=== PATIENT | male | born 1960 | race Caucasian/White ===

== ENCOUNTER → 2023-01-17 | Outpatient (CLI) | payer BC, SELFPAY ==
--- NOTE | 2023-01-17 14:52 | CT_ITS ---
STUDY: LOW DOSE CT LUNG CANCER SCREENING REASON FOR EXAM: Male, 62 years old. Patient smoked half a pack per day for 30 years. RADIATION DOSAGE (If Supplied By Facility): CTDIvol = ( 4.02 ) mGy, DLP = ( 129.38 ) mGycm TECHNIQUE: No contrast was administered. Low dose technique was utilized (average mAS-38 and kVp 120). 1.25 mm axial source images with a slice interval of 1.25-mm were reconstructed in lung windows. 2.5 mm axial source images with a slice interval of 2.5-mm were reconstructed in lung windows. 5.0 mm axial source images with a slice interval of 5.0-mm were reconstructed in soft tissue windows. COMPARISON: None. NODULES: No suspicious nodules are seen. Emphysema: Unremarkable Endobronchial lesion: Unremarkable Aorta: Mild degree of atherosclerotic plaque formation of the aortic arch. CORONARY ARTERIES: Coronary artery calcification is seen. Heart: Unremarkable Pulmonary artery: Unremarkable. Mediastinal nodes: Small mediastinal lymph nodes. Other chest and abdominal findings: CT/Low Dose CT Lung Screening IMPRESSION: Lung-RADS category 2 - Continue annual screening with LDCT in 12 months. IMPORTANT NOTES FOR USE: ACR Lung-RADS Version 1.1 Assessment Categories Release Date: 2018 Category: Coded 0-4 bases on nodule(s) with highest degree of suspicion. Negative screen is defined as categories 1 and 2; a positive screen is defined as categories 3 and 4. Category 3 and 4A nodules that are unchanged on interval CT should be coded as category 2, and individuals returned to screening in 12 months. Category 4X: Category 3 or 4 nodules with additional imaging findings that increase the suspicion of lung cancer, such as spiculation, GGN that doubles in size in 1 year, enlarged lymph notes, etc. Category Modifiers: S (significant finding unrelated to lung cancer) Electronically Signed: Nico Tovar MD at 15:23 EST ,
== END | disposition home or self-care (01) ==
LOC: CT 14:49
PROVIDERS: PCP Family Medicine; Visit Provider Nurse Practitioner Acute Care
DX: F17.210 Nicotine dependence, cigarettes, uncomplicated (principal)
CPT/HCPCS: 71271

== ENCOUNTER → 2023-01-31 | Outpatient (CLI) | payer BC, SELFPAY | END | disposition home or self-care (01) | LOC: SL 20:20 | PROVIDERS: PCP Family Medicine; Referring Provider Nurse Practitioner Acute Care; Visit Provider Nurse Practitioner Acute Care | DX: G47.33 Obstructive sleep apnea (adult) (pediatric) (principal) | CPT/HCPCS: 95811 ==

== ENCOUNTER → 2023-03-17 | Outpatient (CLI) | payer BC, SELFPAY | END | disposition home or self-care (01) | LOC: SL 11:43 | PROVIDERS: PCP Family Medicine; Visit Provider Nurse Practitioner Acute Care | DX: Z46.89 Encounter for fitting and adjustment of other specified devices (principal) ==

== ENCOUNTER → 2023-04-18 | Outpatient (CLI) | payer BC, SELFPAY | END | disposition home or self-care (01) | LOC: SL 10:40 | PROVIDERS: PCP Family Medicine; Referring Provider Nurse Practitioner Acute Care; Visit Provider Nurse Practitioner Acute Care | DX: G47.33 Obstructive sleep apnea (adult) (pediatric) (principal) ==

== ENCOUNTER → 2024-03-19 | Outpatient (CLI) | payer BC, SELFPAY ==
--- NOTE | 2024-03-19 13:25 | CT_ITS ---
STUDY: LOW DOSE CT LUNG CANCER SCREENING REASON FOR EXAM: Male, 63 years old. smoker. Patient smoked 1 pack per day for 30 years. RADIATION DOSAGE (If Supplied By Facility): CTDIvol = ( 4.02 ) mGy, DLP = ( 132.40 ) mGycm TECHNIQUE: No contrast was administered. Low dose technique was utilized (average mAS-38 and kVp 120). 1.25 mm axial source images with a slice interval of 1.25-mm were reconstructed in lung windows. 2.5 mm axial source images with a slice interval of 2.5-mm were reconstructed in lung windows. 5.0 mm axial source images with a slice interval of 5.0-mm were reconstructed in soft tissue windows. COMPARISON: Comparison is made with prior study of January 17, 2023. NODULES: Total lung nodules (excluding granulomas): No suspicious nodules are seen. Emphysema: No significant emphysematous change. Endobronchial lesion: Unremarkable Aorta: Atherosclerotic plaque formation of the aortic arch. CORONARY ARTERIES: Coronary artery calcification is seen. Heart: Unremarkable Pulmonary artery: Unremarkable Mediastinal nodes: Small mediastinal lymph nodes Other chest and abdominal findings: CT/Low Dose CT Lung Screening IMPRESSION: Lung-RADS category 2 - Continue annual screening with LDCT in 12 months. IMPORTANT NOTES FOR USE: ACR Lung-RADS Version 1.1 Assessment Categories Release Date: 2018 Category: Coded 0-4 bases on nodule(s) with highest degree of suspicion. Negative screen is defined as categories 1 and 2; a positive screen is defined as categories 3 and 4. Category 3 and 4A nodules that are unchanged on interval CT should be coded as category 2, and individuals returned to screening in 12 months. Category 4X: Category 3 or 4 nodules with additional imaging findings that increase the suspicion of lung cancer, such as spiculation, GGN that doubles in size in 1 year, enlarged lymph notes, etc. Category Modifiers: S (significant finding unrelated to lung cancer) Electronically Signed: Nico Tovar MD at 10:19 EDT ,
== END | disposition home or self-care (01) ==
LOC: CT 13:24
PROVIDERS: PCP Family Medicine; Referring Provider Nurse Practitioner Acute Care; Visit Provider Nurse Practitioner Acute Care
DX: Z12.2 Encounter for screening for malignant neoplasm of respiratory organs (principal); F17.210 Nicotine dependence, cigarettes, uncomplicated
CPT/HCPCS: 71271

== ENCOUNTER → 2024-04-05 | Outpatient (CLI) | payer BC, SELFPAY | END | disposition home or self-care (01) | LOC: SL 09:57 | PROVIDERS: PCP Family Medicine; Referring Provider Nurse Practitioner Acute Care; Visit Provider Nurse Practitioner Acute Care | DX: Z46.89 Encounter for fitting and adjustment of other specified devices (principal) ==

== ENCOUNTER → 2025-05-03 | Outpatient (CLI) | payer MEDICARE, SELFPAY ==
--- NOTE | 2025-05-03 15:10 | CT_ITS ---
PROCEDURE: LOW DOSE CT LUNG SCREENING 05/03/2025 REASON FOR EXAM: SMOKER TECHNIQUE: LOW DOSE CT LUNG SCREENING Coronal and Sagittal reconstruction series were provided. One or more dose reduction techniques were used (e.g., Automated exposure control, adjustment of the mA and/or kV according to patient size, use of iterative reconstruction technique). REFERENCE LINK: [employer] Lung-RADS RADIATION DOSE SUMMARY: CTDlvol: 3.18 mGy DLP: 105.63 mGycm COMPARISON: 03/19/2024. FINDINGS: PULMONARY NODULES: (Only nodules >3mm are reported) Nodules described below are on series 2 unless otherwise specified. Pulmonary Nodules: None. Moderate coronary artery calcifications. Mild bilateral basilar atelectatic pulmonary changes. Normal unenhanced main pulmonary artery and right and left pulmonary arteries. Normal bilateral peripheral pulmonary arteries. Normal thoracic aorta and visualized great vessels. There is no demonstrated aortic aneurysm. Normal heart and pericardium. Normal mediastinum. Normal hilar regions. Normal visualized trachea and bronchi. The remaining lungs are well expanded. Normal remaining pulmonary parenchyma. Normal pleura. Normal visualized upper abdomen. CT/Low Dose CT Lung Screening IMPRESSION: Coronary artery calcification (CAC) is is present Lung-RADS Category: 2 BENIGN (BASED ON IMAGING FEATURES OR INDOLENT BEHAVIOR). RECOMMEND 12-MONTH SCREENING LDCT. Reading [facility] [place] [id number]
--- OUTSIDE RECORDS SUMMARY | 2025-05-03 19:27 | XMS RPT_ITS | CCD ---
Author Organization [facility] Care Team Providers Care Food Service Cashier Name Role Phone Charmaine Rios Primary Care Provider PROVIDER, UNKNOWN Primary Care Unavailable PROVIDER, UNKNOWN Referring Unavailable ATTJOS HARTLEY Attending Unavaila ble PROVIDER, UNKNOWN Referring Unavailable PROVIDER, UNKNOWN Primary Care Unavailable ATTAWAJOS WILLIAMSON Attending Unavaila ble PROVIDER, UNKNOWN Primary Care Unavailable PROVIDER, UNKNOWN Referring Unavailable BELINDA ADAMES Attending Unavailable PROVIDER, UNKNOWN Primary Care Unavailable PROVIDER, UNKNOWN Referring Unavailable ATTJOS HARTLEY Attending Unavaila ble Royal JET ENGINE MECHANIC, JET ENGINE MECHANIC-C Karyn Attending Provider Royal JET ENGINE MECHANIC, JET ENGINE MECHANIC-C Karyn Attending Provider Charmaine Rios MD Primary Care Provider Baljit Hood MD Unavailable Charmaine Rios MD Primary Care Provider Baljit Hood MD Unavailable Balijt Hood MD Unavailable Dr. Charmaine Rios Primary Care Provider Dr. Charmaine Rios Referring Provider Royal JET ENGINE MECHANIC, JET ENGINE MECHANIC-C Karyn Attending Provider Charmaine Rios MD Primary Care Provid er CHARMAINE RIOS Primary Care Charmaine Guillen MD Primary Care Provider ANDREIA ORDONEZ Attending Unavailable CHARMAINE RIOS Primary Care CHARMAINE Guillen Primary Care KAROL Webb Referring Unavailable CHARMAINE RIOS Primary Care Unavailable LORA LEZAMA Attending Unavailable CHARMAINE RIOS Primary Care Unavailable LORA LEZAMA Attending Unavailable BALJIT HOOD Attending Unavailable CHARMAINE RIOS Primary Care Unavailable BALJIT HOOD Referring Unavailable CHARMAINE RIOS Primary Care Unavailable AGUILAR PARSONS Attending Unavailable AGUILAR PARSONS Admitting Unavailable ANDREIA ORDONEZ Referring Unavailable CHARMAINE IROS Primary Care Unavailable BALJIT HOOD Attending Unavailable Royal JET ENGINE MECHANIC, Karyn Referring Unavailable Royal JET ENGINE MECHANIC, Karyn Attending Unavailable Charmaine Rios Primary Care Unavailable Allergies Allergy Classification Reported Allergen(s) Allergy Type Date of Onset Reaction(s) Facility (8 sources) tamsulosin Drug Allergy 11-07-2024 Other [facility] (8 sources) Semaglutide Allergy to substance 10-17-2024 Other [facility] Medications Current Medications Medication Drug Class(es) Dates Sig (Normalized) Sig (Original) acetaminophen 325 mg / HYDROcodone bitartrate 7.5 mg oral tablet (1 source) Opioid Agonist Start: 09-04-2019 End: 09-10-2019 take 1 tablet by mouth every six hours as needed for pain HYDROcodone-acetam inophen (NORCO) 7.5-325 MG per tablet Indications: Ventral hernia without obstruction or gangrene Take 1 tablet by mouth every 6 hours as needed for Pain for up to 6 days. 24 tablet 0 09/04/2019 09/10/2019 Active 24 hr alfuzosin hydrochloride 10 mg extended release oral tablet (20 sources) alpha-Adrenergic Brit Start: 10-13-2022 End: 01-06-2024 take 1 tablet by mouth once daily alfuzosin ER (Uroxatral) 10 MG 24 hr tablet Indications: Hypertrophy of prostate with urinary obstruction Take 1 tablet (10 mg) by mouth daily. 90 tablet 3 10/29/2022 Active Start: 05-02-2020 End: 12-31-2021 take 1 tablet by mouth once daily alfuzosin (UROXATRAL) 10 MG extended release tablet Indications: Benign prostatic hyperplasia with urinary obstruction Take 1 tablet by mouth daily 90 tablet 3 10/02/2021 12/31/2021 Active Start: 07-17-2019 take 1 tablet by ilda once daily alfuzosin (UROXATRAL) 10 MG extended release tablet take 1 tablet by mouth once daily 90 tablet 3 07/17/2019 Active Start: 07-13-2018 take 1 tablet by ilda th once daily alfuzosin (UROXATRAL) 10 MG extended release tablet Take 1 tablet by mouth daily 90 tablet 3 07/13/2018 Active ascorbic acid 60 mg / beta carotene 5000 unt / copper sulfate 40 mg / dl-alpha tocopheryl acetate 30 unt / sodium selenite 0.04 mg / zinc oxide 40 mg oral tablet (6 sources) Vitamin C take 1 tablet by mouth once daily Multiple Vitamins-Minerals (THERAPEUTIC MULTIVITAMIN-MINERALS) tablet Take 1 tablet by mouth daily 0 Active benzonatate 100 mg oral capsule (3 sources) Non-narcotic Antitussive Start: 024 take 1 capsule by mouth every eight hours as needed benzonatate (TESSALON PERLE) 100 mg capsule Indications: Sinobronchitis Take 1-2 capsules by mouth every 8 hours as needed. 30 capsule 09/19/2024 Active Citric Acid (3 sources) Calculi Dissolution Agent, Anti-coagulant CITRIC ACID MISC 1 t ablet twice daily. Active citric acid 66.8 mg/ml / potassium citrate 220 mg/ml oral solution (20 sources) Calculi Dissolution Agent, Anti-coagulant Start: 021 take 1 tablet by mouth twice daily citric acid-potassium citrate (Polycitra) 1100-334 MG/5ML solution Take by mouth. 10mg tablet twice a day. Pt no longer takes as a solution. 0 10/02/2021 Active Start: 10-02-2021 citric acid-po tassium citrate (Polycitra) 1100-334 MG/5ML solution Take 10 mEq by mouth. 0 10/02/2021 Active Start: 08-19-2021 End: 12-31-2021 take 5 mL by mouth three times daily at mealtime citric acid-potassium citrate (POLYCITRA) 1100-334 MG/5ML solution Indications: Calculus, bladder Take 5 mLs by mouth 3 times daily (with meals) 473 mL 3 10/02/2021 12/31/2021 Active 1 ml diphenhydrAMINE hydrochloride 50 mg/ml cartridge (2 sources) Histamine-1 Receptor Antagonist Start: 09-29-2020 End: 09-29-2020 diphenhydrAMINE (BENADRYL) injection 12.5 mg Start: 09-04-2019 End: 09-04-2019 diphenhydrAMINE (BENADRYL) i njection 12.5 mg doxycycline monohydrate 100 mg oral capsule (3 sources) Tetracycline-class Drug Start: 09-19-2024 End: 09-29-2024 take 1 capsule by mouth twice daily doxycycline monohydrate (MONODOX) 100 mg capsule Indications: Sinobronchitis Take 1 capsule by mouth two times a day for 10 days. 20 capsule 09/19/2024 09/29/2024 Active ezetimibe 10 mg / simvastatin 40 mg oral tablet (20 sources) HMG-CoA Reductase Inhibitor, Dietary Cholesterol Absorption Inhibitor Start: 11-15-2016 End: 09-04-2019 take 1 tablet by mouth once daily ezetimibe-simvastat in (Vytorin) 10-40 MG tablet Take 1 tablet by mouth Nightly. 11/15/2016 Active flecainide acetate 100 mg oral tablet (3 sources) Antiarrhythmic Start: 08-20-2021 take 1 tablet by mouth every twelve hours flecainide (TAMBOCOR) 100 MG tablet Take 1 tablet by mouth every 12 hours 60 tablet 3 08/20/2021 Active Start: 08-18-2021 take 1 tablet by ilda th every twelve hours flecainide (TAMBOCOR) 50 MG tablet Take 1 tablet by mouth every 12 hours 60 tablet 3 08/18/2021 Active Start: 08-18-2021 flecainide (TA MBOCOR) tablet 50 mg fluocinolone acetonide 0.1 mg/ml otic solution (9 sources) Corticosteroid Start: 06-12-2019 fluocinolone (DERMOTIC) 0.01 % OIL oil Place 3 drops in ear(s) as needed 0 06/12/2019 Active 1 ml hydrALAZINE hydrochloride 20 mg/ml injection (2 sources) Arteriolar Vasodilator Start: 09-29-2020 hydrALA ZINE (APRESOLINE) injection 5 mg Start: 09-04-2019 hydrALAZINE (A PRESOLINE) injection 5 mg 1 ml HYDROmorphone hydrochloride 1 mg/ml cartridge (6 sources) Opioid Agonist Start: 09-29-2020 HYDROmorphone (DILAUDID) injection 0.25 mg Start: 09-29-2020 HYDROmorphone (DILAUDID) injection 0.5 mg Start: 09-04-2019 HYDROmorphone (DILAUDID) injection 0.25 mg Start: 09-04-2019 HYDROmorphone (DILAUDID) injection 0.5 mg Start: 09-04-2019 HYDROmorphone (DILAUDID) injection 1 mg 4 ml labetalol hydrochloride 5 mg/ml cartridge (2 sources) beta-Adrenergic Brit Start: 09-29-2020 labetalol (NORMODYNE;TRANDATE) injection 5 mg Start: 09-04-2019 labetalol (NOR MODYNE;TRANDATE) injection 5 mg 10 ml lidocaine hydrochloride 10 mg/ml injection (2 sources) Antiarrhythmic, Amide Local Anesthetic Start: 09-29-2020 End: 09-29-2020 lidocaine PF 1 % injection 1 mL Start: 09-04-2019 End: 09-04-2019 lidocaine PF 1 % injection 1 mL 1 ml meperidine hydrochloride 25 mg/ml cartridge (2 sources) Opioid Agonist Start: 09-29-2020 meperidine (DE MEROL) injection 12.5 mg Start: 09-04-2019 meperidine (DE MEROL) injection 12.5 mg metFORMIN hydrochloride 500 mg oral tablet (20 sources) Biguanide Start: 12-20-2022 End: 09-09-2023 take 1 tablet by mouth at dinner metFORMIN (Glucophage) 500 MG tablet TAKE 1 TABLET BY MOUTH at dinner meal 12/20/2022 Active take 1 tablet by ilda th once daily at dinner metFORMIN ER (GLUMETZA) 500 mg 24 hr tab let Take 500 mg by mouth daily with dinner. Active Multiple Vitamins-Minerals (THERAPEUTIC MULTIVITAMIN-MINERALS) tablet (4 sources) take 1 tablet by mouth once daily Multiple Vitamins-Minerals (THERAPEUTIC MULTIVITAMIN-MINERALS) tablet Take 1 tablet by mouth daily 0 Active Multivitamin preparation (4 sources) Start: 12-29-19 take 1 tablet by mouth once daily Multivitamin Active 1 TABLET PO DAILY December 29, 2022 1:00am Start: 12-29-2022 take 1 tablet by ilda th once daily Multivitamin Active 1 TABLET PO DAILY December 29, 2022 12:00am 2 ml ondansetron 2 mg/ml injection (2 sources) Serotonin-3 Receptor Antagonist Start: 09-29-2020 End: 09-29-2020 ondansetron (ZOFRAN) injection 4 mg Start: 09-04-2019 End: 09-04-2019 ondansetron (ZOFRAN) injecti on 4 mg 24 hr oxybutynin chloride 10 mg extended release oral tablet (20 sources) Cholinergic Muscarinic Antagonist Start: 10-13-2022 End: 01-06-2024 take 1 tablet by mouth once daily in the morning oxybutynin XL (Ditropan-XL) 10 MG 24 hr tablet Indications: Hypertrophy of prostate with urinary obstruction Take 1 tablet (10 mg) by mouth daily. Take 1 tablet by mouth in the morning. 90 tablet 3 10/29/2022 Active Start: 10-02-2021 take 1 tablet by ilda th once daily oxybutynin (DITROPAN-XL) 10 MG extended release tablet Indications: Benign prostatic hyperplasia with urinary obstruction TAKE 1 TABLET BY MOUTH EVERY DAY 90 tablet 3 10/02/2021 Active Start: 09-09-2020 take 1 tablet by ilda th once daily oxybutynin (DITROPAN-XL) 10 MG extended release tablet Indications: Benign prostatic hyperplasia with urinary obstruction take 1 tablet by mouth once daily 90 tablet 3 09/09/2020 Active Start: 06-12-2020 take 1 tablet by ilda th once daily oxybutynin (DITROPAN-XL) 10 MG extended release tablet take 1 tablet by mouth once daily 90 tablet 3 06/12/2020 Active Start: 06-14-2019 take 1 tablet by ilda th once daily oxybutynin (DITROPAN-XL) 10 MG extended release tablet take 1 tablet by mouth once daily 90 tablet 3 06/14/2019 Active phenazopyridine hydrochloride 200 mg delayed release oral tablet (4 sources) Start: 09-09-2023 End: 09-12-2023 take 1 tablet by mouth three times daily phenazopyridine (Pyridium) 200 MG tablet Take 1 tablet (200 mg) by mouth 3 times daily for 3 days. 10 tablet 0 09/09/2023 09/12/2023 Active Start: 09-08-2023 End: 09-09-2023 take 100 mg by mouth three times daily at mealtime 100 mg, Oral, 3 times daily with meals, First dose on Phyllis 09/08/23 at 1845, Recovery & On Unit Start: 09-29-2020 End: 10-02-2020 take 1 tablet by mouth three times daily as needed for pain phenazopyridine (PYRIDIUM) 200 MG tablet Take 1 tablet by mouth 3 times daily as needed for Pain 9 tablet 0 09/29/2020 10/02/2020 Active Start: 09-17-2020 End: 09-22-2020 take 2 tablets by mouth three times daily as needed for pain phenazopyridine (PYRIDIUM) 100 MG tablet Indications: Dysuria Take 2 tablets by mouth 3 times daily as needed for Pain 15 tablet 0 09/17/2020 09/22/2020 1 ml promethazine hydrochloride 25 mg/ml injection (2 sources) Phenothiazine Start: 09-29-2020 End: 09-29-2020 promethazine (PHENERGAN) injection 6.25 mg Start: 09-04-2019 End: 09-04-2019 promethazine (PHENERGAN) inj ection 6.25 mg sotalol hydrochloride 120 mg oral tablet (20 sources) Antiarrhythmic Start: 12-29-2022 End: 09-05-2023 take 120 mg by mouth twice daily Sotalol Discontinued 120 MG PO TWICE A DAY December 29, 2022 1:00am September 05, 2023 10:21am Start: 08-04-2022 End: 03-18-2023 take 1 tablet by mouth every twelve hours sotalol (Betapace) 120 MG tablet TAKE 1 TABLET BY MOUTH EVERY 12 HOURS 180 tablet 0 01/10/2023 Active Start: 01-19-2022 take 1 tablet by ilda th every twelve hours sotalol (BETAPACE) 120 MG tablet Take 1 tablet by mouth every 12 hours 180 tablet 1 01/19/2022 Active Start: 09-11-2021 take 1 tablet by ilda th every twelve hours sotalol (BETAPACE) 120 MG tablet Take 1 tablet by mouth every 12 hours 180 tablet 1 09/11/2021 Active sulfamethoxazole 800 mg / trimethoprim 160 mg oral tablet (2 sources) Dihydrofolate Reductase Inhibitor Antibacterial, Sulfonamide Antimicrobial Start: 09-17-2020 End: 09-27-2020 take 1 tablet by mouth twice daily sulfamethoxazole-trimethoprim (BACTRIM DS) 800-160 MG per tablet Indications: Chronic prostatitis Take 1 tablet by mouth 2 times daily for 10 days 20 tablet 0 09/17/2020 09/27/2020 Active Start: 09-04-2019 End: 09-09-2019 take 1 tablet by mouth twice daily sulfamethoxazole-trimethoprim (BACTRIM D S) 800-160 MG per tablet Take 1 tablet by mouth 2 times daily for 5 days 10 tablet 0 09/04/2019 09/09/2019 Active varenicline 0.5 mg oral tablet (2 sources) Partial Cholinergic Nicotinic Agonist Start: 09-23-2021 varenicline (CHANTIX STARTING MONTH ) 0.5 MG X 11 & 1 MG X 42 tablet Take by mouth. 1 box 0 09/23/2021 Active Start: 09-23-2021 take 1 tablet by ilda th twice daily varenicline (CHANTIX CONTINUING MONTH ) 1 MG tablet Take 1 tablet by mouth 2 times daily 60 tablet 3 09/23/2021 Active Completed/Discontinued Medications Medication Drug Class(es) Dates Sig (Normalized) Sig (Original) acetaminophen 325 mg oral tablet (8 sources) Start: 09-08-2023 End: 09-09-2023 take 1 tablet by mouth every four hours as needed for pain 650 mg, Oral, Every 4 hours PRN, mild pain (1-3), Pain (1-10), Starting on Phyllis 09/08/23 at 1835, Phase II/On Unit, Give in addition to any other pain medication ordered at same time for any pain indication. Start: 09-08-2023 End: 09-08-2023 acetaminophen (Tylenol) tabl et 1,000 mg Start: 03-30-2023 End: 03-30-2023 acetaminophen (Tylenol) tabl et 1,000 mg Start: 11-30-2022 End: 11-30-2022 take 1 tablet by mouth every four hours as needed for pain acetaminophen (Tylenol) tablet 650 mg Start: 09-29-2020 End: 09-29-2020 acetaminophen (TYLENOL) tabl et 1,000 mg Start: 09-04-2019 End: 09-04-2019 acetaminophen (TYLENOL) tabl et 1,000 mg ALPRAZolam 0.25 mg disintegrating oral tablet (3 sources) Benzodiazepine Start: 09-08-2023 End: 09-08-2023 ALPRAZolam (Xanax) disintegrating tablet 0.25 mg Start: 09-29-2020 ALPRAZolam (NI RAVAM) dissolvable tablet 0.25 mg Start: 09-04-2019 ALPRAZolam (NI RAVAM) dissolvable tablet 0.25 mg apixaban 5 mg oral tablet (20 sources) Factor Xa Inhibitor Start: 11-08-2024 End: 04-03-2025 take 1 tablet by mouth twice daily apixaban (Eliquis) 5 MG tablet Indications: Atrial fibrillation with RVR (HCC) Take 1 tablet (5 mg) by mouth 2 times daily. 180 tablet 3 12/05/2024 04/03/2025 Discontinued Start: 02-14-2024 End: 03-23-2024 take 1 tablet by mouth twice daily Apixaban (Eliquis) 5 mg tablet Active 5 MG PO TWICE A DAY March 22, 2024 12:00am Start: 12-30-2022 End: 09-05-2023 take 1 tablet by mouth once Apixaban (Eliquis) 5 mg ta blet Discontinued 5 MG PO ONCE December 30, 2022 1:00am September 05, 2023 10:20am Start: 09-28-2022 End: 03-18-2023 take 1 tablet by mouth in the morning Eliquis 5 MG tablet Indications: Paroxysmal atrial fibrillation (CMS/HCC) (HCC) Take 1 tablet (5 mg) by mouth in the morning and 1 tablet (5 mg) before bedtime. 180 tablet 3 12/15/2022 Active Start: 07-02-2021 take 1 tablet by ilda th twice daily ELIQUIS 5 MG TABS tablet Indications: Anticoagulated , Paroxysmal atrial fibrillation (HCC) take 1 tablet by mouth twice a day 180 tablet 3 07/02/2021 Active Start: 06-18-2021 take 1 tablet by ilda th twice daily ELIQUIS 5 MG TABS tablet take 1 tablet by mouth twice a day 0 06/18/2021 Active aspirin 81 mg oral tablet (2 sources) Platelet Aggregation Inhibitor, Nonsteroidal Anti-inflammatory Drug Start: 02-19-2019 End: 08-29-2019 take 1 tablet by mouth once daily aspirin 81 MG tablet Take 1 tablet by mouth daily 30 tablet 3 02/19/2019 08/29/2019 Discontinued (LIST CLEANUP) bacitracin 0.5 unt/mg topical ointment (1 source) Start: 09-08-2023 End: 09-09-2023 Topical, Every 4 hours PRN, wound care, Meatal irritation, Starting on Phyllis 09/08/23 at 1835, Phase II/On Unit, May administer BID and PRN for urethral meatus care. 24 hr buPROPion hydrochloride 150 mg extended release oral tablet (8 sources) Aminoketone End: 09-29-2020 take 1 tablet by mouth once daily in the morning buPROPion (WELLBUTRIN XL) 150 MG extended release tablet Take 150 mg by mouth every morning 0 09/29/2020 Discontinued calcium chloride 0.0014 meq/ml / potassium chloride 0.004 meq/ml / sodium chloride 0.103 meq/ml / sodium lactate 0.028 meq/ml injectable solution (5 sources) Start: 09-08-2023 End: 09-08-2023 lactated Ringer's (LR) infusion Start: 03-30-2023 End: 03-30-2023 lactated Ringer's (LR) infus ion Start: 09-29-2020 lactated ringe rs infusion Start: 09-04-2019 lactated ringe rs infusion cefTRIAXone (Rocephin) 1,000 mg in sodium chloride 0.9 % 50 mL IVPB Mini-Bag Plus (1 source) Start: 09-09-2023 End: 09-09-2023 1,000 mg, IntraVENous, at 100 mL/hr, Administer over 30 Minutes, Every 24 hours, First dose on Tue09/09/23 at 0900, For 1 dose, Phase II/On Unit, Mini-Bag Plus bag, Suspected Indication (Select all that apply): Surgical Prophylaxis dilTIAZem (Cardizem) infusion 125 mg in 0.9% sodium chloride 125 mL (premix) (2 sources) Start: 11-07-2024 End: 11-08-2024 2.5-15 mg/hr (2.5-15 mL/hr), IntraVENous, Continuous, Starting on Tue11/07/24 at 1735, If Titrate Infusion? is No: Disregard instructions below. If Titrate infusion? is Yes: Titrate in increments of 2.5 mg/hr no more frequently than every 30 minutes to goal of therapy., Titrate Infusion? Yes, Initial Infusion Dose: 5 mg/hr, Goal of Therapy is: HR less than 100 bpm, Other: Start at 5mg/hr, HOLD for: SBP less than 90 mmHg 0.8 ml enoxaparin sodium 150 mg/ml prefilled syringe (1 source) Low Molecular Weight Heparin Start: 08-18-2021 End: 08-18-2021 enoxaparin (LOVENOX) injection 105 mg Start: 08-18-2021 End: 08-18-2021 enoxaparin (LOVENOX) injecti on 105 mg ezetimibe (3 sources) Dietary Cholesterol Absorption Inhibitor Start: 11-07-2024 End: 11-08-2024 ezetimibe (Zetia) tablet 10 mg Start: 09-08-2023 End: 09-09-2023 ezetimibe (Zetia) tablet 10 mg famotidine 20 mg oral tablet (5 sources) Histamine-2 Receptor Antagonist Start: 09-08-2023 End: 09-08-2023 famotidine (Pepcid) tablet 20 mg Start: 03-30-2023 End: 03-30-2023 famotidine (Pepcid) tablet 2 0 mg Start: 09-29-2020 End: 09-29-2020 famotidine (PEPCID) tablet 2 0 mg Start: 09-04-2019 End: 09-04-2019 famotidine (PEPCID) tablet 2 0 mg 2 ml fentaNYL 0.05 mg/ml injection (3 sources) Opioid Agonist Start: 09-08-2023 End: 09-08-2023 fentaNYL (Sublimaze) injection 50 mcg Start: 09-29-2020 fentaNYL (SUBL IMAZE) injection 50 mcg Start: 09-29-2020 fentaNYL (SUBL IMAZE) injection 25 mcg gabapentin 100 mg oral capsule (4 sources) Anti-epileptic Agent Start: 09-08-2023 End: 09-08-2023 gabapentin (Neurontin) capsule 100 mg Start: 03-30-2023 End: 03-30-2023 gabapentin (Neurontin) capsu le 100 mg Start: 09-29-2020 End: 09-29-2020 gabapentin (NEURONTIN) capsu le 100 mg gadobenate dimeglumine (MULTIHANCE) injection 20 mL (1 source) Start: 02-01-2020 End: 02-01-2020 gadobenate dimeglumine (MULTIHANCE) injection 20 mL gadobutrol (GADAVIST) injection 10 mL (1 source) Start: 06-29-2021 End: 06-29-2021 gadobutrol (GADAVIST) injection 10 mL gadobutrol (Gadavist) injection 10 mL (2 sources) Start: 02-22-2023 End: 02-22-2023 gadobutrol (Gadavist) injection 10 mL 250 ml heparin sodium, porcine 100 unt/ml injection (4 sources) Unfractionated Heparin, Anti-coagulant Start: 11-07-2024 End: 11-08-2024 5-30 Units/kg/hr 104 kg (5.2-31.2 mL/hr), IntraVENous, Continuous, Starting on Tue11/07/24 at 1745, LOW Dose Heparin Weight Based Dosing (CAD/STEMI/NSTEMI/PARUL B/ECMO) >>>>Initial dose: 9 units/kg/hr 95.9 Hold heparin for 60 min Decrease infusion by 2 units/kg/hr - notify prescriber; Check aPTT: 6 hours after initiation and 6 hours after every dose change - every 12 hrs x 1 day after 2 consecutive therapeutic aPTT - daily after every 12 hrs x 1 day is complete. Start: 11-07-2024 End: 11-08-2024 2,000 Units, IntraVENous, As needed, heparin dosing algorithm, Starting on Tue11/07/24 at 1743, Half dose re-bolus based on pharmacy algorithm hyoscyamine sulfate 0.125 mg sublingual tablet (1 source) Start: 09-08-2023 End: 09-09-2023 take 1 tablet under the tongue every four hours as needed for muscle spasms 125 mcg, SubLINGual, Every 4 hours PRN, bladder spasms, Starting on Phyllis 09/08/23 at 1835, Phase II/On Unit Insulin Lispro (Humalog) injection 0-6 Units (2 sources) Start: 11-08-2024 End: 11-08-2024 Insulin Lispro (Humalog) injection 0-6 Units iopamidol (Isovue-370) 76 % injection 75 mL (2 sources) Start: 05-02-2023 End: 05-02-2023 iopamidol (Isovue-370) 76 % injection 75 mL 24 hr metoprolol succinate 25 mg extended release oral tablet (20 sources) beta-Adrenergic Brit Start: 11-09-2024 End: 12-05-2025 take 1 tablet by mouth once daily metoprolol succinate XL (Toprol-XL) 25 MG 24 hr tablet Take 1 tablet (25 mg) by mouth daily. Do not crush or chew. 90 tablet 3 12/05/2024 04/03/2025 Discontinued Start: 11-07-2024 End: 11-08-2024 take 25 mg by mouth twice daily 25 mg, Oral, 2 times d aily, First dose on Tue11/07/24 at 2100 Start: 02-14-2024 End: 03-23-2024 take 50 mg by mouth twice daily Metoprolol Tartrate Ac tive 50 MG PO TWICE A DAY March 22, 2024 12:00am Start: 08-18-2021 take 1 tablet by ilda th twice daily metoprolol (LOPRESSOR) 25 MG tablet Take 1 tablet by mouth 2 times daily 180 tablet 2 08/18/2021 Active Start: 08-04-2021 End: 08-18-2021 take 1 tablet by mouth twice daily metoprolol (LOPRESSOR) 100 MG tablet Take 1 tablet by mouth 2 times daily 180 tablet 1 08/04/2021 08/18/2021 Discontinued (REORDER) Start: 02-19-2019 take 1 tablet by ilda th twice daily metoprolol tartrate (LOPRESSOR) 25 MG tablet Take 1 tablet by mouth 2 times daily 60 tablet 3 02/19/2019 Active take 1 tablet by ilda th twice daily metoprolol tartrate (LOPRESSOR) 50 MG tablet Take 50 mg by mouth 2 times daily 0 Active ondansetron ODT (Zofran-ODT) disintegrating tablet 4 mg (1 source) Start: 09-08-2023 End: 09-09-2023 take 1 tablet by mouth every eight hours as needed for nausea and vomiting ondansetron ODT (Zofran-ODT) disintegrating tablet 4 mg oxyCODONE hydrochloride 5 mg oral tablet (3 sources) Opioid Agonist Start: 09-08-2023 End: 09-09-2023 take 1 tablet by mouth every four hours as needed for pain and pain 5 mg, Oral, Every 4 hours PRN, moderate pain (4-6), severe pain (7-10), Starting on Phyllis 09/08/23 at 1835, Phase II/On Unit Start: 09-29-2020 End: 09-29-2020 oxyCODONE (ROXICODONE) immed iate release tablet 5 mg Start: 09-04-2019 End: 09-04-2019 oxyCODONE (ROXICODONE) immed iate release tablet 5 mg pantoprazole 40 mg delayed release oral tablet (12 sources) Proton Pump Inhibitor Start: 11-30-2022 End: 11-30-2023 take 40 mg by mouth once daily Pantoprazole Discontinued 40 MG PO DAILY December 30, 2022 1:00am September 05, 2023 10:21am perflutren lipid microspheres (DEFINITY) injection 1.65 mg (1 source) Start: 08-18-2021 End: 08-18-2021 perflutren lipid microspheres (DEFINITY) injection 1.65 mg perflutren protein A microsphere ([facility]) 3 mL in sodium chloride (PF) 0.9 % 10 mL IV syringe (2 sources) Start: 11-08-2024 End: 11-08-2024 0-10 mL, IntraVENous, IMG once PRN, other, Suboptimal echo image, Starting on Phyllis 11/08/24 at 0711, For 1 dose, CV Procedural Medications, Administer via slow IVP for suboptimal echocardiogram enhancement. May administer as divided doses to reach optimal image enhancement polyethylene glycol 3350 [id number] mg powder for oral solution (1 source) Osmotic Laxative Start: 09-08-2023 End: 09-09-2023 take 17 g by mouth every twenty-four hours as needed for constipation 17 g, Oral, Daily PRN, constipation, Starting on Phyllis 09/08/23 at 1835, Phase II/On Unit, 1st line for treatment of constipation - give scheduled if no bowel movement in past 24 hours. potassium citrate 10 meq extended release oral tablet (20 sources) Start: 11-08-2024 End: 11-08-2024 10 mEq, Oral, 3 times daily with meals, First dose (after last modification) on Phyllis 11/08/24 at 1200, Do not crush, chew, or split. Start: 07-09-2024 End: 01-03-2025 take 1 tablet by mouth twice daily at mealtime potassium citrate CR (Urocit-K-15) 15 mEq ER tablet Indications: History of urinary calculi Take 1 tablet (15 mEq) by mouth 2 times daily (with meals). 180 tablet 3 10/05/2024 01/03/2025 Active Start: 12-29-2022 take 1 tablet by ilda th twice daily at mealtime potassium citrate CR (Urocit-K-15) 15 mEq ER tablet TAKE 1 TABLET BY MOUTH TWICE DAILY with meals 180 tablet 0 01/10/2023 Active Start: 01-08-2022 take 1 tablet by ilda th twice daily at mealtime Potassium Citrate ER 15 MEQ (1620 MG) TBCR Indications: High uric acid in 24 hour urine specimen take 1 tablet by mouth twice a day with meals 60 tablet 5 01/08/2022 Active Start: 01-07-2021 take 1 tablet by ilda th twice daily at mealtime Potassium Citrate ER 15 MEQ (1620 MG) TBCR Indications: High uric acid in 24 hour urine specimen Take 15 mEq by mouth 2 times daily (with meals) 60 tablet 5 01/07/2021 Active potassium citrat e CR (Urocit-K-15) 15 MEQ (1620 MG) ER tablet Take 15 mEq by mouth Once. Active 20 ml propofol 10 mg/ml injection (6 sources) General Anesthetic Start: 11-08-2024 End: 11-08-2024 IntraVENous, Code/trauma/sedation medication, Starting on Phyllis 11/08/24 at 1140 Start: 11-08-2024 End: 11-08-2024 Starting on Phyllis 11/08/24 at 1142, For 1 dose, Chloe Marie: cabinet override General Anesthetic - do not give without appropriate ventilation support. semaglutide 7 mg oral tablet (5 sources) Start: 01-04-2024 End: 10-05-2024 Rybelsus 7 MG tablet 024 10/05/2024 Discontinued (Therapy completed) 5 ml sodium chloride 9 mg/ml injection (19 sources) Start: 09-08-2023 End: 09-09-2023 10 mL, IntraVENous, Every 12 hours scheduled (2 times per day), First dose on Phyllis 09/08/23 at 2100, Phase II/On Unit Start: 09-08-2023 End: 09-09-2023 3,000 mL, Irrigation, Continuous, Starting on Phyllis 09/08/23 at 1845, Recovery & On Unit Start: 09-08-2023 End: 09-09-2023 take 50 mL intravenously every hour 50 mL/hr, IntraVEN ous, Continuous, Starting on Phyllis 09/08/23 at 1845, Phase II/On Unit Start: 09-08-2023 End: 09-09-2023 take 100 mL intravenously every hour as needed, then take 20 mL intravenously every hour as needed 5-250 mL/hr, IntraVENous, PRN, if patient receiving piggyback infusions and maintenance fluids are not ordered OR KVO fluids to protect IV site / prevent frequent line interruptions/ long duration, Starting on Phyllis 09/08/23 at 1835, Phase II/On Unit, For piggyback infusion, administer at same rate as piggyback for a total of 25 mL. Enter 25 mL into dose field and piggyback rate into rate field of order. If piggyback is infusing at a rate less than 100 mL/hr, enter 25 mL into dose field and 100 mL/hr into rate field of order. For KVO fluids, enter rate of 20 mL/hr or less into rate field of order. Start: 09-08-2023 End: 09-09-2023 take 10 mL intravenously once as needed 10 mL, IntraVENous, PRN, line care, Starting on Phyllis 09/08/23 at 1835, Phase II/On Unit, After every IV line use Start: 08-25-2021 sodium chlorid e flush 0.9 % injection 5-40 mL Start: 08-25-2021 0.9 % sodium c hloride infusion Start: 08-25-2021 sodium chlorid e flush 0.9 % injection 5-40 mL Start: 08-18-2021 0.9 % sodium c hloride infusion Start: 08-18-2021 sodium chlorid e flush 0.9 % injection 5-40 mL Start: 09-29-2020 sodium chlorid e flush 0.9 % injection 10 mL Start: 09-04-2019 sodium chlorid e flush 0.9 % injection 10 mL Problems Active Problems Problem Classification Problem Date Documented Date Episodic/Chronic Alcohol-related disorders (4 sources) Alcohol abuse; Translations: [Alcohol abuse, uncomplicated] Onset: 11-28-2024 11-27-2024 Chronic Cardiac dysrhythmias (20 sources) Atrial fibrillation with rapid ventricular response; Translations: [Unspecified atrial fibrillation] Onset: 02-17-2019 Resolved: 01-13-2023 02-17-2019 Chronic Chronic obstructive pulmonary disease and bronchiectasis (1 source) Bronchitis, not specified as acute or chronic; Translations: [Sinobronchitis] Onset: 09-26-2024 Episodic Diabetes mellitus without complication (2 sources) Type 2 diabetes mellitus without complication; Translations: [Type 2 diabetes mellitus without complications] 04-28-2023 Chronic Disorders of lipid metabolism (20 sources) Mixed hyperlipidemia; Translations: [Mixed hyperlipidemia] Onset: 06-25-2021 06-25-2021 Chronic Genitourinary symptoms and ill-defined conditions (20 sources) Urge incontinence of urine; Translations: [Urge incontinence] Onset: 07-13-2018 07-13-2018 Chronic Hyperplasia of prostate (20 sources) Benign prostatic hyperplasia; Translations: [Benign prostatic hypertrophy with outflow obstruction] Onset: 05-03-2017 05-03-2017 Chronic Other diseases of kidney and ureters (1 source) Disorder of urinary tract; Translations: [Other obstructive and reflux uropathy] 09-08-2023 Episodic Other nutritional; endocrine; and metabolic disorders (20 sources) Obesity; Translations: [Other obesity due to excess calories] Onset: 06-25-2021 06-25-2021 Chronic Other nutritional; endocrine; and metabolic disorders (3 sources) Obesity, unspecified; Translations: [Obesity, unspecified] 12-30-2022 Chronic Other nutritional; endocrine; and metabolic disorders (20 sources) Obesity caused by energy imbalance; Translations: [Other obesity due to excess calories] Onset: 06-25-2021 08-27-2022 Chronic Other upper respiratory infections (3 sources) Chronic sinusitis; Translations: [Chronic sinusitis, unspecified] Onset: 09-26-2024 09-19-2024 Chronic Residual codes; unclassified (20 sources) Obstructive sleep apnea syndrome; Translations: [Obstructive sleep apnea (adult) (pediatric)] Onset: 06-25-2021 06-25-2021 Chronic Residual codes; unclassified (8 sources) Obstructive sleep apnea (adult) (pediatric); Translations: [Obstructive sleep apnea (adult)(pediatric)] Onset: 08-25-2021 Chronic Spondylosis; intervertebral disc disorders; other back problems (4 sources) Degeneration of lumbar intervertebral disc; Translations: [Other intervertebral disc degeneration, lumbar region] 12-29-2022 Chronic Substance-related disorders (20 sources) Smoker; Translations: [Nicotine dependence, unspecified, uncomplicated] Onset: 06-25-2021 06-25-2021 Chronic Unclassified (2 sources) Other persistent atrial fibrillation; Translations: [Other persistent atrial fibrillation] Onset: 08-25-2021 Past or Other Problems Problem Classification Problem Date Documented Date Episodic/Chronic Abdominal hernia (20 sources) Hernia of anterior abdominal wall; Translations: [Ventral hernia without obstruction or gangrene] Onset: 02-01-2017 02-01-2017 Episodic Calculus of urinary tract (20 sources) Urinary bladder stone; Translations: [Calculus in bladder] Onset: 09-13-2020 09-13-2020 Episodic Diabetes mellitus without complication (6 sources) Prediabetes; Translations: [Prediabetes] Onset: 08-25-2021 Episodic Genitourinary symptoms and ill-defined conditions (20 sources) Nocturia; Translations: [Increased frequency of urination] Onset: 05-03-2017 05-03-2017 Episodic Other aftercare (20 sources) Drug therapy finding; Translations: [terminal computer operator (current) use of anticoagulants] Onset: 06-25-2021 Resolved: 09-28-2022 06-25-2021 Episodic Other aftercare (2 sources) terminal computer operator (current) use of anticoagulants; Translations: [terminal computer operator (current) use of anticoagulants] Onset: 08-25-2021 Episodic Other aftercare (1 source) Taking high risk medication; Translations: [Other intermediate project manager (current) drug therapy] Episodic Other aftercare (1 source) Long-term current use of anticoagulant; Translations: [terminal computer operator (current) use of anticoagulants] Episodic Other diseases of kidney and ureters (14 sources) Cyst of kidney; Translations: [Cyst of kidney, acquired] Onset: 01-06-2024 01-06-2024 Episodic Other male genital disorders (20 sources) Atypical small acinar proliferation of prostate; Translations: [Atypical small acinar proliferation of prostate] Onset: 12-11-2022 12-11-2022 Episodic Other screening for suspected conditions (not mental disorders or infectious disease) (20 sources) Raised prostate specific antigen; Translations: [Elevated prostate specific antigen [PSA]] Onset: 05-03-2017 05-03-2017 Episodic Residual codes; unclassified (2 sources) Other problems related to lifestyle; Translations: [Other problems related to lifestyle] Onset: 08-25-2021 Episodic Residual codes; unclassified (2 sources) Family history of other diseases of the respiratory system; Translations: [Family history of other diseases of the respiratory system] Onset: 08-25-2021 Episodic Residual codes; unclassified (2 sources) Family history of epilepsy and other diseases of the nervous system; Translations: [Family history of epilepsy and oth dis of the nervous sys] Onset: 08-25-2021 Episodic Residual codes; unclassified (18 sources) Postoperative state; Translations: [Other specified postprocedural states] Onset: 09-08-2023 09-08-2023 Episodic Urinary tract infections (20 sources) Acute cystitis; Translations: [Acute cystitis without hematuria] Onset: 10-06-2021 10-06-2021 Episodic Results Test Name Value Interpretation Reference Range Facility ECG 12 lead - CLINIC PERFORM EDon 04-03-2025 Sinus Rhythm WITHIN NORMAL LIMITS [facility] Office Visiton 04-03-2025 Follow-up visit [id number] KevinKeith bernabe malcolm Gordon 1960 M Date Provider Department Center 04/03/2025 LORA LÓPEZ [facility] YENNI None Family History Problem Relation Age of Onset Alzheimer's disease Mother COPD Father Family Status - Relation Status Age at Mother Father Sister Level of Service:56534 [place] OFFICE/OUTPATIENT ESTABLISHED MOD MDM 30 MIN Reason for Visit and Comments: Atrial Fibrillation [80] - PAF 1-17-23 PVI Sleep Apnea [348] Hyperlipidemia [182] Normal [facility] Progress Noteon 04-03-2025 Progress Note [facility] [place] [facility]Electrophysiol [facility]gy Follow Up Clinic Note Chief Complaint: Chief Complaint Patient presents with Atrial Fibrillation PAF 1-17-23 PVI Sleep Apnea Hyperlipidemia History of Present Illness: Khalida Lewisnicollejames is a 64 y.o. male whom I met in the hospital in Oct 2024 when he presented with rapid AFib. He was SOB/dizzy and his Apple Watch alerted him to a rapid HR. He underwent NATALEE/CVN. The patient followed with Dr. Sorensen. He was diagnosed with a fib in 2020. He was started on eliquis and had 2 CVN and was on flecainide for a period. He had recurrent episodes of a fib and he was switched to sotalol. He underwent a PVI in 11/2022. He was on sotalol post PVI until 04/05 and at that time his eliquis was stopped. He did well until 02/2024 when he had pneumonia and had A.fib w RVR. H was started on amio, had a CVN and the amio was stopped. He returns today feeling well. He denies recurrent palpitation, chest pain, shortness of breath, dizziness, or syncope. His Apple Watch has recorded normal heart rates. He checks a rhythm strip every day. He has been trying to curtail his alcohol use. He exercises routinely without symptoms. Today he really would like to stop the Eliquis and the metoprolol. An EKG today shows normal sinus rhythm. The NATALEE in Oct 2024 showed an LVEF of 65% with a mildly dilated LA. Assessment and Plan: 1. Persistent Atrial Fibrillation: He has had 2 recurrences since his PVI in 2022, one in January 2024 in [place] and one in Oct. He is on no antiarrhythmic as he has been already on flecainide and sotalol unsuccessfully. He is a little young to start amiodarone indefinitely. If needed, we could try dofetilide or a repeat ablation. As far as OAC, his [id number] 2 score is 2 and he should be on OAC indefinitely, but he is reluctant to taking it and would like to stop it. We discussed the risks and benefits including the possibility of asymptomatic A-fib episodes. We will stop it today along with the metoprolol. He has never had a history of high blood pressure 2. Alcohol Use: He probably drinks a little more than he should. We spoke about moderation and the fact that alcohol may play a role in his A-fib bouts. 3. Diabetes: He is on metformin. His hemoglobin A1c is 6.7.. 4. HARSHA/obesity: We spoke about diet and exercise. He is doing a good job of exercising. His BMI is 35. He could not tolerate a CPAP mask Past Medical History: Medical History[1] Past Surgical History Surgical History[2] Family History Family History[3] Social History Social History[4] Medications: Reviewed Allergies: Reviewed Review of Systems: All other systems were reviewed and are negative other than as noted in the HPI. Physical Examination: Vitals: Blood pressure 130/80, pulse 80, height 5' 10 (1.778 m), weight 242 lb 9.6 oz (110 kg), SpO2 96%. Constitutional: Appears well kept and looks stated age; in NAD Psychiatric: A &O x3 Mood is pleasant; Affect is appropriate Musculoskeletal: Normocephalic; no joint swelling; gait steady; 5/5 muscle strength bilaterally in upper and lower extremities; no clubbing or cyanosis HEENT: Pupils are equal and round; Conjunctiva are not injected; Sclera are non-icteric; Airway and Nares are patent; Ears without external abnormalities. Mucosa is pink; Dentition is normal Neck: Supple; No JVD or Bruits; No thyromegaly; No lymphadenopathy Respiratory: Lungs are clear with no rales or wheezes. Respiratory effort is normal and symmetrical bilaterally; Good air movement bilaterally Heart: RRR without ectopy; Nl S1 and S2 no mcrg Abdomen: NABS soft, non-tender, non-distended; no organomegaly; no obvious masses Extremities/Skin: No LE edema; Skin warm to touch and well perfused; skin discoloration is absent Neuro: sensation and motor function are grossly normal. Cranial Nerves are grossly intact Laboratory Tests: Lab Results Component Value Date WBC 13.7 (H) 11/08/2024 WBC 12.0 (H) 11/07/2024 WBC 8.4 04/28/2023 HGB 14.9 11/08/2024 HGB 14.8 11/07/2024 HGB 15.1 09/01/2023 HCT 44.6 11/08/2024 HCT 44.3 11/07/2024 HCT 45.6 09/01/2023 MCV 86.6 11/08/2024 MCV 86.2 11/07/2024 MCV 89.0 04/28/2023 PLT 287 11/08/2024 PLT 266 11/07/2024 PLT 266 04/28/2023 Lab Results Component Value Date NA 139 11/08/2024 NA 138 09/01/2023 NA 138 04/28/2023 K 3.9 11/08/2024 K 4.6 09/01/2023 K 4.6 04/28/2023 CL 106 11/08/2024 CL 105 09/01/2023 CL 104 04/28/2023 CO2 21 (L) 11/08/2024 CO2 23 09/01/2023 CO2 28 04/28/2023 BUN 17 11/08/2024 BUN 20 09/01/2023 BUN 14 04/28/2023 CREATININE 0.81 11/08/2024 CREATININE 0.66 09/01/2023 CREATININE 0.65 (L) 04/28/2023 Lab Results Component Value Date HGBA1C 6.7 (H) 11/08/2024 Lab Results Component Value Date TSH 0.84 11/08/2024 No components found for: NTPROBNP Lab Results Component Value Date CHOL 145 11/08/2024 CHOL 2 (more content not included)... Normal [facility] PSA TOTAL (DIAGNOSTIC POST-P ROSTATECTOMY)on 12-26-2024 PROSTATE SPECIFIC AG TOTAL 5.758 ng/mL High <=0.200 [facility] Comment on above: Result Comment: LEXIE Mccurdy COMMENTS: Testing performed on the Ribbon using a two-step chemiluminescent microparticle immunoassay method. Results obtained by different methods should not be used interchangeably. A prostate specific antigen of >0.2 ng/mL is considered as initial evidence of biochemical recurrence following radical prostatectomy. Performed By: #### L [id number] #### Boxing Inspector: MADHAVI TIMMONS ([id number]) [facility] ([facility]) [address] [place] [address] PSA Total (Diagnostic Post-P rostatectomy)on 12-26-2024 Interpretation and review of laboratory results Abnormal [employer] Prostate specific Ag [Mass/Vol] 5.758 ng/mL High NINF - 0.200 ng/mL [facility] Testing performed on the Ribbon using a two-step chemiluminescent microparticle immunoassay method. Results obtained by different methods should not be used interchangeably. A prostate specific antigen of >0.2 ng/mL is considered as initial evidence of biochemical recurrence following radical prostatectomy. [facility] 36on 12-05-2024 36 FRANKLYN 11-28-24 with EKG 04-03-25 11-08-24 CBC,bmp/creat 0.81 Normal [facility] ECG 12 lead - CLINIC PERFORM EDon 11-28-2024 Sinus Rhythm WITHIN NORMAL LIMITS [facility] Office Visiton 11-28-2024 Follow-up visit [id number] Keith Tran Evan 1960 M Date Provider Department Center 11/28/2024 [id number] LEZAMA [facility] YENNI None Family History Problem Relation Age of Onset Alzheimer's disease Mother COPD Father Family Status - Relation Status Age at Mother Father Sister Level of Service:44956 [place] OFFICE/OUTPATIENT ESTABLISHED MOD [facility] 30 MIN Reason for Visit and Comments: Atrial Fibrillation [80] - PAF 11-30-22 PVI Sleep Apnea [348] - Not using C-PAP Hyperlipidemia [182] Normal [facility] Progress Noteon 11-28-2024 Progress Note [facility] [place] [facility]rophysiol [facility] Follow Up Clinic Note Chief Complaint: Chief Complaint Patient presents with Atrial Fibrillation PAF 11-30-22 PVI Sleep Apnea Not using C-PAP Hyperlipidemia History of Present Illness: Khalida Tran is a 64 y.o. male whom I met in the hospital in Oct 2024 when he presented with rapid atrial fibrillation. He was SOB/dizzy and his smart watch alerted him to a rapid heart rate. He underwent NATALEE/CVN. The patient has been following with Dr. Sorensen. He was diagnosed with a fib in 2020. He was started on eliquis and had 2 CVN and was on flecainide for a period. He had recurrent episodes of a fib and they switched him to sotalol. He eventually underwent a PVI in 11/2022. He was on sotalol post PVI until 04/05 and at that time his eliquis was discontinued. He was doing well until 02/2024 when he had pneumonia and developed A.fib w RVR. At that time he was started on amiodarone and cardioverted and the amiodarone was stopped. He returns today feeling well. He denies recurrent palpitation, chest pain, shortness of breath, dizziness, or syncope. His Apple Watch has recorded normal heart rates. He has been trying to curtail his alcohol use. He exercises routinely without symptoms. When I saw him in the hospital he told me he drank 4-5 bourbons at least once a week. An EKG today shows normal sinus rhythm. The NATALEE in October showed an LVEF of 65% with a mildly dilated LA. Assessment and Plan: 1. Persistent Atrial Fibrillation: He has now had 2 recurrences since his PVI in 2022, one in January 2024 in [place] and one in October here. He is on no antiarrhythmic as he has been already on flecainide and sotalol unsuccessfully. He is a little young to start amiodarone indefinitely. I guess if needed, we could try dofetilide. Today we also spoke about a repeat ablation which would be most reasonable if his atrial fibrillation burden warrants it for now, we agreed to wait. As far as OAC, his [id number] 2 score is 2 and he should be on OAC indefinitely. 2. Alcohol Use: He probably drinks a little more than he should. We spoke about moderation and the fact that alcohol may play a role in his A-fib bouts. 3. Diabetes: He is on metformin. His hemoglobin A1c is 6.7.. 4. Obesity: We spoke about diet and exercise. His BMI is 35. Past Medical History: Past Medical History: Diagnosis Date A-fib (CMS/HCC) (HCC) Cardioverted Anticoagulated 06/25/2021 BPH (benign prostatic hyperplasia) H/O exercise stress test Hyperlipidemia HARSHA (obstructive sleep apnea) does not wear C pap Machine Pneumonia Pre-diabetes Past Surgical History Past Surgical History: Procedure Laterality Date ABLATION FOR ATRIAL FIBRILLATION (HISTORICAL) 11/30/[address] Sorensen APPENDECTOMY 12 years ago CARDIAC ELECTROPHYSIOLOGY PROCEDURE N/A 11/30/2022 Performed by Reyes Sorensen at [facility] Cardiac Cath/EP Lab COLONOSCOPY COLONOSCOPY 01/16/2019 HERNIA REPAIR INCISIONAL HERNIA REPAIR 09/04/2019 DR JOE PROSTATE BIOPSY 06/10/[address] desir TONSILLECTOMY (HISTORICAL) VENTRAL HERNIA REPAIR 7 years ago WISDOM TOOTH EXTRACTION Family History Family History Problem Relation Name Age of Onset Alzheimer's disease Mother COPD Father Social History Social History Tobacco Use Smoking status: Former Current packs/day: 0.00 Average packs/day: 0.5 packs/day for 40.0 years (20.0 ttl pk-yrs) Types: Cigarettes Start date: 1992 Quit date: 2023 Years since quittin.5 Smokeless tobacco: Never Tobacco comments: Quit smoking for short period of time then started again : 5 cigs a day Vaping Use Vaping status: Never Used Substance Use Topics Alcohol use: Not Currently Alcohol/week: 2.0 standard drinks of alcohol Types: 2 Standard drinks or equivalent per week Comment: drinks [place] Drug use: No Comment: caffeine: decaf Medications: Reviewed Allergies: Reviewed Review of Systems: All other systems were reviewed and are negative other than as noted in the HPI. Physical Examination: Vitals: Blood pressure 118/80, pulse 71, height 5' 10 (1.778 m), weight 243 lb (110 kg), SpO2 96%. Constitutional: Appears well kept and looks stated age; in NAD Psychiatric: A &O x3 Mood is pleasant; Affect is appropriate Musculoskeletal: Normocephalic; no joint swelling; gait steady; 5/5 muscle strength bilaterally in upper and lower extremities; no clubbing or cyanosis HEENT: Pupils are equal and round; Conjunctiva are not injected; Sclera are non-icteric; Airway and Nares are patent; Ears without external abnormalities. Mucosa is pink; Dentition is normal Neck: Supple; No JVD or Bruits; No thyromegaly; No lymphadenopathy Respiratory: Lungs are clear with no rales or wheezes. Respiratory effort is normal and symmetrical bilaterally; Good air movement bilaterally Heart: RRR without ectopy; Nl (more content not included)... ECG 12-LEADon 11-09-2024 ECG 12-LEAD IMPRESSION: Atrial fibrillation Electronically Signed On 11-09-2024 10:01:13 EST by Arun Kaiser 30on 11-08-2024 30 Problem: Pain - Adul t Goal: Verbalizes/displays adequate comfort level or baseline comfort level Outcome: Completed Problem: Chronic Conditions and Co-morbidities Goal: Patient's chronic conditions and co-morbidity symptoms are monitored and maintained or improved Outcome: Completed [id number] 11-08-2024 [id number] Patient admitted to [facility] ICU in Afib with RVR. In ED started on IV Cardizem and Heparin, plan for ECHO, NATALEE/DCCV and EP consult today. Chart reviewed. Patient from home with , has health insurance and PCP listed. No discharge needs anticipated, CM to follow. W Auto Differential pane l (Bld)on 11-08-2024 Basophils (Bld) [#/Vol] 0.1 10*3/uL 0.0 - 0.2 10*3/uL [facility] Basophils/100 WBC (Bld) 0.6 % 0.0 - 2.0 % [facility] Eosinophils (Bld) [#/Vol] 0.4 10*3/uL 0.0 - 0.5 10*3/uL [facility] Eosinophils/100 WBC (Bld) 3.1 % 0.0 - 6.0 % [facility] Erythrocyte distribution width (RBC) [Ratio] 13.5 % 11.5 - 15.0 % [facility] Hematocrit (Bld) [Volume fraction] 44.6 % 40.0 - 52.0 % [facility] Hemoglobin (Bld) [Mass/Vol] 14.9 g/dL 13.0 - 18.0 g/dL [facility] Immature granulocytes (Bld) [#/Vol] 0.1 10*3/uL High NINF - 0.1 10*3/uL [facility] Immature granulocytes/100 WBC (Bld) 0.4 % 0.0 - 2.0 % [facility] Interpretation and review of laboratory results Abnormal [facility] Lymphocytes (Bld) [#/Vol] 5 10*3/uL High 1.0 - 4.3 10*3/uL [facility] Lymphocytes/100 WBC (Bld) 36.7 % 15.0 - 45.0 % [facility] MCH (RBC) [Entitic mass] 28.9 pg 26. 0 - 34.0 pg [facility] MCHC (RBC) [Mass/Vol] 33.4 % 30.5 - 36.0 % [facility] MCV (RBC) [Entitic vol] 86.6 fL 77.0 - 99.0 fL [facility] Monocytes (Bld) [#/Vol] 1.1 10*3/uL High 0.0 - 0.9 10*3/uL [facility] Monocytes/100 WBC (Bld) 7.6 % 5.0 - 13.0 % [facility] Neutrophils (Bld) [#/Vol] 7.1 10*3/uL 1.8 - 7.5 10*3/uL [facility] [facility] Neutrophils/100 WBC (Bld) 51.6 % 38.0 - 82.0 % [facility] Nucleated RBC/100 WBC (Bld) [Ratio] 0 % [facility] Platelet mean volume (Bld) [Entitic vol] 9.4 fL 9.0 - 12.7 fL [facility] Platelets (Bld) [#/Vol] 287 10*3/uL 140 - 440 10*3/uL [facility] RBC (Bld) [#/Vol] 5.15 10*6/uL 4.40 - 5.90 10*6/uL [facility] WBC (Bld) [#/Vol] 13.7 10*3/uL High 3.6 - 10.7 10*3/uL [facility] CBC WITH AUTO DIFFERENTIALon 11-08-2024 Basophils (Bld) [#/Vol] 0.1 10*3/uL Normal 0.0-0.2 [facility] Comment on above: Performed By: #### L [id number] #### Boxing Inspector: MADHAVI TIMMONS ([phone]) [facility] ([facility]) [address] [place] [address] Basophils/100 WBC (Bld) 0.6 % Normal 0.0-2.0 [facility] Comment on above: Performed By: #### L [id number] #### Boxing Inspector: MADHAVI TIMMONS ([id number]) [facility] ([facility]) [address] [place] [address] Eosinophils (Bld) [#/Vol] 0.4 10*3/uL Normal 0.0-0.5 [facility] Comment on above: Performed By: #### L [id number] #### Boxing Inspector: MADHAVI TIMMONS ([id number]) [facility]) [address] [place] [address] Eosinophils/100 WBC (Bld) 3.1 % Normal 0.0-6.0 [facility] Comment on above: Performed By: #### L [id number] #### Boxing Inspector: MADHAVI TIMMONS ([id number]) [facility]) [address] [place] [address] Erythrocyte distribution width (RBC) [Ratio] 13.5 % Normal 11.5-15.0 [facility] Comment on above: Performed By: #### L [id number] #### Boxing Inspector: MADHAVI TIMMONS ([id number]) [facility]) [address] [place] [address] Hematocrit (Bld) [Volume fraction] 44.6 % Normal 40.0-52.0 [facility] Comment on above: Performed By: #### L [id number] #### Boxing Inspector: MADHAVI TIMMONS ([id number]) [facility]) [address] [place] [address] Hemoglobin (Bld) [Mass/Vol] 14.9 g/dL Normal 13.0-18.0 [facility] Comment on above: Performed By: #### L [id number] #### Boxing Inspector: MADHAVI TIMMONS ([id number]) [facility]) [address] [place] [address] IMMATURE GRANS % 0.4 % Normal 0.0-2.0 [facility] Comment on above: Performed By: #### L [id number] #### Boxing Inspector: MADHAVI TIMMONS ([id number]) [facility]) [address] [place] [address] IMMATURE GRANS ABSOLUTE 0.1 10*3/uL High <0.1 [facility] Comment on above: Performed By: #### L [id number] #### Boxing Inspector: MADHAVI TIMMONS ([id number]) [facility]) [address] [place] [address] Lymphocytes (Bld) [#/Vol] 5.0 10*3/uL High 1.0-4.3 [facility] Comment on above: Performed By: #### L [id number] #### Boxing Inspector: MADHAVI TIMMONS ([id number]) [facility]) [address] [place] [address] Lymphocytes/100 WBC (Bld) 36.7 % Normal 15.0-45.0 [facility] Comment on above: Performed By: #### L [id number] #### Boxing Inspector: MADHAVI TIMMONS ([id number]) [facility] ([facility]) [address] [place] [address] MCH (RBC) [Entitic mass] 28.9 pg Normal 26.0-34.0 [facility] Comment on above: Performed By: #### L [id number] #### Boxing Inspector: MADHAVI TIMMONS ([id number]) [facility]) [address] [place] [address] MCHC 33.4 % Normal 30.5-36.0 [facility] Comment on above: Performed By: #### L [id number] #### Boxing Inspector: MADHAVI TIMMONS ([id number]) [facility] ([facility]) [address] [place] [address] MCV (RBC) [Entitic vol] 86.6 fL Normal 77.0-99.0 [facility] Comment on above: Performed By: #### L [id number] #### Boxing Inspector: MADHAVI TIMMONS ([id number]) [facility] ([facility]) [address] [place] [address] Monocytes (Bld) [#/Vol] 1.1 10*3/uL High 0.0-0.9 [facility] Comment on above: Performed By: #### L [id number] #### Boxing Inspector: MADHAVI TIMMONS ([phone]) [facility]) [address] [place] [address] Monocytes/100 WBC (Bld) 7.6 % Normal 5.0-13.0 [facility] Comment on above: Performed By: #### L [id number] #### Boxing Inspector: MADHAVI TIMMONS ([id number]) [facility] ([facility]) [address] [place] [address] NEUTROPHILS ABSOLUTE 7.1 10*3/uL Normal 1.8-7.5 [facility] Comment on above: Performed By: #### L [id number] #### Boxing Inspector: MADHAVI TIMMONS ([id number]) [facility] ([facility]) [address] [place] [address] Neutrophils/100 WBC (Bld) 51.6 % Normal 38.0-82.0 [facility] Comment on above: Performed By: #### L [id number] #### Boxing Inspector: MADHAVI TIMMONS ([id number]) [facility] ([facility]) [address] [place] [address] NRBC 0.0 /100 WBCs Normal 0.0-2.0 [facility] Comment on above: Performed By: #### L [id number] #### Boxing Inspector: MADHAVI TIMMONS ([id number]) [facility] ([facility]) [address] [place] [address] Platelet mean volume (Bld) [Entitic vol] 9.4 fL Normal 9.0-12.7 [facility] Comment on above: Performed By: #### L [id number] #### Boxing Inspector: MADHAVI TIMMONS ([id number]) [facility] ([facility]) [address] [place] [address] [place] Platelets (Bld) [#/Vol] 287 10*3/uL Normal 140-440 [facility] Comment on above: Performed By: #### L [id number] #### Boxing Inspector: MADHAVI TIMMONS ([id number]) [facility] ([facility]) [address] [place] [address] RBC (Bld) [#/Vol] 5.15 10*6/uL Normal 4.40-5.90 [facility] Comment on above: Performed By: #### L [id number] #### Boxing Inspector: MADHAVI TIMMONS ([id number]) [facility] [address] [place] [address] WBC (Bld) [#/Vol] 13.7 10*3/uL High 3.6-10.7 [facility] Comment on above: Performed By: #### L [id number] #### Boxing Inspector: MADHAVI TIMMONS ([id number]) [facility]) [address] [place] [address] COMPREHENSIVE METABOLIC PANE Odn 11-08-2024 Albumin [Mass/Vol] 3.4 g/dL Normal 3.4-4.8 [facility] Comment on above: Performed By: #### L [id number] #### Boxing Inspector: MADHAVI TIMMONS ([id number]) [facility] ([facility]) [address] [place] [address] ALP [Catalytic activity/Vol] 48 U/L Normal 40-150 [facility] Comment on above: Performed By: #### L [id number] #### Boxing Inspector: MADHAVI TIMMONS ([id number]) [facility] ([facility]) [address] [place] [address] ALT [Catalytic activity/Vol] 40 U/L High <40 [facility] Comment on above: Performed By: #### L [id number] #### Boxing Inspector: MADHAVI TIMMONS ([id number]) [facility] ([facility]) [address] [place] [address] Anion gap [Moles/Vol] 12 mmol/L Normal 3-13 [facility] Comment on above: Performed By: #### L [id number] #### Boxing Inspector: MADHAVI TIMMONS ([id number]) [facility] ([facility]) [address] [place] [address] AST [Catalytic activity/Vol] 39 U/L High <34 [facility] Comment on above: Performed By: #### L [id number] #### Boxing Inspector: MADHAVI TIMMONS ([id number]) [facility] [address] [place] [address] Bilirubin [Mass/Vol] 0.5 mg/dL Normal <1.2 [facility] Comment on above: Performed By: #### L [id number] #### Boxing Inspector: MADHAVI TIMMONS ([id number]) [facility]) [address] [place] [address] Calcium [Mass/Vol] 8.6 mg/dL Low 8.8-10.0 [facility] Comment on above: Performed By: #### L [id number] #### Boxing Inspector: MADHAVI TIMMONS ([id number]) [facility] ([facility]) [address] [place] [address] Chloride [Moles/Vol] 106 mmol/L Normal 98-107 [facility] Comment on above: Performed By: #### L [id number] #### Boxing Inspector: MADHAVI TIMMONS ([id number]) [facility]) [address] [place] [address] CO2 [Moles/Vol] 21 mmol/L Low 23-31 [facility] Comment on above: Performed By: #### L [id number] #### Boxing Inspector: MADHAVI TIMMONS ([id number]) [facility]) [address] [place] [address] Creatinine [Mass/Vol] 0.81 mg/dL Normal 0.72-1.25 [facility] Comment on above: Performed By: #### L [id number] #### Boxing Inspector: MADHAVI TIMMONS ([id number]) [facility]) [address] [place] [address] GLOMERULAR FILTRATION RATE ML/MIN/1.73 SQ M.PREDICTED >90.0 Normal >60.0 [facility] Comment on above: Result Comment: Calc ulation based on the Chronic Kidney Disease Epidemiology Collaboration (CKD-EPI) equation refit without adjustment for race Performed By: #### L [id number] #### Boxing Inspector: MADHAVI TIMMONS ([id number]) [facility] ([facility]) [address] [place] [address] [place] Glucose [Mass/Vol] 106 mg/dL Normal 82-115 [facility] Comment on above: Performed By: #### L [id number] #### Boxing Inspector: MADHAVI TIMMONS ([id number]) [facility] ([facility]) [address] [place] [address] Potassium [Moles/Vol] 3.9 mmol/L Normal 3.5-5.1 [facility] Comment on above: Result Comment: [facility] potassium values may be up to 0.5 mmol/L lower than serum values. Performed By: #### L [id number] #### Boxing Inspector: MADHAVI TIMMONS ([id number]) [facility] [address] [place] [address] Protein [Mass/Vol] 6.6 g/dL Normal 6.4-8.3 [facility] Comment on above: Performed By: #### L [id number] #### Boxing Inspector: MADHAVI TIMMONS ([id number]) [facility] ([facility]) [address] [place] [address] Sodium [Moles/Vol] 139 mmol/L Normal 136-145 [facility] Comment on above: Performed By: #### L [id number] #### Boxing Inspector: MADHAVI TIMMONS ([id number]) [facility] ([facility]) [address] [place] [address] Urea nitrogen [Mass/Vol] 17 mg/dL Normal 9-23 [facility] Comment on above: Performed By: #### L [id number] #### Boxing Inspector: MADHAVI TIMMONS ([id number]) [facility] ([facility]) [address] [place] [address] Comprehensive metabolic 1998 panelon 11-08-2024 Albumin [Mass/Vol] 3.4 g/dL 3.4 - 4.8 g/dL [facility] ALP [Catalytic activity/Vol] 48 U/L 40 - 150 U/L [facility] ALT [Catalytic activity/Vol] 40 U/L High NINF - 40 U/L [facility] Anion gap [Moles/Vol] 12 mmol/L 3 - 13 mmol/L [facility] AST [Catalytic activity/Vol] 39 U/L High NINF - 34 U/L [facility] Bilirubin [Mass/Vol] 0.5 mg/dL NINF - 1.2 mg/dL [facility] Calcium [Mass/Vol] 8.6 mg/dL Low 8.8 - 10. 0 mg/dL [facility] Chloride [Moles/Vol] 106 mmol/L 98 - 10 7 mmol/L [facility] CO2 [Moles/Vol] 21 mmol/L Low 23 - 31 mmol/L [facility] Creatinine [Mass/Vol] 0.81 mg/dL 0.72 - 1.25 mg/dL [facility] GFR/1.73 sq M.predicted (S/P/Bld) [Vol rate/Area] - PINF [facility] Comment on above: Calculation based on the Chronic Kidney Disease Epidemiology Collaboration (CKD-EPI) equation refit without adjustment for race Glucose [Mass/Vol] 106 mg/dL 82 - 115 mg/dL [facility] Potassium [Moles/Vol] 3.9 mmol/L 3.5 - 5.1 mmol/L [facility] Comment on above: Plasma potassium beth ues may be up to 0.5 mmol/L lower than serum values. Protein [Mass/Vol] 6.6 g/dL 6.4 - 8.3 g/dL [facility] Sodium [Moles/Vol] 139 mmol/L 136 - 145 mmol/L [facility] Urea nitrogen [Mass/Vol] 17 mg/dL 9 - 23 mg/dL [facility] Consulton 11-08-2024 Consult [facility] [place] [facility] Cardiology /Electrophysiology Consult Note Reason for Consult/Chief Complaint: A fib with RVR Referring provider: Dr. Parsons Established academic services professional: Edu History of Present Illness: Khalida Tran is a 64 y.o. male with PMH A.fib s/p ablation PVI in 11/2022, who presented to [facility] on 11/07/2024 from outside facility due to a fib with RVR. He began to have symptoms of dizziness 2 days ago when he noticed his HR was increased on his smart watch. He decided to go to the hospital when his HR was in the 180s. However, upon further discussion it appears that he knows that his symptoms did start yesterday after he dropped his family off at the airport. Patient follows with Dr. Sorensen. He was diagnosed with a fib after he was on vacation during which he had heavy alcohol use. In 2021, he was started on eliquis and had 2 CVN and was on flecainide for a period. He had recurrent episodes of a fib and they switched to sotalol. After PVI in 11/2022. He was on sotalol post PVI until 04/05 and at that time his eliquis was discontinued. He was doing well until 02/2024 when he had pneumonia and developed A.fib w RVR. At that time he was started on amiodarone and cardioverted and was able to discontinue amiodarone. During transport was reported he was started on metoprolol and diltiazem drip. On arrival to the ED, his HR was in the 90's-100's range. In the ED dilt drip was continued but HR continued to increase. Patient was briefly started on heparin drip overnight. Tele showed Afib with a VR in the 90-100s. He underwent NATALEE/CVN earlier today. Assessment/Plan Paroxysmal Atrial Fibrillation -S/p NATALEE/DCCV this morning to NSR -Echo showed normal EF with no significant valvular abnormalities. -CHADSVASC 2 - for age and T2DM -continue eliquis 5 mg BID -continue metoprolol 25 mg BID -will need outpatient follow up to discuss repeat ablation if the rhythm recurs early Alcohol abuse -drinks 4-5 bourbons at least once a week -Encouraged him to limit alcohol use Medications: apixaban, 5 mg, Oral, BID ezetimibe, 10 mg, Oral, Nightly And atorvastatin, 20 mg, Oral, Nightly insulin lispro, 0-6 Units, SubCUTAneous, TID WC And insulin lispro, 0-6 Units, SubCUTAneous, Nightly metoprolol tartrate, 25 mg, Oral, BID potassium citrate CR, 10 mEq, Oral, TID WC Infusion Medications: dilTIAZem, 2.5-15 mg/hr, Last Rate: 10 mg/hr (11/08/24 0547) Physical Examination: Vitals: 11/08/24 0500 11/08/24 0800 11/08/24 0854 11/08/24 0900 BP: 119/78 133/68 122/77 112/93 BP Location: Left arm Patient Position: Lying Pulse: 90 86 94 89 Resp: 18 17 21 16 Temp: 36.4 ?C (97.6 ?F) TempSrc: Temporal SpO2: 97% 93% 94% 93% Weight: 242 lb 4.6 oz (110 kg) Height: Intake/Output Summary (Last 24 hours) at 11/08/2024 0950 Last data filed at 11/08/2024 0548 Gross per 24 hour Intake 577 ml Output -- Net 577 ml Wt Readings from Last 3 Encounters: 11/08/24 242 lb 4.6 oz (110 kg) 10/05/24 235 lb (107 kg) 03/23/24 243 lb (110 kg) Physical Exam Constitutional: No distress. well nourished. well hydrated Psychiatric: A &O x 3. Medical insight intact NMT: Oral mucosa is pink and moist Neck: no JVD. Respiratory: Lungs are clear to auscultation Cardiac exam: Rhythm: irregular rate and rhythm ; Normal S1 and S2 Murmur: no Other: No rub; no gallop Vasc: Peripheral pulses intact Abdomen: soft, nontender Extremities: no LE edema Skin: Warm to touch and well perfused Laboratory Tests: TROPONIN I, CONVENTIONAL SENSITIVITY No results found for: CKTOTAL, CKMB, CKMBINDEX, TROPONINI TROPONIN I, HIGH SENSITIVITY No results found for: TROPHSBASE No results found for: TROPHS2 No results found for: TROPDELTBASE No results found for: TROPHS3 No results found for: TROPDELTSEC Recent Labs 11/08/24 0026 NA 139 K 3.9 CL 106 CO2 21* BUN 17 CREATININE 0.81 EGFR >90.0 Recent Labs 11/07/24 2158 11/08/24 0026 WBC 12.0* 13.7* HGB 14.8 14.9 HCT 44.3 44.6 MCV 86.2 86.6 PLT 266 287 Lab Results Component Value Date HGBA1C 6.7 (H) 11/08/2024 Lab Results Component Value Date TSH 0.84 11/08/2024 Lab Results Component Value Date CHOL 145 11/08/2024 CHOL 255 (H) 04/28/2023 CHOL 158 09/22/2022 Lab Results Component Value Date HDL 43 (L) 11/08/2024 HDL 51 04/28/2023 HDL 46 09/22/2022 Lab Results Component Value Date LDLCALC 53 11/08/2024 LDLCALC 04/28/2023 Comment: Calculated LDL invalid, triglycerides >400 mg/dl LDLCALC 82 09/22/2022 Lab Results Component Value Date TRIG 247 (H) 11/08/2024 TRIG 422 (H) 04/28/2023 TRIG 149 09/22/2022 Recent Labs 11/08/24 0026 INR 1.0 Results from last 7 days Lab Units 11/08/24 0026 AST U/L 39* ALT U/L 40* Telemetry findings: atrial fibrillation Last EP study 11/30/22 ELECTROPHYSIOLOGY PROCEDURE 11/30/2022 1:20 PM (Final) (more content not included)... Normal [facility] HEMOGLOBIN A1Con 11-08-2024 Glucose [Mass/Vol] 146 mg/dL Normal [facility] Comment on above: Result Comment: LEXIE Mccurdy COMMENTS: HbA1c values of 5.7-6.4 percent indicate an increased risk for developing diabetes mellitus. HbA1c values greater than or equal to 6.5 percent are diagnostic of diabetes mellitus. For diagnosis of diabetes in individuals without unequivocal hyperglycemia, results should be confirmed by repeat testing. Performed By: #### L AB90 #### Boxing Inspector: MADHAVI TIMMONS ([id number]) [facility] [address] [place] [address] HEMOGLOBIN A1C 6.7 %HbA1C High <5.7 [facility] Comment on above: Result Comment: Norm al less than 5.7% Prediabetes 5.7% to 6.4% Diabetes 6.5% or higher --HgbA1C levels may not be accurate in patients who have renal disease, received recent blood transfusions, are anemic, or who have dyshemoglobinemia. Performed By: #### L AB90 #### Boxing Inspector: MADHAVI TIMMONS ([id number]) [facility] [address] [place] [address] LIPID PANELon 11-08-2024 Cholesterol [Mass/Vol] 145 mg/dL Normal <200 [facility] Comment on above: Performed By: #### L AB90 #### Boxing Inspector: MADHAVI TIMMONS ([phone]) [facility]) [address] [place] [address] Cholesterol in HDL [Mass/Vol] 43 mg/dL Low >=60 [facility] Comment on above: Performed By: #### L AB90 #### Boxing Inspector: MADHAVI TIMMONS ([id number]) [facility]) [address] [place] [address] Cholesterol.total/Choles terol in HDL [Mass ratio] 3 {ratio} Normal [facility] Comment on above: Result Comment: Ref Range: < 3 Low Risk for CHD 3-6 Mod Risk for CHD > 6 High Risk for CHD Performed By: #### L AB90 #### Boxing Inspector: MADHAVI TIMMONS ([id number]) [facility] ([facility]) [address] [place] [address] LOW DENSITY LIPOPROTEIN 53 mg/dL Normal 0-<100 [facility] Comment on above: Performed By: #### L AB90 #### Boxing Inspector: MADHAVI TIMMONS ([id number]) [facility]) [address] [place] [address] NON-HDL CHOLESTEROL, CALCULATED 102 Normal <130 [facility] Comment on above: Performed By: #### L AB90 #### Boxing Inspector: MADHAVI TIMMONS ([id number]) [facility] ([facility]) [address] [place] [address] Triglyceride [Mass/Vol] 247 mg/dL High <150 [facility] Comment on above: Performed By: #### L AB90 #### Boxing Inspector: MADHAVI TIMMONS ([id number]) [facility]) [address] [place] [address] VERY LOW DENSITY LIPOPROTEIN, CALCULATED 49 mg/dL High <=30 [facility] Comment on above: Performed By: #### L AB90 #### Boxing Inspector: MADHAVI TIMMONS ([id number]) [facility]) [address] [place] [address] Laboratory - Chemistry and C hemistry - challengeon 11-08-2024 Magnesium [Mass/Vol] 2 mg/dL 1.6 - 2 .6 mg/dL [facility] Glucose [Mass/Vol] 149 mg/dL High 70 - 100 mg/dL [facility] Average glucose Estimated from glycated hemoglobin (Bld) [Mass/Vol] 146 mg/dL [facility] TSH Qn 0.84 m[IU]/L [facility] Laboratory - Coagulationon 1 01-09-2024 aPTT Coag (PPP) [Time] 33.5 s High 20.0 - 30.5 s [facility] INR Coag (PPP) [Relative time] 1 {INR} 0.9 - 1.1 [facility] Comment on above: Recommended Anticoag ulant Therapy: SEE BELOW ----- INR of 2.0 - 3.0 : - Prophylaxis of Venous Thrombosis (high-risk surgery) - Treatment of Venous Thrombosis - Treatment of Pulmonary Embolism (Includes tissue heart valves, Acute Myocardial Infarction to prevent systemic embolism, Valvular Heart Disease, and Atrial Fibrillation) ----- INR of 2.5 - 3.5 : - Mechanical Prosthetic Valves (high risk) - If oral anticoagulant therapy is used to prevent Myocardial Infarction PT Coag (Bld) [Time] 11 s 9.0 - 1 2.0 s [facility] Laboratory - Hematology and Cell countson 11-08-2024 HbA1c (Bld) [Mass fraction] 6.7 % High [facility] Comment on above: Normal less than 5.7 % Prediabetes 5.7% to 6.4% Diabetes 6.5% or higher --HgbA1C levels may not be accurate in patients who have renal disease, received recent blood transfusions, are anemic, or who have dyshemoglobinemia. Lipid 1996 panelon 4 Cholesterol [Mass/Vol] 145 mg/dL [facility] - 200 mg/dL [facility] Cholesterol in HDL [Mass/Vol] 43 mg/dL Low 60 - PINF mg/dL [facility] Cholesterol in LDL [Mass/Vol] 53 mg/dL 0 - <100 [facility] Cholesterol.total/Choles terol in HDL [Mass ratio] 3 {ratio} [facility] Comment on above: Ref Range: < 3 Low Risk for CHD 3-6 Mod Risk for CHD > 6 High Risk for CHD NON-HDL CHOLESTEROL, CALCULATED 102 NINF - 130 [facility] Triglyceride [Mass/Vol] 247 mg/dL High NINF - 150 mg/dL [facility] VERY LOW DENSITY LIPOPROTEIN, CALCULATED 49 mg/dL High NINF - 30 mg/dL [facility] MAGNESIUMon 11-08-2024 Magnesium [Mass/Vol] 2.0 mg/dL Normal 1.6-2.6 [facility] Comment on above: Result Comment: LEXIE Mccurdy COMMENTS: Higher values can be expected in females during menses. Performed By: #### L AB90 #### Boxing Inspector: MADHAVI TIMMONS ([id number]) [facility] ([facility]) [address] [place] [address] Magnesium [Mass/Vol]on 11-08 Interpretation and review of laboratory results Normal [facility] Higher values can be expected in females during menses. [facility] [employer] No Panel Informationon 11-08 Interpretation and review of laboratory results Abnormal [facility] Performed by: [facility], [address] [place] [address] CLIA ID: [id number] [facility] Interpretation and review of laboratory results Abnormal [facility] HbA1c values of 5.7- 6.4 percent indicate an increased risk for developing diabetes mellitus. HbA1c values greater than or equal to 6.5 percent are diagnostic of diabetes mellitus. For diagnosis of diabetes in individuals without unequivocal hyperglycemia, results should be confirmed by repeat testing. [facility] Interpretation and review of laboratory results Abnormal [facility] [facility] Interpretation and review of laboratory results Abnormal [facility] Nursing Noteon 11-08-2024 Nursing Note Discharge instructio ns reviewed with patient. No questions or concerns at this time. Patient aware how to take prescribed medications and when to go to follow-up appointments. Peripheral IVs removed. Medications delivered to bedside by [facility]. Patient discharged home with personal belongings to be driven home by friend. Normal [facility] PROTIME AND APTTon aPTT Coag (Bld) [Time] 33.5 s High 20.0-30.5 [facility] Comment on above: Performed By: #### L [id number] #### Boxing Inspector: MADHAVI TIMMONS ([id number]) [facility] ([facility]) [address] [place] [address] INR Coag (PPP) [Relative time] 1.0 {INR} Normal 0.9-1.1 [facility] Comment on above: Result Comment: Dwayne mmended Anticoagulant Therapy: SEE BELOW ----- INR of 2.0 - 3.0 : - Prophylaxis of Venous Thrombosis (high-risk surgery) - Treatment of Venous Thrombosis - Treatment of Pulmonary Embolism (Includes tissue heart valves, Acute Myocardial Infarction to prevent systemic embolism, Valvular Heart Disease, and Atrial Fibrillation) ----- INR of 2.5 - 3.5 : - Mechanical Prosthetic Valves (high risk) - If oral anticoagulant therapy is used to prevent Myocardial Infarction Performed By: #### L [id number] #### Boxing Inspector: MADHAVI TIMMONS ([id number]) [facility]) [address] [place] [address] PT Coag (PPP) [Time] 11.0 s Normal 9.0-12.0 [facility] Comment on above: Performed By: #### L [id number] #### Boxing Inspector: MADHAVI TIMMONS ([id number]) [facility] ([facility]) [address] [place] [address] THYROID STIMULATING HORMONEo n 11-08-2024 THYROID STIMULATING HORMONE 0.84 uIU/mL Normal 0.35-4.94 [facility] Comment on above: Performed By: #### L [id number] #### Boxing Inspector: MADHAVI TIMMONS ([id number]) [facility]) [address] [place] [address] TSH Qnon 11-08-2024 Interpretation and review of laboratory results Normal [facility] US Heart Transesophagealon 1 01-09-2024 Left Ventricle: Left ventricle size is normal. Normal wall thickness. Normal left ventricular systolic function. Normal wall motion. Right Ventricle: Right ventricle size is normal. Normal systolic function. Left Atrium: Normal sized windsock appendage. Normal appendage flow velocity. No left atrial appendage thrombus noted. No left atrial appendage mass noted. Successful cardioversion to normal sinus rhythm following one shock Left Ventricle Left ventricle size is normal. Normal wall thickness. Normal left ventricular systolic function. Normal wall motion. Right Ventricle Right ventricle size is normal. Normal systolic function. Left Atrium Left atrium size is normal. Normal sized windsock appendage. Normal appendage flow velocity. No left atrial appendage thrombus noted. No left atrial appendage mass noted. Right Atrium Right atrium size is normal. Mitral Valve Valve structure is normal. Mild (1+) regurgitation. No stenosis noted. Tricuspid Valve Valve structure is normal. No regurgitation. Aortic Valve Trileaflet. No regurgitation. No stenosis. Pulmonic Valve Valve structure is normal. No regurgitation. Ascending Aorta Normal sized aorta. Pericardium No pericardial effusion. Septum No interatrial shunt visualized on color Doppler. Pulmonary Artery Pulmonary artery was not assessed due to poor image quality. Study Details Image quality: excellent. Images have been saved and databased. Images were obtained from the mid-esophageal, upper esophageal and transgastric view(s). Blood pressure: 120/89 mmHg. The procedure, risks and alternatives were explained. Informed consent was obtained. NATALEE probe number: 5. NATALEE probe was inserted by the academic services professional with no difficulty. No topical anesthesic. No complications. NATALEE probe was removed. Ultrasound enhancement agent was given to enhance imaging. See anesthesia notes for medications given. Cardioversion Consent: Verbal consent obtained. Written consent obtained. Risks and benefits: risks, benefits and alternatives were discussed Consent given by: patient Patient understanding: patient states understanding of procedure being performed Patient consent: patient's understanding of procedure matches consent Procedure consent: procedure consent matches procedure scheduled Relevant documents: relevant documents present and verified Test results: test results available and properly labeled Imaging studies: imaging studies available Patient identity confirmed: verbally with patient, arm band, provided demographic data and hospital-assigned identification number Time out: Immediately prior to procedure a time out was called to verify the correct patient, procedure, equipment, business support specialist and site/side marked as required. Sedation: Patient sedated: yes Sedatives: propofol Vitals: Vital signs were monitored during sedation. Cardioversion basis: elective Indications: failure of anti-arrhythmic medications Pre-procedure rhythm: atrial fibrillation Patient position: patient was placed in a supine position Chest area: chest area exposed Electrodes: pads Electrodes placed: anterior-posterior Number of attempts: 1 Attempt 1 mode: synchronous Attempt 1 waveform: biphasic Attempt 1 shock (in Joules): 200 Attempt 1 outcome: conversion to normal sinus rhythm Post-procedure rhythm: normal sinus rhythm Complications: no complications Patient tolerance: patient tolerated the procedure well with no immediate complications Wall Scoring Baseline Score Index: 1.00 The left ventricular wall motion is normal. CV CPACS HEMO US Heart TransesophagealOrde red By: Marisol Benítez on 11-08-2024 [facility] Work Phone: US Heart TransthoracicOrdere d By: Baljit Marrufo on 11-08-2024 Ao Root Index 1.28 cm/m2 [facility] Work Phone: Aortic Root 2.9 cm [facility] Work Phone: Aortic Sinus Valsalva 2.9 cm [facility] Work Phone: Aortic Sinus Valsalva Index 1.28 cm/m2 [facility] Work Phone: Ascending Aorta 3.2 cm [facility] Work Phone: Ascending Aorta Index 1.42 cm/m2 [facility] Work Phone: AV Area by Peak Velocity 2.1 cm2 [facility] Work Phone: AV Area by VTI 2 cm2 [employer] Work Phone: AV AT 87.54 ms [facility] Work Phone: AV Mean Gradient 2 mmHg [facility] Work Phone: AV Mean Velocity 0.6 m/s [employer] Work Phone: AV Peak Gradient 3 mmHg [facility] Work Phone: AV Peak Velocity 0.9 m/s [facility] Work Phone: AV Velocity Ratio 0.78 [facility] Work Phone: AV VTI 15.4 cm [facility] Work Phone: JULIA/BSA Peak Velocity 0.9 cm2/m2 [facility] Work Phone: JULIA/BSA VTI 0.9 cm2/m2 [facility] Work Phone: EF BP 62 % 55 - 100 % [facility] Work Phone: Fractional Shortening 2D 40 % 28 - 44 % [facility] Work Phone: Interpretation and review of laboratory results Abnormal [facility] Work Phone: IVSd 0.8 cm 0.6 - 1.0 cm [facility] Work Phone: LA Diameter 4.2 cm [facility] Work Phone: LA Size Index 1.86 cm/m2 [facility] Work Phone: LA Volume 2C 62 mL Abnormal 18 - 58 mL [facility] Work Phone: LA Volume 4C 93 mL Abnormal 18 - 58 mL [facility] Work Phone: LA Volume A/L 86 mL [facility] Work Phone: LA Volume BP 76 mL Abnormal 18 - 58 mL [facility] Work Phone: LA Volume Index 2C 27 mL/m2 16 - 34 mL/m2 [facility] [employer] Work Phone: LA Volume Index 4C 41 mL/m2 Abnormal 16 - 34 mL/m2 [facility] Work Phone: LA Volume Index A/L 38 mL/m2 16 - 34 mL/m2 [facility] [employer] Work Phone: LA Volume Index BP 34 ml/m2 16 - 34 ml/m2 [facility] Work Phone: LA/AO Root Ratio 1.45 [facility] Work Phone: LV E' Lateral Velocity 11 cm/s [facility] Work Phone: LV E' Septal Velocity 11 cm/s [facility] Work Phone: LV EDV A2C 78 mL [facility] Work Phone: LV EDV A4C 101 mL [facility] [employer] Work Phone: LV EDV BP 89 mL 67 - 155 mL [facility] Work Phone: LV EDV Index A2C 35 mL/m2 [facility] Work Phone: LV EDV Index A4C 45 mL/m2 [employer] [facility] Work Phone: LV EDV Index BP 39 mL/m2 [employer] Work Phone: LV Ejection Fraction A2C 60 % [employer] Work Phone: LV Ejection Fraction A4C 68 % [employer] [facility] Work Phone: LV ESV A2C 32 mL [employer] Work Phone: LV ESV A4C 32 mL [employer] Work Phone: LV ESV BP 34 mL 22 - 58 mL [employer] Work Phone: LV ESV Index A2C 14 mL/m2 [employer] Work Phone: LV ESV Index A4C 14 mL/m2 [employer] Work Phone: LV ESV Index BP 15 mL/m2 [employer] Work Phone: LV Mass 2D 122.3 g 88 - 224 g [employer] Work Phone: LV Mass 2D Index 54.1 g/m2 49 - 115 g/m2 [employer] Work Phone: LV RWT Ratio 0.34 [employer] Work Phone: LVIDd 4.7 cm 4.2 - 5.9 cm [employer] Work Phone: LVIDd Index 2.08 cm/m2 [employer] Work Phone: LVIDs 2.8 cm [employer] Work Phone: LVIDs Index 1.24 cm/m2 [employer] Work Phone: LVOT Area 2.5 cm2 [employer] Work Phone: [phone] LVOT Cardiac Output 2.5 liter/mi nu te [employer] Work Phone: LVOT Diameter 1.8 cm [facility] [employer] Work Phone: LVOT Mean Gradient 1 mmHg [facility] [employer] Work Phone: LVOT Peak Gradient 2 mmHg [facility] [employer] Work Phone: LVOT Peak Velocity 0.7 m/s [facility] [employer] Work Phone: LVOT Stroke Volume Index 12.9 mL/m2 [facility] [employer] Work Phone: LVOT SV 29.2 ml [facility] [employer] Work Phone: LVOT VTI 11.5 cm [facility] [employer] Work Phone: LVOT:AV VTI Index 0.75 [facility] [employer] Work Phone: LVPWd 0.8 cm 0.6 - 1.0 cm [facility] [employer] Phone: RA Area 4C 58.9 mL [facility] [employer] Work Phone: RA Area 4C 58.3 mL [facility] [employer] Work Phone: RV Free Wall Peak S' 15 cm/s [facility] [employer] Work Phone: Sinotubular Junction 2.2 cm [facility] [employer] Work Phone: [facility] [employer] Phone: Heart Transthoracicon Left Ventricle: Left ventricle size is normal. Normal wall thickness. Normal left ventricular systolic function. The EF by visual approximation is 65%. Normal wall motion. Diastolic function indeterminate in the setting of atrial fibrillation. Right Ventricle: Not well visualized. Right ventricle size is normal. Normal systolic function. Left Atrium: Left atrium is mildly dilated. No significant valvular abnormalities. Left Ventricle Left ventricle size is normal. Normal wall thickness. Normal left ventricular systolic function. The EF by visual approximation is 65%. Normal wall motion. Diastolic function indeterminate in the setting of atrial fibrillation. Right Ventricle Not well visualized. Right ventricle size is normal. Normal systolic function. Left Atrium Left atrium is mildly dilated. Right Atrium Not well visualized. IVC/SVC IVC was not assessed due to poor image quality. Mitral Valve Mildly calcified leaflets. Trace regurgitation. Tricuspid Valve Valve structure is normal. Trace regurgitation. Aortic Valve Trileaflet. Mildly calcified left cusp. No regurgitation. No stenosis. Pulmonic Valve Valve structure is normal. Trace regurgitation. Ascending Aorta Normal sized ascending aorta. Pericardium The pericardium is normal. No pericardial effusion. Septum No interatrial shunt visualized on color Doppler. Pulmonary Artery Pulmonary artery was not assessed due to poor image quality. Study Details Image quality: adequate. Blood pressure: 119/78 mmHg. Technical qualifiers: Technically difficult study due to patient's body habitus and technically difficult study due to patient's heart rhythm. Ultrasound enhancement agent was given to enhance imaging. Echo Additional Conclusions No significant valvular abnormalities. Wall Scoring Baseline Score Index: 1.00 The left ventricular wall motion is normal. CV CPACS APTTon 11-07-2024 aPTT Coag (Bld) [Time] 33.5 s High 20.0-30.5 [facility] Comment on above: Result Comment: LEXIE Mccurdy COMMENTS: NOTE: The therapeutic time for Heparin anticoagulation, based on Xa activity inhibition, is an APTT of 46-80 seconds. Performed By: #### L [id number] #### Boxing Inspector: MADHAVI TIMMONS ([id number]) [facility] ([facility] Basic metabolic 2000 panelon 11-07-2024 Anion gap [Moles/Vol] 11 mmol/L Normal 8-15 [facility] Comment on above: Order Comment: Libia mane Type: BLOOD SPECIMEN Ordering Facility: [facility] Address: [address] [place] [address] Performed By: #### 2 4321-2, #### [facility] CLIA [id number] [address] [place] [address] [place] Calcium [Mass/Vol] 9.7 mg/dL Normal 8.5-10.2 [facility] Comment on above: Order Comment: Libia mane Type: BLOOD SPECIMEN [facility]ing Facility: [facility] Address: [address] [place] [address] Performed By: #### 2 4321-2, #### [facility] CLIA [id number] [address] [place] [address] [place] Chloride [Moles/Vol] 103 mmol/L Normal 98-107 [facility] Comment on above: Order Comment: Speci men Type: BLOOD SPECIMEN [facility]ing Facility: [facility] Address: [address] [place] [address] Performed By: #### 2 4321-2, #### [facility] CLIA [id number] [address] [place] [address] [place] CO2 [Moles/Vol] 25 mmol/L Normal 22-30 [facility] Comment on above: Order Comment: Speci men Type: BLOOD SPECIMEN [facility] Facility: [facility] Address: [address] [place] [address] Performed By: #### 2 4321-2, #### [facility] CLIA [id number] [address] [place] [address] [place] [facility] Creatinine [Mass/Vol] 0.98 mg/dL Normal 0.73-1.22 [facility] Comment on above: Order Comment: Speci men Type: BLOOD SPECIMEN [facility]ing Facility: [facility] Address: [address] [place] [address] Performed By: #### 2 4321-2, #### [facility] CLIA [id number] [address] [place] [address] [facility] Creatinine and Glomerular filtration rate.predicted panel (S/P/Bld) 85 mL/min/1.73m??? Normal >=60 [facility] Comment on above: Order Comment: Speci men Type: BLOOD SPECIMEN Ordering Facility: [facility] Address: [address] [place] [address] Result Comment: Poornima mated Glomerular Filtration Rate (eGFR) is calculated using the 2020 CKD-EPI creatinine equation. This equation utilizes serum creatinine, sex, and age as parameters. The creatinine assay has traceable calibration to isotope dilution-mass spectrometry. Refer to KDIGO guidelines for clinical interpretation. In patients with unstable renal function, e.g. those with acute kidney injury, the eGFR may not accurately reflect actual GFR. Performed By: #### 2 432-, #### [facility] CLIA [id number] [address] [place] [address] [place] Glucose [Mass/Vol] 142 mg/dL High 74-99 [facility] Comment on above: Order Comment: Libia mane Type: BLOOD SPECIMEN [facility]ing Facility: [facility] Address: [address] [place] [address] Result Comment: The [place] Diabetes Association (ADA) provides guidance for cutoff values for fasting glucose and random glucose. The ADA defines fasting as no caloric intake for at least 8 hours. Fasting plasma glucose results between 100 to 125 mg/dL indicate increased risk for diabetes (prediabetes). Fasting plasma glucose results greater than or equal to 126 mg/dL meet the criteria for diagnosis of diabetes. In the absence of unequivocal hyperglycemia, results should be confirmed by repeat testing. In a patient with classic symptoms of hyperglycemia or hyperglycemic crisis, random plasma glucose results greater than or equal to 200 mg/dL meet the criteria for diagnosis of diabetes. Reference: Standards of Medical Care in Diabetes 2016, [place] Diabetes Association. Diabetes Care. 2016.39(Suppl 1). Performed By: #### 2 43211-15, #### [facility] CLIA [id number] [address] [place] [address] [place] Potassium [Moles/Vol] 4.6 mmol/L Normal 3.7-5.1 [facility] Comment on above: Order Comment: Libia mane Type: BLOOD SPECIMEN Ordering Facility: [facility] Address: [address] [place] [address] Performed By: #### 2 432-, #### [facility] CLIA [id number] [address] [place] [address] [place] Sodium [Moles/Vol] 139 mmol/L Normal 136-144 [facility] Comment on above: Order Comment: Libia mane Type: BLOOD SPECIMEN Ordering Facility: [facility] Address: [address] [place] [address] Performed By: #### 2 4321-2, #### [facility] CLIA [id number] [address] [place] [address] [place] Urea nitrogen [Mass/Vol] 15 mg/dL Normal 9-24 [facility] Comment on above: Order Comment: Speci men Type: BLOOD SPECIMEN Ordering Facility: [facility] Address: [address] [place] [address] Performed By: #### 2 4321-2, #### [facility] CLIA [id number] [address] [place] [address] [place] CBC W Auto Differential pane l (Bld)on 11-07-2024 Basophils (Bld) [#/Vol] 0.1 10*3/uL 0.0 - 0.2 10*3/uL [facility] Basophils/100 WBC (Bld) 0.5 % 0.0 - 2.0 % [employer] [facility] Eosinophils (Bld) [#/Vol] 0.3 10*3/uL 0.0 - 0.5 10*3/uL [facility] Eosinophils/100 WBC (Bld) 2.3 % 0.0 - 6.0 % [facility] Erythrocyte distribution width (RBC) [Ratio] 13.5 % 11.5 - 15.0 % [facility] Hematocrit (Bld) [Volume fraction] 44.3 % 40.0 - 52.0 % [employer] [facility] Hemoglobin (Bld) [Mass/Vol] 14.8 g/dL 13.0 - 18.0 g/dL [facility] Immature granulocytes (Bld) [#/Vol] 0 10*3/uL NINF - 0.1 10*3/uL [facility] Immature granulocytes/100 WBC (Bld) 0.3 % 0.0 - 2.0 % [employer] [facility] Interpretation and review of laboratory results Abnormal [facility] Lymphocytes (Bld) [#/Vol] 4.3 10*3/uL 1.0 - 4.3 10*3/uL [facility] Lymphocytes/100 WBC (Bld) 35.7 % 15.0 - 45.0 % [employer] [facility] MCH (RBC) [Entitic mass] 28.8 pg 26. 0 - 34.0 pg [facility] MCHC (RBC) [Mass/Vol] 33.4 % 30.5 - 36.0 % [facility] MCV (RBC) [Entitic vol] 86.2 fL 77.0 - 99.0 fL [facility] Monocytes (Bld) [#/Vol] 0.7 10*3/uL 0.0 - 0.9 10*3/uL [facility] Monocytes/100 WBC (Bld) 5.9 % 5.0 - 13.0 % [facility] Neutrophils (Bld) [#/Vol] 6.6 10*3/uL 1.8 - 7.5 10*3/uL [facility] Neutrophils/100 WBC (Bld) 55.3 % 38.0 - 82.0 % [facility] Nucleated RBC/100 WBC (Bld) [Ratio] 0 % [facility] Platelet mean volume (Bld) [Entitic vol] 9.4 fL 9.0 - 12.7 fL [facility] Platelets (Bld) [#/Vol] 266 10*3/uL 140 - 440 10*3/uL [facility] RBC (Bld) [#/Vol] 5.14 10*6/uL 4.40 - 5.90 10*6/uL [facility] WBC (Bld) [#/Vol] 12 10*3/uL High 3.6 - 10.7 10*3/uL [facility] Basophils (Bld) [#/Vol] 0.04 10*3/uL Normal <0.11 [facility] Comment on above: Order Comment: Speci men Type: BLOOD SPECIMEN Ordering Facility: [facility] Address: [address] [place] [address] Performed By: #### 5 7021-8 #### [facility] CLIA [id number] [address] Basophils/100 WBC (Bld) 0.3 % Normal A [facility] Comment on above: Order Comment: Speci men Type: BLOOD SPECIMEN [facility]ing Facility: [facility] Address: [address] [place] [address] Performed By: #### 5 7021-8 #### [facility] CLIA [id number] [address] [place] [address] [facility] [place] Differential cell count method Nom (Bld) Auto Normal [facility] Comment on above: Order Comment: Speci men Type: BLOOD SPECIMEN [facility] Facility: [facility] Address: [address] [place] [address] Performed By: #### 5 7021-8 #### [facility] CLIA [id number] [address] [place] [address] [place] Eosinophils (Bld) [#/Vol] 0.28 10*3/uL Normal <0.46 [facility] Comment on above: Order Comment: Speci men Type: BLOOD SPECIMEN [facility]ing Facility: [facility] Address: [address] [place] [address] Performed By: #### 5 7021-8 #### [facility] CLIA [id number] [address] [place] Eosinophils/100 WBC (Bld) 2.4 % Normal [facility] Comment on above: Order Comment: Speci men Type: BLOOD SPECIMEN [facility] Facility: [facility] Address: [address] [place] [address] Performed By: #### 5 7021-8 #### [facility] CLIA [id number] [address] [place] [address] [place] Erythrocyte distribution width (RBC) [Ratio] 13.2 % Normal 11.5-15.0 [facility] Comment on above: Order Comment: Speci men Type: BLOOD SPECIMEN [facility] Facility: [facility] Address: [address] [place] [address] Performed By: #### 5 7021-8 #### [facility] CLIA [id number] [address] [place] [id number] [place] Hematocrit (Bld) [Volume fraction] 49.0 % Normal 39.0-51.0 [facility] Comment on above: Order Comment: Speci men Type: BLOOD SPECIMEN Ordering Facility: [facility] Address: [address] [place] [address] Performed By: #### 5 7021-8 #### [facility] CLIA [id number] [address] [place] [address] [place] Hemoglobin (Bld) [Mass/Vol] 16.0 g/dL Normal 13.0-17.0 [facility] Comment on above: Order Comment: Speci men Type: BLOOD SPECIMEN Ordering Facility: [facility] Address: [address] [place] [address] Performed By: #### 5 7021-8 #### [facility] CLIA [id number] [address] [place] [address] [place] Immature granulocytes (Bld) [#/Vol] 10*3/uL Normal <0.10 [facility] Comment on above: Order Comment: Speci men Type: BLOOD SPECIMEN [facility]ing Facility: [facility] Address: [address] [place] [address] Performed By: #### 5 7021-8 #### [facility] CLIA [id number] [address] [place] [address] [place] Immature granulocytes/100 WBC (Bld) 0.2 % Normal [facility] Comment on above: Order Comment: Speci men Type: BLOOD SPECIMEN [facility]ing Facility: [facility] Address: [address] [place] [address] Performed By: #### 5 7021-8 #### [facility] CLIA [id number] [address] [place] [address] [place] Lymphocytes (Bld) [#/Vol] 3.89 10*3/uL Normal 1.00-4.00 [facility] Comment on above: Order Comment: Speci men Type: BLOOD SPECIMEN Ordering Facility: [facility] Address: [address] [place] [address] Performed By: #### 5 7021-8 #### [facility] CLIA [id number] [address] [place] [address] [place] Lymphocytes/100 WBC (Bld) 33.0 % Normal [facility] Comment on above: Order Comment: Speci men Type: BLOOD SPECIMEN [facility]ing Facility: [facility] Address: [address] [place] [address] Performed By: #### 5 7021-8 #### [facility] CLIA [id number] [address] [place] [address] MCH (RBC) [Entitic mass] 28.7 pg Normal 26.0-34.0 [facility] Comment on above: Order Comment: Speci men Type: BLOOD SPECIMEN Ordering Facility: [facility] [facility] Address: [address] [place] [address] Performed By: #### 5 7021-8 #### [facility] CLIA [id number] [address] [place] [address] [place] MCHC (RBC) [Mass/Vol] 32.7 g/dL Normal 30.5-36.0 [facility] Comment on above: Order Comment: Speci men Type: BLOOD SPECIMEN [facility]ing Facility: [facility] Address: [address] [place] [address] Performed By: #### 5 7021-8 #### [facility] CLIA [id number] [address] [place] [address] [place] MCV (RBC) [Entitic vol] 88.0 fL Normal 80.0-100.0 [facility] Comment on above: Order Comment: Speci men Type: BLOOD SPECIMEN [facility]ing Facility: [facility] Address: [address] [place] [address] Performed By: #### 5 7021-8 #### [facility] CLIA [id number] [address] [place] [id number] [place] [address] [place] Monocytes (Bld) [#/Vol] 1.01 10*3/uL High <0.87 [facility] Comment on above: Order Comment: Speci men Type: BLOOD SPECIMEN [facility]ing Facility: [facility] Address: [address] [place] [address] Performed By: #### 5 7021-8 #### [facility] CLIA [id number] [address] [place] [address] [place] Monocytes/100 WBC (Bld) 8.6 % Normal [facility] Comment on above: Order Comment: Speci men Type: BLOOD SPECIMEN [facility] Facility: [facility] Address: [address] [place] [address] Performed By: #### 5 7021-8 #### [facility] CLIA [id number] [address] [place] [address] [place] Neutrophils (Bld) [#/Vol] 6.55 10*3/uL Normal 1.45-7.50 [facility] Comment on above: Order Comment: Speci men Type: BLOOD SPECIMEN [facility] Facility: [facility] Address: [address] [place] [address] Performed By: #### 5 7021-8 #### [facility] CLIA [id number] [address] [place] [address] [place] Neutrophils/100 WBC (Bld) 55.5 % Normal [facility] Comment on above: Order Comment: Speci men Type: BLOOD SPECIMEN [facility] Facility: [facility] Address: [address] [place] [address] Performed By: #### 5 7021-8 #### [facility] CLIA [id number] [address] [place] [address] [place] Nucleated RBC (Bld) [#/Vol] Normal [facility] Comment on above: Order Comment: Speci men Type: BLOOD SPECIMEN [facility] Facility: [facility] Address: [address] [place] [address] Performed By: #### 5 7021-8 #### [facility] CLIA [id number] [address] [place] [address] [place] Nucleated RBC/100 WBC (Bld) [Ratio] Normal [facility] Comment on above: Order Comment: Speci men Type: BLOOD SPECIMEN [facility] Facility: [facility] Address: [address] [place] [address] Performed By: #### 5 7021-8 #### [facility] CLIA [id number] [address] [place] [address] [place] Platelet mean volume (Bld) [Entitic vol] 9.2 fL Normal 9.0-12.7 [facility] Comment on above: Order Comment: Speci men Type: BLOOD SPECIMEN [facility] Facility: [facility] Address: [address] [place] [address] Performed By: #### 5 7021-8 #### [facility] CLIA [id number] [address] [place] [address] [place] Platelets (Bld) [#/Vol] 301 10*3/uL Normal 150-400 [facility] Comment on above: Order Comment: Speci men Type: BLOOD SPECIMEN [facility] Facility: [facility] Address: [address] [place] [address] Performed By: #### 5 7021-8 #### [facility] CLIA [id number] [address] [place] [address] [place] [facility] RBC (Bld) [#/Vol] 5.57 10*6/uL Normal 4.20-6.00 [facility] Comment on above: Order Comment: Speci men Type: BLOOD SPECIMEN [facility] Facility: [facility] Address: [address] [place] [address] Performed By: #### 5 7021-8 #### [facility] CLIA [id number] [address] [place] [address] [place] WBC (Bld) [#/Vol] 11.79 10*3/uL High 3.70-11.00 [facility] Comment on above: Order Comment: Speci men Type: BLOOD SPECIMEN [facility] Facility: [facility] Address: [address] [place] [address] Performed By: #### 5 7021-8 #### [facility] CLIA [id number] [address] [place] [address] [place] CBC WITH AUTO DIFFERENTIALon 11-07-2024 Basophils (Bld) [#/Vol] 0.1 10*3/uL Normal 0.0-0.2 [facility] Comment on above: Performed By: #### L AB90 #### Boxing Inspector: MADHAVI TIMMONS ([id number]) [facility]) [address] [place] [address] Basophils/100 WBC (Bld) 0.5 % Normal 0.0-2.0 [facility] Comment on above: Performed By: #### L AB90 #### Boxing Inspector: MADHAVI TIMMONS ([id number]) [facility]) [address] [place] [address] Eosinophils (Bld) [#/Vol] 0.3 10*3/uL Normal 0.0-0.5 [facility] Comment on above: Performed By: #### L AB90 #### Boxing Inspector: MADHAVI TIMMONS ([id number]) [facility]) [address] [place] [address] Eosinophils/100 WBC (Bld) 2.3 % Normal 0.0-6.0 [facility] Comment on above: Performed By: #### L AB90 #### Boxing Inspector: MADHAVI TIMMONS ([id number]) [facility]) [address] [place] [address] Erythrocyte distribution width (RBC) [Ratio] 13.5 % Normal 11.5-15.0 [facility] Comment on above: Performed By: #### L AB90 #### Boxing Inspector: MADHAVI TIMMONS ([id number]) [facility]) [address] [place] [address] Hematocrit (Bld) [Volume fraction] 44.3 % Normal 40.0-52.0 [facility] Comment on above: Performed By: #### L AB90 #### Boxing Inspector: MADHAVI TIMMONS ([id number]) [facility]) [address] [place] [address] Hemoglobin (Bld) [Mass/Vol] 14.8 g/dL Normal 13.0-18.0 [facility] Comment on above: Performed By: #### L AB90 #### Boxing Inspector: MADHAVI TIMMONS ([id number]) [facility]) [address] [place] [address] IMMATURE GRANS % 0.3 % Normal 0.0-2.0 [facility] Comment on above: Performed By: #### L AB90 #### Boxing Inspector: MADHAVI TIMMONS ([id number]) [facility]) [address] [place] [address] IMMATURE GRANS ABSOLUTE 0.0 10*3/uL Normal <0.1 [facility] Comment on above: Performed By: #### L AB90 #### Boxing Inspector: MADHAVI TIMMONS ([id number]) [facility]) [address] [place] [address] Lymphocytes (Bld) [#/Vol] 4.3 10*3/uL Normal 1.0-4.3 [facility] Comment on above: Performed By: #### L AB90 #### Boxing Inspector: MADHAVI TIMMONS ([id number]) [facility]) [address] [place] [address] Lymphocytes/100 WBC (Bld) 35.7 % Normal 15.0-45.0 [facility] Comment on above: Performed By: #### L AB90 #### Boxing Inspector: MADHAVI TIMMONS ([id number]) [facility]) [address] [place] [address] MCH (RBC) [Entitic mass] 28.8 pg Normal 26.0-34.0 [facility] Comment on above: Performed By: #### L AB90 #### Boxing Inspector: MADHAVI TIMMONS ([id number]) [facility]) [address] [place] [address] MCHC 33.4 % Normal 30.5-36.0 [facility] Comment on above: Performed By: #### L AB90 #### Boxing Inspector: MADHAVI TIMMONS ([id number]) [facility]) [address] [place] [address] MCV (RBC) [Entitic vol] 86.2 fL Normal 77.0-99.0 [facility] Comment on above: Performed By: #### L AB90 #### Boxing Inspector: MADHAVI TIMMONS ([id number]) [facility] ([facility]) [address] [place] [address] Monocytes (Bld) [#/Vol] 0.7 10*3/uL Normal 0.0-0.9 [facility] Comment on above: Performed By: #### L AB90 #### Boxing Inspector: MADHAVI TIMMONS ([id number]) [facility] ([facility]) [address] [place] [address] Monocytes/100 WBC (Bld) 5.9 % Normal 5.0-13.0 [facility] Comment on above: Performed By: #### L AB90 #### Boxing Inspector: MADHAVI TIMMONS ([id number]) [facility] ([facility]) [address] [place] [address] NEUTROPHILS ABSOLUTE 6.6 10*3/uL Normal 1.8-7.5 [facility] Comment on above: Performed By: #### L AB90 #### Boxing Inspector: MADHAVI TIMMONS ([id number]) [facility]) [address] [place] [address] Neutrophils/100 WBC (Bld) 55.3 % Normal 38.0-82.0 [facility] Comment on above: Performed By: #### L AB90 #### Boxing Inspector: MADHAVI TIMMONS ([id number]) [facility] ([facility]) [address] [place] [address] NRBC 0.0 /100 WBCs Normal 0.0-2.0 [facility] Comment on above: Performed By: #### L AB90 #### Boxing Inspector: MADHAVI TIMMONS ([id number]) [facility]) [address] [place] [address] Platelet mean volume (Bld) [Entitic vol] 9.4 fL Normal 9.0-12.7 [facility] Comment on above: Performed By: #### L AB90 #### Boxing Inspector: MADHAVI TIMMONS ([id number]) [facility]) [address] [place] [address] Platelets (Bld) [#/Vol] 266 10*3/uL Normal 140-440 [facility] Comment on above: Performed By: #### L AB90 #### Boxing Inspector: MADHAVI TIMMONS ([id number]) [facility]) [address] [place] [address] RBC (Bld) [#/Vol] 5.14 10*6/uL Normal 4.40-5.90 [facility] Comment on above: Performed By: #### L AB90 #### Boxing Inspector: MADHAVI TIMMONS ([id number]) [facility] ([facility]) [address] [place] [address] WBC (Bld) [#/Vol] 12.0 10*3/uL High 3.6-10.7 [facility] Comment on above: Performed By: #### L AB90 #### Boxing Inspector: MADHAVI TIMMONS ([id number]) [facility] ([facility]) [address] [place] [address] ECG 12-LEADon 11-07-2024 ECG 12-LEAD IMPRESSION: Atrial fibrillation Change compared to previous ekg on 11/30/22 Electronically Signed On 11-07-2024 18:27:39 EST by Pramod Arzate ED NOTEon 11-07-2024 ED NOTE HNO ID: [id number] Author: STEPHANIE WHITMAN RN Service: ? Author Type: Registered Nurse Type: ED Notes Filed: 11/07/2024 15:29 Note Text: To [place] City with all belongings [facility] ED NOTE HNO ID: [id number] Author: STEPHANIE WHITMAN RN Service: ? Author Type: Registered Nurse Type: ED Notes Filed: 11/07/2024 15:28 Note Text: Pt denies pain and SOB [facility] ED NOTE HNO ID: [id number] Author: STEPHANIE WHITMAN RN Service: ? Author Type: Registered Nurse Type: ED Notes Filed: 11/07/2024 14:34 Note Text: Pt accepted to [facility] ED [facility] contacted Aware of need for creative project manager and IV pump/cardizem drip ETA 45 min [facility] ED NOTE HNO ID: [id number] Author: STEPHANIE WHITMAN RN Service: ? Author Type: Registered Nurse Type: ED Notes Filed: 11/07/2024 14:16 Note Text: Dr Ordonez speaks with [facility] transfer line (per patient request) [facility] ED NOTE HNO ID: [id number] Author: STEPHANIE WHITMAN RN Service: ? Author Type: Registered Nurse Type: ED Notes Filed: 11/07/2024 10:45 Note Text: Pt arrives with steady gait to ED bed 5 States for last 3-4 days noted HR to be jumping around with h/o afib Denies CP/SOB Pt placed on creative project manager, respiratory therapy paged for EKG Normal [facility] ED Nursing Noteon 11-07-2024 ED Nursing Note Report called to U ED Nursing Note Report given to Juan José hinkle RN ED Nursing Note Cards at bedside [facility] ED Nursing Note NPO until seen by ca rds per Dr Arzate ED Nursing Note Dr Arzate at bedside ED Nursing Note Patients HR in the 1 70's, Dr. Arzate notified ED PROV NOTEon 11-07-2024 ED PROV NOTE HNO ID: [id number] Author: ANDREIA ORDONEZ MD Service: Emergency Medicine Author Type: Physician Type: ED Provider Notes Filed: 11/07/2024 14:30 Note Text: ED Provider Note Patient Name: Khalida Tran : 1960 SERVICE DATE: 11/07/24 History Patient presents with: Rapid Heart Beat The patient is a 64-year-old male presenting today with complaint of rapid heart rate. Patient states he noticed the symptoms about 3 days ago. He states he has been feeling generally unwell. He describes fatigue. He has a history of atrial fibrillation. He had an ablation and has not had an issue since the ablation other than the one bout of pneumonia that he had in February of this year. He states that he used his watch to check his heart rate and noticed that it was tachycardic. States it would be in the 170s to 180s but then after a few hours would go back down to the 70s and be normal. He states it never read atrial fibrillation for him but he did notice multiple episodes over the last 3 days where his heart rate would go high and then low and jump around to different rates in between. He states he never had chest pain palpitations or shortness of breath associated with the symptoms. He was hoping it would just go away. He dropped his and daughter off at the airport today to go see his other daughter who is in [place] and felt it was time to get evaluated when his watch stated that he was back up to the 170s for heart rate. Patient currently sees cardiology [facility]. Since he has not had any issues with atrial fibrillation he has been taken off all of his medications including anticoagulants and metoprolol. PAST MEDICAL HISTORY Diagnosis Date A-fib (HCC) Bilateral kidney stones Hyperlipidemia Prostate disease PAST SURGICAL HISTORY Procedure Laterality Date APPENDECTOMY HX BLADDER SURGERY HX HERNIA REPAIR HX PROSTATE BIOPSY HX No family history on file. Social History Tobacco Use Smoking status: Former Types: Cigarettes Smokeless tobacco: Never Vaping Use Vaping status: Never Used Substance and Sexual Activity Alcohol use: Yes Comment: social Drug use: Yes Types: Marijuana Comment: Gummies occasional Sexual activity: Not on file ALLERGIES No Known Allergies Review of Systems Constitutional: Positive for fatigue. Negative for activity change, appetite change, chills and fever. HENT: Negative for congestion, ear pain, rhinorrhea and sore throat. Respiratory: Negative for cough and shortness of breath. Cardiovascular: Negative for chest pain and palpitations. Gastrointestinal: Negative for abdominal pain, diarrhea, nausea and vomiting. Genitourinary: Negative for dysuria, frequency and urgency. Musculoskeletal: Negative for arthralgias and myalgias. Skin: Negative for rash and wound. Neurological: Negative for dizziness and headaches. Psychiatric/Behavioral: Negative for self-injury and suicidal ideas. All other systems reviewed and are negative. Physical Exam Vitals [11/07/24 1041] BP Pulse Temp Temp src Resp SpO2 Weight Height 131/109 (!) 178 36.7 ?C (98 ?F) Temporal 14 (!) 65 % 104.3 kg (230 lb) -- Physical Exam Vitals and nursing note reviewed. Constitutional: General: He is not in acute distress. Appearance: He is well-developed. HENT: Head: Normocephalic and atraumatic. Nose: Nose normal. Mouth/Throat: Mouth: Mucous membranes are moist. Pharynx: Oropharynx is clear. Eyes: Extraocular Movements: Extraocular movements intact. Pupils: Pupils are equal, round, and reactive to light. Cardiovascular: Rate and Rhythm: Tachycardia present. Rhythm irregular. Heart sounds: Normal heart sounds. No murmur heard. No friction rub. No gallop. Pulmonary: Effort: Pulmonary effort is normal. No respiratory distress. Breath sounds: Normal breath sounds. No stridor. No wheezing, rhonchi or rales. Abdominal: General: Bowel sounds are normal. There is no distension. Palpations: Abdomen is soft. Tenderness: There is no abdominal tenderness. There is no guarding or rebound. Musculoskeletal: General: Normal range of motion. Cervical back: Normal range of motion and neck supple. Right lower leg: No edema. Left lower leg: No edema. Skin: General: Skin is warm and dry. Capillary Refill: Capillary refill takes less than 2 seconds. Neurological: General: No focal deficit present. Mental Status: He is alert and oriented to person, place, and time. GCS: GCS eye subscore is 4. GCS verbal subscore is 5. GCS motor subscore is 6. Psychiatric: Mood and Affect: Mood normal. Behavior: Behavior normal. Diagnostic Testing ED Labs Ordered and Reviewed COMPLETE BLOOD COUNT AND DIFFERENTIAL - Abnormal; Notable for the following components: Result Value Ref Range WBC 11.79 (*) 3.70 - 11.00 k/uL Abs Cuming 1.01 (*) <0.87 k/uL All other components within normal limits BASIC METABOLIC PANEL M (more content not included)... Normal [facility] ED Provider Noteon ED Provider Note Emergency Department Encounter [facility] CTV ICU T1 Patient: Ed Evan Tran : 1960 Date of Evaluation: 11/07/2024 ED Supervising Physician: Pramod Arzate MD I personally evaluated Khalida C Hantzsche and made/approved the management plan and take responsibility for the patient management. This will serve as my Supervisory note and shared attestation. I did perform a substantive portion of the visit including all aspects of the Medical Decision Making. I wore appropriate PPE for the entirety of this encounter. In brief, Ed Evan Tran is a 64 y.o. that presents to the emergency department with A-fib RVR, sent from [facility], was given IV metoprolol, IV Cardizem, when patient arrived here was in A-fib with a rate in the low 100s then jumped up into the 150s to 170s again Focused exam: Heart tachycardic, irregular Brief ED course/MDM: Labs from previous hospital are unremarkable, patient started back on Cardizem drip, admitted to CCU Critical Care note: This patient was unstable and required constant supervision by me for at least 30 minutes during their visit. The patient's condition requiring intervention included: A-fib RVR. The interventions included: IV Cardizem drip, discussion with CCU. This critical care time did not include time for procedures or time spent by the physicians pathologist assistant if they were caring for this patient. Diagnostics interpreted by me: EKG(s) EKG interpreted by me shows atrial fibrillation no acute ST or T wave changes see Epiphany for full interpretation I personally discussed the patient's management with other clinicians: Admitting team CCU All diagnostic, treatment, and disposition decisions were made by myself in conjunction with the Resident. I also supervised sarabia portions of any procedures performed by the Resident. For all further details of the patient's emergency department visit, please see their documentation. (Comment: Please note this report has been produced using speech recognition software and may contain errors related to that system including errors in grammar, punctuation, and spelling, as well as words and phrases that may be inappropriate. If there are any questions or concerns please feel free to contact the dictating provider for clarification.) Pramod Arzate MD Acute Care [facility] Pramod Arzate MD 11/07/242026 ED Provider Note EMERGENCY DEPARTMENT ENCOUNTER Pt Name: Christos Tran Birthdate 1960 Date of evaluation: 11/07/2024 ED Provider: Belinda Beach DO CHIEF COMPLAINT Chief Complaint Patient presents with Atrial Fibrillation Pt coming from [facility] by EMS transfer. Pt was a fib RVR- pt given Cardizem drip at 7.5 en route. Pt denies CP, SOB or any other symptoms at this time. Pt is A&Ox4 during triage. HISTORY OF PRESENT ILLNESS (Location/Symptom, Timing/Onset, Context/Setting, Quality, Duration, Modifying Factors, Severity) Note limiting factors. I wore appropriate PPE for the entirety of this encounter. HPI Ed Evan Tran is a 64 y.o. who presents to the emergency department as a transfer from [facility]. It was reported that the patient was in A-fib RVR with a heart rate in the 180s. The patient states that he was asymptomatic at this time. It was reported that he had metoprolol as well as diltiazem drip during the transport. On arrival, the patient states that he is not have any chest pain, shortness of breath, or systemic findings. His heart rate on arrival was 90s to low 100s. Nursing Notes were reviewed. Limitations to history: Outside historians: REVIEW OF SYSTEMS Review of Systems Pertinent positives and negatives as per HPI. PAST MEDICAL HISTORY Past Medical History: Diagnosis Date A-fib (CMS/HCC) (HCC) Cardioverted Anticoagulated 06/25/2021 BPH (benign prostatic hyperplasia) H/O exercise stress test Hyperlipidemia HARSHA (obstructive sleep apnea) does not wear C pap Machine Pneumonia Pre-diabetes SURGICAL HISTORY Past Surgical History: Procedure Laterality Date ABLATION FOR ATRIAL FIBRILLATION (HISTORICAL) 11/30/[address] Sorensen APPENDECTOMY 12 years ago CARDIAC ELECTROPHYSIOLOGY PROCEDURE N/A 11/30/2022 Performed by Reyes Sorensen at [facility] Cardiac Cath/EP Lab COLONOSCOPY COLONOSCOPY 01/16/2019 HERNIA REPAIR INCISIONAL HERNIA REPAIR 09/04/2019 DR JOE PROSTATE BIOPSY 06/10/[address] desir TONSILLECTOMY (HISTORICAL) VENTRAL HERNIA REPAIR 7 years ago WISDOM TOOTH EXTRACTION CURRENT MEDICATIONS Previous Medications EZETIMIBE-SIMVASTATIN (VYTORIN) 10-40 MG TABLET Take 1 tablet by mouth Nightly. METFORMIN (GLUCOPHAGE) 500 MG TABLET TAKE 1 TABLET BY MOUTH at dinner meal POTASSIUM CITRATE CR (UROCIT-K-15) 15 MEQ ER TABLET Take 1 tablet (15 mEq) by mouth 2 times daily (with meals). ALLERGIES Semaglutide and Tamsulosin FAMILY HISTORY Family History Problem Relation Name Age of Onset Alzheimer's disease Mother COPD Father SOCIAL HISTORY Social History Socioeconomic History Marital status: Tobacco Use Smoking status: Former Current packs/day: 0.00 Average packs/day: 0.5 packs/day for 40.0 years (20.0 ttl pk-yrs) Types: Cigarettes Start date: 1992 Quit date: 2023 Years since quittin.5 Smokeless tobacco: Never Tobacco comments: Quit smoking for short period of time then started again : 5 cigs a day Vaping Use Vaping status: Never Used Substance and Sexual Activity Alcohol use: Not Currently Alcohol/week: 2.0 standard drinks of alcohol Types: 2 Standard drinks or equivalent per week Comment: drinks [place] Drug use: No Comment: caffeine: decaf Social History Narrative Lives with at home SCREENINGS [place] Coma Scale Best Eye Response: Spontaneous Best Verbal Response: Oriented Best Motor Response: Follows commands [place] Coma Scale Score: 15 PHYSICAL EXAM ED Triage Vitals [11/07/24 1615] Temp Heart Rate Resp BP 36.5 ?C (97.7 ?F) 100 17 (!) 157/121 SpO2 Temp src Heart Rate Source Patient Position 96 % -- -- -- BP Location FiO2 (%) -- -- Physical Exam Vitals and nursing note reviewed. Constitutional: General: He is not in acute distress. Appearance: Normal appearance. Cardiovascular: Rate and Rhythm: Rhythm irregularly irregular. Pulses: Normal pulses. Heart sounds: Normal heart sounds. Pulmonary: Effort: Pulmonary effort is normal. No respiratory distress. Breath sounds: Normal breath sounds. Skin: General: Skin is warm. Capillary Refill: Capillary refill takes less than 2 seconds. Neurological: Mental Status: He is alert. DIAGNOSTIC RESULTS RADIOLOGY (Per Emergency Physician): Interpretation per the Radiologist below, if available at the time of this note: No orders to display LABS: Labs Reviewed - No data to display All other labs were within normal range or not returned as of this dictation. EMERGENCY DEPARTMENT COURSE and DIFFERENTIAL DIAGNOSIS/MDM: Vitals: Vitals: 11/07/24 1615 11/07/24 1617 11/07/24 1618 11/07/24 1738 BP: (!) 157/121 111/81 113/75 Pulse: 100 (!) 161 Resp: 17 17 Temp: 36.5 ?C (97.7 ?F) SpO2: 96% 97% 94% Weight: 104 kg (230 lb) Height: 1.778 m (5' 10) The patient presented with a chief complaint of atrial fibrillation. Our workup consisted o (more content not included)... Normal [facility] EKGon 11-07-2024 Electrocardiogram Ventricular Rate : 1 79 BPM QRS Duration : 80 ms Q-T Interval : 280 ms QTC Calculation(Bazett) : 483 ms Calculated R [place] : 51 degrees Calculated T [place] : 40 degrees ATRIAL FLUTTER WITH PREMATURE VENTRICULAR COMPLEXES OR FUSION COMPLEXES ST & T WAVE ABNORMALITY, CONSIDER INFERIOR ISCHEMIA ABNORMAL ECG NO PREVIOUS ECGS AVAILABLE Confirmed by MD SAHU VINAYAK ([id number]) on 11/13/2024 10:08:33 PM NAME : KHALIDA TRAN PID : [id number] : 1960 Gender : Male Race : ORD : Procedure Date : Nov 07 2024 10:48:50 Edit Date : Nov 13 2024 22:08:36 Diagnosis: ATRIAL FLUTTER WITH PREMATURE VENTRICULAR COMPLEXES OR FUSION COMPLEXES ST & T WAVE ABNORMALITY, CONSIDER INFERIOR ISCHEMIA ABNORMAL ECG NO PREVIOUS ECGS AVAILABLE Confirmed by MD SAHU VINAYAK ([id number]) on 11/13/2024 10:08:33 PM Test Reason : Location : 191 : LDCARD 5 Overread By : MD SAHU VINAYAK Edited By : MD SAHU VINAYAK Referred By : Bill, Acquired by : ZARA SELF [facility] HIGH SENSITIVITY TROPONIN T (INITIAL)on 11-07-2024 Troponin T.cardiac High sensitivity method [Mass/Vol] 25 ng/L High <12 [facility] Comment on above: Order Comment: Speci men Type: BLOOD SPECIMEN Ordering Facility: [facility] Address: [address] [place], [place] [id number] Performed By: #### L [id number] #### [facility] CLIA [id number] [address] [place] [id number] [place] [address] [place] HIGH SENSITIVITY TROPONIN T (SECOND)on 11-07-2024 Troponin T.cardiac High sensitivity method [Mass/Vol] 26 ng/L High <12 [facility] Comment on above: Order Comment: Speci men Type: BLOOD SPECIMEN Ordering Facility: [facility] Address: [address] [place] [address] Performed By: #### L [id number] #### [facility] CLIA [id number] [address] [place] [address] [address] [facility] HIGH SENSITIVITY TROPONIN T (THIRD) 3 HRS AFTER INITIALon 11-07-2024 Troponin T.cardiac High sensitivity method [Mass/Vol] 24 ng/L High <12 [facility] Comment on above: Order Comment: Speci men Type: BLOOD SPECIMEN Ordering Facility: [facility] Address: [address] [place] [address] Performed By: #### L [id number] #### [facility] CLIA [id number] [address] [place], [place] [id number] [facility] [place] Laboratory - Chemistry and C hemistry - challengeon 11-07-2024 Glucose [Mass/Vol] 152 mg/dL High 70 - 100 mg/dL [facility] Magnesium SerPl-mCncon 11-07 Magnesium [Mass/Vol] 1.8 mg/dL Normal 1.7-2.3 [facility] Comment on above: Order Comment: Speci men Type: BLOOD SPECIMEN Ordering Facility: [facility] Address: [address] [place] [address] Performed By: #### 2 [id number], 41008-4 #### [facility] CLIA [id number] [address] [place], [place] [id number] [facility] No Panel Informationon 11-07 Interpretation and review of laboratory results Abnormal [facility] Performed by: [facility], [address] [place] [address] CLIA ID: [id number] [facility] P [place] 0 degrees [facility] [place] Interval 0 ms [facility] QRS [place] 1 degrees [facility] QRSD Interval 81 ms [facility] QT Interval 353 ms [facility] QTC Interval 470 ms [facility] T Wave [place] 34 degrees [facility] Atrial fibrillation Change compared to previous ekg on 11/30/22 Electronically Signed On 11-07-2024 18:27:39 EST by Pramod Arzate CV Pramod Cat M D - 11/07/2024 IMPRESSION: Atrial fibrillation Change compared to previous ekg on 11/30/22 Electronically Signed On 11-07-2024 18:27:39 EST by Pramod Arzate [facility] Vital signson 11-07-2024 Heart rate 106 /min bpm [facility] aPTT Coag (Bld) [Time]on aPTT Coag (PPP) [Time] 33.5 s High 20.0 - 30.5 s [facility] Interpretation and review of laboratory results Abnormal [facility] NOTE: The therapeuti c time for Heparin anticoagulation, based on Xa activity inhibition, is an APTT of 46-80 seconds. [facility] 29on 10-05-2024 29 Addended by: NATI CALIX on: 12/26/2024 11:21 AM Modules accepted: Orders Normal [facility] Office Visiton 10-05-2024 Follow-up visit [id number] Keith Tran malcolm Gordon 1960 M Date Provider Department Center 10/05/2024 [id number] HOOD [facility] URO None Family History Problem Relation Age of Onset Alzheimer's disease Mother COPD Father Family Status - Relation Status Age at Mother Father Sister Level of Service:04865 [place] OFFICE/OUTPATIENT ESTABLISHED LOW MDM 20 MIN Reason for Visit and Comments: Elevated PSA [[id number]] - Psa - pt denies issues, pain, distress or discomfort currently Normal [facility] Progress Noteon 10-05-2024 Progress Note Baljit lopez MD OFFICE FOLLOW-UP VISIT PATIENT NAME: Khalida Tran DATE OF : 1960 TODAY'S DATE: 10/05/2024 CHIEF COMPLAINT: Chief Complaint Patient presents with Elevated PSA Psa - pt denies issues, pain, distress or discomfort currently Subjective: Mr. Tran is a 64 y.o. male who presents to the office for follow up of elevated PSA. See below for past history. Overall he is doing well. Voiding well. Review of Systems Past Medical History: Past Medical History: Diagnosis Date A-fib (CMS/HCC) (HCC) Cardioverted Anticoagulated 06/25/2021 BPH (benign prostatic hyperplasia) H/O exercise stress test Hyperlipidemia HARSHA (obstructive sleep apnea) does not wear C pap Machine Pneumonia Pre-diabetes Past Surgical History: Past Surgical History: Procedure Laterality Date ABLATION FOR ATRIAL FIBRILLATION (HISTORICAL) 11/30/[address] Sorensen APPENDECTOMY 12 years ago CARDIAC ELECTROPHYSIOLOGY PROCEDURE N/A 11/30/2022 Performed by Reyes Sorensen at [facility] Cardiac Cath/EP Lab COLONOSCOPY COLONOSCOPY 01/16/2019 HERNIA REPAIR INCISIONAL HERNIA REPAIR 09/04/2019 DR JOE PROSTATE BIOPSY 06/10/[address] desir TONSILLECTOMY (HISTORICAL) VENTRAL HERNIA REPAIR 7 years ago WISDOM TOOTH EXTRACTION Allergies: Patient has no known allergies. Social History: Issues identified in the H&P were noted Family History: Family History Problem Relation Name Age of Onset Alzheimer's disease Mother COPD Father Medications Prior to Admission medications Medication Sig Start Date End Date Taking? Authorizing Provider ezetimibe-simvastatin (Vytorin) 10-40 MG tablet Take 1 tablet by mouth Nightly. 11/15/16 Yes Historical Provider, metFORMIN (Glucophage) 500 MG tablet TAKE 1 TABLET BY MOUTH at dinner meal 12/20/22 Yes Historical Provider, potassium citrate CR (Urocit-K-15) 15 mEq ER tablet Take 1 tablet (15 mEq) by mouth in the morning and 1 tablet (15 mEq) in the evening. Take with meals. 07/09/24 10/05/24 Yes Baljit Hodo MD Rybelsus 7 MG tablet 01/04/24 10/05/24 Yes Historical Provider, potassium citrate CR (Urocit-K-15) 15 mEq ER tablet Take 1 tablet (15 mEq) by mouth 2 times daily (with meals). 10/05/24 01/03/25 Baljit Hood MD Vitals: Ht 5' 10 (1.778 m) Wt 235 lb (107 kg) BMI 33.72 kg/m? Physical Exam Physical Exam Constitutional: Appearance: Normal appearance. HENT: Head: Normocephalic and atraumatic. Eyes: Extraocular Movements: Extraocular movements intact. Pulmonary: Effort: Pulmonary effort is normal. Abdominal: Hernia: There is no hernia in the left inguinal area or right inguinal area. Genitourinary: Penis: Normal and circumcised. Testes: Normal. Epididymis: Right: Normal. Left: Normal. Prostate: Enlarged (Prostate 1+, good lateral margins, no nodules). Not tender. Rectum: Normal. No mass. Musculoskeletal: Cervical back: Normal range of motion. Lymphadenopathy: Lower Body: No right inguinal adenopathy. No left inguinal adenopathy. Neurological: Mental Status: He is alert. LABS: Lab Results Component Value Date PSA 14.099 (H) 04/28/2023 PSA 13.508 (H) 01/21/2023 PSA 9.240 (A) 02/03/2022 No results found for: TESTOSTERONE Lab Results Component Value Date WBC 8.4 04/28/2023 HGB 15.1 09/01/2023 HCT 45.6 09/01/2023 MCV 89.0 04/28/2023 PLT 266 04/28/2023 Lab Results Component Value Date GLUCOSE 110 (H) 09/01/2023 CALCIUM 9.1 09/01/2023 NA 138 09/01/2023 K 4.6 09/01/2023 CO2 23 09/01/2023 CL 105 09/01/2023 BUN 20 09/01/2023 CREATININE 0.66 09/01/2023 Radiology: See below Impression/Plan Ed was seen today for elevated psa. Diagnoses and all orders for this visit: Elevated PSA (Primary) - PSA, Monitoring ([facility]); Future - PSA, Monitoring ([facility]) Hypertrophy of prostate with urinary obstruction Benign prostatic hyperplasia with urinary obstruction History of urinary calculi - potassium citrate CR (Urocit-K-15) 15 mEq ER tablet; Take 1 tablet (15 mEq) by mouth 2 times daily (with meals). Follow up in about 1 year (around 10/05/2025) for Next scheduled follow-up. He was on spring break in February. Had to go in for cardiovascular interventions in [facility]. Doing well now. Continues to be very pleased with the outcomes from the 2022 Aquablation Prostate 1+. PSA slip Long discussion about our friend Carlos Hood MD 10/06/24 1:36 PM 01/06/2024: PVR 44 ml. Feels great. Eating better and lost some weight. Very pleased with the results from the Aquablation. Very pleased about the drop in the PSA. No recent episodes of kidney stone pain. Continue K+ citrate. Decrease both alfuzosin and oxybutynin to every other day. If he can go for a week at that dosage and noticed no change in his urination, then he should discontinue both meds. He has not seen Carlos Causey in some time. (more content not included)... Normal [facility] 09-26-2024 [facility] Telephone ([place]) ----- KHALIDA TRAN ([id number]) 1960 M Date Time Provider Department 09/26/24 KAROL ROSS During your visit today, we recorded the following information about you: Karol Ross PA-C 09/26/2024 1:55 PM Signed This provider called and left a message. If the patient calls back, please inform him that- You chest x-ray did not show a new pneumonia and other acute changes. As a result, continue OTC cough care. Follow up with your PCP for further concerns or for any new/worsening symptoms. Karol Ross PA-C IMPRESSION: Resolution of the previously seen bibasilar infiltrates with no definite acute radiographic abnormality. Karly Diaz 09/26/2024 1:58 PM Signed Patient returned call. Message given as stated below. He confirmed understanding and had no further questions. Allergies As of Date: 09/26/2024 (No Known Allergies) Date Reviewed: 09/19/2024 Reviewed by: Henny Killian MA - Fully Assessed Reason for Visit: Results [95] Prescriptions as of 09/26/2024 - doxycycline monohydrate (MONODOX) 100 mg capsule Take 1 capsule by mouth two times a day for 10 days. - benzonatate (TESSALON PERLE) 100 mg capsule Take 1-2 capsules by mouth every 8 hours as needed. - metFORMIN ER (GLUMETZA) 500 mg 24 hr tablet Take 500 mg by mouth daily with dinner. - CITRIC ACID MISC 1 tablet twice daily. - alfuzosin SR (UROXATRAL) 10 mg 24 hr tablet Take 10 mg by mouth once daily. - ezetimibe-simvastatin 10-40 mg (VYTORIN) 10-40 mg per tablet Take 1 tablet by mouth once daily. Problem List As Of Date: 09/26/2024 (None) Encounter Status:Closed by ISHMAEL RIDER on 09/26/24 Normal [facility] XR CHEST 2V FRONTAL/LATon XR CHEST 2V FRONTAL/LAT * * *Final Repor t* * * DATE OF EXAM: Sep 26 2024 12:38PM LDX 5291 - XR CHEST 2V FRONTAL/LAT / PROCEDURE REASON: multiple diagnoses * * * * Physician Interpretation * * * * EXAMINATION: CHEST RADIOGRAPH (2 VIEW FRONTAL and LATERAL) CLINICAL HISTORY: Sinobronchitis Sinobronchitis MQ: XC2_6 EXAM DATE/TIME: 09/26/2024 12:38 PM COMPARISON: 06/08/2023. RESULT: Lines, tubes, and devices: None. Lungs and pleura: There has been resolution of the previously seen bibasilar infiltrates. No consolidation. No lung mass. No pleural effusion. No pneumothorax. Cardiomediastinal silhouette: Normal cardiomediastinal silhouette. Bones and soft tissues: Unremarkable. IMPRESSION: Resolution of the previously seen bibasilar infiltrates with no definite acute radiographic abnormality. Bending Machine Set Up Operator: NEETA Transcribe Date/Time: Sep 26 2024 12:50P Dictated by : GRUPO VALERO MD This examination was interpreted and the report reviewed and electronically signed by: GRUPO VALERO MD on Sep 26 2024 12:51PM EST [id number] Normal [facility] XR Chest PA and Lateralon IMPRESSION: Resolution of the previously seen bibasilar infiltrates with no definite acute radiographic abnormality. Bending Machine Set Up Operator: NEETA Transcribe Date/Time: Sep 26 2024 12:50P Dictated by : GRUPO VALERO MD This examination was interpreted and the report reviewed and electronically signed by: GRUPO VALERO MD on Sep 26 2024 12:51PM EST [facility] * * *Final Report* * * DATE OF EXAM: Sep 26 2024 12:38PM LDX 5291 - XR CHEST 2V FRONTAL/LAT / PROCEDURE REASON: multiple diagnoses * * * * Physician Interpretation * * * * EXAMINATION: CHEST RADIOGRAPH (2 VIEW FRONTAL & LATERAL) CLINICAL HISTORY: Sinobronchitis Sinobronchitis MQ: XC2_6 EXAM DATE/TIME: 09/26/2024 12:38 PM COMPARISON: 06/08/2023. RESULT: Lines, tubes, and devices: None. Lungs and pleura: There has been resolution of the previously seen bibasilar infiltrates. No consolidation. No lung mass. No pleural effusion. No pneumothorax. Cardiomediastinal silhouette: Normal cardiomediastinal silhouette. Bones and soft tissues: Unremarkable. [facility] Provider, [facility] - 09/26/2024 * * *Final Report* * * DATE OF EXAM: Sep 26 2024 12:38PM LDX 5291 - XR CHEST 2V FRONTAL/LAT / PROCEDURE REASON: multiple diagnoses * * * * Physician Interpretation * * * * EXAMINATION: CHEST RADIOGRAPH (2 VIEW FRONTAL & LATERAL) CLINICAL HISTORY: Sinobronchitis Sinobronchitis MQ: XC2_6 EXAM DATE/TIME: 09/26/2024 12:38 PM COMPARISON: 06/08/2023. RESULT: Lines, tubes, and devices: None. Lungs and pleura: There has been resolution of the previously seen bibasilar infiltrates. No consolidation. No lung mass. No pleural effusion. No pneumothorax. Cardiomediastinal silhouette: Normal cardiomediastinal silhouette. Bones and soft tissues: Unremarkable. IMPRESSION IMPRESSION: Resolution of the previously seen bibasilar infiltrates with no definite acute radiographic abnormality. Bending Machine Set Up Operator: NEETA Transcribe Date/Time: Sep 26 2024 12:50P Dictated by : GRUPO VALERO MD This examination was interpreted and the report reviewed and electronically signed by: GRUPO VALERO MD on Sep 26 2024 12:51PM EST [facility] Radiology Study observation (narrative) [facility] XR Chest PA and LateralOrder ed By: Ccf Provider on 09-26-2024 [facility] CNOVon 09-19-2024 CNOV Office Visit ([place] ) ----- KHALIDA TRAN ([id number]) 1960 M Date Time Provider Department 09/19/24 9:05 AM KAROL ROSS [place] During your visit today, we recorded the following information about you: Temperature Pulse Blood pressure Weight 96.6 degrees 85/minute 127/86 110.7 kg Karol Ross PA-C 09/19/2024 9:26 AM Signed Surgical mask and gloves worn for all in-person care. 09/19/2024 Patient presents with: Cough: I have had it for over 2 weeks now...Chest cold - Entered by patient has used otc Mucinex SUBJECTIVE: This is a 64 year old that is here today for concern for URI symptoms. The patient complains of course cough and sinus post nasal sinus drainage x 2 week or more. Denies fever, chills, sweats, body aches, or fatigue. Patient denies wheezing, shortness of breath, increased WOB, or chest pain. COVID exposure: none Influenza exposure: none RSV exposure: none Covid Immunization Dates Overdue - Covid-19 Vaccine (2023- season) Overdue since 07/15/2024 09/01/2022 Imm Admin: COVID-19 vaccine, age 12+ yr, bivalent (PFIZER-BIONTECH) 05/25/2022 Imm Admin: COVID-19 original vaccine, age 12+ yr, monovalent (PFIZER-BIONTECH - TENORIO TOP) 09/27/2021 Imm Admin: COVID-19 original vaccine, age 12+ yr, monovalent ([employer]-BION[employer] - PURPLE TOP) 02/11/2021 Imm Admin: COVID-19 original vaccine, age 12+ yr, monovalent ([employer] - PURPLE TOP) 01/21/2021 Imm Admin: COVID-19 original vaccine, age 12+ yr, monovalent ([employer] - PURPLE [facility]) Only the first 5 history entries have been loaded, but more history exists. COVID vaccine this year: none Influenza vaccine this year: none RSV vaccine this year: none Asthma: none Pneumonia: once already this year Tobacco: none Pain on scale of 0-10 with 0 being no pain and 10 being greatest pain: 0 Nothing makes the symptoms better. Nothing makes them worse. Self-treatment:. mucinex The severity is mild and the symptoms are not improving. The patient did not have a similar problem in the last 3 months. The patient did not take any antibiotics in the last 3 months. Barriers to learning: none. Reviewed meds, OTCs, herbals or supplements. Reviewed allergies, medications, social history, and past medical history. PAST MEDICAL HISTORY Diagnosis Date A-fib (HCC) Bilateral kidney stones Hyperlipidemia Prostate disease ALLERGIES Patient has no known allergies. MEDICATIONS Current Outpatient Medications Medication Sig metFORMIN ER (GLUMETZA) 500 mg 24 hr tablet Take 500 mg by mouth daily with dinner. CITRIC ACID MISC 1 tablet twice daily. ezetimibe-simvastatin 10-40 mg (VYTORIN) 10-40 mg per tablet Take 1 tablet by mouth once daily. doxycycline monohydrate (MONODOX) 100 mg capsule Take 1 capsule by mouth two times a day for 10 days. alfuzosin SR (UROXATRAL) 10 mg 24 hr tablet Take 10 mg by mouth once daily. (Patient not taking: Reported on 09/19/2024) No current facility-administered medications for this visit. Medications and allergies reviewed by this provider. SOCIAL HISTORY Social History Tobacco Use Smoking status: Former Types: Cigarettes Smokeless tobacco: Never Vaping Use Vaping status: Never Used Substance Use Topics Alcohol use: Yes Comment: social Drug use: Yes Types: Marijuana Comment: Gummies occasional REVIEW OF SYSTEMS Review of Systems ROS: constitutional: neg, HENT- sinus drainage, Eyes- neg, heart-neg, respiratory-Cough, GI-neg, -neg, skin-neg, Allergy- neg, lymph-neg, neuro-neg, psych-neg- All systems neg except as noted above in HPI. OBJECTIVE: BP 127/86 Pulse 85 Temp (!) 35.9 ?C (96.6 ?F) Wt 110.7 kg (244 lb 2.6 oz) SpO2 97% BMI 35.03 kg/m? . Vital signs reviewed by this provider. Physical Exam Vitals reviewed. Constitutional: General: He is not in acute distress. Appearance: Normal appearance. He is well-developed and normal weight. He is not ill-appearing, toxic-appearing or diaphoretic. HENT: Head: Normocephalic and atraumatic. No right periorbital erythema or left periorbital erythema. Salivary Glands: Right salivary gland is not diffusely enlarged or tender. Left salivary gland is not diffusely enlarged or tender. Right Ear: Tympanic membrane, ear canal and external ear normal. Left Ear: Tympanic membrane, ear canal and external ear normal. Nose: Congestion and rhinorrhea present. Right Sinus: No maxillary sinus tenderness or frontal sinus tenderness. Left Sinus: No maxillary sinus tenderness or frontal sinus tenderness. Mouth/Throat: Lips: [place]. No lesions. Mouth: Mucous membranes are moist. No oral lesions. Dentition: No gum lesions. Tongue: No lesions. Tongue does not deviate from midline. Palate: No mass and lesions. Pharynx: Oropharynx is clear. Postnasal drip present. No pharyngeal swelling, oropharyngeal exudate, p (more content not included)... Normal [facility] 36on 09-13-2024 36 Patient confirmed Patient appointment on Tuesday10/05/2024. Normal [facility] 36 Name of Caller: Ed Contact Reason for Appointment: Ed had cancelled an appointment on 09/07 and would like to get that rescheduled. Ed advised that the best day to call him back for reschedule would be on Tuesday. Office Name: Urology Medication Refills need, if any: n/a Medication Name: n/a Normal [place] [address]97on 07-09-2024 36 Received electronic request for medication refill. Pt of Dr Hood. Per last OV note, pt to continue with medication as written. Medication refilled with provider required for cosign. Normal [facility] AMB POC URINALYSIS DIP STICK AUTO W/O MICROon 01-06-2024 Bilirubin, UA Negative [facility] Blood, UA Negative [facility] Glucose, UA Negative [facility] Ketones, UA (mg/dL) Negative Negative mg/dL [facility] Leukocytes, UA Negative [facility] Nitrite, UA Negative [facility] pH, UA 5.5 [facility] Protein, UA Negative [facility] Spec Grav, UA 1.025 [facility] Urobilinogen, UA 0.2 [facility] Radiology Study observation (narrative) [facility] US Abdomenon 12-14-2023 1. Fatty infiltration liver with, CBD measurements at upper limits of normal (similar to CT of 05/02/2023). 2. Multiple bilateral renal cortical cysts as discussed (appear unchanged since CT of 05/02/2023) Report Dictated on Electronically Signed By: Price Celaya MD Electronically Signed Date/Time: 12/14/2023 4:37 PM [facility] [employer] Patient Name: KHALIDA RAMÍREZ CHE : 1960 Exam Date/Time: 12/13/2023 11:18 Procedure: US ABDOMEN COMPLETE Ordering Provider: RIOS MATTHEW Reason For Exam: R79.89 CLINICAL INFORMATION: Abnormal liver function test Sonogram of the abdomen is performed. The liver is hyperechoic in echotexture. No hyper or hypo echoic masses are seen. There is no intrahepatic biliary ductal dilatation. The gallbladder is normally distended. There are no gallstones, internal echoes, wall thickening, or pericholecystic fluid collections. The common bile duct diameter of 6.9 mm is within upper normal limits. The pancreas is largely obscured by bowel gas. Cursory examination of the kidneys is performed. The right renal length is 11.9 cm. The left renal length is 12.5 cm. There is no hydronephrosis with multiple bilateral cortical cysts (many subcentimeter and with 2.3 cm, 1.8 cm, 1.4 cm on the right and 6.3 cm on the left (with some internal echoes in the largest cysts). These appear unchanged since CT seven months ago and no further workup suggested.. There is no ascites. The spleen is unremarkable The visualized portions of the aorta and inferior vena cava are within normal limits. [facility] Price Celaya MD - 12/14/2023 Patient Name: KHALIDA TRAN : 1960 [id number] Exam Date/Time: 12/13/2023 11:18 Procedure: US ABDOMEN COMPLETE Ordering Provider: RIOS MATTHEW Reason For Exam: R79.89 CLINICAL INFORMATION: Abnormal liver function test Sonogram of the abdomen is performed. The liver is hyperechoic in echotexture. No hyper or hypo echoic masses are seen. There is no intrahepatic biliary ductal dilatation. The gallbladder is normally distended. There are no gallstones, internal echoes, wall thickening, or pericholecystic fluid collections. The common bile duct diameter of 6.9 mm is within upper normal limits. The pancreas is largely obscured by bowel gas. Cursory examination of the kidneys is performed. The right renal length is 11.9 cm. The left renal length is 12.5 cm. There is no hydronephrosis with multiple bilateral cortical cysts (many subcentimeter and with 2.3 cm, 1.8 cm, 1.4 cm on the right and 6.3 cm on the left (with some internal echoes in the largest cysts). These appear unchanged since CT seven months ago and no further workup suggested.. There is no ascites. The spleen is unremarkable The visualized portions of the aorta and inferior vena cava are within normal limits. IMPRESSION: 1. Fatty infiltration liver with, CBD measurements at upper limits of normal (similar to CT of 05/02/2023). 2. Multiple bilateral renal cortical cysts as discussed (appear unchanged since CT of 05/02/2023) Report Dictated on Electronically Signed By: Price Celaya MD Electronically Signed Date/Time: 12/14/2023 4:37 PM EST [employer] US AbdomenOrdered By: Nimisha Celaya on 12-14-2023 [employer] Work Phone: US Abdomenon 12-13-2023 Radiology Study observation (narrative) [employer] POCT glucose meteron 10-26-2 023 Glucose [Mass/Vol] 114 mg/dL High 70 - 100 mg/dL [employer] Interpretation and review of laboratory results Abnormal [facility] Performed by: [facility], [address] [place] [id number] CLIA ID: [id number] [facility] CT Abdomen and Pelvis WO and W contrast Didier 05-02-2023 Multiple simple bila teral renal cysts, which warrant no follow-up imaging. Enlarged prostate. Colonic diverticulosis. Mild hepatic steatosis. Report Dictated on Electronically Signed By: Rosalia Winslow Electronically Signed Date/Time: 05/02/2023 2:51 PM [facility] Patient Name: KHALIDA RAMÍREZ CHE : 1960 Exam Date/Time: 05/02/2023 08:29 Procedure: CT ABDOMEN PELVIS W AND WO IV CONTRAST Ordering Provider: HOOD JOSEPH Reason For Exam: Hematuria, gross/macroscopic CT ABDOMEN AND PELVIS WITHOUT AND WITH CONTRAST CLINICAL INDICATION: Hematuria, gross/macroscopic. History of prostate biopsy. Bladder stones. TECHNIQUE: Transaxial sequence was performed through the abdomen and pelvis initially without intravenous contrast material and again during the intravenous infusion of 75 mL nonionic contrast media followed by a delayed sequence. Dose reduction was employed with automated exposure control. COMPARISON: MRI pelvis from 02/22/2023. CT abdomen pelvis from 08/17/2021. FINDINGS: Chest base: Normal. Liver: Mild hepatic steatosis.. No focal lesion. Biliary tree: Normal caliber. No calcified gallstones or pericholecystic fluid. Pancreas: Normal. Spleen: Normal. Adrenals: Normal. Kidneys/Collecting systems: No calculi are identified in the proximal collecting systems. Symmetric contrast excretion without evidence of hydronephrosis. Multiple simple bilateral renal cortical cysts, measuring up to 6.1 cm. These cysts demonstrate no internal enhancement. There is a small simple parapelvic left renal cyst. No solid renal mass. Free fluid: None. Vasculature: Atherosclerotic calcifications are seen in the aorta and its branches. The aorta is normal in caliber. Bowel: Normal caliber. Colonic diverticulosis. No evidence of acute diverticulitis. Apparent appendectomy. Lymphadenopathy: None. Bladder: No filling defects are identified. Wall thickness is normal. Pelvic organs/viscera: Enlarged prostate.. Soft Tissues: Normal. Osseous structures: Degenerative change of the spine. Mild bilateral hip joint DJD.. [facility] Rosalia Winslow M D - 05/02/2023 Patient Name: [facility]HALIDA TRAN [facility] 1960 [id number] Exam Date/Time: 05/02/2023 08:29 Procedure: CT ABDOMEN PELVIS W AND WO IV CONTRAST Ordering Provider: HOOD JOSEPH Reason For Exam: Hematuria, gross/macroscopic CT ABDOMEN AND PELVIS WITHOUT AND WITH CONTRAST CLINICAL INDICATION: Hematuria, gross/macroscopic. History of prostate biopsy. Bladder stones. TECHNIQUE: Transaxial sequence was performed through the abdomen and pelvis initially without intravenous contrast material and again during the intravenous infusion of 75 mL nonionic contrast media followed by a delayed sequence. Dose reduction was employed with automated exposure control. COMPARISON: MRI pelvis from 02/22/2023. CT abdomen pelvis from 08/17/2021. FINDINGS: Chest base: Normal. Liver: Mild hepatic steatosis.. No focal lesion. Biliary tree: Normal caliber. No calcified gallstones or pericholecystic fluid. Pancreas: Normal. Spleen: Normal. Adrenals: Normal. Kidneys/Collecting systems: No calculi are identified in the proximal collecting systems. Symmetric contrast excretion without evidence of hydronephrosis. Multiple simple bilateral renal cortical cysts, measuring up to 6.1 cm. These cysts demonstrate no internal enhancement. There is a small simple parapelvic left renal cyst. No solid renal mass. Free fluid: None. Vasculature: Atherosclerotic calcifications are seen in the aorta and its branches. The aorta is normal in caliber. Bowel: Normal caliber. Colonic diverticulosis. No evidence of acute diverticulitis. Apparent appendectomy. Lymphadenopathy: None. Bladder: No filling defects are identified. Wall thickness is normal. Pelvic organs/viscera: Enlarged prostate.. Soft Tissues: Normal. Osseous structures: Degenerative change of the spine. Mild bilateral hip joint DJD.. IMPRESSION: Multiple simple bilateral renal cysts, which warrant no follow-up imaging. Enlarged prostate. Colonic diverticulosis. Mild hepatic steatosis. Report Dictated on Electronically Signed By: Rosalia Winslow Electronically Signed Date/Time: 05/02/2023 2:51 PM EDT [facility] Radiology Study observation (narrative) [facility] CT Abdomen and Pelvis WO and W contrast IVOrdered By: Rosalia Winslow on 05-02-2023 [facility] Work Phone: CBC W Auto Differential pane l (Bld)Ordered By: Rubi Hahn on 04-28-2023 Basophils (Bld) [#/Vol] 0.1 10*3/uL 0.0 - 0.2 10*3/uL [facility] Basophils/100 WBC (Bld) 0.8 % 0.0 - 2.0 % [facility] Eosinophils (Bld) [#/Vol] 0.4 10*3/uL 0.0 - 0.5 10*3/uL [facility] Eosinophils/100 WBC (Bld) 4.7 % 1.0 - 6.0 % [facility] Erythrocyte distribution width (RBC) [Ratio] 13.5 % 11.5 - 14.5 % [facility] Hematocrit (Bld) [Volume fraction] 46.8 % 40.0 - 52.0 % [facility] Hemoglobin (Bld) [Mass/Vol] 15.8 g/dL 13.0 - 18.0 g/dL [facility] Immature granulocytes (Bld) [#/Vol] 0.0 10*3/uL NINF - 0.0 10*3/uL [facility] Immature granulocytes/100 WBC (Bld) 0.4 % High NINF - 0.0 % [facility] Interpretation and review of laboratory results Abnormal [facility] Lymphocytes (Bld) [#/Vol] 2.9 10*3/uL 1.0 - 4.3 10*3/uL [facility] Lymphocytes/100 WBC (Bld) 34.8 % 20.0 - 40.0 % [facility] MCH (RBC) [Entitic mass] 30.0 pg 26. 0 - 34.0 pg [facility] MCHC (RBC) [Mass/Vol] 33.8 % 32.0 - 36.0 % [facility] MCV (RBC) [Entitic vol] 89.0 fL 80.0 - 98.0 fL [facility] Monocytes (Bld) [#/Vol] 0.7 10*3/uL 0.0 - 0.8 10*3/uL [facility] Monocytes/100 WBC (Bld) 8.3 % 2.0 - 10.0 % [facility] Neutrophils (Bld) [#/Vol] 4.3 10*3/uL 1.8 - 7.0 10*3/uL [facility] Neutrophils/100 WBC (Bld) 51.0 % 40.0 - 80.0 % [facility] Platelet mean volume (Bld) [Entitic vol] 9.7 fL 7.4 - 12.4 fL [facility] Comment on above: MPV is a calculated measurement using platelet volume ratio Platelets (Bld) [#/Vol] 266 10*3/uL 140 - 440 10*3/uL [facility] RBC (Bld) [#/Vol] 5.26 10*6/uL 4.40 - 5.90 10*6/uL [facility] WBC (Bld) [#/Vol] 8.4 10*3/uL 3.6 - 10.7 10*3/uL [facility] Comprehensive metabolic 1998 panelon 04-28-2023 Albumin [Mass/Vol] 4.4 g/dL 3.5 - 5.0 g/dL [facility] ALP [Catalytic activity/Vol] 54 U/L 38 - 126 U/L [facility] ALT [Catalytic activity/Vol] 39 U/L 0 - 49 U/L [facility] Anion gap [Moles/Vol] 6 mmol/L 3 - 13 mmol/L [facility] AST [Catalytic activity/Vol] 38 U/L 15 - 46 U/L [facility] Bilirubin [Mass/Vol] 0.4 mg/dL 0.2 - 1 .3 mg/dL [facility] Calcium [Mass/Vol] 8.8 mg/dL 8.4 - 10. 4 mg/dL [facility] Chloride [Moles/Vol] 104 mmol/L 98 - 10 7 mmol/L [facility] CO2 [Moles/Vol] 28 mmol/L 22 - 30 mmol/L [facility] Creatinine [Mass/Vol] 0.65 mg/dL Low 0.66 - 1.25 mg/dL [facility] GFR/1.73 sq M.predicted MDRD (S/P/Bld) [Vol rate/Area] - PINF [facility] Comment on above: Calculation based on the Chronic Kidney Disease Epidemiology Collaboration (CKD-EPI) equation refit without adjustment for race Glucose [Mass/Vol] 105 mg/dL High 70 - 100 mg/dL [facility] Interpretation and review of laboratory results Abnormal [facility] Potassium [Moles/Vol] 4.6 mmol/L 3.5 - 5.1 mmol/L [facility] Protein [Mass/Vol] 7.6 g/dL 6.3 - 8.2 g/dL [facility] Sodium [Moles/Vol] 138 mmol/L 135 - 145 mmol/L [facility] Urea nitrogen [Mass/Vol] 14 mg/dL 9 - 20 mg/dL [facility] HbA1c (Bld) [Mass fraction]o n 04-28-2023 Average glucose Estimated from glycated hemoglobin (Bld) [Mass/Vol] 131 mg/dL [facility] Interpretation and review of laboratory results Abnormal [facility] Hemoglobin A1con 04-28-2023 HbA1c (Bld) [Mass fraction] 6.2 % High NINF - 5.7 % [facility] Comment on above: Normal less than 5.7 % Prediabetes 5.7% to 6.4% Diabetes 6.5% or higher --HgbA1C levels may not be accurate in patients who have renal disease, received recent blood transfusions, are anemic, or who have dyshemoglobinemia. Lipid 1996 panelOrdered By: Isabel Ramos on 04-28-2023 Cholesterol [Mass/Vol] 255 mg/dL High NINF - 200 mg/dL [facility] Cholesterol in HDL [Mass/Vol] 51 mg/dL 40 - 60 mg/dL [facility] Cholesterol in LDL [Mass/Vol] [facility] Comment on above: Calculated LDL inval id, triglycerides >400 mg/dl Cholesterol.total/Choles terol in HDL [Mass ratio] 5 {ratio} [facility] Comment on above: Ref Range: < 3 Low Risk for CHD 3-6 Mod Risk for CHD > 6 High Risk for CHD Interpretation and review of laboratory results Abnormal [facility] Triglyceride [Mass/Vol] 422 mg/dL High NINF - 150 mg/dL [facility] Microalbumin/Creatinine rati o panel (U)on 04-28-2023 Albumin DL <= 20 mg/L (U) [Mass/Vol] 15.9 mg/L 0.0 - 29.9 mg/L [facility] Albumin/Creatinine DL <= 20 mg/L (U) [Mass ratio] 12.5 mg/g 0.0 - 29.9 mg/g [facility] CREATININE, URINE 127.1 mg/dL No Range [facility] Microalbumin concentrations <30 are considered normal, 30-300 are considered microalbuminuria (or risk of diabetic nephropathy), and >300 are considered clinical albuminuria (clinical nephropathy). Diabetes Care,27, Supplement 1, I07-83, 2004 [facility] PSA Totalon 04-28-2023 Interpretation and review of laboratory results Abnormal [facility] Prostate specific Ag [Mass/Vol] 14.099 ng/mL High NINF - 4.000 ng/mL [facility] Testing performed on the OneTouchEMR 5600 using an immunometric methodology. Results obtained by different methods should not be used interchangeably. [facility] Bacteria identified Cx Nom ( U)Ordered By: Colby White on 03-01-2023 Interpretation and review of laboratory results Normal [facility] Urine cultureOrdered By: Col jose d White on 03-01-2023 Bacteria identified Cx Nom (U) No growth (<1,000 CFU/mL) [facility] Urinalysis complete panel (U )Ordered By: Bessie Pink on 02-28-2023 Bacteria LM.HPF (Urine sed) [#/Area] Few Abnormal Negative /HPF [facility] Bilirubin Ql (U) Negative Negative mg/dL [facility] Clarity (U) Clear Clear [facility] Color (U) Yellow Lt. Yellow [facility] Epithelial cells.squamous LM.HPF (Urine sed) [#/Area] Negative [facility] Glucose Ql (U) Normal Normal (<70) mg/dL [facility] Hemoglobin Ql (U) 0.2 mg/dL Abnormal Negative [facility] Interpretation and review of laboratory results Abnormal [facility] Ketones (U) [Mass/Vol] Negative Negat sandy mg/dL [facility] Leukocyte esterase Test strip Ql (U) 75 Abnormal Negative Abel/uL [facility] Mucus LM.HPF (Urine sed) [#/Area] Moderate Abnormal Negative /LPF [facility] Nitrite Ql (U) Negative Negative [facility] pH (U) 7.0 [pH] 5.0 - 8.0 pH [facility] Protein (U) [Mass/Vol] Negative Negat sandy mg/dL [facility] RBC LM.HPF (Urine sed) [#/Area] 3-5 Abnormal [facility] Specific gravity (U) [Rel density] 1.025 1.005 - 1.030 [facility] Urobilinogen (U) [Mass/Vol] Normal Normal (0-1) mg/dL [facility] WBC LM.HPF (Urine sed) [#/Area] 26-50 Abnormal [facility] PSA, total and freeon 2022 Free PSA [Mass/Vol] 2.3 ng/mL [facility] Free PSA/Total PSA [Mass fraction] 18 % [facility] Comment on above: INTERPRETIVE INFORMA TION: Prostate Specific Antigen, Free Percentage [facility] uses the Max Free PSA electrochemiluminescent immunoassay method in conjunction with the [employer]k PSA electrochemiluminescent immunoassay method to determine the free PSA percentage. Values obtained with different assay methods should not be used interchangeably. The free PSA percentage is an aid in distinguishing prostate cancer from benign prostatic conditions in individuals with a prostate age 50 years and older with a total PSA between 3 and 10 ng/mL and negative digital rectal examination findings. Prostatic biopsy is required for the diagnosis of cancer. In patients with total PSA concentrations of 4-10 ng/mL, the probability of finding prostate cancer on needle biopsy by age in years is: %fPSA 50-59 60-69 70 or older 0 - 10% 49% 58% 65% 11 - 18% 27% 34% 41% 19 - 25% 18% 24% 30% Greater than 25% 9% 12% 16% Other factors may help determine the actual risk of prostate cancer in individual patients. Performed By: [facility] [address] [place] [id number] [employer] Wetter: Beny Pratt MD, PhD Interpretation and review of laboratory results Abnormal [facility] Prostate specific Ag IA [Mass/Vol] 13 ng/mL High 0.0 - 4.0 ng/mL [facility] Comment on above: INTERPRETIVE INFORMA TION: Prostate Specific Antigen The Max PSA electrochemiluminescent immunoassay is used. Results obtained with different test methods or kits cannot be used interchangeably. The Max PSA method is approved for use as an aid in the detection of prostate cancer when used in conjunction with a digital rectal exam in individuals with a prostate age 50 years and older. The Max PSA is also indicated for the serial measurement of PSA to aid in the prognosis and management of prostate cancer patients. Elevated PSA concentrations can only suggest the presence of prostate cancer until biopsy is performed. PSA concentrations can also be elevated in benign prostatic hyperplasia or inflammatory conditions of the prostate. PSA is generally not elevated in healthy individuals or individuals with nonprostatic carcinoma. [facility] Electrophysiology studyon Successful ablation for atrial fibrillation with RF isolation of all four pulmonary veins. The patient tolerated the procedure well with no immediate complications. Plan: 1. Transfer to PACU for observation 2. Bedrest for 3 hours post-sheath pull, then ambulate as tolerated 3. Resume anticoagulation. 4. Cont current home meds as prescribed 5. Pantoprazole for 4 weeks. 6. Discharge home this afternoon. Procedure Details Procedure: Atrial Fibrillation Ablation with RF Assistants: None Catheters or Drains: Not Applicable Specimens: Not Applicable Estimated Blood Loss: < 10mL Complications: None Procedure Description: The indications, risks, benefits, alternatives, and details of the procedure were explained to the patient who expressed understanding of the risks including but are not limited to: pain, bleeding, and infection for which the risk is less than 1%. More serious risks, including cardiac perforation and tamponade, vascular trauma, pulmonary vein stenosis, atrio-esophageal fistula, diaphragmatic paralysis, life-threatening arrhythmia, need for permanent pacemaker, stroke, heart attack, and/or , for which the overall risk ranges 0.1-1%. After all questions were answered, the patient provided informed and written consent. The pt was brought to the EP lab in the fasting state. The presenting rhythm was normal sinus. Access was obtained in the right femoral vein using the modified Seldinger technique with the aid of ultrasound. Three sheaths (8Fr, 8.5Fr, 8.5Fr) were placed in the right femoral vein. A Garrido CS catheter was placed in the CS. An ICE transducer was advanced into the right atrium via the sheath in the right femoral vein. Echocardiography was used to guide the transseptal puncture, guide positioning of the ablation tip electrode at the target sites and monitor for complications. No pericardial effusion noted pre or post ablation. The sheath in the right femoral vein was exchanged over a wire for a Versacross needle assembly. Heparin was given prior to transseptal puncture. A transseptal access was performed using the Versacross needle assembly and sheath was advanced into the left atrium. The Versacross sheath was exchanged for an 8.5Fr SureFlex sheath. The heparin infusion rate was adjusted to maintain an ACT between 350-400 sec throughout the procedure. No pericardial effusion noted on ICE pre or post procedure. A left atrial voltage map was constructed using Carto3 and a PentaRay mapping catheter which showed no significant areas of low voltage (scar). PV potentials were present at the antrum of all four PVs. A [employer] Garrido ST SF catheter was used for ablation. Isolation of all 4 PVs was achieved with bilateral RF wide-area circumferential ablation (WACA) lesions and carinal lines. Protamine was given to reverse the heparin. All catheters and sheaths were removed and Vascade devices were used for hemostasis. [facility] Electrophysiology studyOrder ed By: Reyes Sorensen on 11-30-2022 [facility] Work Phone: No Panel Informationon 11-30 Interpretation and review of laboratory results Abnormal [facility] POCT ACT 221 High 90 - 134 [facility] Performed by: [facility], [address] [place] [address] CLIA ID: [id number] [facility] POCT ACT 264 High 90 - 134 [facility] POCT ACT 318 High 90 - 134 [facility] POCT ACT 266 High 90 - 134 [facility] ECG 12 lead - CLINIC PERFORM EDon 11-19-2022 Sinus Rhythm -PVCs -RSR(V1) -nondiagnostic. PROBABLY NORMAL [facility] CBC W Auto Differential pane l (Bld)Ordered By: Rubi Hahn on 09-22-2022 Basophils (Bld) [#/Vol] 0.1 10*3/uL 0.0 - 0.2 10*3/uL [facility] Basophils/100 WBC (Bld) 0.8 % 0.0 - 2.0 % [facility] Eosinophils (Bld) [#/Vol] 0.3 10*3/uL 0.0 - 0.5 10*3/uL [facility] Eosinophils/100 WBC (Bld) 2.8 % 1.0 - 6.0 % [facility] Erythrocyte distribution width (RBC) [Ratio] 13.0 % 11.5 - 14.5 % [facility] Hematocrit (Bld) [Volume fraction] 48.9 % 40.0 - 52.0 % [facility] Hemoglobin (Bld) [Mass/Vol] 16.6 g/dL 13.0 - 18.0 g/dL [facility] Immature granulocytes (Bld) [#/Vol] 0.0 10*3/uL NINF - 0.0 10*3/uL [facility] Immature granulocytes/100 WBC (Bld) 0.3 % High NINF - 0.0 % [facility] Interpretation and review of laboratory results Abnormal [facility] Lymphocytes (Bld) [#/Vol] 2.7 10*3/uL 1.0 - 4.3 10*3/uL [facility] Lymphocytes/100 WBC (Bld) 28.1 % 20.0 - 40.0 % [facility] MCH (RBC) [Entitic mass] 30.0 pg 26. 0 - 34.0 pg [facility] MCHC (RBC) [Mass/Vol] 33.9 % 32.0 - 36.0 % [facility] MCV (RBC) [Entitic vol] 88.3 fL 80.0 - 98.0 fL [facility] Monocytes (Bld) [#/Vol] 0.7 10*3/uL 0.0 - 0.8 10*3/uL [facility] Monocytes/100 WBC (Bld) 7.1 % 2.0 - 10.0 % [facility] Neutrophils (Bld) [#/Vol] 5.8 10*3/uL 1.8 - 7.0 10*3/uL [facility] Neutrophils/100 WBC (Bld) 60.9 % 40.0 - 80.0 % [facility] Platelet mean volume (Bld) [Entitic vol] 10.0 fL 7.4 - 12.4 fL [facility] Comment on above: MPV is a calculated measurement using platelet volume ratio Platelets (Bld) [#/Vol] 219 10*3/uL 140 - 440 10*3/uL [facility] RBC (Bld) [#/Vol] 5.54 10*6/uL 4.40 - 5.90 10*6/uL [facility] WBC (Bld) [#/Vol] 9.5 10*3/uL 3.6 - 10.7 10*3/uL [facility] Comprehensive metabolic 1998 panelon 09-22-2022 Albumin [Mass/Vol] 4.5 g/dL 3.5 - 5.0 g/dL [facility] ALP [Catalytic activity/Vol] 50 U/L 38 - 126 U/L [facility] ALT [Catalytic activity/Vol] 35 U/L 0 - 49 U/L [facility] Anion gap [Moles/Vol] 5 mmol/L 3 - 13 mmol/L [facility] AST [Catalytic activity/Vol] 29 U/L 15 - 46 U/L [facility] Bilirubin [Mass/Vol] 0.8 mg/dL 0.2 - 1 .3 mg/dL [facility] Calcium [Mass/Vol] 9.5 mg/dL 8.4 - 10. 4 mg/dL [facility] Chloride [Moles/Vol] 105 mmol/L 98 - 10 7 mmol/L [facility] CO2 [Moles/Vol] 28 mmol/L 22 - 30 mmol/L [facility] Creatinine [Mass/Vol] 0.89 mg/dL 0.66 - 1.25 mg/dL [facility] GFR/1.73 sq M.predicted MDRD (S/P/Bld) [Vol rate/Area] - PINF [facility] Comment on above: Calculation based on the Chronic Kidney Disease Epidemiology Collaboration (CKD-EPI) equation refit without adjustment for race Glucose [Mass/Vol] 131 mg/dL High 70 - 100 mg/dL [facility] Interpretation and review of laboratory results Abnormal [facility] Potassium [Moles/Vol] 4.8 mmol/L 3.5 - 5.1 mmol/L [facility] Protein [Mass/Vol] 7.4 g/dL 6.3 - 8.2 g/dL [facility] Sodium [Moles/Vol] 138 mmol/L 135 - 145 mmol/L [facility] Urea nitrogen [Mass/Vol] 20 mg/dL 9 - 20 mg/dL [facility] Lipid 1996 panelon Cholesterol [Mass/Vol] 158 mg/dL NINF - 200 mg/dL [facility] Cholesterol in HDL [Mass/Vol] 46 mg/dL 40 - 60 mg/dL [facility] Cholesterol in LDL [Mass/Vol] 82 mg/dL 0 - <100 [facility] Cholesterol.total/Choles terol in HDL [Mass ratio] 3 {ratio} [facility] Comment on above: Ref Range: < 3 Low Risk for CHD 3-6 Mod Risk for CHD > 6 High Risk for CHD Triglyceride [Mass/Vol] 149 mg/dL NINF - 150 mg/dL [facility] No Panel Informationon 09-22 [facility] Basic Metabolic Panelon 03-14 Anion gap [Moles/Vol] 4 mmol/L Normal 3-13 [facility] Comment on above: Performed By: #### B MP3 #### [facility] [address] [place] [address] Calcium [Mass/Vol] 9.2 mg/dL Normal 8.4-10.4 [facility] Comment on above: Performed By: #### B MP3 #### [facility] [address] [place] [address] CO2 [Moles/Vol] 25 mmol/L Normal 22-30 [facility] Comment on above: Performed By: #### B MP3 #### [facility] [address] [place] [address] Glucose [Mass/Vol] 189 mg/dL High 70-100 [facility] Comment on above: Performed By: #### B MP3 #### [facility] [address] [place] [address] Urea nitrogen [Mass/Vol] 25 mg/dL High 7-17 [facility] Comment on above: Performed By: #### B MP3 #### [facility] [address] [place] [address] Creatinine [Mass/Vol] 0.96 mg/dL Normal 0.52-1.25 [facility] Comment on above: Performed By: #### B MP3 #### [facility] [address] [place] [address] GFR/1.73 sq M.predicted among blacks MDRD (S/P/Bld) [Vol rate/Area] mL/min/{1.73_m2} Normal >60 [facility] Comment on above: Performed By: #### B MP3 #### [facility] [address] [place] [address] GFR/1.73 sq M.predicted among non-blacks MDRD (S/P/Bld) [Vol rate/Area] 83.2 mL/min/{1.73_m2} Normal >60 [facility] Comment on above: Result Comment: KDIG O guidelines provide the following GFR categories: Stage GFR(ml/min/1.73 m2) Terms G1 >=90 Normal or high G2 60-89 Mildly decreased* G3a 45-59 Mildly to moderately decreased G3b 30-44 Moderately to severely decreased G4 15-29 Severely decreased G5 <15 Kidney failure *Relative to young adult level. In the absence of evidence of kidney damage, neither GFR category G1 nor G2 fulfill the criteria for CKD. The CKD-EPI equation is validated in individuals 18 years of age and older. Currently the best equation for estimating glomerular filtration rate (GFR) from serum creatinine in children is the Bedside Diggs equation. It is less accurate in patients with extremes of muscle mass, restriction of dietary protein, ingestion of creatine, extra-renal metabolism of creatinine, or treatment with medications that affect renal tubular creatinine secretion. Performed By: #### B MP3 #### [facility] [address] [place] [address] Potassium [Moles/Vol] 4.7 mmol/L Normal 3.5-5.1 [facility] Comment on above: Performed By: #### B MP3 #### [facility] [address] [place] [address] Sodium [Moles/Vol] 133 mmol/L Low 135-145 [facility] Comment on above: Performed By: #### B MP3 #### [facility] [address] [place] [address] Chloride [Moles/Vol] 105 mmol/L Normal 98-107 [facility] Comment on above: Performed By: #### B MP3 #### [facility] [address] [place] [address] PSA, Prostatic Specific Anti genon 02-03-2022 Interpretation and review of laboratory results Abnormal [facility] Test Performed by [facility], [address] , [place], [place] [id number] [place] [address] LAB [facility] Prostatic Specific Ag- Diagn osticon 02-03-2022 Prostatic Specific Ag 9.240 ng/mL Abnormal < 4.000 [facility] Comment on above: Testing performed on the Ortho Vitros 5600 using an immunometric methodology. Results obtained by different methods should not be used interchangeably. Result Comment: Test ing performed on the Ortho Vitros 5600 using an immunometric methodology. Results obtained by different methods should not be used interchangeably. Performed By: #### P SA3 #### [facility] [address] [place] [address] PSA, Prostatic Specific Anti genon 10-30-2021 Interpretation and review of laboratory results Abnormal [facility] Prostatic Specific Ag 9.821 ng/mL Abnormal <4.[address] [facility] Comment on above: Testing performed on the Ortho Vitros 5600 using an immunometric methodology. Results obtained by different methods should not be used interchangeably. Test Performed by [facility], [address] LAB [facility] Prostatic Specific Ag- Diagn osticon 10-30-2021 Prostatic Specific Ag 9.821 ng/mL Abnormal < 4.000 [facility] Comment on above: Result Comment: Test ing performed on the Ortho Vitros 5600 using an immunometric methodology. Results obtained by different methods should not be used interchangeably. Performed By: #### P SA3 #### [facility] [address] [place] [address] CULTURE URINEon 10-22-2021 CULTURE URINE CULTURE URINE --> St atus: F Normal urogenital tl present. Normal [facility] Comment on above: Performed By: #### C /UR #### [facility] [address] [place] [address] Catheterization and angiogra phy procedure details panelOrdered By: Carol Saucedo on 08-25-2021 Jos Prajapati MD 08/25/2021 8:01 AM [facility] ELECTROPHYSIOLOGY LAB ELECTRICAL CARDIOVERSION REPORT Date: 08/25/2021 Patient: Khalida Tran : 1960 Clinical Diagnosis: I48.1 Persistent Atrial Fibrillation LVEF: 60% Anti-arrhythmic Drugs: flecainide After obtaining informed consent, the patient was brought to the EP lab. BASELINE DATA: Rhythm: Atrial fibrillation Ventricular Rate (bpm): 110 QRS: N/A ms QRS Morph: N/A QT: N/A mms QTc: N/A ___ After sedation provided by per anesthesia service, the cardioversion was performed using 360 J of biphasic energy. The procedure was successful. The patient converted into Normal Sinus Rhythm. The patient was monitored for several minutes, and the patient was returned to His room. The patient tolerated the procedure well, without immediate complications. Comments: continue flecainide 100 mg po bid, metoprolol at current dose. Continue Eliquis without interruption for next 4 weeks. Follow up in 4 weeks with Carol Saucedo. ECG prior to discharge. JOS PRAJAPATI MD 08/25/2021 [facility] Work Phone: [facility] Work Phone: EP NURSE PROCEDURE REPORTOrd ered By: Scanning on 08-25-2021 [facility] Work [facility]: CT Abdomen/Pelvis w/o Contra ston 08-17-2021 CT Abdomen/Pelvis w/o Contrast Patient Name: KHALIDA TRAN Computed Tomography ACCESSION EXAM DATE/TIME PROCEDURE ORDERING PROVIDER [id number] 08/17/2021 14:[address] Abdomen/Pelvis (No DANKOFF BALJIT PO, No IV) CPT code 01915 Reason For Exam (CT Abdomen/Pelvis (No PO, No IV)) Calculus, bladder (N21.0 [ICD-10-CM]) Report EXAMINATION: CT of the abdomen and pelvis without contrast. EXAM DATE and TIME: 08/17/2021 2:50 PM EDT INDICATION: Calculus, bladder (N21.0 [ICD-10-CM]) ADDITIONAL INFORMATION: 61-year-old male with a history of nephrolithiasis and recent prostate biopsy. Further provided history of low urine output and previous calculus in the bladder one year ago. COMPARISON: CT abdomen pelvis dated 09/12/2020 LIMITATIONS: Evaluation of the vasculature as well as the solid and hollow viscera is limited due to the lack of intravenous and oral contrast. TECHNIQUE: Contiguous multiplanar 3 mm images were obtained from the levels of the lung bases through the upper pelvis without contrast. Images were reformatted in coronal and sagittal projections using the raw CT data and were interpreted in conjunction with the axial images to render the findings listed below. FINDINGS: Included images of the lower thorax: No focal lung consolidation or pleural effusion. Hepatobiliary: There is hepatic steatosis. No biliary dilation is evident. Gallbladder appears normal. Spleen: Unremarkable. Pancreas: Unremarkable. Adrenal glands: Unremarkable. Kidneys, ureters and bladder: Multiple low-density renal cysts are grossly stable compared to the most recent prior study. There is no evidence of hydronephrosis. Multiple bladder calculi are layering dependently within the urinary bladder. The overall number bladder calculi has decreased in the interim. Computed Tomography Report Abdominal and pelvic vasculature: Atherosclerotic vascular calcifications are present. Gastrointestinal: Colonic diverticulosis is present without evidence of diverticulitis. There is no evidence of obstruction. The appendix is surgically absent. Peritoneum, retroperitoneum and mesentery: No inflammatory change, pneumoperitoneum, free fluid or abnormal mass is shown. Lymph nodes: No abdominal or pelvic lymphadenopathy is evident. Solid pelvic viscera: Prostatic calcifications are present. Visualized musculoskeletal structures: Multilevel spondylosis is present, with degenerative disc disease most severe at L4-L5. There is a remote deformity of the posterior left 11th rib. IMPRESSION: 1. No evidence of hydronephrosis or nephrolithiasis. 2. Interval decrease in the number of multiple layering bladder calculi. 3. Hepatic steatosis. Report Dictated on Final Dictating Physician: MD CHRISTIE CHRISTOPHER Signed Date and Time: 08/18/2021 3:17 pm Signed by: MD CHRISTIE CHRISTOPHER Transcribed Date and Time: 08/18/2021 3:19 Normal [facility] Urinalysison 01-27-2021 Appearance (U) Clear Clear NA [facility] Work Phone: Comment on above: . Bilirubin Urine Negative Negative mg/dL [facility] Work Phone: Comment on above: . Color (U) LIGHT YELLOW Lt. Yellow NA [facility] Work Phone: [phone] Comment on above: . Glucose, Ur 100 mg/dL Abnormal Normal (<70) [facility] Work Phone: [phone] Comment on above: . Interpretation and review of laboratory results Abnormal [facility] Work Phone: [phone] Ketones Ql (U) Negative Negative mg/dL [facility] Work Phone: [phone]- Comment on above: . LEUKOCYTES, UA 75 Abnormal Negative Abel/uL [facility] Work Phone: [phone] Comment on above: . Nitrite, Urine Negative Negative NA [facility] Work Phone: [phone] Comment on above: . Occult Blood,Urine 1.0 mg/dL Abnormal Negative [facility] Work Phone: [phone] Comment on above: . pH (U) 5.0 [pH] [facility] Work Phone: [phone] Comment on above: . Protein (U) [Mass/Vol] Negative Negat sandy mg/dL [facility] Work Phone: [phone] Comment on above: . RBC (U) [#/Vol] 11-25 Abnormal 0 - 2 /[HPF] [facility] Work Phone: [phone] Comment on above: . Specific Eckerman, Urine 1.013 [facility] Work Phone: [phone] Comment on above: . Squam Epithel, UA 0-2 3 - 5 /[HPF] [employer] [facility] Work Phone: [phone] Comment on above: . Urobilinogen, Urine Normal Normal (0-1) mg/dL [facility] Work Phone: [phone] Comment on above: . Volume 12 ml [employer] Work Phone: [phone] Comment on above: . WBC, UA 0-2 0 - 5 /[HPF] [facility] Work Phone: [phone]- Comment on above: . Test Performed by [facility], [address] , [place], [place] [address] [employer] Work Phone: PSA, Prostatic Specific Anti genon 11-17-2020 Interpretation and review of laboratory results Abnormal [facility] [place], [place] Prostatic Specific Ag 8.209 ng/mL Abnormal <4.000 [place] Comment on above: Testing performed on the OneTouchEMR 5600 using an immunometric methodology. Results obtained by different methods should not be used interchangeably. Test Performed by [facility], [address] , [place], [place] [address] [place], [place] CBCon 09-22-2020 Erythrocyte distribution width (RBC) [Ratio] 13.8 % 11.5 - 14.5 % [place] Hematocrit (Bld) [Volume fraction] 45.7 % 40 - 52 % [place] Hemoglobin (Bld) [Mass/Vol] 15.5 g/dL 13 - 18 g/dL [place] MCH (RBC) [Entitic mass] 29.8 pg 26 - 34 pg [place] MCHC (RBC) [Mass/Vol] 33.8 % 32 - 36 % [place] MCV (RBC) [Entitic vol] 88.1 fL 80 - 98 fL [place], [place] Platelet mean volume (Bld) [Entitic vol] 8.5 fL 7.4 - 10.4 fL [place] Platelets (Bld) [#/Vol] 227 10*3/uL 140 - 440 10*3/uL [place] RBC (Bld) [#/Vol] 5.19 10*6/uL 4.4 - 5.9 10*6/uL [place] WBC (Bld) [#/Vol] 7.5 10*3/uL 3.6 - 10.7 10*3/uL [place] Test Performed by [facility], [address] [place] [address] [place], [place] Comprehensive Metabolic Pane don 09-22-2020 Albumin [Mass/Vol] 4.5 g/dL 3.5 - 5 g/dL [place] ALP [Catalytic activity/Vol] 63 U/L 38 - 126 U/L [place] ALT [Catalytic activity/Vol] 38 U/L 0 - 49 U/L [place] Comment on above: The ALT test is perf ormed by an updated assay method. Please note that the reference intervals have been changed and are now sex specific. Anion gap [Moles/Vol] 11 mmol/L [place] AST [Catalytic activity/Vol] 40 U/L 15 - 46 U/L [place] Bilirubin Ql (U) 0.6 mg/dL 0.2 - 1.3 mg/dL [place] Calcium [Mass/Vol] 9.1 mg/dL 8.4 - 10. 4 mg/dL [place] Chloride [Moles/Vol] 105 mmol/L 98 - 10 7 mmol/L [place] CO2 [Moles/Vol] 25 mmol/L 22 - 30 mmol/L [place] Creatinine [Mass/Vol] 0.84 mg/dL 0.52 - 1.25 mg/dL [place] EGFR IF NonAfrican Mauritanian >90.0 >60 mL/min [place] Comment on above: KDIGO guidelines pro vide the following GFR categories: Stage GFR(ml/min/1.73 m2) Terms G1 >=90 Normal or high G2 60-89 Mildly decreased* G3a 45-59 Mildly to moderately decreased G3b 30-44 Moderately to severely decreased G4 15-29 Severely decreased G5 <15 Kidney failure *Relative to young adult level. In the absence of evidence of kidney damage, neither GFR category G1 nor G2 fulfill the criteria for CKD. The CKD-EPI equation is validated in individuals 18 years of age and older. Currently the best equation for estimating glomerular filtration rate (GFR) from serum creatinine in children is the Bedside Diggs equation. It is less accurate in patients with extremes of muscle mass, restriction of dietary protein, ingestion of creatine, extra-renal metabolism of creatinine, or treatment with medications that affect renal tubular creatinine secretion. GFR/1.73 sq M predicted among blacks MDRD (S/P/Bld) [Vol rate/Area] mL/min/{1.73_m2} >60 mL/min [place] Glucose [Mass/Vol] 121 mg/dL High 70 - 100 mg/dL [place] Interpretation and review of laboratory results Abnormal [place] Potassium [Moles/Vol] 4.8 mmol/L 3.5 - 5.1 mmol/L [place] Protein [Mass/Vol] 7.5 g/dL 6.3 - 8.2 g/dL [place] Sodium [Moles/Vol] 141 mmol/L 135 - 145 mmol/L [place] Urea nitrogen [Mass/Vol] 15 mg/dL 7 - 20 mg/dL [place] Test Performed by [facility], [address] [place] [address] Protime-INRon 09-22-2020 INR Coag (PPP) [Relative time] 0.9 {INR} [place] Comment on above: Recommended Anticoag ulant Therapy: SEE BELOW ----- INR of 2.0 - 3.0 : - Prophylaxis of Venous Thrombosis (high-risk surgery) - Treatment of Venous Thrombosis - Treatment of Pulmonary Embolism (Includes tissue heart valves, Acute Myocardial Infarction to prevent systemic embolism, Valvular Heart Disease, and Atrial Fibrillation) ----- INR of 2.5 - 3.5 : - Mechanical Prosthetic Valves (high risk) - If oral anticoagulant therapy is used to prevent Myocardial Infarction PT Coag (PPP) [Time] 10 s 9 - 12 s [place] Comment on above: . Test Performed by [facility], [address] [place] [address] PSA, Prostatic Specific Anti genon 09-10-2020 Interpretation and review of laboratory results Abnormal [place] Prostatic Specific Ag 7.690 ng/mL Abnormal <4.000 [place] Comment on above: Testing performed on the OneTouchEMR 5600 using an immunometric methodology. Results obtained by different methods should not be used interchangeably. Test Performed by [facility], [address] , [place], [place] [address] [place] Urinalysison 08-15-2020 Appearance (U) Ex.Turbid Abnormal Clear NA [place] Comment on above: . Bacteria, UA Few (1-5) Abnormal Negative /[HPF] [place] Comment on above: . Bilirubin Urine Negative Negative mg/dL [place] Comment on above: . Color (U) LIGHT ORANGE Abnormal Lt. Yellow NA [place] Comment on above: . Glucose, Ur Normal Normal (<70) mg/dL [place] Comment on above: . Interpretation and review of laboratory results Abnormal [place] Ketones Ql (U) Negative Negative mg/dL [place] Comment on above: . LEUKOCYTES, UA 25 Abnormal Negative Abel/uL [place] Comment on above: . Nitrite, Urine Negative Negative NA [place] Comment on above: . Occult Blood,Urine >1.0 Abnormal Negative mg/dL [place] Comment on above: . pH (U) 6.5 [pH] [place] Comment on above: . Protein (U) [Mass/Vol] 300 mg/dL Abnormal Negative [place] Comment on above: . RBC (U) [#/Vol] /uL Abnormal 0 - 2 /[HPF] [place] Comment on above: . Specific Eckerman, Urine 1.022 [place] Comment on above: . Squam Epithel, UA Negative 3 - 5 /[HPF] [place] Comment on above: . Urobilinogen, Urine Normal Normal (0-1) mg/dL [place] Comment on above: . Volume 8-12 ml [place] Comment on above: . WBC, UA 0-2 0 - 5 /[HPF] [place] Comment on above: . Test Performed by [facility], [address] , [place], [place] [address] [place] [address] CBCon 08-29-2019 Erythrocyte distribution width (RBC) [Ratio] 13.4 % 11.5 - 14.5 % [place] Hematocrit (Bld) [Volume fraction] 46.7 % 40 - 52 % [place] Hemoglobin (Bld) [Mass/Vol] 16.1 g/dL 13 - 18 g/dL [place] MCH (RBC) [Entitic mass] 30.9 pg 26 - 34 pg [place] MCHC (RBC) [Mass/Vol] 34.5 % 32 - 36 % [place] MCV (RBC) [Entitic vol] 89.5 fL 80 - 98 fL [place] Platelet mean volume (Bld) [Entitic vol] 7.7 fL 7.4 - 10.4 fL [place] Platelets (Bld) [#/Vol] 221 10*3/uL 140 - 440 10*3/uL [place] RBC (Bld) [#/Vol] 5.22 10*6/uL 4.4 - 5.9 10*6/uL [place] WBC (Bld) [#/Vol] 10.2 10*3/uL 3.6 - 10.7 10*3/uL [place] Test Performed by [facility], [address], [place], [place] [address] [place] Comprehensive Metabolic Pane l w/ Reflex to MGon 08-29-2019 Albumin [Mass/Vol] 4.2 g/dL 3.5 - 5 g/dL [place] ALP [Catalytic activity/Vol] 47 U/L 38 - 126 U/L [place] ALT [Catalytic activity/Vol] 37 U/L 13 - 69 U/L [place] Anion gap [Moles/Vol] 7 mmol/L [place] AST [Catalytic activity/Vol] 33 U/L 15 - 46 U/L [place] Bilirubin Ql (U) 0.6 mg/dL 0.2 - 1.3 mg/dL [place] Calcium [Mass/Vol] 9.0 mg/dL 8.4 - 10. 4 mg/dL [place] Chloride [Moles/Vol] 106 mmol/L 98 - 10 7 mmol/L [place] CO2 [Moles/Vol] 24 mmol/L 22 - 30 mmol/L [place] Creatinine [Mass/Vol] 0.92 mg/dL 0.52 - 1.25 mg/dL [place] EGFR IF NonAfrican [place]itanian >60.0 >60 mL/min [place] Comment on above: Source- MDRD equatio n with creatinine calibration to IDMS(NKDEP) eGFR not recommended for drug dose adjustment GFR/1.73 sq M predicted among blacks MDRD (S/P/Bld) [Vol rate/Area] mL/min/{1.73_m2} >60 mL/min [place] Glucose [Mass/Vol] 202 mg/dL High 70 - 100 mg/dL [place] Interpretation and review of laboratory results Abnormal [place] Potassium [Moles/Vol] 4.2 mmol/L 3.5 - 5.1 mmol/L [place] Protein [Mass/Vol] 7.1 g/dL 6.3 - 8.2 g/dL [place] Sodium [Moles/Vol] 138 mmol/L 135 - 145 mmol/L [place] Urea nitrogen [Mass/Vol] 20 mg/dL 7 - 20 mg/dL [place] Test Performed by [facility], [address] [place], [place] [address] [place] [address] PSA, Prostatic Specific Anti genon 07-10-2019 Interpretation and review of laboratory results Abnormal [place] Prostatic Specific Ag 8.268 ng/mL Abnormal <4.000 [place] Comment on above: Testing performed on the OneTouchEMR 5600 using an immunometric methodology. Results obtained by different methods should not be used interchangeably. Test Performed by [facility], [address] , [place], [place] [address] [place] Vital Signs Date Time Vital Sign Value Performing Clinician Facility 04-03-2025 13:040 Body height 177.8 cm Lora Lezama MD Work Phone: [facility] 04-03-2025 13:040 Body mass index (BMI) [Ratio] 34.81 kg/m2 Lora Lezama MD Work Phone: [facility] 04-03-2025 13:19 Body weight 110.04 kg Lora Lezama MD Work Phone: [facility] 04-03-2025 13:19-0400 Diastolic blood pressure 80 mm[Hg] Lora Lezama MD Work Phone: [facility] 04-03-2025 13:19-0400 Heart rate 80 /min Lora Lezama MD Work Phone: [facility] 04-03-2025 13:19-0400 SaO2% (BldA) [Mass fraction] 96 % Lora Lezama MD Work Phone: [facility] 04-03-2025 13:19-0400 Systolic blood pressure 130 mm[Hg] Lora Lezama MD Work Phone: [facility] 11-28-2024 10:03-0500 Body height 177.8 cm Lora Lezama MD Work Phone: [facility] 11-28-2024 10:03-0500 Body mass index (BMI) [Ratio] 34.87 kg/m2 Lora Lezama MD Work Phone: [facility] 11-28-2024 10:03-0500 Body weight 110.22 kg Lora Lezama MD Work Phone: [facility] 11-28-2024 10:03-0500 Diastolic blood pressure 80 mm[Hg] Lora Lezama MD Work Phone: [facility] 11-28-2024 10:03-0500 Heart rate 71 /min Lora Lezama MD Work Phone: [facility] 11-28-2024 10:03-0500 SaO2% (BldA) [Mass fraction] 96 % Lora Lezama MD Work Phone: [facility] 11-28-2024 10:03-0500 Systolic blood pressure 118 mm[Hg] Lora Lezama MD Work Phone: [facility] 11-08-2024 14:00-0500 Heart rate 77 /min Pramod Arzate MD Work Phone: [facility] 11-08-2024 14:00-0500 Respiratory rate 14 /min Pramod Arzate MD Work Phone: [facility] 11-08-2024 14:00-0500 SaO2% (BldA) [Mass fraction] 95 % Pramod Arzate MD Work Phone: [facility] 11-08-2024 13:00-0500 Diastolic blood pressure 79 mm[Hg] Pramod Arzate MD Work Phone: [facility] 11-08-2024 13:00-0500 Systolic blood pressure 134 mm[Hg] Pramod Arzate MD Work Phone: [facility] 11-08-2024 12:00-0500 Body temperature 97.9 [degF] Pramod Arzate MD Work Phone: [facility] 11-08-2024 10:15-0500 Body height 177.8 cm Pramod Arzate MD Work Phone: [facility] 11-08-2024 10:15-0500 Body mass index (BMI) [Ratio] 34.72 kg/m2 Pramod Arzate MD Work Phone: [facility] 11-08-2024 10:15-0500 Body weight 109.77 kg Pramod Arzate MD Work Phone: [facility] 10-05-2024 08:55-0500 Body height 177.8 cm Baljit Hood MD Work Phone: [facility] 10-05-2024 08:55-0500 Body mass index (BMI) [Ratio] 33.72 kg/m2 Baljit Hood MD Work Phone: [employer] [facility] 10-05-2024 08:55-0500 Body weight 106.59 kg Baljit Hood MD Work Phone: [facility] 09-19-2024 09:19-0500 Heart rate 85 /min Karol Ross PA-C Work Phone: [facility] 09-19-2024 09:19-0500 SaO2% (BldA) [Mass fraction] 97 % Karol Ross PA-C Work Phone: [facility] 09-19-2024 09:03-0500 Body mass index (BMI) [Ratio] 35.03 kg/m2 Karol Ross PA-C Work Phone: [facility] 09-19-2024 09:03-0500 Body temperature 96.6 [degF] Karol Ross PA-C Work Phone: [facility] 09-19-2024 09:03-0500 Body weight 110.75 kg Karol Ross PA-C Work Phone: [facility] 09-19-2024 09:03-0500 Diastolic blood pressure 86 mm[Hg] Karol Ross PA-C Work Phone: [facility] 09-19-2024 09:03-0500 Systolic blood pressure 127 mm[Hg] Karol Ross PA-C Work Phone: [facility] 03-23-2024 09:37-0400 Body height 177.8 cm Meet Edu SEPULVEDA Work Phone: [facility] 03-23-2024 09:37-0400 Body mass index (BMI) [Ratio] 34.87 kg/m2 Meet Edu SEPULVEDA Work Phone: [facility] 03-23-2024 09:37-0400 Body weight 110.22 kg Meet Edu SEPULVEDA Work Phone: [facility] 03-23-2024 09:37-0400 Diastolic blood pressure 80 mm[Hg] Meet Edu SEPULVEDA Work Phone: [facility] 03-23-2024 09:37-0400 Heart rate 83 /min Meet Edu SEPULVEDA Work Phone: [facility] 03-23-2024 09:37-0400 SaO2% (BldA) [Mass fraction] 95 % Meet Edu SEPULVEDA Work Phone: [facility] 03-23-2024 09:37-0400 Systolic blood pressure 136 mm[Hg] Meet Edu SEPULVEDA Work Phone: [facility] 03-22-2024 07:53-0400 Body height 177.[address] Charmaine Rios Work Phone: [facility] 03-22-2024 07:53-0400 Body mass index (BMI) [Ratio] 34.9 kg/m2 Dr. Charmaine Rios Work Phone: [facility] 03-22-2024 07:53-0400 Body temperature 97.8 [degF] Dr. Charmaine Rios Work Phone: [facility] 03-22-2024 07:53-0400 Body weight 110.[address] Charmaine Rios Work Phone: [facility] 03-22-2024 07:53-0400 Diastolic blood pressure 82 mm[Hg] Dr. Charmaine Rios Work Phone: [facility] 03-22-2024 07:53-0400 Heart rate 93 /min Dr. Charmaine Rios Work Phone: [facility] 03-22-2024 07:53-0400 Respiratory rate 18 /min Dr. Charmaine Rios Work Phone: [facility] 03-22-2024 07:53-0400 SaO2% (BldA) [Mass fraction] 94 % Dr. Charmaine Rios Work Phone: [facility] 03-22-2024 07:53-0400 Systolic blood pressure 181 mm[Hg] Dr. Charmaine Rios Work Phone: [facility] 01-06-2024 08:05-0500 Body height 180.3 cm Baljit Hood MD Work Phone: [facility] 01-06-2024 08:05-0500 Body mass index (BMI) [Ratio] 33.33 kg/m2 Baljit Hood MD Work Phone: [facility] 01-06-2024 08:05-0500 Body weight 108.41 kg Baljit Hood MD Work Phone: [facility] 09-09-2023 04:47-0400 Body temperature 97.59 [degF] Baljit Hood MD Work Phone: [facility] 09-09-2023 04:47-0400 Diastolic blood pressure 80 mm[Hg] Baljit Hood MD Work Phone: [facility] 09-09-2023 04:47-0400 Heart rate 88 /min Baljit Hood MD Work Phone: [facility] 09-09-2023 04:47-0400 Respiratory rate 18 /min Baljit Hood MD Work Phone: [facility] 09-09-2023 04:47-0400 SaO2% (BldA) [Mass fraction] 96 % Baljit Hood MD Work Phone: [facility] 09-09-2023 04:47-0400 Systolic blood pressure 121 mm[Hg] Baljit Hood MD Work Phone: [facility] 09-08-2023 08:45-0400 Body height 180.3 cm Baljit Hood MD Work Phone: [facility] 09-08-2023 08:45-0400 Body mass index (BMI) [Ratio] 34.31 kg/m2 Baljit Hood MD Work Phone: [facility] 09-08-2023 08:45-0400 Body weight 111.58 kg Baljit Hood MD Work Phone: [facility] 08-05-2023 08:36-0400 Body height 177.8 cm Baljit Hood MD Work Phone: [facility] 08-05-2023 08:36-0400 Body mass index (BMI) [Ratio] 33.86 kg/m2 Baljit Hood MD Work Phone: [employer] 08-05-2023 08:36-0400 Body weight 107.05 kg Baljit Hood MD Work Phone: [employer] 08-05-2023 08:36-0400 Diastolic blood pressure 94 mm[Hg] Baljit Hood MD Work Phone: [facility] 08-05-2023 08:36-0400 Heart rate 99 /min Baljit Hood MD Work Phone: [facility] 08-05-2023 08:36-0400 Systolic blood pressure 139 mm[Hg] Baljit Hood MD Work Phone: [facility] 03-30-2023 09:50-0400 Body temperature 97.39 [degF] Charmaine Rios MD Work Phone: [facility] 03-30-2023 09:50-0400 Diastolic blood pressure 83 mm[Hg] Charmaine Rios MD Work Phone: [facility] 03-30-2023 09:50-0400 Heart rate 81 /min Charmaine Rios MD Work Phone: [facility] 03-30-2023 09:50-0400 SaO2% (BldA) [Mass fraction] 93 % Charmaine Rios MD Work Phone: [facility] 03-30-2023 09:50-0400 Systolic blood pressure 134 mm[Hg] Charmaine Rios MD Work Phone: [facility] 03-30-2023 09:17-0400 Respiratory rate 16 /min Charmaine Rios MD Work Phone: [facility] 03-18-2023 09:54-0400 Body height 177.8 cm Meet Edu SEPULVEDA Work Phone: [facility] 03-18-2023 09:54-0400 Body mass index (BMI) [Ratio] 33.86 kg/m2 Meet Edu SEPULVEDA Work Phone: [facility] 03-18-2023 09:54-0400 Body weight 107.05 kg Meet Edu SEPULVEDA Work Phone: [facility] 03-18-2023 09:54-0400 Diastolic blood pressure 78 mm[Hg] Meet Edu SEPULVEDA Work Phone: [facility] 03-18-2023 09:54-0400 Heart rate 88 /min Meet Edu SEPULVEDA Work Phone: [facility] 03-18-2023 09:54-0400 SaO2% (BldA) [Mass fraction] 92 % Meet Edu SEPULVEDA Work Phone: [facility] 03-18-2023 09:54-0400 Systolic blood pressure 140 mm[Hg] Meet Edu SEPULVEDA Work Phone: [facility] 01-14-2023 14:31-0500 Body height 177.8 cm Carol Fuentesonough IT SERVICE DELIVERY MANAGER - FRONT END SOFTWARE ENGINEER Work Phone: [facility] 01-14-2023 14:31-0500 Body mass index (BMI) [Ratio] 33.29 kg/m2 Carolashley Fuentesonough IT SERVICE DELIVERY MANAGER - FRONT END SOFTWARE ENGINEER Work Phone: [facility] 01-14-2023 14:31-0500 Body weight 105.23 kg Carol Lewis IT SERVICE DELIVERY MANAGER - FRONT END SOFTWARE ENGINEER Work Phone: [facility] 01-14-2023 14:31-0500 Diastolic blood pressure 60 mm[Hg] Carol Mccordugh IT SERVICE DELIVERY MANAGER - FRONT END SOFTWARE ENGINEER Work Phone: [facility] 01-14-2023 14:31-0500 Heart rate 68 /min Carol Lewis IT SERVICE DELIVERY MANAGER - FRONT END SOFTWARE ENGINEER Work Phone: [facility] 01-14-2023 14:31-0500 SaO2% (BldA) [Mass fraction] 95 % Carol Fuentesonough IT SERVICE DELIVERY MANAGER - FRONT END SOFTWARE ENGINEER Work Phone: [facility] 01-14-2023 14:31-0500 Systolic blood pressure 120 mm[Hg] Carol Saucedo IT SERVICE DELIVERY MANAGER - FRONT END SOFTWARE ENGINEER Work Phone: [facility] 12-30-2022 08:40-0500 Body height 177.8 cm APRIL Paige JET ENGINE MECHANIC Work Phone: [facility] 12-30-2022 08:40-0500 Body mass index (BMI) [Ratio] 33.5 kg/m2 APRIL Paige JET ENGINE MECHANIC Work Phone: [facility] 12-30-2022 08:40-0500 Body temperature 98.4 [degF] JET ENGINE MECHANIC-C Karyn Paige JET ENGINE MECHANIC Work Phone: [facility] 12-30-2022 08:40-0500 Body weight 106.14 kg JET ENGINE MECHANIC-C Karyn Paige JET ENGINE MECHANIC Work Phone: [facility] 12-30-2022 08:40-0500 Diastolic blood pressure 72 mm[Hg] JET ENGINE MECHANIC-C Karyn Paige JET ENGINE MECHANIC Work Phone: [facility] 12-30-2022 08:40-0500 Heart rate 64 /min JET ENGINE MECHANIC-C Karyn Paige JET ENGINE MECHANIC Work Phone: [facility] 12-30-2022 08:40-0500 SaO2% (BldA) [Mass fraction] 92 % JET ENGINE MECHANIC-C Karyn Paige JET ENGINE MECHANIC Work Phone: [facility] 12-30-2022 08:40-0500 Systolic blood pressure 108 mm[Hg] JET ENGINE MECHANIC-C Karyn Paige JET ENGINE MECHANIC Work Phone: [facility] 12-10-2022 08:54-0500 Body height 177.8 cm Baljit Hood MD Work Phone: [facility] 12-10-2022 08:54-0500 Body mass index (BMI) [Ratio] 32.71 kg/m2 Baljit Hood MD Work Phone: [facility] 12-10-2022 08:54-0500 Body weight 103.42 kg Baljit Hood MD Work Phone: [facility] 12-10-2022 08:54-0500 Diastolic blood pressure 86 mm[Hg] Baljit Hood MD Work Phone: [facility] 12-10-2022 08:54-0500 Systolic blood pressure 112 mm[Hg] Baljit Hood MD Work Phone: [facility] 11-30-2022 16:00-0500 Diastolic blood pressure 77 mm[Hg] Reyes Sorensen Work Phone: [facility] 11-30-2022 16:00-0500 Heart rate 76 /min Meet Sorensen Work Phone: [facility] 11-30-2022 16:00-0500 Respiratory rate 12 /min Meet Sorensen Work Phone: [facility] 11-30-2022 16:00-0500 SaO2% (BldA) [Mass fraction] 94 % Meet Sorensen Work Phone: [facility] 11-30-2022 16:00-0500 Systolic blood pressure 120 mm[Hg] Meet Sorensen Work Phone: [facility] 11-30-2022 13:17-0500 Body temperature 97 [degF] Meet Sorensen Work Phone: [facility] 11-30-2022 10:59-0500 Body height 177.8 cm Meet Sorensen Work Phone: [facility] 11-30-2022 10:59-0500 Body mass index (BMI) [Ratio] 34.15 kg/m2 Meet Sorensen Work Phone: [facility] 11-30-2022 10:59-0500 Body weight 107.96 kg Meet Sorensen Work Phone: [facility] 11-22-2022 10:13-0500 Body height 177.8 cm Meet Sorensen Work Phone: [facility] 11-22-2022 10:13-0500 Body mass index (BMI) [Ratio] 34.24 kg/m2 Meet Sorensen Work Phone: [facility] 11-22-2022 10:13-0500 Body weight 108.23 kg Meet Sorensen Work Phone: [facility] 11-22-2022 10:13-0500 Diastolic blood pressure 76 mm[Hg] Meet Sorensen Work Phone: [facility] 11-22-2022 10:13-0500 Heart rate 58 /min Meet Sorensen Work Phone: [facility] 11-22-2022 10:13-0500 SaO2% (BldA) [Mass fraction] 97 % Meet Sorensen Work Phone: [employer] 11-22-2022 10:13-0500 Systolic blood pressure 120 mm[Hg] Meet Sorensen Work Phone: [employer] 11-19-2022 10:28-0500 Body height 177.8 cm Aguilar Parsons MD Work Phone: [employer] 11-19-2022 10:28-0500 Body mass index (BMI) [Ratio] 34.47 kg/m2 Agiular Parsons MD Work Phone: [employer] 11-19-2022 10:28-0500 Body weight 108.95 kg Aguilar Parsons MD Work Phone: [employer] 11-19-2022 10:28-0500 Diastolic blood pressure 78 mm[Hg] Aguilar Parsons MD Work Phone: [employer] 11-19-2022 10:28-0500 Heart rate 66 /min Aguilar Parsons MD Work Phone: [employer] 11-19-2022 10:28-0500 SaO2% (BldA) [Mass fraction] 95 % Aguilar Parsons MD Work Phone: [employer] 11-19-2022 10:28-0500 Systolic blood pressure 120 mm[Hg] Aguilar Parsons MD Work Phone: [employer] 08-25-2021 08:45-0400 Diastolic blood pressure 76 mm[Hg] Jos Prajapati MD Work Phone: [employer] Work Phone: 08-25-2021 08:45-0400 Heart rate 62 /min Jos Prajapati MD Work Phone: [employer] Work Phone: 08-25-2021 08:45-0400 Respiratory rate 14 /min Jos Prajapati MD Work Phone: [facility] Work Phone: 08-25-2021 08:45-0400 SaO2% (BldA) [Mass fraction] 94 % Jos Prajapati MD Work Phone: [employer] Work Phone: 08-25-2021 08:45-0400 Systolic blood pressure 101 mm[Hg] Jos Prajapati MD Work Phone: [employer] Work Phone: 08-25-2021 08:06-0400 Body temperature 97 [degF] Jos Prajapati MD Work Phone: [employer] Work Phone: 08-25-2021 06:40-0400 Body height 177.8 cm Jos Prajapati MD Work Phone: [employer] Work Phone: 08-25-2021 06:40-0400 Body mass index (BMI) [Ratio] 34.44 kg/m2 Jos Prajapati MD Work Phone: [employer] Work Phone: 08-25-2021 06:40-0400 Body weight 108.86 kg Jos Prajapati MD Work Phone: [employer] Work Phone: 08-18-2021 09:58-0400 Diastolic blood pressure 83 mm[Hg] Marisol Benítez MD Work Phone: [facility] Work Phone: 08-18-2021 09:58-0400 Heart rate 58 /min Marisol Benítez MD Work Phone: [facility] Work Phone: 08-18-2021 09:58-0400 Respiratory rate 13 /min Marisol Benítez MD Work Phone: [facility] Work Phone: 08-18-2021 09:58-0400 SaO2% (BldA) [Mass fraction] 93 % Marisol Benítez MD Work Phone: [facility] Work Phone: 08-18-2021 09:58-0400 Systolic blood pressure 114 mm[Hg] Marisol Benítez MD Work Phone: [employer] Work Phone: 08-18-2021 09:03-0400 Body temperature 98.1 [degF] Marisol Benítez MD Work Phone: [employer] Work Phone: 08-18-2021 07:38-0400 Body height 177.8 cm Marisol Benítez MD Work Phone: [employer] Work Phone: 08-18-2021 07:38-0400 Body mass index (BMI) [Ratio] 33.43 kg/m2 Marisol Benítez MD Work Phone: [employer] Work Phone: 08-18-2021 07:38-0400 Body weight 105.69 kg Marisol Benítez MD Work Phone: [employer] Work Phone: 09-29-2020 13:45-0500 Body Temperature 97.5 [degF] Baljit [employer] [facility] , [place] 09-29-2020 13:45-0500 Pulse (Heart Rate) 73 /min Baljit [employer] [facility], [place] 09-29-2020 13:45-0500 Pulse Oximetry 95 % Baljit [employer] [facility] , [place] 09-29-2020 13:45-0500 Respiratory Rate 16 /min Baljit [employer] [place] , [place] 09-29-2020 13:30-0500 BP Diastolic 73 mm[Hg] Baljit [employer] [facility] , [place] 09-29-2020 13:30-0500 BP Systolic 130 mm[Hg] [email or web address] [facility] , [place] 09-22-2020 09:12-0500 BMI (Body Mass Index) 35.07 kg/m2 Baljit Hood [email or web address] [facility], [place] 09-22-2020 09:12-0500 Body Temperature 97.59 [degF] Baljit [employer] [facility], [place] 09-22-2020 09:12-0500 Body weight 110.86 kg [facility] [place] 09-22-2020 09:12-0500 BP Diastolic 80 mm[Hg] [facility] [place] 09-22-2020 09:12-0500 BP Systolic 138 mm[Hg] [facility] [place] 09-22-2020 09:12-0500 Pulse (Heart Rate) 69 /min [facility], [place] 09-22-2020 09:12-0500 Pulse Oximetry 94 % [facility] [place] 09-22-2020 09:12-0500 Respiratory Rate 18 /min [facility], [place] 09-22-2020 09:12-0500 Height 177.8 cm [facility] , [place] 09-04-2019 10:32-0400 Body Temperature 97.3 [degF] [facility], [place] 09-04-2019 10:32-0400 BP Diastolic 73 mm[Hg] [facility] , [place] 09-04-2019 10:32-0400 BP Systolic 104 mm[Hg] [facility] , [place] 09-04-2019 10:32-0400 Pulse (Heart Rate) 67 /min [facility], [place] 09-04-2019 10:32-0400 Pulse Oximetry 92 % [facility] , [place] 09-04-2019 10:32-0400 Respiratory Rate 16 /min [facility], [place] 09-04-2019 06:32-0400 BMI (Body Mass Index) 32.18 kg/m2 [facility], [place] 09-04-2019 06:32-0400 Body weight 101.72 kg [facility] , [place] 09-04-2019 06:32-0400 Height 177.8 cm [facility] , [place] 08-29-2019 14:27-0400 Body Temperature 98.1 [degF] [facility], [place] 08-29-2019 14:27-0400 BP Diastolic 69 mm[Hg] [facility] , [place] 08-29-2019 14:27-0400 BP Systolic 121 mm[Hg] [facility] , [place] 08-29-2019 14:27-0400 Pulse (Heart Rate) 72 /min [facility], [place] 08-29-2019 14:27-0400 Pulse Oximetry 92 % [facility] , [place] 08-29-2019 14:-0400 Respiratory Rate 16 /min [facility], [place] 08-29-2019 14:10-0400 BMI (Body Mass Index) 33.34 kg/m2 [facility], [place] 08-29-2019 14:040 Body weight 105.41 kg [facility] , [place] 08-29-2019 14:-0400 Height 177.8 cm [place], [place] Encounters Encounter Date Encounter Type Care Provider Facility Start: 05-03-2025 ambulatory Karyn Paige JET ENGINE MECHANIC Fac ility:[facility] Start: 04-03-2025 End: 04-03-2025 ambulatory [facility] Start: 04-03-2025 End: 04-03-2025 Office outpatient visit 25 minutes Lora Lezama MD Work Phone: [facility] Comment on above: Paroxysmal atrial fi brillation (HCC) (Primary Dx); HARSHA (obstructive sleep apnea); Mixed hyperlipidemia; Alcohol abuse; Prediabetes Start: 12-26-2024 End: 03-27-2025 Transcribe Orders Baljit Hood MD Work Phone: [facility] Comment on above: Elevated prostate sp ecific antigen (PSA) (Primary Dx) Start: 12-05-2024 End: 12-05-2024 Refill Lora Lezama MD Work Phone: [facility] Comment on above: Atrial fibrillation with RVR (HCC) Start: 11-28-2024 End: 11-28-2024 ambulatory [facility] Start: 11-28-2024 End: 11-28-2024 Office outpatient visit 25 minutes Lora Lezama MD Work Phone: [facility] Cardiology [facility] Comment on above: Paroxysmal atrial fi brillation (HCC); HARSHA (obstructive sleep apnea); Mixed hyperlipidemia; Alcohol abuse; Prediabetes Start: 11-07-2024 End: 11-08-2024 ambulatory CHARMAINE RIOS [facility] Start: 11-07-2024 End: 11-08-2024 Emergency department patient visit Pramod Arzate MD Work Phone: [facility] Cardiac Thoracic Vascular Intensive Care Unit CTV ICU T1 Comment on above: Atrial fibrillation with RVR (HCC) (Primary Dx) Start: 11-07-2024 End: 11-07-2024 Emergency department patient visit ANDREIA ORDONEZ Facility:[facility] Start: 10-05-2024 End: 10-05-2024 Office outpatient visit 15 minutes Baljit Hood MD Work Phone: [facility] Urology [facility] Comment on above: Elevated PSA (Primar y Dx); Hypertrophy of prostate with urinary obstruction; Benign prostatic hyperplasia with urinary obstruction; History of urinary calculi Start: 10-05-2024 End: 10-05-2024 [facility] Start: 09-26-2024 End: 09-26-2024 Telephone encounter Karol Ross PA-C Work Phone: [employer] [facility] Comment on above: Results Start: 09-26-2024 ambulatory CHARMAINE RIOS Facility:[facility] Start: 09-26-2024 End: 09-26-2024 Subsequent hospital visit by physician [facility] Comment on above: Sinobronchitis [J32. 9, J40] Start: 09-19-2024 End: 09-19-2024 ambulatory CHARMAINE RIOS Facility:[facility] Start: 09-19-2024 End: 09-19-2024 Patient encounter procedure Karol Ross PA-C Work Phone: [employer] Comment on above: Sinobronchitis (Prim radha Dx) Start: 09-13-2024 End: 11-08-2024 Telephone encounter Baljit Hood MD Work Phone: [facility] Comment on above: Appointment Request Start: 03-23-2024 End: 03-23-2024 Office outpatient visit 25 minutes Reyes Sorensen MD Work Phone: [facility] Cardiology Comment on above: Paroxysmal atrial fi brillation (HCC) Start: 03-22-2024 End: 03-22-[address] Charmaine Rios Work Phone: [facility] Work Phone: Start: 03-19-2024 End: 03-19-[address] Charmaine Rios Work Phone: [facility] Work Phone: Start: 03-19-2024 End: 03-19-[address] Charmaine Rios Work Phone: [facility] Scan, [facility] Work Phone: Start: 01-06-2024 Orders Only aBljit helms MD Work Phone: [facility] Urology Start: 01-06-2024 End: 01-06-2024 Office outpatient visit 15 minutes Baljit Hood MD Work Phone: [facility] Urology Comment on above: Hypertrophy of prost ate with urinary obstruction (Primary Dx); Bilateral renal cysts; Hematuria, gross; Atypical small acinar proliferation of prostate; History of urinary calculi Start: 12-13-2023 End: 12-13-2023 Subsequent hospital visit by physician Charmaine Rios MD Work Phone: [facility] Comment on above: Other specified abno rmal findings of blood chemistry Other specified abno rmal findings of blood chemistry (Primary Dx) Start: 11-18-2023 Transcribe Orders Charmaine sommers MD Work Phone: [facility] Comment on above: Other specified abno rmal findings of blood chemistry (Primary Dx) Start: 09-08-2023 End: 09-09-2023 Subsequent hospital visit by physician Baljit Hood MD Work Phone: [facility] Medical Surgical Unit MSU H5 Comment on above: Benign prostatic hyp erplasia with lower urinary tract symptoms; Other obstructive and reflux uropathy Start: 08-09-2023 Telephone encounter Baljit mckeon MD Work Phone: [facility] Urology Comment on above: Surgery Scheduling Start: 08-05-2023 End: 08-05-2023 Office outpatient visit 25 minutes Baljit Hood MD Work Phone: [facility] Urology Comment on above: Benign prostatic hyp erplasia with urinary obstruction (Primary Dx) Start: 06-24-2023 Telephone encounter Baljit mckeon MD Work Phone: [facility] Urology Comment on above: Appointment Request (Reschedule office cystoscopy) Start: 05-02-2023 End: 05-02-2023 Subsequent hospital visit by physician Baljit Hood MD Work Phone: [facility] Comment on above: Gross hematuria Start: 04-28-2023 Transcribe Orders Charmaine sommers MD Work Phone: [facility] Laboratory Comment on above: Type 2 diabetes cecelia itus without complications (CMS/HCC) (HCC) (Primary Dx); Hyperlipidemia, unspecified; Paroxysmal atrial fibrillation (CMS/HCC) (HCC); Benign prostatic hyperplasia without lower urinary tract symptoms Start: 03-30-2023 End: 03-30-2023 Subsequent hospital visit by physician Charmaine Rios MD Work Phone: [facility] Comment on above: Elevated prostate sp ecific antigen (PSA) Start: 03-18-2023 End: 03-18-2023 Office outpatient visit 25 minutes Reyes Sorensen MD Work Phone: [facility] Cardiology Comment on above: Paroxysmal atrial fi brillation (CMS/HCC) (HCC) Start: 03-17-2023 End: 03-17-2023 ambulatory JET ENGINE MECHANIC-C Karyn Paige NP Work Phone: [facility] Work Phone: Start: 03-17-2023 End: 03-17-2023 Patient encounter procedure JET ENGINE MECHANIC-Evan Paige JET ENGINE MECHANIC Work Phone: [facility]-Sleep Lab Start: 03-02-2023 Telephone encounter Meet Tristen hill MD Work Phone: [facility] Cardiology Comment on above: Cardiac Clearance Start: 02-28-2023 End: 02-28-2023 ambulatory Jocelin Quiroga IT SERVICE DELIVERY MANAGER - FRONT END SOFTWARE ENGINEER Work Phone: [facility] Laboratory Comment on above: Gross hematuria (Mari yajaira Dx); Hematuria, gross Start: 02-22-2023 End: 02-22-2023 Subsequent hospital visit by physician Jaimie Noonan APRN - JET ENGINE MECHANIC Work Phone: [facility] [address] Comment on above: Gross hematuria Start: 01-31-2023 End: 01-31-2023 ambulatory JET ENGINE MECHANIC-C Karyn Paige JET ENGINE MECHANIC Work Phone: [facility] Work Phone: Start: 01-31-2023 End: 01-31-2023 Patient encounter procedure JET ENGINE MECHANIC-C Karyn Paige JET ENGINE MECHANIC Work Phone: [facility]-Sleep Lab Start: 01-25-2023 End: 01-25-2023 ambulatory Jaimie Noonan IT SERVICE DELIVERY MANAGER - JET ENGINE MECHANIC Work Phone: [facility] Laboratory Comment on above: Arrived Start: 01-21-2023 End: 01-21-2023 ambulatory Jaimie Noonan IT SERVICE DELIVERY MANAGER - JET ENGINE MECHANIC Work Phone: [facility] Laboratory Start: 01-17-2023 End: 01-17-2023 ambulatory JET ENGINE MECHANIC-C Karyn Paige JET ENGINE MECHANIC Work Phone: [facility] Work Phone: Start: 01-17-2023 End: 01-17-2023 Patient encounter procedure JET ENGINE MECHANIC-Evan Paige NP Work Phone: [facility]-Cat Scan, [facility] Start: 01-14-2023 End: 01-14-2023 Office outpatient visit 15 minutes Carol Saucedo IT SERVICE DELIVERY MANAGER - FRONT END SOFTWARE ENGINEER Work Phone: [facility] Cardiology Comment on above: Paroxysmal atrial fi brillation (CMS/HCC) (HCC) (Primary Dx) Start: 01-10-2023 Refill Carol ferro IT SERVICE DELIVERY MANAGER - FRONT END SOFTWARE ENGINEER Work Phone: [facility] Cardiology Start: 12-30-2022 End: 12-30-2022 Patient encounter procedure JET ENGINE MECHANIC-C Karyn Paige NP Work Phone: [facility]-Pulmonary Medicine [facility] Start: 12-24-2022 Telephone encounter Baljit mckeon MD Work Phone: [facility] Clinical Communication Comment on above: Discuss Labs Start: 12-22-2022 End: 12-22-2022 Transcribe Orders Baljit Hood MD Work Phone: [facility] Laboratory Comment on above: Elevated prostate sp ecific antigen (PSA) (Primary Dx) Start: 12-13-2022 Telephone encounter Aguilar sue MD Work Phone: [email or web address] [facility] Comment on above: low heart rate Start: 12-12-2022 Refill Aguilar Parsons MD Work Phone: [email or web address] [facility] Comment on above: Paroxysmal atrial fi brillation (CMS/HCC) (HCC) Start: 12-10-2022 End: 12-10-2022 Office outpatient visit 25 minutes Baljit Hood MD Work Phone: [facility] [place] Comment on above: Elevated prostate sp ecific antigen (PSA) (Primary Dx); Hypertrophy of prostate with urinary obstruction; Benign prostatic hyperplasia with urinary obstruction Start: 11-30-2022 End: 11-30-2022 Subsequent hospital visit by physician [facility] Work Phone: [facility] Comment on above: Persistent atrial fi brillation (HCC); Paroxysmal atrial fibrillation (CMS/HCC) (HCC) Start: 11-22-2022 Orders Only Meet S Sorensen Work Phone: [facility] Comment on above: Paroxysmal atrial fi brillation (CMS/HCC) (HCC); HARSHA (obstructive sleep apnea); Benign prostatic hyperplasia without lower urinary tract symptoms; terminal computer operator (current) use of anticoagulants Start: 11-22-2022 End: 11-22-2022 Office outpatient new 45 minutes Meet Tristen Sorensen Work Phone: [employer] Comment on above: Paroxysmal atrial fi brillation (CMS/HCC) (HCC) Start: 11-19-2022 End: 11-19-2022 Office outpatient visit 25 minutes Aguilar Parsons MD Work Phone: [employer] Comment on above: Paroxysmal atrial fi brillation (CMS/HCC) (HCC) (Primary Dx); High risk medication use; Anticoagulated; HARSHA (obstructive sleep apnea); Class 1 obesity due to excess calories with serious comorbidity and body mass index (BMI) of 34.0 to 34.9 in adult; Mixed hyperlipidemia; Current smoker Start: 11-18-2022 Telephone encounter Reyes Tristen Shipley Work Phone: [employer] Comment on above: Appointment Request Start: 10-14-2022 Telephone encounter Aguilar sue MD Work Phone: [email or web address] [facility] Start: 09-22-2022 Transcribe Orders Charmaine sommers MD Work Phone: [facility] Laboratory Comment on above: Type 2 diabetes cecelia itus without complications (CMS/HCC) (HCC) (Primary Dx); Hyperlipidemia, unspecified; Paroxysmal atrial fibrillation ([facility]/HCC) (HCC) Start: 09-14-2022 ambulatory UNKNOWN PROVIDER [facility] Start: 08-28-2022 Transcribe Orders Belinda salgado MD Work Phone: [facility] Central Scheduling Comment on above: Obstructive sleep ap valery (adult) (pediatric) (Primary Dx) Start: 03-25-2022 ambulatory UNKNOWN PROVIDER [facility] Start: 02-03-2022 End: 02-03-2022 Subsequent hospital visit by physician Baljit Hood MD Work Phone: [facility] Comment on above: Elevated PSA Start: 10-30-2021 End: 10-30-2021 Subsequent hospital visit by physician Baljit Hood MD Work Phone: [facility] Comment on above: Elevated prostate sp ecific antigen (PSA) Start: 09-07-2021 ambulatory UNKNOWN PROVIDER [facility] Start: 08-25-2021 End: 08-25-2021 ambulatory UNKNOWN PROVIDER [facility] Start: 08-25-2021 End: 08-25-2021 Subsequent hospital visit by physician Jos Prajapati MD Work Phone: [facility] [employer] [facility] Comment on above: Arrived Start: 08-18-2021 End: 08-18-2021 Subsequent hospital visit by physician Marisol Benítez MD Work Phone: [facility] Comment on above: Arrived Start: 08-17-2021 End: 08-17-2021 Subsequent hospital visit by physician Baljit Hood MD Work Phone: [facility] Comment on above: Calculus in bladder; Calculus, bladder Start: 06-29-2021 End: 06-29-2021 Subsequent hospital visit by physician Jocelin Shankar CNP Work Phone: [facility] [address] [facility] Comment on above: Elevated PSA; Prostate cancer screening Start: 01-27-2021 End: 01-27-2021 Subsequent hospital visit by physician Baljit Hood Work Phone: [facility] Comment on above: Hematuria, gross Start: 11-17-2020 End: 11-17-2020 Subsequent hospital visit by physician Baljit Hood Work Phone: [facility] Comment on above: Calculus, bladder Start: 09-29-2020 End: 09-29-2020 Subsequent hospital visit by physician Baljit Hood Work Phone: [facility] Comment on above: Arrived Start: 09-22-2020 End: 09-22-2020 Subsequent hospital visit by physician Baljit Hood Work Phone: [facility] Pre-Admit Testing Comment on above: Arrived Start: 09-10-2020 End: 09-10-2020 Subsequent hospital visit by physician Baljit Hood Work Phone: [facility] Comment on above: Elevated PSA Start: 08-15-2020 End: 08-15-2020 Subsequent hospital visit by physician Baljit Hood Work Phone: [facility] Laboratory Comment on above: Frequency of urinati on; Dysuria; Malodorous urine Start: 02-01-2020 End: 02-01-2020 Subsequent hospital visit by physician Baljit Hood Work Phone: [facility] MRI Comment on above: Elevated PSA, less t lewis 10 ng/ml Start: 01-15-2020 End: 01-15-2020 Subsequent hospital visit by physician Chacorta Espinoza Work Phone: [facility] Laboratory Comment on above: Elevated PSA, less t lewis 10 ng/ml Start: 09-04-2019 End: 09-04-2019 Subsequent hospital visit by physician Candido Joe Work Phone: [facility] Surgery Comment on above: Ventral hernia witho ut obstruction or gangrene (Primary Dx) Start: 08-29-2019 End: 08-29-2019 Subsequent hospital visit by physician Candido Joe Work Phone: [facility] Pre-Admit Testing Comment on above: Arrived Start: 07-10-2019 End: 07-10-2019 Subsequent hospital visit by physician Vj Desir Work Phone: [facility] Laboratory Comment on above: Elevated PSA, less t lewis 10 ng/ml Procedures Date Procedure Procedure Detail Performing Clinician Start: 04-03-2025 Ecg routine ecg w/least 12 lds w/i&r Lora Lezama MD Work Phone: Start: 12-26-2024 Assay of prostate specific antigen total Baljit Hood MD Work Phone: Start: 11-28-2024 Ecg routine ecg w/least 12 lds w/i&r Lora Lezama MD Work Phone: Start: 11-08-2024 Glucose quantitative blood xcpt reagent strip Aguilar Parsons MD Work Phone: Start: 11-08-2024 2D NATALEE w or w/o fol w/con,in Prakruti Pa ndya MD Work Phone: Start: 11-08-2024 TTE w or wo fol wcon,Doppler Sunshine sanchez MD Work Phone: Start: 11-08-2024 Ecg routine ecg w/least 12 lds trcg only w/o i&r Sunshine Adams MD Work Phone: Start: 11-08-2024 Lipid 1996 panel - Serum or Plasma Baljit Hood MD Work Phone: Start: 11-08-2024 Comprehensive metabolic panel Sunshine Adams MD Work Phone: Start: 11-08-2024 Lipid panel Gavin Royal MD Work Phone: Start: 11-07-2024 End: 11-07-2024 Blood count complete auto&auto difrntl wbc Gavin Royal MD Work Phone: Start: 11-07-2024 Thromboplastin time partial plasma/whole blood Sunshine Adams MD Work Phone: Start: 11-07-2024 Ecg routine ecg w/least 12 lds trcg only w/o i&r Pramod Arzate MD Work Phone: Start: 09-26-2024 Radiologic exam chest 2 views Karol gutierrez PA-C Work Phone: Start: 03-23-2024 Ecg routine ecg w/least 12 lds trcg only w/o i&r Reyes Sorensen MD Work Phone: Start: 03-19-[address] Charmaine Rios Work Phone: Start: 01-06-2024 Urnls dip stick/tablet rgnt auto w/o microscopy Baljit Hood MD Work Phone: Start: 09-08-2023 End: 09-08-2023 Cystourethroscopy Baljit Hood MD Work Phone: Start: 09-08-2023 End: 09-08-2023 Transurethral waterjet ablation prostate compl Baljit Hood MD Work Phone: Start: 09-08-2023 Glucose quantitative blood xcpt reagent strip Baljit Hood MD Work Phone: Start: 05-02-2023 Ct abdomen & pelvis w/o contrst 1/> body re Baljit Hood MD Work Phone: Start: 04-28-2023 Comprehensive metabolic panel Charmaine ortez MD Work Phone: Start: 04-28-2023 Lipid panel Charmaine Rios MD Work Phone: Start: 04-28-2023 Lipid 1996 panel - Serum or Plasma Baljit Hood MD Work Phone: Start: 03-18-2023 Ecg routine ecg w/least 12 lds trcg only w/o i&r Meet Tristen Sorensen MD Work Phone: Start: 02-28-2023 Culture bacterial quanttative colony count urine Jocelin Quiroga IT SERVICE DELIVERY MANAGER - FRONT END SOFTWARE ENGINEER Work Phone: Start: 01-17-2023 CT of chest JET ENGINE MECHANIC-C Karyn mccurdy NP Work Phone: Start: 01-14-2023 Ecg routine ecg w/least 12 lds trcg only w/o i&r Reyes Sorensen MD Work Phone: Start: 12-22-2022 Assay of prostate specific antigen free Baljit Hood MD Work Phone: Start: 11-30-2022 Ecg routine ecg w/least 12 lds trcg only w/o i&r Esperanza Ball IT SERVICE DELIVERY MANAGER - FRONT END SOFTWARE ENGINEER Work Phone: Start: 11-30-2022 Electrophysiology study Carol montelongo IT SERVICE DELIVERY MANAGER - FRONT END SOFTWARE ENGINEER Work Phone: Start: 11-30-2022 End: 11-30-2022 POCT ACT Reyes Sorensen Work Phone: Start: 01-09-2023 Ecg routine ecg w/least 12 lds trcg only w/o i&r Reyes Sorensen Work Phone: Start: 11-19-2022 Ecg routine ecg w/least 12 lds w/i&r Aguilar Parsons MD Work Phone: Start: 09-22-2022 Comprehensive metabolic panel Charmaine ortez MD Work Phone: Start: 09-22-2022 Lipid panel Charmaine Rios MD Work Phone: Start: 09-22-2022 Lipid 1996 panel - Serum or Plasma Aguilar Parsons MD Work Phone: Start: 02-03-2022 Assay of prostate specific antigen total Baljit Hood MD Work Phone: Start: 10-30-2021 Assay of prostate specific antigen total Balijt Hood MD Work Phone: Start: 08-25-2021 Ecg routine ecg w/least 12 lds w/i&r Marilyn O'Shell IT SERVICE DELIVERY MANAGER - FRONT END SOFTWARE ENGINEER Work Phone: Start: 08-25-2021 EP NURSE PROCEDURE REPORT 3m Scanning Start: 08-25-2021 Cardiac catheterization Carol montelongo IT SERVICE DELIVERY MANAGER - FRONT END SOFTWARE ENGINEER Work Phone: Start: 08-18-2021 Ecg routine ecg w/least 12 lds w/i&r Marilyn O'Shell IT SERVICE DELIVERY MANAGER - FRONT END SOFTWARE ENGINEER Work Phone: Start: 08-18-2021 Transesophageal echocardiography Carol Saucedo IT SERVICE DELIVERY MANAGER - FRONT END SOFTWARE ENGINEER Work Phone: Start: 08-18-2021 CARDIOVERSION DEFIBRILLATION Marisol basilio MD Work Phone: Start: 01-27-2021 Urnls dip stick/tablet rgnt auto w/o microscopy Baljit Hood Work Phone: Start: 11-17-2020 Assay of prostate specific antigen total Baljit Hood Work Phone: Start: 09-29-2020 OPERATIVE REPORT 3m Scanning Start: 09-22-2020 Blood count complete automated Shaye Koenig Work Phone: Start: 09-22-2020 Comprehensive metabolic panel Shaye Sandra castano Work Phone: Start: 09-22-2020 Prothrombin time Shaye Koenig Work Phone: Start: 09-10-2020 Assay of prostate specific antigen total Baljit Hood Work Phone: Start: 08-15-2020 Urnls dip stick/tablet rgnt auto w/o microscopy Baljit Hood Work Phone: Start: 09-04-2019 OPERATIVE REPORT 3m Scanning Start: 08-29-2019 Blood count complete auto&auto difrntl wbc Candido J Rodrigo Work Phone: Start: 08-29-2019 Blood count complete automated Candido J Rodrigo Work Phone: Start: 08-29-2019 Ecg routine ecg w/least 12 lds w/i&r Andrew Chacko Work Phone: Start: 07-10-2019 Assay of prostate specific antigen total Vj Palumbomiriam Work Phone: Start: 01-16-2019 Colonoscopy Baljit Hood MD Work Phone: Plan of Treatment Date Care Activity Detail Author Start: 2033 RSV Vaccine (1 - 1-dose 75+ series) RSV Vaccine (1 - 1-dose 75+ series) [facility] Start: 01-16-2029 Colon cancer screen colonoscopy Colon cancer screen colonoscopy [place], [place] Start: 01-16-2029 Screening for malignant neoplasm of colon [facility] Start: 04-28-2028 Lipid panel Lipid Screening [facility] Start: 04-28-2028 Prostate specific antigen measurement Prostate Cancer Screening Discussion [facility] Start: 09-01-2026 Diabetes Screening Diabetes Screening [facility] Start: 11-08-2025 Diabetes: Estimated Glomerular Filtration Rate for Kidney Health Diabetes: Estimated Glomerular Filtration Rate for Kidney Health [facility] Start: 11-08-2025 Hemoglobin A1c measurement Diabetes: Hemoglobin A1C [facility] Start: 11-08-2025 Lipid panel Lipid Panel [facility] Start: 10-04-2025 End: 10-04-2025 Patient encounter procedure 10/04/2025 8:50 AM EST Office Visit [facility] - [place] [address] [address] [place] [address] Baljit Hood MD [address] [place] [phone] [facility] [place] Start: 09-25-2025 End: 09-25-2025 Patient encounter procedure 09/25/2025 9:45 AM EST Office Visit [facility] Cardiology - [place] [address] [place] [address] [place] [address] Lora Lezama MD [address] [place] [address] [place] [address] [facility] - [place] Start: 07-15-2025 Influenza vaccination Influenza Vaccine (Season Ended) [facility] Start: 04-03-2025 End: 04-03-2025 Patient encounter procedure 04/03/2025 1:15 PM EDT Office Visit [facility] - [place] [address] [place] [address] [place] [address] Lora Lezama MD [address] [place] [address] [place] [address] [facility] - [place] Start: 03-22-2025 End: 03-22-2025 Patient encounter procedure [facility] Start: 11-28-2024 End: 11-28-2024 Patient encounter procedure 11/28/2024 10:00 AM EST Office Visit [facility] - [place] [address] [place] [address] [place] [address] Lora Lezama MD [address] [place] [address] [place] [address] [facility] - [place] Start: 10-05-2024 End: 10-05-2025 PSA, Monitoring ([facility]) PSA, Monitoring ([facility]) Lab Routine Elevated PSA Expected: 10/05/2024 (Approximate), Expires: 10/05/2025 [facility] Work Phone: Comment on above: Expected: 10/05/2024 (Approximate), Expi res: 10/05/2025 Start: 09-07-2024 End: 09-07-2024 Patient encounter procedure 09/07/2024 8:50 AM EDT Office Visit [facility] Urology [address] [place] [address] Baljit Hood MD [address] [place] [address] [facility] Start: 09-01-2024 Diabetes: Estimated Glomerular Filtration Rate for Kidney Health Diabetes: Estimated Glomerular Filtration Rate for Kidney Health [facility] Start: 07-15-2024 Covid-19 Vaccine () Covid-19 Vaccine () [facility] Start: 07-15-2024 Influenza vaccination [facility] Start: 04-28-2024 Diabetes: Urine Albumin-Creatinine Ratio for Kidney Health Diabetes: Urine Albumin-Creatinine Ratio for Kidney Health [facility] Start: 04-28-2024 Hemoglobin A1c measurement Diabetes: Hemoglobin A1C [facility] Start: 04-28-2024 Lipid panel Lipid Panel [facility] Start: 04-19-2024 DTaP/Tdap/Td vaccine (2 - Td or Tdap) DTaP/Tdap/Td vaccine (2 - Td or Tdap) [facility] Start: 04-19-2024 DTaP/Tdap/Td Vaccines (2 - Td or Tdap) DTaP/Tdap/Td Vaccines (2 - Td or Tdap) [facility] Start: 03-23-2024 End: 03-23-2024 Patient encounter procedure [facility] Start: 02-19-2024 Lipid screen Lipid screen [facility] [place] [place] Start: 01-06-2024 End: 01-06-2024 Patient encounter procedure 01/06/2024 8:00 AM EST Office Visit [facility] Urology [address] [place] [phone] Baljit Hood MD [address] [place] [phone] [facility] Start: 12-23-2023 End: 12-23-2023 Patient encounter procedure [facility] Start: 11-14-2023 Advance Directive Discussion Advance Directive Discussion [facility] Start: 09-22-2023 Lipid panel Lipid Panel [facility] Start: 09-08-2023 End: 09-08-2023 Admission to same day surgery center 09/08/2023 9:30 AM EDT - 09/08/2023 11:30 AM EDT Surgery [facility] [address] [facility] [place] [address] Baljit Hood MD [address] [place] [phone] CYSTOSCOPY, AQUABLATION [26998 (CPT )] [facility] MAIN OR Comment on above: CYSTOSCOPY, AQUABLATION [23834 (CPT )] Start: 09-08-2023 End: 09-08-2023 Cystourethroscopy CYSTOSCOPY Benign prostatic hyperplasia with lower urinary tract symptoms Other obstructive and reflux uropathy 09/08/2023 9:30 AM EDT [facility] Operating Room Start: 09-08-2023 Subsequent hospital visit by physician 09/08/2023 9:30 AM EDT Hospital Encounter [facility] [address] [facility] [place] [address] Baljit Hood MD [address] [place] [phone] [facility] OR Start: 09-08-2023 End: 09-08-2023 Transurethral waterjet ablation prostate compl TRANSURETHRAL WATERJET ABLATION OF PROSTATE Benign prostatic hyperplasia with lower urinary tract symptoms Other obstructive and reflux uropathy 09/08/2023 9:30 AM EDT [facility] Operating [facility] Start: 09-01-2023 End: 09-01-2023 Admission to establishment 09/01/2023 9:30 AM EDT Pre-Admission Testing [facility] Pre-Admit Testing [address] [place] [address] [facility] Start: 08-24-2023 End: 08-24-2023 Clinical Support 08/24/2023 8:00 AM EDT Clinical Support [facility]rology [address] [place] [phone] [facility] Start: 08-05-2023 End: 08-05-2023 Patient encounter procedure 08/05/2023 8:20 AM EDT Procedure Visit [facility]rology [address] [place] [address] Baljit Hood MD [address] [place] [phone] [facility] Start: 07-29-2023 Hemoglobin A1c measurement Diabetes: Hemoglobin A1C [facility] Start: 07-15-2023 COVID-19 Vaccine ( season) COVID-19 Vaccine ( season) [facility] Start: 07-15-2023 Influenza vaccination Influenza Vaccine (#1) [facility] Start: 06-24-2023 End: 06-24-2023 Patient encounter procedure 06/24/2023 8:20 AM EDT Procedure Visit [facility] Urology [address] [place] [phone] Baljit Hood MD [address] [place] [address] [facility] Start: 2023 COVID-19 Vaccine (5 - Pfizer series) COVID-19 Vaccine (5 - Pfizer series) [facility] Start: 03-30-2023 End: 03-30-2023 Admission to same day surgery center 03/30/2023 Surgery Procedural Baljit Hood MD [address] [place] [phone] BIOPSY OF PROSTATE NEEDLE OR PUNCH [92046 (CPT )] [facility] Comment on above: BIOPSY OF PROSTATE NEEDLE OR PUNCH [5570 0 (CPT )] Start: 03-30-2023 End: 03-30-2023 Prostate needle biopsy any approach BIOPSY OF PROSTATE NEEDLE OR PUNCH Elevated prostate specific antigen (PSA) 03/30/2023 10:30 AM EDT [facility] Start: 03-30-2023 Subsequent hospital visit by physician 03/30/2023 Hospital Encounter Procedural [facility] Start: 03-30-2023 End: 03-30-2023 Us guidance needle placement img s&i ECHO GUIDE FOR BIOPSY Elevated prostate specific antigen (PSA) 03/30/2023 10:30 AM EDT [facility] Start: 03-30-2023 End: 03-30-2023 Us transrectal ECHO EXAM, TRANSRECTAL Elevated prostate specific antigen (PSA) 03/30/2023 10:30 AM EDT [facility] Start: 03-30-2023 End: 03-30-2023 Prostate needle biopsy any approach BIOPSY OF PROSTATE NEEDLE OR PUNCH Elevated prostate specific antigen (PSA) 03/30/2023 8:27 AM EDT [facility] Start: 03-30-2023 End: 03-30-2023 Us guidance needle placement img s&i ECHO GUIDE FOR BIOPSY Elevated prostate specific antigen (PSA) 03/30/2023 8:27 AM EDT [facility] Start: 03-30-2023 End: 03-30-2023 Us transrectal ECHO EXAM, TRANSRECTAL Elevated prostate specific antigen (PSA) 03/30/2023 8:27 AM EDT [facility] Start: 03-18-2023 End: 03-18-2023 Patient encounter procedure 03/18/2023 Office Visit Cardiology Reyes Sorensen MD [address] [place] [address] [facility] Start: 02-28-2023 End: 02-28-2023 Patient encounter procedure 02/28/2023 Office Visit Cardiology Carol Saucedo APRN - [place] [address] [phone] [facility] Start: 02-03-2023 Prostate specific antigen measurement PSA counseling [facility] Start: 01-24-2023 End: 12-27-2023 PSA screening PSA Screening Lab Add-On Elevated PSA Expected: 01/24/2023 (Approximate), Expires: 12/27/2023 [facility] Work Phone: Comment on above: Expected: 01/24/2023 (Approximate), Expi res: 12/27/2023 Start: 01-14-2023 End: 01-14-2023 Patient encounter procedure 01/14/2023 Office Visit Cardiology Carol Saucedo APRN - FRONT END SOFTWARE ENGINEER [address] [place] [address] [facility] Start: 12-31-2022 End: 12-31-2022 Patient encounter procedure 12/31/2022 Office Visit Cardiology Carol Saucedo APRN - FRONT END SOFTWARE ENGINEER [address] [place] [address] [facility] Start: 12-10-2022 End: 12-10-2023 PSA, total and free PSA, total and free Lab Routine Elevated prostate specific antigen (PSA) Expected: 12/10/2022 (Approximate), Expires: 12/10/2023 [facility] Work Phone: Comment on above: Expected: 12/10/2022 (Approximate), Expi res: 12/10/2023 Start: 12-10-2022 End: 12-10-2022 Patient encounter procedure 12/10/2022 Office Visit Urology Baljit Hood MD [address] [place] [address] [facility] [place] Start: 12-03-2022 End: 12-03-2022 Patient encounter procedure 12/03/2022 Office Visit Urology Baljit Hood MD [address] [place] [address] [facility] Start: 11-30-2022 End: 11-30-2022 Admission to same day surgery center 11/30/2022 Surgery Cardiology Sorensen, Meet S [address] [place] [phone] Ablation atrial fibrillation [85734 (CPT )] [facility] Cath[facility]EP Lab Comment on above: Ablation atrial fibrillation [33525 (CPT )] Start: 11-30-2022 Subsequent hospital visit by physician 11/30/2022 Hospital Encounter Kenney Sorensen, Meet [address] [place] [phone] Persistent atrial fibrillation (HCC) [facility] Cath/EP Lab Comment on above: Persistent atrial fibrillation (HCC) Start: 11-25-2022 End: 11-25-2022 Patient encounter procedure [facility] Start: 11-22-2022 End: 11-22-2023 Basic metabolic 1998 panel - Serum or Plasma Basic metabolic panel Lab Routine Paroxysmal atrial fibrillation (CMS/HCC) (HCC) HARSHA (obstructive sleep apnea) Benign prostatic hyperplasia without lower urinary tract symptoms senior living (current) use of anticoagulants Expected: 11/22/2022 (Approximate), Expires: 11/22/2023 [facility] [employer] Work Phone: Comment on above: Expected: 11/22/2022 (Approximate), Expi res: 11/22/2023 Start: 11-22-2022 End: 11-22-2023 CBC panel - Blood by Automated count CBC Lab Routine Paroxysmal atrial fibrillation (CMS/HCC) (HCC) HARSHA (obstructive sleep apnea) Benign prostatic hyperplasia without lower urinary tract symptoms senior living (current) use of anticoagulants Expected: 11/22/2022 (Approximate), Expires: [facility]22/[facility] Comment on above: Expected: 11/22/2022 (Approximate), Expi res: 11/22/2023 Start: 11-22-2022 End: 11-22-2022 Patient encounter procedure 11/22/2022 Office Visit Cardiology Edu, Meet [address] [place] [address] [facility] Start: 11-19-2022 End: 11-19-2022 Patient encounter procedure 11/19/2022 Office Visit Cardiology Aguilar Parsons MD [address] [facility] [address] [place] [address] [facility] Start: 11-18-2022 Hemoglobin A1c measurement A1C test (Diabetic or Prediabetic) [facility] Start: 10-30-2022 Prostate specific antigen measurement PSA counseling [facility] Start: 08-28-2022 End: 08-28-2023 Polysomnography [facility] Routine Obstructive sleep apnea (adult) (pediatric) Expected: 08/28/2022 (Approximate), Expires: 08/28/2023 [facility] Work Phone: Comment on above: Expected: 08/28/2022 (Approximate), Expi res: 08/28/2023 Start: 06-30-2022 Urine screening for protein Diabetes: Urine Protein Screening [facility] Start: 05-27-2022 Hemoglobin A1c measurement A1C test (Diabetic or Prediabetic) [facility] Start: 05-27-2022 Lipid panel Lipid screen [facility] Start: 05-27-2022 Prostate specific antigen measurement PSA counseling [facility] Work Phone: Start: 01-22-2022 End: 01-22-2022 Patient encounter procedure 01/22/2022 Office Visit Cardiology Jos Prajapati MD [address] [place] [address] [facility] Start: 11-17-2021 Prostate specific antigen measurement PSA counseling [facility] [place] Start: 09-23-2021 End: 09-23-2021 Telemedicine consultation with patient 09/23/2021 Telemedicine Pulmonology Malvin Vasques MD [address] [facility] [place] [address] [phone] [facility] Start: 09-14-2021 End: 09-14-2021 Patient encounter procedure 09/14/2021 Office Visit Cardiology Carol Saucedo APRN - CNP [address] [place] [address] [phone] [facility] Start: 09-10-2021 Prostate specific antigen measurement PSA counseling [facility], [place] Start: 08-25-2021 End: 08-25-2021 Evaluation and management of inpatient 08/25/2021 Procedure visit Cardiology [facility] Start: 08-18-2021 End: 08-18-2021 Patient encounter procedure 08/18/2021 Appointment Stress Lab Jos Prajapati MD [address] [place], [place] [id number] Marisol Benítez MD [address] [facility] [address] [place] [address] [phone] [facility] 1A Card Start: 07-15-2021 Influenza vaccination Flu vaccine (#1) [facility] Start: 01-14-2021 Prostate specific antigen measurement PSA counseling [facility], [place] Start: 01-14-2021 PSA counseling PSA counseling [facility], [place] Start: 10-22-2020 End: 10-22-2020 Office Visit 10/22/2020 Office Visit Urology Baljit Hood MD [address] [place] [phone] [facility] [facility] Start: 09-29-2020 End: 09-29-2020 Appointment 09/29/2020 Appointment General Surgery Baljit Hood MD [address] [place] [address] [facility] General Surgery Start: 09-12-2020 Hospital Encounter 09/12/2020 Hospital Encounter Radiology Baljit Hood MD [address] [place] [address] Start: 08-07-2020 PSA counseling PSA counseling [facility], [place] Start: 07-15-2020 Influenza vaccination Flu vaccine (#1) [place], [place] Start: 05-29-2020 End: 05-29-2020 Office Visit 05/29/2020 Office Visit Carroll Phillips APRN - FRONT END SOFTWARE ENGINEER [address] [place] [address] [place] [address] [phone] [facility] Start: 02-19-2020 A1C test (Diabetic or Prediabetic) A1C test (Diabetic or Prediabetic) [place] Start: 02-19-2020 HbA1c (Bld) [Mass fraction] A1C test (Diabetic or Prediabetic) [place] Start: 02-19-2020 Hemoglobin A1c measurement A1C test (Diabetic or Prediabetic) [facility] Work Phone: Start: 02-19-2020 Lipid panel Lipid screen [place] Start: 02-19-2020 Lipid screen Lip[place] Start: 01-24-2020 End: 01-24-2020 Office Visit 01/24/2020 Office Visit Carroll Phillips APRN - FRONT END SOFTWARE ENGINEER [address] [place] [address] [place] [address] [phone] [facility] Urology [facility] Start: 09-04-2019 End: 09-04-2019 Appointment 09/04/2019 Appointment General Surgery Candido Joe MD [address] [place] [address] [phone] [facility] Start: 07-31-2019 End: 07-31-2019 Office Visit 07/31/2019 Office Visit General Surgery Candido Joe MD [address] [place] [address] [phone] Gen Surg - WAD Start: 07-17-2019 End: 07-17-2019 Office Visit 07/17/2019 Office Visit UrologVj Jimenez MD [address] [place] [address] [phone] [facility] Start: 07-15-2019 Influenza vaccination Flu vaccine (#1) [place], [place] Start: 2018 Hepatitis B Vaccines (1 of 3 - Risk 3-dose series) Hepatitis B Vaccines (1 of 3 - Risk 3-dose series) [facility] Start: 2018 RSV Immunization aged 60 or older (1 - 1-dose 60+ series) RSV Immunization aged 60 or older (1 - 1-dose 60+ series) [facility] Start: 2018 RSV Immunization for Adults (1 - Risk 60-74 years 1-dose series) RSV Immunization for Adults (1 - Risk 60-74 years 1-dose series) [facility] Start: 07-26-2015 Screening for malignant neoplasm of colon FIT/FOBT: Average risk [facility] Start: 2008 Screening for malignant neoplasm of lung Lung Cancer Screening [facility] Start: 2008 Shingles Vaccine (1 of 2) Shingles Vaccine (1 of 2) [facility] Start: 2008 Zoster Vaccines (1 of 2) Zoster Vaccines (1 of 2) [facility] Start: 2003 Screening for malignant neoplasm of colon [facility] Start: 1977 DTaP/Tdap/Td vaccine (1 - Tdap) DTaP/Tdap/Td vaccine (1 - Tdap) [place] Start: 1977 DTaP/Tdap/Td Vaccines (1 - Tdap) DTaP/Tdap/Td Vaccines (1 - Tdap) [facility] Start: 1977 Pneumococcal Vaccine: 50+ Years (1 of 2 - PCV) Pneumococcal Vaccine: 50+ Years (1 of 2 - PCV) [facility] Start: 1977 Urine microalbumin profile DTaP,Tdap,Td Vaccine (1 - Tdap) [facility] Start: 1976 Anxiety Screening Anxiety Screening [facility] Start: 1976 Depression Screening Depression Screening [facility] Start: 1976 Hepatitis C screening Hepatitis C Screening [facility] Start: 1974 COVID-19 Vaccine (1) COVID-19 Vaccine (1) [facility] Work Phone: Start: 1973 HIV screen HIV screen [place] Start: 1973 HIV screening [facility] screen [facility] Start: 1970 Depression Screen Depression Screen [facility] Start: 1970 Depression Screening Depression Screening [facility] Start: 1969 DTaP/Tdap/Td vaccine (1 - Tdap) DTaP/Tdap/Td vaccine (1 - Tdap) [place] Start: 1968 Diabetic foot examination Diabetes: Foot Exam [facility] Start: 1968 Glaucoma screening Diabetes: Retinopathy Screening [facility] Start: 1968 Preventive dental service Diabetes: Dental Exam [facility] Start: 1964 Pneumococcal 0-64 years Vaccine (1 of 1 - PPSV23) Pneumococcal 0-64 years Vaccine (1 of 1 - PPSV23) [place] Start: 1964 Pneumococcal 0-64 years Vaccine (1 of 2 - PPSV23) Pneumococcal 0-64 years Vaccine (1 of 2 - PPSV23) [facility] Start: 1964 Pneumococcal Vaccine: 65+ Years (1 - PCV) Pneumococcal Vaccine: 65+ Years (1 - PCV) [facility] Start: 1964 Pneumococcal Vaccine: 65+ Years (1 of 2 - PCV) Pneumococcal Vaccine: 65+ Years (1 of 2 - PCV) [facility] Start: 1964 Pneumococcal Vaccine: Pediatrics (0 to 5 Years) and At-Risk Patients (6 to 64 Years) (1 - PCV) Pneumococcal Vaccine: Pediatrics (0 to 5 Years) and At-Risk Patients (6 to 64 Years) (1 - PCV) [facility] Start: 1959 MMR Vaccines (1 of 1 - Standard series) MMR Vaccines (1 of 1 - Standard series) [facility] Start: 1958 Abdominal aortic aneurysm screening Abdominal Aortic Aneurysm Screening [facility] Start: 1958 Annual wellness visit Medicare Initial Physical (IPPE) [facility] Start: 1958 Hemoglobin A1c measurement Diabetes: Hemoglobin A1C [facility] Start: 1958 Hepatitis B Vaccines (1 of 3 - 3-dose series) Hepatitis B Vaccines (1 of 3 - 3-dose series) [facility] Start: 1958 Hepatitis C screen Hepatitis C screen [place], [place] Start: 1958 Hepatitis C screening Hepatitis C screen [facility] Start: 1958 HIV screening HIV Screening [facility] Start: 1958 Screening for malignant neoplasm of colon [facility] End: 08-15-2020 Bacteria identified Cx Nom (U) Urine Culture Microbiology Routine Frequency of urination Dysuria Malodorous urine 1 Occurrences starting 08/15/2020 until 08/15/2020 [facility] above: 1 Occurrences starting 08/15/2020 until 08/15/2020 Bacteria identified Cx Nom (U) [facility] End: 01-27-2021 Bacteria identified Cx Nom (U) Urine Culture Microbiology Routine Hematuria, gross 1 Occurrences starting 01/27/2021 until 01/27/2021 [facility] Work Phone: Comment on above: 1 Occurrences starting 01/27/2021 until 01/27/2021 End: 09-29-2020 Blood glucose - POCT Blood glucose - POCT Point of Care Testing STAT One Time for 1 Occurrences starting 09/29/2020 until 09/29/2020 [facility] Comment on above: One Time for 1 Occurrences starting 09/14 until 09/29/2020 End: 09-04-2019 Blood glucose - POCT Blood glucose - POCT Point of Care Testing STAT One Time for 1 Occurrences starting 09/04/2019 until 09/04/2019 [facility] Comment on above: One Time for 1 Occurrences starting 08/15 until 09/04/2019 Continuous pulse oximetry [facility] Work Phone: Comment on above: Every 4hr until discontinued starting Every 4hr until disc ontinued starting 08/25/2021 End: 09-29-2020 Creatinine [Mass/Vol] Creatinine, serum Lab STAT One Time for 1 Occurrences starting 09/29/2020 until 09/29/2020 [facility] Comment on above: One Time for 1 Occurrences starting 09/14 until 09/29/2020 End: 08-17-2021 CT Abdomen Pelvis Wo Contrast CT Abdomen Pelvis Wo Contrast Imaging Routine Once for 1 Occurrences starting 08/17/2021 until 08/17/2021 [facility] Work Phone: Comment on above: Once for 1 Occurrences starting 08/17/20 21 until 08/17/2021 CT Abdomen Pelvis Wo Contrast CT Abdomen Pelvis Wo Contrast Imaging Routine 08/17/2021 2:46 PM EDT [facility] Work Phone: CT Chest [facility] ECG 12 lead ECG 12 lead CV E CG Routine Paroxysmal atrial fibrillation (HCC) 03/23/2024 9:39 AM EDT [employer] Work Phone: ECG 12 lead ECG 12 lead CV E CG Routine 11/30/2022 1:58 PM [facility] Work Phone: ECG 12 lead ECG 12 lead CV E CG Routine 11/08/2024 8:09 AM [facility] Work Phone: ECG 12 lead - CLINIC PERFORMED ECG 12 lead - CLINIC PERFORMED CV ECG Routine Paroxysmal atrial fibrillation (CMS/HCC) (HCC) 03/18/2023 9:55 AM EDT [employer] Work Phone: ECG 12 lead - CLINIC PERFORMED ECG 12 lead - CLINIC PERFORMED CV ECG Routine Paroxysmal atrial fibrillation (CMS/HCC) (HCC) 11/22/2022 10:15 AM [facility] Work Phone: ECG 12 lead - CLINIC PERFORMED ECG 12 lead - CLINIC PERFORMED CV ECG Routine Paroxysmal atrial fibrillation (CMS/HCC) (HCC) 01/14/2023 2:31 PM [facility] Work Phone: EKG 12 lead [employer] [facility] [place] End: 08-18-2021 EKG 12 Lead EKG 12 Lead ECG STAT One Time for 1 Occurrences starting 08/18/2021 until 08/18/2021 [employer] Work Phone: Comment on above: One Time for 1 Occurrences starting 03/2021 until 08/18/2021 End: 08-25-2021 Electrophysiology Testing Electrophysiology Testing Echocardiography Routine One Time for 1 Occurrences starting 08/25/2021 until 08/25/2021 [facility] Work Phone: Comment on above: One Time for 1 Occurrences starting 08/14 until 08/25/2021 Incentive spirometry Incentive s pirometry Respiratory Care Routine Q1H PRN until discontinued starting 09/04/2019 [facility] [place] Comment on above: Q1H PRN until discontinued starting 08/15 Initiate Oxygen Ther apy Protocol Initiate Oxygen Therapy Protocol Respiratory Care Routine Daily until discontinued starting 09/04/2019 [facility] [place] Comment on above: Daily until discontinued starting 2018 End: 09-29-2020 Intermittent pulse oximetry Pulse Oximetry Spot Check Respiratory Care Routine One Time for 1 Occurrences starting 09/29/2020 until 09/29/2020 [facility] [place] Comment on above: One Time for 1 Occurrences starting 09/14 until 09/29/2020 End: 02-22-2023 MR Pelvis WO and W contrast IV [facility] [employer] Work Phone: Comment on above: Once for 1 Occurrences starting 02/23/20 until 02/22/2023 End: 02-01-2020 MRI Pelvis W WO Contrast MRI Pelvis W WO Contrast Imaging Routine Elevated PSA, less than 10 ng/ml 1 Occurrences starting 02/01/2020 until 02/01/2020 [facility] [place] Comment on above: 1 Occurrences starting 02/01/2020 until 02/01/2020 MRI Pelvis W WO Contrast MRI Pel vis W WO Contrast Imaging Routine Elevated PSA, less than 10 ng/ml 02/01/2020 1:10 PM EDT [facility] [place] End: 06-29-2021 MRI PELVIS W WO CONTRAST MRI PELVIS W WO CONTRAST Imaging Routine Elevated PSA Prostate cancer screening 1 Occurrences starting 06/29/2021 until 06/29/2021 [facility] Work Phone: Comment on above: 1 Occurrences starting 06/29/2021 until 06/29/2021 OUTSIDE PROCEDURE SCAN OUTSIDE P ROCEDURE SCAN Procedures Ordered: 02/28/2023 [facility] Comment on above: Ordered: 02/28/2023 OUTSIDE PROCEDURE SCAN OUTSIDE P ROCEDURE SCAN Procedures Ordered: 12/22/2022 [facility] Comment on above: Ordered: 12/22/2022 OUTSIDE PROCEDURE SCAN OUTSIDE P ROCEDURE SCAN Procedures Ordered: 12/12/2023 [facility] Comment on above: Ordered: 12/12/2023 OUTSIDE PROCEDURE SCAN OUTSIDE P ROCEDURE SCAN Procedures Ordered: 12/13/2023 [facility] Comment on above: Ordered: 12/13/2023 OUTSIDE PROCEDURE SCAN OUTSIDE P ROCEDURE SCAN Procedures Ordered: 01/21/2023 [facility] Comment on above: Ordered: 01/21/2023 OUTSIDE PROCEDURE SCAN OUTSIDE P ROCEDURE SCAN Procedures Ordered: 01/25/2023 [facility] Comment on above: Ordered: 01/25/2023 OUTSIDE PROCEDURE SCAN OUTSIDE P ROCEDURE SCAN Procedures Ordered: 12/26/2024 [facility] Comment on above: Ordered: 12/26/2024 Oxygen therapy [[facility]] [facility] Comment on above: Daily until discontinued starting 2019 Daily until disconti nued starting 08/18/2021 Daily until disconti nued starting 08/25/2021 Phase I & II - meter ed glucose [facility] Comment on above: As Needed until discontinued starting As Needed until disc ontinued starting 09/04/2019 End: 09-29-2020 Potassium w/ Reflex to Magnesium Potassium w/ Reflex to Magnesium Lab Routine One Time for 1 Occurrences starting 09/29/2020 until 09/29/2020 [facility] Comment on above: One Time for 1 Occurrences starting 09/14 until 09/29/2020 End: 09-29-2020 , urine , urine Lab STAT One Time for 1 Occurrences starting 09/29/2020 until 09/29/2020 [facility] Comment on above: One Time for 1 Occurrences starting 09/14 until 09/29/2020 End: 09-29-2020 Protime-INR Protime-INR Lab STAT One Time for 1 Occurrences starting 09/29/2020 until 09/29/2020 [facility] Comment on above: One Time for 1 Occurrences starting 09/14 until 09/29/2020 End: 09-04-2019 Pulse Oximetry Spot Check Pulse Oximetry Spot Check Respiratory Care Routine One Time for 1 Occurrences starting 09/04/2019 until 09/04/2019 [facility] Comment on above: One Time for 1 Occurrences starting 08/15 until 09/04/2019 Spirometry panel Incentive ignacio metry Respiratory Care Routine Q1H PRN until discontinued starting 09/29/2020 [facility] Comment on above: Q1H PRN until discontinued starting 09/14 Tissue exam Tissue exam Path ology and Cytology Timed Elevated prostate specific antigen (PSA) Release Upon Ordering for 1 Occurrences starting 03/30/2023 [employer] Work Phone: Comment on above: Release Upon Ordering for 1 Occurrences starting 03/30/2023 Tissue exam [facility] Work Phone: Comment on above: Release Upon Ordering for 1 Occurrences starting 09/08/2023, 1 completed End: 08-15-2020 Urinalysis with Microscopic Urinalysis with Microscopic Lab Routine Frequency of urination Dysuria Malodorous urine 1 Occurrences starting 08/15/2020 until 08/15/2020 [facility] Comment on above: 1 Occurrences starting 08/15/2020 until 08/15/2020 End: 01-27-2021 Urinalysis with Microscopic Urinalysis with Microscopic Lab Routine Hematuria, gross 1 Occurrences starting 01/27/2021 until 01/27/2021 [facility] Work Phone: Comment on above: 1 Occurrences starting 01/27/2021 until 01/27/2021 End: 12-13-2023 US Abdomen [employer] Work Phone: Comment on above: Once for 1 Occurrences starting 12/13/19 24 until 12/13/2023 US Heart Transesophageal Echocar diogram transesophageal Echocardiography Routine 08/18/2021 9:06 AM EDT [facility] Work Phone: End: 10-19-2025 XR Chest PA and Lateral XR CHEST 2V FRONTAL/LAT Radiology STAT Sinobronchitis 1 Occurrences starting 09/19/2024 until 10/19/2025 [facility] Work Phone: Comment on above: 1 Occurrences starting 09/19/2024 until 10/19/2025 [facility] Immunizations Immunization Date Immunization Notes Care Provider Mohinder li 09-01-2022 influenza virus vacc ine, unspecified formulation Jocelin Quiroga IT SERVICE DELIVERY MANAGER - FRONT END SOFTWARE ENGINEER Work Phone: [employer] 09-27-2021 Pfizer SARS-CoV-2 Vaccination Jaimie Noonan IT SERVICE DELIVERY MANAGER - JET ENGINE MECHANIC Work Phone: [facility] 02-11-2021 Pfizer SARS-CoV-2 Vaccination Jaimie Noonan IT SERVICE DELIVERY MANAGER - JET ENGINE MECHANIC Work Phone: [facility] 01-21-2021 Pfizer SARS-CoV-2 Vaccination Jaimie Noonan IT SERVICE DELIVERY MANAGER - JET ENGINE MECHANIC Work Phone: [facility] Payers Date Payer Category Payer Self-pay 2020 [employer] - [facility] [id number] 2020 Unknown 2018 Unknown BCBS [place] - [place] P PO xxxxxxxxxxxx 2018-Present [address] [place] [address] xxxxxxxxxxxx [id number] 2018 Unknown [id number] 2018 Unknown BCBS [place] - [place] P PO [id number] 2018-2020 [address] [place] [address] [id number] 1958 Unknown [id number] 1958 Unknown [id number] 1958 Unknown [id number] 1958 Unknown [id number] Unknown [id number] Social History Date Type Detail Facility Start: 11-14-1992 End: 01-14-2023 Tobacco smoking status MOIS Current every day smoker [facility] Start: 07-10-2019 End: 11-07-2024 Alcohol intake Yes [facility] Start: 02-17-2019 Alcohol Comment 3-5 bourban co uple times a week [place], [place] Start: 1960 Sex Assigned At Not on file [place] Start: 11-14-1992 End: 2023 History of tobacco use Cigarette [place]oker [place] Start: 09-04-2019 End: 11-07-2024 Cigarettes smoked current (pack per day) - Reported [facility] Start: 09-04-2019 End: 12-10-2022 Alcohol intake Current drinker of alcohol (finding) [place] Start: 08-29-2019 Tobacco Comment 5 cigs a day [place], [place] Start: 01-24-2020 End: 09-01-2023 Tobacco use and exposure Never used [place] Start: 09-09-2020 End: 09-01-2023 Tobacco smoking status NHIS Former smoker [facility] Start: 11-14-1992 End: 2023 History of tobacco use Current [place] Start: 12-20-2021 End: 08-05-2023 Exposure to SARS-CoV-2 (event) Not sure [place] Start: 1960 Sex Assigned At [place] Start: 01-19-2022 History SDOH Alcohol Comment 3-5 bourban once a week [facility] Work Phone: Start: 12-30-2022 End: 09-05-2023 Tobacco smoking status NHIS Unknown if ever smoked [facility] Start: 01-14-2023 End: 04-03-2025 Alcohol intake Ex-drinker (finding) [facility] Start: 01-14-2023 Tobacco Comment Quit smoking f or short period of time then started again : 5 cigs a day [facility] Start: 09-28-2022 Alcohol Comment drinks [place] [facility] Start: 09-02-2022 Sexual orientation Heterosexual (fin ding) [facility] National Score (1-10 0), lower number is lower risk 42 [facility] Start: 06-08-2023 Alcohol Comment social [facility] Start: 06-14-2022 Sex Male (finding) [facility] Has the [employer], oil, or water company threatened to shut off services in your home in past 12Mo No [facility] How often to you hav e a drink containing alcohol? 2-3 time sa week [facility] How many standard drinks containing alcohol do you have on a typical day? 5 or 6 [facility] How often do you hav e 6 or more drinks on 1 occasion? Never [facility] (I/We) worried wheth er (my/our) food would run out before (I/we) got money to buy more. Never true [facility] Medical Equipment Procedure Code Equipment Code Equipment Origin al Text Equipment Identifier Dates Device Closure [employer] Mvp - [id number] Start: 11-30-2022 Clinical Notes 08-18-2021 to 04-03-2025 Lora Lezama MD - 04/03/2025 1:15 PM EDTTelephone Encounter - Alyce Valverde RN - 12/05/2024 12:16 PM ESTTelephone Encounter - Alyce Valverde RN - 12/05/2024 12:16 PM ESTPatient Instructions Note Date & Type Note Facility 04-03-2025 History of Presen t illness Narrative [facility]rophysiology Follow Up Clinic Note Chief Complaint: Chief Complaint Patient presents with Atrial Fibrillation PAF 11-30-22 PVI Sleep Apnea Hyperlipidemia History of Present Illness: Khalidalore Tran is a 64 y.o. male whom I met in the hospital in Oct 2024 when he presented with rapid AFib. He was SOB/dizzy and his Apple Watch alerted him to a rapid HR. He underwent NATALEE/CVN. The patient followed with Dr. Sorensen. He was diagnosed with a fib in 2020. He was started on eliquis and had 2 CVN and was on flecainide for a period. He had recurrent episodes of a fib and he was switched to sotalol. He underwent a PVI in 11/2022. He was on sotalol post PVI until 04/05 and at that time his eliquis was stopped. He did well until 02/2024 when he had pneumonia and had A.fib w RVR. H was started on amio, had a CVN and the amio was stopped. He returns today feeling well. He denies recurrent palpitation, chest pain, shortness of breath, dizziness, or syncope. His Apple Watch has recorded normal heart rates. He checks a rhythm strip every day. He has been trying to curtail his alcohol use. He exercises routinely without symptoms. Today he really would like to stop the Eliquis and the metoprolol. An EKG today shows normal sinus rhythm. The NATALEE in Oct 2024 showed an LVEF of 65% with a mildly dilated LA. Assessment and Plan: 1. Persistent Atrial Fibrillation: He has had 2 recurrences since his PVI in 2022, one in January 2024 in [place] and one in Oct. He is on no antiarrhythmic as he has been already on flecainide and sotalol unsuccessfully. He is a little young to start amiodarone indefinitely. If needed, we could try dofetilide or a repeat ablation. As far as OAC, his [id number] 2 score is 2 and he should be on OAC indefinitely, but he is reluctant to taking it and would like to stop it. We discussed the risks and benefits including the possibility of asymptomatic A-fib episodes. We will stop it today along with the metoprolol. He has never had a history of high blood pressure 2. Alcohol Use: He probably drinks a little more than he should. We spoke about moderation and the fact that alcohol may play a role in his A-fib bouts. 3. Diabetes: He is on metformin. His hemoglobin A1c is 6.7.. 4. HARSHA/obesity: We spoke about diet and exercise. He is doing a good job of exercising. His BMI is 35. He could not tolerate a CPAP mask Past Medical History: Medical History[1] Past Surgical History Surgical History[2] Family History Family History[3] Social History Social History[4] Medications: Reviewed Allergies: Reviewed Review of Systems: All other systems were reviewed and are negative other than as noted in the HPI. Physical Examination: Vitals: Blood pressure 130/80, pulse 80, height 5' 10 (1.778 m), weight 242 lb 9.6 oz (110 kg), SpO2 96%. Constitutional: Appears well kept and looks stated age; in NAD Psychiatric: A &O x3 Mood is pleasant; Affect is appropriate Musculoskeletal: Normocephalic; no joint swelling; gait steady; 5/5 muscle strength bilaterally in upper and lower extremities; no clubbing or cyanosis HEENT: Pupils are equal and round; Conjunctiva are not injected; Sclera are non-icteric; Airway and Nares are patent; Ears without external abnormalities. Mucosa is pink; Dentition is normal Neck: Supple; No JVD or Bruits; No thyromegaly; No lymphadenopathy Respiratory: Lungs are clear with no rales or wheezes. Respiratory effort is normal and symmetrical bilaterally; Good air movement bilaterally Heart: RRR without ectopy; Nl S1 and S2 no mcrg Abdomen: NABS soft, non-tender, non-distended; no organomegaly; no obvious masses Extremities/Skin: No LE edema; Skin warm to touch and well perfused; skin discoloration is absent Neuro: sensation and motor function are grossly normal. Cranial Nerves are grossly intact Laboratory Tests: Lab Results Component Value Date WBC 13.7 (H) 11/08/2024 WBC 12.0 (H) 11/07/2024 WBC 8.4 04/28/2023 HGB 14.9 11/08/2024 HGB 14.8 11/07/2024 HGB 15.1 09/01/2023 HCT 44.6 11/08/2024 HCT 44.3 11/07/2024 HCT 45.6 09/01/2023 MCV 86.6 11/08/2024 MCV 86.2 11/07/2024 MCV 89.0 04/28/2023 PLT 287 11/08/2024 PLT 266 11/07/2024 PLT 266 04/28/2023 Lab Results Component Value Date NA 139 11/08/2024 NA 138 09/01/2023 NA 138 04/28/2023 K 3.9 11/08/2024 K 4.6 09/01/2023 K 4.6 04/28/2023 CL 106 11/08/2024 CL 105 09/01/2023 CL 104 04/28/2023 CO2 21 (L) 11/08/2024 CO2 23 09/01/2023 CO2 28 04/28/2023 BUN 17 11/08/2024 BUN 20 09/01/2023 BUN 14 04/28/2023 CREATININE 0.81 11/08/2024 CREATININE 0.66 09/01/2023 CREATININE 0.65 (L) 04/28/2023 Lab Results Component Value Date HGBA1C 6.7 (H) 11/08/2024 Lab Results Component Value Date TSH 0.84 11/08/2024 No components found for: NTPROBNP Lab Results Component Value Date CHOL 145 11/08/2024 CHOL 255 (H) 04/28/2023 CHOL 158 09/22/2022 Lab Results Component Value Date HDL 43 (L) 11/08/2024 HDL 51 04/28/2023 HDL 46 09/22/2022 Lab Results Component Value Date LDLCALC 53 11/08/2024 LDLCALC 04/28/2023 Comment: Calculated LDL invalid, triglycerides >400 mg/dl LDLCALC 82 09/22/2022 Lab Results Component Value Date TRIG 247 (H) 11/08/2024 TRIG 422 (H) 04/28/2023 TRIG 149 09/22/2022 Lora Lezama MD DATE of SERVICE: 04/03/2025 [1] Past Medical History: Diagnosis Date A-fib (CMS/HCC) (HCC) Cardioverted Anticoagulated 06/25/2021 BPH (benign prostatic hyperplasia) H/O exercise stress test Hyperlipidemia HARSHA (obstructive sleep apnea) does not wear C pap Machine Pneumonia Pre-diabetes [2] Past Surgical History: Procedure Laterality Date ABLATION FOR ATRIAL FIBRILLATION (HISTORICAL) 11/30/[address] Sorensen APPENDECTOMY 12 years ago CARDIAC ELECTROPHYSIOLOGY PROCEDURE N/A 11/30/2022 Performed by Reyes Sorensen at [facility] Cardiac Cath/EP Lab COLONOSCOPY COLONOSCOPY 01/16/2019 HERNIA REPAIR INCISIONAL HERNIA REPAIR 09/04/2019 DR JOE PROSTATE BIOPSY 06/10/[address] desir TONSILLECTOMY (HISTORICAL) VENTRAL HERNIA REPAIR 7 years ago WISDOM TOOTH EXTRACTION [3] Family History Problem Relation Name Age of Onset Alzheimer's disease Mother COPD Father [4] Social History Tobacco Use Smoking status: Former Current packs/day: 0.00 Average packs/day: 0.5 packs/day for 40.0 years (20.0 ttl pk-yrs) Types: Cigarettes Start date: 1992 Quit date: 2023 Years since quittin.9 Smokeless tobacco: Never Tobacco comments: Quit smoking for short period of time then started again : 5 cigs a day Vaping Use Vaping status: Never Used Substance Use Topics Alcohol use: Not Currently Alcohol/week: 2.0 standard drinks of alcohol Types: 2 Standard drinks or equivalent per week Comment: drinks [place] Drug use: No Comment: caffeine: decaf documented in this encounter [facility] 12-05-2024 Telephone encounter Note [facility] 11-28-24 with EKG NOV 04-03-25 11-08-24 CBC,bmp/creat 0.81 [facility] 12-05-2024 Miscellaneous Notes [facility] 11-28-24 with EKG NOV 04-03-25 11-08-24 CBC,bmp/creat 0.81 documented in this encounter [facility] 11-28-2024 History of Presen t illness Narrative [facility] [place] Cardiology/Electrophysiology Hospital Follow Up Clinic Note Chief Complaint: Chief Complaint Patient presents with Atrial Fibrillation PAF 11-30-22 PVI Sleep Apnea Not using C-PAP Hyperlipidemia History of Present Illness: Khalida Tran is a 64 y.o. male whom I met in the hospital in Oct 2024 when he presented with rapid atrial fibrillation. He was SOB/dizzy and his smart watch alerted him to a rapid heart rate. He underwent NATALEE/CVN. The patient has been following with Dr. Sorensen. He was diagnosed with a fib in 2020. He was started on eliquis and had 2 CVN and was on flecainide for a period. He had recurrent episodes of a fib and they switched him to sotalol. He eventually underwent a PVI in 11/2022. He was on sotalol post PVI until 04/05 and at that time his eliquis was discontinued. He was doing well until 02/2024 when he had pneumonia and developed A.fib w RVR. At that time he was started on amiodarone and cardioverted and the amiodarone was stopped. He returns today feeling well. He denies recurrent palpitation, chest pain, shortness of breath, dizziness, or syncope. His Apple Watch has recorded normal heart rates. He has been trying to curtail his alcohol use. He exercises routinely without symptoms. When I saw him in the hospital he told me he drank 4-5 bourbons at least once a week. An EKG today shows normal sinus rhythm. The NATALEE in October showed an LVEF of 65% with a mildly dilated LA. Assessment and Plan: 1. Persistent Atrial Fibrillation: He has now had 2 recurrences since his PVI in 2022, one in January 2024 in [place] and one in October here. He is on no antiarrhythmic as he has been already on flecainide and sotalol unsuccessfully. He is a little young to start amiodarone indefinitely. I guess if needed, we could try dofetilide. Today we also spoke about a repeat ablation which would be most reasonable if his atrial fibrillation burden warrants it for now, we agreed to wait. As far as OAC, his [id number] 2 score is 2 and he should be on OAC indefinitely. 2. Alcohol Use: He probably drinks a little more than he should. We spoke about moderation and the fact that alcohol may play a role in his A-fib bouts. 3. Diabetes: He is on metformin. His hemoglobin A1c is 6.7.. 4. Obesity: We spoke about diet and exercise. His BMI is 35. Past Medical History: Past Medical History: Diagnosis Date A-fib (CMS/HCC) (HCC) Cardioverted Anticoagulated 06/25/2021 BPH (benign prostatic hyperplasia) H/O exercise stress test Hyperlipidemia HARSHA (obstructive sleep apnea) does not wear C pap Machine Pneumonia Pre-diabetes Past Surgical History Past Surgical History: Procedure Laterality Date ABLATION FOR ATRIAL FIBRILLATION (HISTORICAL) 11/30/[address] Sorensen APPENDECTOMY 12 years ago CARDIAC ELECTROPHYSIOLOGY PROCEDURE N/A 11/30/2022 Performed by Reyes Sorensen at [facility] Cardiac Cath/EP Lab COLONOSCOPY COLONOSCOPY 01/16/2019 HERNIA REPAIR INCISIONAL HERNIA REPAIR 09/04/2019 DR JOE PROSTATE BIOPSY 06/10/[address] desir TONSILLECTOMY (HISTORICAL) VENTRAL HERNIA REPAIR 7 years ago WISDOM TOOTH EXTRACTION Family History Family History Problem Relation Name Age of Onset Alzheimer's disease Mother COPD Father Social History Social History Tobacco Use Smoking status: Former Current packs/day: 0.00 Average packs/day: 0.5 packs/day for 40.0 years (20.0 ttl pk-yrs) Types: Cigarettes Start date: 1992 Quit date: 2023 Years since quittin.5 Smokeless tobacco: Never Tobacco comments: Quit smoking for short period of time then started again : 5 cigs a day Vaping Use Vaping status: Never Used Substance Use Topics Alcohol use: Not Currently Alcohol/week: 2.0 standard drinks of alcohol Types: 2 Standard drinks or equivalent per week Comment: drinks [place] Drug use: No Comment: caffeine: decaf Medications: Reviewed Allergies: Reviewed Review of Systems: All other systems were reviewed and are negative other than as noted in the HPI. Physical Examination: Vitals: Blood pressure 118/80, pulse 71, height 5' 10 (1.778 m), weight 243 lb (110 kg), SpO2 96%. Constitutional: Appears well kept and looks stated age; in NAD Psychiatric: A &O x3 Mood is pleasant; Affect is appropriate Musculoskeletal: Normocephalic; no joint swelling; gait steady; 5/5 muscle strength bilaterally in upper and lower extremities; no clubbing or cyanosis HEENT: Pupils are equal and round; Conjunctiva are not injected; Sclera are non-icteric; Airway and Nares are patent; Ears without external abnormalities. Mucosa is pink; Dentition is normal Neck: Supple; No JVD or Bruits; No thyromegaly; No lymphadenopathy Respiratory: Lungs are clear with no rales or wheezes. Respiratory effort is normal and symmetrical bilaterally; Good air movement bilaterally Heart: RRR without ectopy; Nl S1 and S2 no mcrg Abdomen: NABS soft, non-tender, non-distended; no organomegaly; no obvious masses Extremities/Skin: No LE edema; Skin warm to touch and well perfused; skin discoloration is absent Neuro: sensation and motor function are grossly normal. Cranial Nerves are grossly intact Laboratory Tests: Lab Results Component Value Date WBC 13.7 (H) 11/08/2024 WBC 12.0 (H) 11/07/2024 WBC 8.4 04/28/2023 HGB 14.9 11/08/2024 HGB 14.8 11/07/2024 HGB 15.1 09/01/2023 HCT 44.6 11/08/2024 HCT 44.3 11/07/2024 HCT 45.6 09/01/2023 MCV 86.6 11/08/2024 MCV 86.2 11/07/2024 MCV 89.0 04/28/2023 PLT 287 11/08/2024 PLT 266 11/07/2024 PLT 266 04/28/2023 Lab Results Component Value Date NA 139 11/08/2024 NA 138 09/01/2023 NA 138 04/28/2023 K 3.9 11/08/2024 K 4.6 09/01/2023 K 4.6 04/28/2023 CL 106 11/08/2024 CL 105 09/01/2023 CL 104 04/28/2023 CO2 21 (L) 11/08/2024 CO2 23 09/01/2023 CO2 28 04/28/2023 BUN 17 11/08/2024 BUN 20 09/01/2023 BUN 14 04/28/2023 CREATININE 0.81 11/08/2024 CREATININE 0.66 09/01/2023 CREATININE 0.65 (L) 04/28/2023 Lab Results Component Value Date HGBA1C 6.7 (H) 11/08/2024 Lab Results Component Value Date TSH 0.84 11/08/2024 Lab Results Component Value Date CHOL 145 11/08/2024 CHOL 255 (H) 04/28/2023 CHOL 158 09/22/2022 Lab Results Component Value Date HDL 43 (L) 11/08/2024 HDL 51 04/28/2023 HDL 46 09/22/2022 Lab Results Component Value Date LDLCALC 53 11/08/2024 LDLCALC 04/28/2023 Comment: Calculated LDL invalid, triglycerides >400 mg/dl LDLCALC 82 09/22/2022 Lab Results Component Value Date TRIG 247 (H) 11/08/2024 TRIG 422 (H) 04/28/2023 TRIG 149 09/22/2022 Lora Lezama MD DATE of SERVICE: 11/28/2024 documented in this encounter [facility] 11-08-2024 Nurse Note Discharge instructions reviewed with patient. No questions or concerns at this time. Patient aware how to take prescribed medications and when to go to follow-up appointments. Peripheral IVs removed. Medications delivered to bedside by [facility]. Patient discharged home with personal belongings to be driven home by friend. [facility] 11-08-2024 Nurse Note Discharge instructions reviewed with patient. No questions or concerns at this time. Patient aware how to take prescribed medications and when to go to follow-up appointments. Peripheral IVs removed. Medications delivered to bedside by [facility]. Patient discharged home with personal belongings to be driven home by friend. documented in this encounter [facility] 11-08-2024 Note [facility] [place] [facility] Cardiology Discharge Summary Name: Khalida Tran Date of : 1960 Date of Admission: 11/07/2024 Date of Discharge: 11/08/2024 Discharge Attending: Karl Greenberg DO Primary Care Provider: Charmaine Rios MD Type of Admission: Admission Code Status: Full Code Reason for Admission Atrial Fibrillation with Rapid Ventricular Response Discharge Diagnoses: Atrial Fibrillation with Rapid Ventricular Response Hypertension Diabetes Mellitus, Type 2 Past Medical History: Diagnosis Date A-fib (CMS/HCC) (HCC) Cardioverted Anticoagulated 06/25/2021 BPH (benign prostatic hyperplasia) H/O exercise stress test Hyperlipidemia HARSHA (obstructive sleep apnea) does not wear C pap Machine Pneumonia Pre-diabetes Past Surgical History: Procedure Laterality Date ABLATION FOR ATRIAL FIBRILLATION (HISTORICAL) 11/30/[address] Sorensen APPENDECTOMY 12 years ago CARDIAC ELECTROPHYSIOLOGY PROCEDURE N/A 11/30/2022 Performed by Reyes Sorensen at [facility] Cardiac Cath/EP Lab COLONOSCOPY COLONOSCOPY 01/16/2019 HERNIA REPAIR INCISIONAL HERNIA REPAIR 09/04/2019 DR JOE PROSTATE BIOPSY 06/10/[address] desir TONSILLECTOMY (HISTORICAL) VENTRAL HERNIA REPAIR 7 years ago WISDOM TOOTH EXTRACTION Family History Problem Relation Name Age of Onset Alzheimer's disease Mother COPD Father Social History Tobacco Use Smoking status: Former Current packs/day: 0.00 Average packs/day: 0.5 packs/day for 40.0 years (20.0 ttl pk-yrs) Types: Cigarettes Start date: 1992 Quit date: 2023 Years since quittin.5 Smokeless tobacco: Never Tobacco comments: Quit smoking for short period of time then started again : 5 cigs a day Vaping Use Vaping status: Never Used Substance Use Topics Alcohol use: Not Currently Alcohol/week: 2.0 standard drinks of alcohol Types: 2 Standard drinks or equivalent per week Comment: drinks [place] Drug use: No Comment: caffeine: decaf Hospital Course Khalida Tran is a 64 y.o. male who presented to the [facility] with elevated heart rate after having presented to [facility]. At the outside hospital, he reported that he had been experiencing an elevated heart rate according to his Apple watch since Tuesday of this week. On Tuesday, the watch read that he was in normal sinus rhythm but on November 07, 2024, he was alerted that he was in atrial fibrillation according to the watch and his heart rates were between 170 and 180. He was transferred to the [facility] from the outside hospital for further management. He was initially started on metoprolol to tartrate twice daily and diltiazem infusion which controlled his heart rate between 80 and 90 bpm. Given that he has a [id number] score of 2, he was started on anticoagulation with apixaban 5 mg daily. He was admitted to the CCU where he was monitored and underwent a NATALEE, which demonstrated no evidence of clot formation within the left atrium. This was followed by a cardioversion under sedation which was successful. He was also seen by the electrophysiology service who recommended continuing metoprolol succinate 25 mg BID and apixaban 5 mg. They plan to discuss ablation outpatient. Consultants: IP CONSULT TO CARDIOLOGY Procedures: NATALEE-Cardioversion Last diet during hospitalization: Adult diet Regular Recommended at discharge: Normal Activity No restriction. Disposition: Home Condition at Discharge: good Followup Testing/ Instructions: None Facility/Home Care Agency: NONE Pending Results: None Future Appointments Date Time Provider Department Center 11/28/2024 10:00 AM Lora Lezama MD [facility] None 03/22/2025 1:30 PM Reyes Sorensen MD [facility] [address] 10/04/2025 8:50 AM Baljit Hood MD [facility] None Discharge Plan Medication List START taking these medications Eliquis 5 MG tablet Generic drug: apixaban Take 1 tablet (5 mg) by mouth 2 times daily. metoprolol succinate XL 25 MG 24 hr tablet Commonly known as: Toprol-XL Take 1 tablet (25 mg) by mouth daily. Do not crush or chew. Do not start before November 09, 2024. Start taking on: November 09, 2024 CONTINUE taking these medications ezetimibe-simvastatin 10-40 MG tablet Commonly known as: Vytorin metFORMIN 500 MG tablet Commonly known as: Glucophage potassium citrate CR 15 mEq ER tablet Commonly known as: Urocit-K-15 Take 1 tablet (15 mEq) by mouth 2 times daily (with meals). Where to Get Your Medications These medications were sent to [facility] [address] [place], [place] [id number] Hours: Tuesday to Tuesday 10 am to 6 pm Eliquis 5 MG tablet metoprolol succinate XL 25 MG 24 hr tablet Objective: Physical Exam: Vitals: BP (more content not included)... [facility] 11-08-2024 Plan of care note Problem: Pain - Adult Goal: Verbalizes/displays adequate comfort level or baseline comfort level Outcome: Completed Problem: Chronic Conditions and Co-morbidities Goal: Patient's chronic conditions and co-morbidity symptoms are monitored and maintained or improved Outcome: Completed [facility] 11-08-2024 Miscellaneous Notes Problem: Pain - Adult Goal: Verbalizes/displays adequate comfort level or baseline comfort level Outcome: Completed Problem: Chronic Conditions and Co-morbidities Goal: Patient's chronic conditions and co-morbidity symptoms are monitored and maintained or improved Outcome: Completed Images from the original note were not included. Conscious Sedation Procedure Note Sedation Goal: deep Procedure: Cardioversion and NATALEE Proceduralist: Dr. Benítez Indication: Afib Time Out: Completed immediately prior to the start of the procedure which included verification of the correct patient, correct site and agreement on the procedure to be done. Consent: The indications, risks, benefits, alternatives to the procedure were explained to the patient/surrogate decision maker and their questions answered. Consent was obtained to proceed with the procedure. Pre-Sedation Assessment Pre-Sedation Vital Signs: Vital signs were reviewed and were stable prior the procedure (see flowsheet) Pre-Sedation Exam: Assessment: I have reviewed the patient's history and review of systems. Pulmonary: clear to auscultation Cardiovascular: irregular rhythm ENT: no obvious abnormalities noted during assessment Mallampati: Mallampati Class III - (soft palate & base of uvula are visible) ASA Classification: Class 3 - A patient with severe systemic disease that limits activity but is not incapacitating History of Anesthesia Complications: none Immediate Pre-Sedation Assessment There have been no changes in the patient's status since the initial assessment. Intra-Sedation Assessment Monitoring and Safety: The patient was placed on a creative project manager and vital signs, pulse oximetry, and level of consciousness were continuously evaluated throughout the procedure. The patient was closely monitored until recovery from the medications was complete and the patient had returned to baseline status. Respiratory therapy was on standby at all times during the procedure. Medications Used: 190 mg Propofol Post-Sedation Assessment Post-Sedation Vital Signs: Vital signs were reviewed and were stable after the procedure (see flowsheet) Post-Sedation Exam: Pulmonary: clear to auscultation Cardiovascular: regular rate and rhythm Start time: 11:32AM Stop time: 11:49AM Complications: none apparent Sedation Provider: I personally performed the sedation documented as signed by this procedure note. Patient admitted to [facility] ICU in Afib with RVR. In ED started on IV Cardizem and Heparin, plan for ECHO, NATALEE/DCCV and EP consult today. Chart reviewed. Patient from home with , has health insurance and PCP listed. No discharge needs anticipated, CM to follow. documented in this encounter [facility] 11-08-2024 Note Conscious Sedation P rocedure Note Sedation Goal: deep Procedure: Cardioversion and NATALEE Proceduralist: Dr. Benítez Indication: Afib Time Out: Completed immediately prior to the start of the procedure which included verification of the correct patient, correct site and agreement on the procedure to be done. Consent: The indications, risks, benefits, alternatives to the procedure were explained to the patient/surrogate decision maker and their questions answered. Consent was obtained to proceed with the procedure. Pre-Sedation Assessment Pre-Sedation Vital Signs: Vital signs were reviewed and were stable prior the procedure (see flowsheet) Pre-Sedation Exam: Assessment: I have reviewed the patient's history and review of systems. Pulmonary: clear to auscultation Cardiovascular: irregular rhythm ENT: no obvious abnormalities noted during assessment Mallampati: Mallampati Class III - (soft palate & base of uvula are visible) ASA Classification: Class 3 - A patient with severe systemic disease that limits activity but is not incapacitating History of Anesthesia Complications: none Immediate Pre-Sedation Assessment There have been no changes in the patient's status since the initial assessment. Intra-Sedation Assessment Monitoring and Safety: The patient was placed on a creative project manager and vital signs, pulse oximetry, and level of consciousness were continuously evaluated throughout the procedure. The patient was closely monitored until recovery from the medications was complete and the patient had returned to baseline status. Respiratory therapy was on standby at all times during the procedure. Medications Used: 190 mg Propofol Post-Sedation Assessment Post-Sedation Vital Signs: Vital signs were reviewed and were stable after the procedure (see flowsheet) Post-Sedation Exam: Pulmonary: clear to auscultation Cardiovascular: regular rate and rhythm Start time: 11:32AM Stop time: 11:49AM Complications: none apparent Sedation Provider: I personally performed the sedation documented as signed by this procedure note. [facility] 11-08-2024 Nurse procedure note Images from the original note were not included. Conscious Sedation Procedure Note Sedation Goal: deep Procedure: Cardioversion and NATALEE Proceduralist: Dr. Benítez Indication: Afib Time Out: Completed immediately prior to the start of the procedure which included verification of the correct patient, correct site and agreement on the procedure to be done. Consent: The indications, risks, benefits, alternatives to the procedure were explained to the patient/surrogate decision maker and their questions answered. Consent was obtained to proceed with the procedure. Pre-Sedation Assessment Pre-Sedation Vital Signs: Vital signs were reviewed and were stable prior the procedure (see flowsheet) Pre-Sedation Exam: Assessment: I have reviewed the patient's history and review of systems. Pulmonary: clear to auscultation Cardiovascular: irregular rhythm ENT: no obvious abnormalities noted during assessment Mallampati: Mallampati Class III - (soft palate & base of uvula are visible) ASA Classification: Class 3 - A patient with severe systemic disease that limits activity but is not incapacitating History of Anesthesia Complications: none Immediate Pre-Sedation Assessment There have been no changes in the patient's status since the initial assessment. Intra-Sedation Assessment Monitoring and Safety: The patient was placed on a creative project manager and vital signs, pulse oximetry, and level of consciousness were continuously evaluated throughout the procedure. The patient was closely monitored until recovery from the medications was complete and the patient had returned to baseline status. Respiratory therapy was on standby at all times during the procedure. Medications Used: 190 mg Propofol Post-Sedation Assessment Post-Sedation Vital Signs: Vital signs were reviewed and were stable after the procedure (see flowsheet) Post-Sedation Exam: Pulmonary: clear to auscultation Cardiovascular: regular rate and rhythm Start time: 11:32AM Stop time: 11:49AM Complications: none apparent Sedation Provider: I personally performed the sedation documented as signed by this procedure note. [employer] Work Phone: 11-08-2024 Note Formatting of this n ote might be different from the original. Patient admitted to [facility] ICU in Afib with RVR. In ED started on IV Cardizem and Heparin, plan for ECHO, NATALEE/DCCV and EP consult today. Chart reviewed. Patient from home with , has health insurance and PCP listed. No discharge needs anticipated, CM to follow. [employer] 12-26-2024 Note Formatting of this n ote might be different from the original. Patient admitted to [facility] ICU in Afib with RVR. In ED started on IV Cardizem and Heparin, plan for ECHO, NATALEE/DCCV and EP consult today. Chart reviewed. Patient from home with , has health insurance and PCP listed. No discharge needs anticipated, CM to follow. [facility] 11-08-2024 Consult note Associated Order (s): IP CONSULT TO CARDIOLOGY [facility] [place] [facility] Cardiology /Electrophysiology Consult Note Reason for Consult/Chief Complaint: A fib with RVR Referring provider: Dr. Parsons Established academic services professional: Edu History of Present Illness: Khalida Tran is a 64 y.o. male with PMH A.fib s/p ablation PVI in 11/2022, who presented to [facility] on 11/07/2024 from outside facility due to a fib with RVR. He began to have symptoms of dizziness 2 days ago when he noticed his HR was increased on his smart watch. He decided to go to the hospital when his HR was in the 180s. However, upon further discussion it appears that he knows that his symptoms did start yesterday after he dropped his family off at the airport. Patient follows with Dr. Sorensen. He was diagnosed with a fib after he was on vacation during which he had heavy alcohol use. In 2020, he was started on eliquis and had 2 CVN and was on flecainide for a period. He had recurrent episodes of a fib and they switched to sotalol. After PVI in 11/2022. He was on sotalol post PVI until 04/05 and at that time his eliquis was discontinued. He was doing well until 02/2024 when he had pneumonia and developed A.fib w RVR. At that time he was started on amiodarone and cardioverted and was able to discontinue amiodarone. During transport was reported he was started on metoprolol and diltiazem drip. On arrival to the ED, his HR was in the 90's-100's range. In the ED dilt drip was continued but HR continued to increase. Patient was briefly started on heparin drip overnight. Tele showed Afib with a VR in the 90-100s. He underwent NATALEE/CVN earlier today. Assessment/Plan Paroxysmal Atrial Fibrillation -S/p NATALEE/DCCV this morning to NSR -Echo showed normal EF with no significant valvular abnormalities. -CHADSVASC 2 - for age and T2DM -continue eliquis 5 mg BID -continue metoprolol 25 mg BID -will need outpatient follow up to discuss repeat ablation if the rhythm recurs early Alcohol abuse -drinks 4-5 bourbons at least once a week -Encouraged him to limit alcohol use Medications: apixaban, 5 mg, Oral, BID ezetimibe, 10 mg, Oral, Nightly And atorvastatin, 20 mg, Oral, Nightly insulin lispro, 0-6 Units, SubCUTAneous, TID WC And insulin lispro, 0-6 Units, SubCUTAneous, Nightly metoprolol tartrate, 25 mg, Oral, BID potassium citrate CR, 10 mEq, Oral, TID WC Infusion Medications: dilTIAZem, 2.5-15 mg/hr, Last Rate: 10 mg/hr (11/08/24 0547) Physical Examination: Vitals: 11/08/24 0500 11/08/24 0800 11/08/24 0854 11/08/24 0900 BP: 119/78 133/68 122/77 112/93 BP Location: Left arm Patient Position: Lying Pulse: 90 86 94 89 Resp: 18 17 21 16 Temp: 36.4 C (97.6 F) TempSrc: Temporal SpO2: 97% 93% 94% 93% Weight: 242 lb 4.6 oz (110 kg) Height: Intake/Output Summary (Last 24 hours) at 11/08/2024 0950 Last data filed at 11/08/2024 0548 Gross per 24 hour Intake 577 ml Output -- Net 577 ml Wt Readings from Last 3 Encounters: 11/08/24 242 lb 4.6 oz (110 kg) 10/05/24 235 lb (107 kg) 03/23/24 243 lb (110 kg) Physical Exam Constitutional: No distress. well nourished. well hydrated Psychiatric: A &O x 3. Medical insight intact NMT: Oral mucosa is pink and moist Neck: no JVD. Respiratory: Lungs are clear to auscultation Cardiac exam: Rhythm: irregular rate and rhythm ; Normal S1 and S2 Murmur: no Other: No rub; no gallop Vasc: Peripheral pulses intact Abdomen: soft, nontender Extremities: no LE edema Skin: Warm to touch and well perfused Laboratory Tests: TROPONIN I, CONVENTIONAL SENSITIVITY No results found for: CKTOTAL, CKMB, CKMBINDEX, TROPONINI TROPONIN I, HIGH SENSITIVITY No results found for: TROPHSBASE No results found for: TROPHS2 No results found for: TROPDELTBASE No results found for: TROPHS3 No results found for: TROPDELTSEC Recent Labs 11/08/24 0026 NA 139 K 3.9 CL 106 CO2 21* BUN 17 CREATININE 0.81 EGFR >90.0 Recent Labs 11/07/24 2158 11/08/24 0026 WBC 12.0* 13.7* HGB 14.8 14.9 HCT 44.3 44.6 MCV 86.2 86.6 PLT 266 287 Lab Results Component Value Date HGBA1C 6.7 (H) 11/08/2024 Lab Results Component Value Date TSH 0.84 11/08/2024 Lab Results Component Value Date CHOL 145 11/08/2024 CHOL 255 (H) 04/28/2023 CHOL 158 09/22/2022 Lab Results Component Value Date HDL 43 (L) 11/08/2024 HDL 51 04/28/2023 HDL 46 09/22/2022 Lab Results Component Value Date LDLCALC 53 11/08/2024 LDLCALC 04/28/2023 Comment: Calculated LDL invalid, triglycerides >400 mg/dl LDLCALC 82 09/22/2022 Lab Results Component Value Date TRIG 247 (H) 11/08/2024 TRIG 422 (H) 04/28/2023 TRIG 149 09/22/2022 Recent Labs 11/08/24 0026 INR 1.0 Results from last 7 days Lab Units 11/08/24 0026 AST U/L 39* ALT U/L 40* Telemetry findings: atrial fibrillation Last EP study 11/30/22 ELECTROPHYSIOLOGY PROCEDURE 11/30/2022 1:20 PM (Final) Conclusion Successful ablation for atrial fibrillation with RF isolation of all four pulmonary veins. The patient tolerated the procedure well with no immediate complications. Plan: 1. Transfer to PACU for observation 2. Bedrest for 3 hours post-sheath pull, then ambulate as tolerated 3. Resume anticoagulation. 4. Cont current home meds as prescribed 5. Pantoprazole for 4 weeks. 6. Discharge home this afternoon. Signed by: Reyes Sorensen on 11/30/2022 1:20 PM Farida Cole DO DATE of SERVICE: 11/08/2024 I, Lora Lezama MD, saw and evaluated the patient. I personally obtained the sarabia and critical portions of the history and physical exam. I reviewed the chart, the fellow's documentation, and discussed the patient with the fellow. I agree with the fellow's medical decision making and have edited the note to reflect my clinical findings and my assessment and plan. Lora Lezama MD [facility] [employer] Work Phone: 11-08-2024 Consult note Associated Order (s): IP CONSULT TO CARDIOLOGY [facility] [place] [facility] Cardiology /Electrophysiology Consult Note Reason for Consult/Chief Complaint: A fib with RVR Referring provider: Dr. Parsons Established academic services professional: Edu History of Present Illness: Khalida Tran is a 64 y.o. male with PMH A.fib s/p ablation PVI in 11/2022, who presented to [facility] on 11/07/2024 from outside facility due to a fib with RVR. He began to have symptoms of dizziness 2 days ago when he noticed his HR was increased on his smart watch. He decided to go to the hospital when his HR was in the 180s. However, upon further discussion it appears that he knows that his symptoms did start yesterday after he dropped his family off at the airport. Patient follows with Dr. Sorensen. He was diagnosed with a fib after he was on vacation during which he had heavy alcohol use. In 2020, he was started on eliquis and had 2 CVN and was on flecainide for a period. He had recurrent episodes of a fib and they switched to sotalol. After PVI in 11/2022. He was on sotalol post PVI until 04/05 and at that time his eliquis was discontinued. He was doing well until 02/2024 when he had pneumonia and developed A.fib w RVR. At that time he was started on amiodarone and cardioverted and was able to discontinue amiodarone. During transport was reported he was started on metoprolol and diltiazem drip. On arrival to the ED, his HR was in the 90's-100's range. In the ED dilt drip was continued but HR continued to increase. Patient was briefly started on heparin drip overnight. Tele showed Afib with a VR in the 90-100s. He underwent NATALEE/CVN earlier today. Assessment/Plan Paroxysmal Atrial Fibrillation -S/p NATALEE/DCCV this morning to NSR -Echo showed normal EF with no significant valvular abnormalities. -CHADSVASC 2 - for age and T2DM -continue eliquis 5 mg BID -continue metoprolol 25 mg BID -will need outpatient follow up to discuss repeat ablation if the rhythm recurs early Alcohol abuse -drinks 4-5 bourbons at least once a week -Encouraged him to limit alcohol use Medications: apixaban, 5 mg, Oral, BID ezetimibe, 10 mg, Oral, Nightly And atorvastatin, 20 mg, Oral, Nightly insulin lispro, 0-6 Units, SubCUTAneous, TID WC And insulin lispro, 0-6 Units, SubCUTAneous, Nightly metoprolol tartrate, 25 mg, Oral, BID potassium citrate CR, 10 mEq, Oral, TID WC Infusion Medications: dilTIAZem, 2.5-15 mg/hr, Last Rate: 10 mg/hr (11/08/24 0547) Physical Examination: Vitals: 11/08/24 0500 11/08/24 0800 11/08/24 0854 11/08/24 0900 BP: 119/78 133/68 122/77 112/93 BP Location: Left arm Patient Position: Lying Pulse: 90 86 94 89 Resp: 18 17 21 16 Temp: 36.4 C (97.6 F) TempSrc: Temporal SpO2: 97% 93% 94% 93% Weight: 242 lb 4.6 oz (110 kg) Height: Intake/Output Summary (Last 24 hours) at 11/08/2024 0950 Last data filed at 11/08/2024 0548 Gross per 24 hour Intake 577 ml Output -- Net 577 ml Wt Readings from Last 3 Encounters: 11/08/24 242 lb 4.6 oz (110 kg) 10/05/24 235 lb (107 kg) 03/23/24 243 lb (110 kg) Physical Exam Constitutional: No distress. well nourished. well hydrated Psychiatric: A &O x 3. Medical insight intact NMT: Oral mucosa is pink and moist Neck: no JVD. Respiratory: Lungs are clear to auscultation Cardiac exam: Rhythm: irregular rate and rhythm ; Normal S1 and S2 Murmur: no Other: No rub; no gallop Vasc: Peripheral pulses intact Abdomen: soft, nontender Extremities: no LE edema Skin: Warm to touch and well perfused Laboratory Tests: TROPONIN I, CONVENTIONAL SENSITIVITY No results found for: CKTOTAL, CKMB, CKMBINDEX, TROPONINI TROPONIN I, HIGH SENSITIVITY No results found for: TROPHSBASE No results found for: TROPHS2 No results found for: TROPDELTBASE No results found for: TROPHS3 No results found for: TROPDELTSEC Recent Labs 11/08/24 0026 NA 139 K 3.9 CL 106 CO2 21* BUN 17 CREATININE 0.81 EGFR >90.0 Recent Labs 11/07/24 2158 11/08/24 0026 WBC 12.0* 13.7* HGB 14.8 14.9 HCT 44.3 44.6 MCV 86.2 86.6 PLT 266 287 Lab Results Component Value Date HGBA1C 6.7 (H) 11/08/2024 Lab Results Component Value Date TSH 0.84 11/08/2024 Lab Results Component Value Date CHOL 145 11/08/2024 CHOL 255 (H) 04/28/2023 CHOL 158 09/22/2022 Lab Results Component Value Date HDL 43 (L) 11/08/2024 HDL 51 04/28/2023 HDL 46 09/22/2022 Lab Results Component Value Date LDLCALC 53 11/08/2024 LDLCALC 04/28/2023 Comment: Calculated LDL invalid, triglycerides >400 mg/dl LDLCALC 82 09/22/2022 Lab Results Component Value Date TRIG 247 (H) 11/08/2024 TRIG 422 (H) 04/28/2023 TRIG 149 09/22/2022 Recent Labs 11/08/24 0026 INR 1.0 Results from last 7 days Lab Units 11/08/24 0026 AST U/L 39* ALT U/L 40* Telemetry findings: atrial fibrillation Last EP study 11/30/22 ELECTROPHYSIOLOGY PROCEDURE 11/30/2022 1:20 PM (Final) Conclusion Successful ablation for atrial fibrillation with RF isolation of all four pulmonary veins. The patient tolerated the procedure well with no immediate complications. Plan: 1. Transfer to PACU for observation 2. Bedrest for 3 hours post-sheath pull, then ambulate as tolerated 3. Resume anticoagulation. 4. Cont current home meds as prescribed 5. Pantoprazole for 4 weeks. 6. Discharge home this afternoon. Signed by: Reyes Sorensen on 11/30/2022 1:20 PM Farida Cole DO DATE of SERVICE: 11/08/2024 I, Lora Lezama MD, saw and evaluated the patient. I personally obtained the sarabia and critical portions of the history and physical exam. I reviewed the chart, the fellow's documentation, and discussed the patient with the fellow. I agree with the fellow's medical decision making and have edited the note to reflect my clinical findings and my assessment and plan. Lora Lezama MD documented in this encounter [facility] 11-08-2024 Note [facility] [place] [facility] CCU PROGRESS NOTE Patient Name: Khalida Tran : 1960 Subjective: Hospital course: Mr. Khalida Tran is a 64-year-old male with past medical history of atrial fibrillation (status post PVI in November 2022), HLD, type 2 diabetes, who presented to the [facility] on November 05, 2024 from [facility] after being found to be in atrial fibrillation with RVR. According to the patient, symptoms started about 2 days ago and he found that his heart rate was elevated according to his smart watch. He presented to the outside hospital and was found that his heart rate was in the 180s. Outside hospital then contacted the [facility] and requested transport. At the time he was started on metoprolol and diltiazem infusion. On presentation, his heart rate was in the 90s to 100s range and diltiazem infusion was continued. However heart rate continued to increase. He was briefly started on heparin infusion but this was stopped. He was then admitted to the CCU for monitoring. According to chart review, he had a cardioversion in March 2024 and required amiodarone. Was discharged without amiodarone or apixiban. Interval History: Stopped Heparin, started Eliquis Patient reported to me that he had no acute complaints today, denied CP, SOB, palpations, nausea, vomiting. Only endorsed mild cough persistent since September. NAEON A1c elevated at 6.7, CBC, CMP WNL Medications at home metformin, semaglutide, exetemibe. Was not on eliquis, amiodarone at home. Currently controlled HR at 80s with 10 mg/hr of diltiazem infusion. Review of Systems: Review of Systems Constitutional: Negative. HENT: Negative. Eyes: Negative. Respiratory: Negative. Cardiovascular: Negative. Gastrointestinal: Negative. Endocrine: Negative. Genitourinary: Negative. Inpatient Medications: Scheduled Meds:ezetimibe, 10 mg, Oral, Nightly And atorvastatin, 20 mg, Oral, Nightly insulin lispro, 0-6 Units, SubCUTAneous, TID WC And insulin lispro, 0-6 Units, SubCUTAneous, Nightly metoprolol tartrate, 25 mg, Oral, BID potassium citrate CR, 15 mEq, Oral, BID WC Continuous Infusions:dilTIAZem, 2.5-15 mg/hr, Last Rate: 10 mg/hr (11/08/24 2201) heparin, 5-30 Units/kg/hr, Last Rate: 10 Units/kg/hr (11/08/24 0122) PRN Meds used in the last 24hr: None Objective: Physical Examination: BP 119/78 Pulse 90 Temp 36.3 ?C (97.3 ?F) (Temporal) Resp 18 Ht 5' 10 (1.778 m) Wt 242 lb 4.6 oz (110 kg) SpO2 97% BMI 34.76 kg/m? Intake/Output Summary (Last 24 hours) at 11/08/2024 0637 Last data filed at 11/08/2024 0548 Gross per 24 hour Intake 577 ml Output -- Net 577 ml Physical Exam HENT: Head: Normocephalic. Mouth/Throat: Mouth: Mucous membranes are moist. Eyes: Extraocular Movements: Extraocular movements intact. Cardiovascular: Rate and Rhythm: Normal rate. Rhythm irregular. Pulses: Normal pulses. Heart sounds: No murmur heard. No gallop. Pulmonary: Effort: Pulmonary effort is normal. No respiratory distress. Breath sounds: No wheezing or rales. Abdominal: General: There is no distension. Palpations: Abdomen is soft. Tenderness: There is no abdominal tenderness. Neurological: Mental Status: He is alert. Pertinent Labs: BMP: Lab Results Component Value Date NA 139 11/08/2024 K 3.9 11/08/2024 CL 106 11/08/2024 CO2 21 (L) 11/08/2024 BUN 17 11/08/2024 CREATININE 0.81 11/08/2024 GLUCOSE 106 11/08/2024 CALCIUM 8.6 (L) 11/08/2024 CBC: Lab Results Component Value Date WBC 13.7 (H) 11/08/2024 HGB 14.9 11/08/2024 HCT 44.6 11/08/2024 MCV 86.6 11/08/2024 PLT 287 11/08/2024 Cardiac profile: No results found for: CKTOTAL, CKMB, TROPONINI Coagulation: Lab Results Component Value Date INR 1.0 11/08/2024 Lipid panel: Lab Results Component Value Date CHOL 145 11/08/2024 HDL 43 (L) 11/08/2024 TRIG 247 (H) 11/08/2024 Other: Lab Results Component Value Date HGBA1C 6.7 (H) 11/08/2024 TSH 0.84 11/08/2024 Chest Imaging: CXR: Cardiac Studies: Telemetry findings reviewed: Afib ECG: Encounter Date: 11/07/24 ECG 12 lead Result Value Heart Rate 106 QRSD Interval 81 QT Interval 353 QTC Interval 470 P [place] 0 QRS [place] 1 T Wave [place] 34 GA Interval 0 Impression Atrial fibrillation Change compared to previous ekg on 11/30/22 Electronically Signed On 11-07-2024 18:27:39 EST by Pramod Arzate Echo: 08/18/21 (Final) Narrative Ordered by an unspecified provider. Cath Report: No results found for this or any previous visit. Assessment/Plan HF NYHA Class [] I [] II [] III [] IV []Unable to assess [x] N/A Atrial fibrillation with rapid ventricular response Paroxysmal atrial fibrillation Patient presented from outside hospital and A-fib with RVR with rates elevated to the 170s to 180s. He was started on metoprolol tartrate and diltiazem infusion which brou (more content not included)... [facility] 11-07-2024 History and physical note Images from the original note were not included. [facility] [place] [facility] CCU HISTORY & PHYSICAL Patient Name: Khalida Tran : 1960 Date of Admission: 11/07/2024 4:11 PM Established academic services professional: Dr. Sorensen Subjective: Chief Complaint: A.fib w RVR History of Present Illness: Khalida Tran is a 64 y.o. male with PMH A.fib s/p ablation PVI in 11/2022, HLD T2DM that presented to [facility] on 11/07/2024 from outside facility ([facility]) due to elevated HR. Patient reports symptoms started about 2 days, was tracking HR through apple watch. Came in to the hospital as it was going into the 180's and did not go down. He reported some mild dizziness with it, but otherwise fairly asymptomatic. He denies any chest pain, or SOB. Patient follows with cardiology Dr. Sorensen. Last seen on 03/23/24. After PVI in 11/2022 had no complication until 02/2024 after having pneumonia on which he developed A.fib w RVR. Was started on amiodarone and cardioverted and was able to discontinue amiodarone. Currently on no rate/rhythm control or anticoagulation home medications. During transport was reported he was started on metoprolol and diltiazem drip. On arrival to the ED, his HR was in the 90's-100's range. In the ED dilt drip was continued but HR continued to increase. Patient was started on heparin drip. 64M. CRF + HTN, DM2 PCVHx: PAF. PVI 2022. February 2024 recurrent AF in setting of PNA. Underwent DCC. Now off OAC & Amio. HPI: Presents w AF wRVR detected on Apple watch. In ER, started on iv Cardizem and iv UFH. Denies CP or palps, dizziness, edema, orthop or PND. Review of Systems: Review of Systems Constitutional: Negative for chills and fatigue. Respiratory: Negative for chest tightness and shortness of breath. Cardiovascular: Negative for chest pain. Gastrointestinal: Negative for abdominal pain, nausea and vomiting. Musculoskeletal: Negative for back pain. Skin: Negative for color change. Neurological: Positive for dizziness. Negative for light-headedness and headaches. Psychiatric/Behavioral: Negative for confusion. All other systems reviewed and are negative. Past Medical History: Past Medical History: Diagnosis Date A-fib (CMS/HCC) (HCC) Cardioverted Anticoagulated 06/25/2021 BPH (benign prostatic hyperplasia) H/O exercise stress test Hyperlipidemia HARSHA (obstructive sleep apnea) does not wear C pap Machine Pneumonia Pre-diabetes Past Surgical History: Past Surgical History: Procedure Laterality Date ABLATION FOR ATRIAL FIBRILLATION (HISTORICAL) 11/30/[address] Sorensen APPENDECTOMY 12 years ago CARDIAC ELECTROPHYSIOLOGY PROCEDURE N/A 11/30/2022 Performed by Reyes Sorensen at [facility] Cardiac Cath/EP Lab COLONOSCOPY COLONOSCOPY 01/16/2019 HERNIA REPAIR INCISIONAL HERNIA REPAIR 09/04/2019 DR JOE PROSTATE BIOPSY 06/10/[address] desir TONSILLECTOMY (HISTORICAL) VENTRAL HERNIA REPAIR 7 years ago WISDOM TOOTH EXTRACTION Family History: Family History Problem Relation Name Age of Onset Alzheimer's disease Mother COPD Father Social History: Social History Tobacco Use Smoking status: Former Current packs/day: 0.00 Average packs/day: 0.5 packs/day for 40.0 years (20.0 ttl pk-yrs) Types: Cigarettes Start date: 1992 Quit date: 2023 Years since quittin.5 Smokeless tobacco: Never Tobacco comments: Quit smoking for short period of time then started again : 5 cigs a day Vaping Use Vaping status: Never Used Substance Use Topics Alcohol use: Not Currently Alcohol/week: 2.0 standard drinks of alcohol Types: 2 Standard drinks or equivalent per week Comment: drinks [place] Drug use: No Comment: caffeine: decaf Allergies: Allergies Allergen Reactions Semaglutide Other Tamsulosin Other Medications: Current Outpatient Medications Medication Instructions ezetimibe-simvastatin (Vytorin) 10-40 MG tablet 1 tablet, Nightly metFORMIN (Glucophage) 500 MG tablet TAKE 1 TABLET BY MOUTH at dinner meal potassium citrate CR (Urocit-K-15) 15 mEq ER tablet 15 mEq, Oral, 2 times daily with meals Objective: Physical Examination: BP 99/57 Pulse (!) 174 Temp 36.5 C (97.7 F) Resp 14 Ht 5' 10 (1.778 m) Wt 230 lb (104 kg) SpO2 96% BMI 33.00 kg/m No intake or output data in the 24 hours ending 11/07/241925 Physical Exam Constitutional: General: He is not in acute distress. Appearance: Normal appearance. He is obese. He is not ill-appearing. HENT: Head: Normocephalic and atraumatic. Right Ear: External ear normal. Left Ear: External ear normal. Nose: Nose normal. Mouth/Throat: Mouth: Mucous membranes are moist. Eyes: General: Right eye: No discharge. Left eye: No discharge. Extraocular Movements: Extraocular movements intact. Neck: Vascular: No carotid bruit. Cardiovascular: Rate and Rhythm: Tachycardia present. Rhythm irregular. Heart sounds: Normal heart sounds, S1 normal and S2 normal. No murmur heard. No gallop. No S3 or S4 sounds. Pulmonary: Effort: Pulmonary effort is normal. Breath sounds: Normal breath sounds. No wheezing. Abdominal: General: Bowel sounds are normal. Palpations: Abdomen is soft. Tenderness: There is no abdominal tenderness. Musculoskeletal: General: No swelling or deformity. Cervical back: Neck supple. Right lower leg: No edema. Left lower leg: No edema. Skin: General: Skin is warm and dry. Coloration: Skin is not jaundiced. Neurological: Mental Status: He is alert and oriented to person, place, and time. Mental status is at baseline. Motor: No weakness. Psychiatric: Mood and Affect: Mood normal. Behavior: Behavior normal. Laboratory Tests: BMP: Lab Results Component Value Date NA 138 09/01/2023 K 4.6 09/01/2023 CL 105 09/01/2023 CO2 23 09/01/2023 BUN 20 09/01/2023 CREATININE 0.66 09/01/2023 GLUCOSE 110 (H) 09/01/2023 CALCIUM 9.1 09/01/2023 CBC: Lab Results Component Value Date WBC 8.4 04/28/2023 HGB 15.1 09/01/2023 HCT 45.6 09/01/2023 MCV 89.0 04/28/2023 PLT 266 04/28/2023 Cardiac profile: No results found for: BNP, TROPONINI Coagulation: Lab Results Component Value Date PROTIME 10.0 09/22/2020 INR 0.9 09/22/2020 APTT 33.5 (H) 11/07/2024 Lipid panel: Lab Results Component Value Date CHOL 255 (H) 04/28/2023 HDL 51 04/28/2023 LDLCALC 04/28/2023 Comment: Calculated LDL invalid, triglycerides >400 mg/dl TRIG 422 (H) 04/28/2023 Other: Lab Results Component Value Date HGBA1C 6.2 (H) 04/28/2023 Chest Imaging: CXR: CT Chest wo contrast: === 05/02/23 === CT ABDOMEN PELVIS W AND WO IV CONTRAST - Impression - Multiple simple bilateral renal cysts, which warrant no follow-up imaging. Enlarged prostate. Colonic diverticulosis. Mild hepatic steatosis. Report Dictated on Electronically Signed By: Rosalia Winslow Electronically Signed Date/Time: 05/02/2023 2:51 PM EDT CTA Chest w and wo contrast: === 05/02/23 === CT ABDOMEN PELVIS W AND WO IV CONTRAST - Impression - Multiple simple bilateral renal cysts, which warrant no follow-up imaging. Enlarged prostate. Colonic diverticulosis. Mild hepatic steatosis. Report Dictated on Electronically Signed By: Rosalia Winslow Electronically Signed Date/Time: 05/02/2023 2:51 PM EDT Cardiac Studies: Telemetry findings: Reviewed: EdFIB RVR Last EK11/07/24 ECG 12-LEAD 11/07/2024 6:27 PM (Final) Impression Atrial fibrillation Change compared to previous ekg on 11/30/22 Electronically Signed On 11-07-2024 18:27:39 EST by Pramod Arzate Signed by: Pramod Arzate on 11/07/2024 6:27 PM Last Echo: 08/18/21 (Final) Narrative Ordered by an unspecified provider. Last Cath: No results found for this or any previous visit. Last Stress Test: No results found for this or any previous visit. Last EP study: 11/30/22 ELECTROPHYSIOLOGY PROCEDURE 11/30/2022 1:20 PM (Final) Conclusion Successful ablation for atrial fibrillation with RF isolation of all four pulmonary veins. The patient tolerated the procedure well with no immediate complications. Plan: 1. Transfer to PACU for observation 2. Bedrest for 3 hours post-sheath pull, then ambulate as tolerated 3. Resume anticoagulation. 4. Cont current home meds as prescribed 5. Pantoprazole for 4 weeks. 6. Discharge home this afternoon. Signed by: Reyes Sorensen on 11/30/2022 1:20 PM Assessment/Plan A. Fib with RVR - s/p ablation in 11/2022 - in 02/2024 was started on amio, was cardioverted, and amio was discontinued Plan: - Admit to [facility]U - Started on metoprolol tartrate 25mg BID - Continue Dilt drip, will titrate based on blood pressure and HR - Continue heparin drip - Will be evaluated by EP in the morning - Will obtain CBC, CMP, TSH, A1c, Lipid panel HLD - Continued home Vytorin 10-40mg (Ordered seperately Zetia 10mg and Lipitor 20mg) T2DM - Held home metformin - Placed on LDSS - Goals of Care: Full Code - DVT Prophylaxis: Heparin - GI Prophylaxis: Not Indicated - Diet: General - BMI Classification: Body mass index is 33 kg/m . - Disposition: Admit to CCU. Recurrent PAF. TTE today followed by NATALEE and DCC. After, start Apixaban. Consult EP - ? Restart Amio. Possible repeat PFA as OPT. Home soon. I, Dr. Aguilar Parsons, saw and evaluated the patient on 11/08/2024. I personally obtained the sarabia and critical portions of the history and physical exam. I reviewed the labs, imaging studies, and electronic medical record. I reviewed the resident's documentation, and discussed the patient with the resident. I agree with the resident's medical decision making and have edited the note to reflect my clinical findings and my assessment and plan. [employer] Work Phone: 11-07-2024 Note [facility] [place] [facility] HISTORY & PHYSICAL Patient Name: Khalida Tran : 1960 Date of Admission: 11/07/2024 4:11 PM Established academic services professional: Dr. Sorensen Subjective: Chief Complaint: A.fib w RVR History of Present Illness: Khalida Tran is a 64 y.o. male with PMH A.fib s/p ablation PVI in 11/2022, HLD T2DM that presented to [facility] on 11/07/2024 from outside facility ([facility]) due to elevated HR. Patient reports symptoms started about 2 days, was tracking HR through [employer]. Came in to the hospital as it was going into the 180's and did not go down. He reported some mild dizziness with it, but otherwise fairly asymptomatic. He denies any chest pain, or SOB. Patient follows with cardiology Dr. Sorensen. Last seen on 03/23/24. After PVI in 11/2022 had no complication until 02/2024 after having pneumonia on which he developed A.fib w RVR. Was started on amiodarone and cardioverted and was able to discontinue amiodarone. Currently on no rate/rhythm control or anticoagulation home medications. During transport was reported he was started on metoprolol and diltiazem drip. On arrival to the ED, his HR was in the 90's-100's range. In the ED dilt drip was continued but HR continued to increase. Patient was started on heparin drip. 64M. CRF + HTN, DM2 PCVHx: PAF. PVI 2022. February 2024 recurrent AF in setting of PNA. Underwent DCC. Now off OAC & Amio. HPI: Presents w AF wRVR detected on Apple watch. In ER, started on iv Cardizem and iv UFH. Denies CP or palps, dizziness, edema, orthop or PND. Review of Systems: Review of Systems Constitutional: Negative for chills and fatigue. Respiratory: Negative for chest tightness and shortness of breath. Cardiovascular: Negative for chest pain. Gastrointestinal: Negative for abdominal pain, nausea and vomiting. Musculoskeletal: Negative for back pain. Skin: Negative for color change. Neurological: Positive for dizziness. Negative for light-headedness and headaches. Psychiatric/Behavioral: Negative for confusion. All other systems reviewed and are negative. Past Medical History: Past Medical History: Diagnosis Date A-fib (CMS/HCC) (HCC) Cardioverted Anticoagulated 06/25/2021 BPH (benign prostatic hyperplasia) H/O exercise stress test Hyperlipidemia HARSHA (obstructive sleep apnea) does not wear C pap Machine Pneumonia Pre-diabetes Past Surgical History: Past Surgical History: Procedure Laterality Date ABLATION FOR ATRIAL FIBRILLATION (HISTORICAL) 11/30/[address] Sorensen APPENDECTOMY 12 years ago CARDIAC ELECTROPHYSIOLOGY PROCEDURE N/A 11/30/2022 Performed by Reyes Sorensen at [facility] Cardiac Cath/EP Lab COLONOSCOPY COLONOSCOPY 01/16/2019 HERNIA REPAIR INCISIONAL HERNIA REPAIR 09/04/2019 DR JOE PROSTATE BIOPSY 06/10/[address] desir TONSILLECTOMY (HISTORICAL) VENTRAL HERNIA REPAIR 7 years ago WISDOM TOOTH EXTRACTION Family History: Family History Problem Relation Name Age of Onset Alzheimer's disease Mother COPD Father Social History: Social History Tobacco Use Smoking status: Former Current packs/day: 0.00 Average packs/day: 0.5 packs/day for 40.0 years (20.0 ttl pk-yrs) Types: Cigarettes Start date: 1992 Quit date: 2023 Years since quittin.5 Smokeless tobacco: Never Tobacco comments: Quit smoking for short period of time then started again : 5 cigs a day Vaping Use Vaping status: Never Used Substance Use Topics Alcohol use: Not Currently Alcohol/week: 2.0 standard drinks of alcohol Types: 2 Standard drinks or equivalent per week Comment: drinks [place] Drug use: No Comment: caffeine: decaf Allergies: Allergies Allergen Reactions Semaglutide Other Tamsulosin Other Medications: Current Outpatient Medications Medication Instructions ezetimibe-simvastatin (Vytorin) 10-40 MG tablet 1 tablet, Nightly metFORMIN (Glucophage) 500 MG tablet TAKE 1 TABLET BY MOUTH at dinner meal potassium citrate CR (Urocit-K-15) 15 mEq ER tablet 15 mEq, Oral, 2 times daily with meals Objective: Physical Examination: BP 99/57 Pulse (!) 174 Temp 36.5 ?C (97.7 ?F) Resp 14 Ht 5' 10 (1.778 m) Wt 230 lb (104 kg) SpO2 96% BMI 33.00 kg/m? No intake or output data in the 24 hours ending 11/07/241925 Physical Exam Constitutional: General: He is not in acute distress. Appearance: Normal appearance. He is obese. He is not ill-appearing. HENT: Head: Normocephalic and atraumatic. Right Ear: External ear normal. Left Ear: External ear normal. Nose: Nose normal. Mouth/Throat: Mouth: Mucous membranes are moist. Eyes: General: Right eye: No discharge. Left eye: No discharge. Extraocular Movements: Extraocular movements intact. Neck: Vascular: No carotid bruit. Cardiovascular: Rate and Rhythm: Tachycardia present. Rhythm irregular. Heart sounds: Normal heart sounds, S1 normal and S2 n (more content not included)... [facility] 11-07-2024 History and physical note Images from the original note were not included. [facility] [place] [facility] HISTORY & PHYSICAL Patient Name: Khalida Tran : 1960 Date of Admission: 11/07/2024 4:11 PM Established academic services professional: Dr. Sorensen Subjective: Chief Complaint: A.fib w RVR History of Present Illness: Khalida Tran is a 64 y.o. male with PMH A.fib s/p ablation PVI in 11/2022, HLD T2DM that presented to [facility] on 11/07/2024 from outside facility ([facility]) due to elevated HR. Patient reports symptoms started about 2 days, was tracking HR through [employer]. Came in to the hospital as it was going into the 180's and did not go down. He reported some mild dizziness with it, but otherwise fairly asymptomatic. He denies any chest pain, or SOB. Patient follows with cardiology Dr. Sorensen. Last seen on 03/23/24. After PVI in 11/2022 had no complication until 02/2024 after having pneumonia on which he developed A.fib w RVR. Was started on amiodarone and cardioverted and was able to discontinue amiodarone. Currently on no rate/rhythm control or anticoagulation home medications. During transport was reported he was started on metoprolol and diltiazem drip. On arrival to the ED, his HR was in the 90's-100's range. In the ED dilt drip was continued but HR continued to increase. Patient was started on heparin drip. 64M. CRF + HTN, DM2 PCVHx: PAF. PVI 2022. February 2024 recurrent AF in setting of PNA. Underwent DCC. Now off OAC & Amio. HPI: Presents w AF wRVR detected on Apple watch. In ER, started on iv Cardizem and iv UFH. Denies CP or palps, dizziness, edema, orthop or PND. Review of Systems: Review of Systems Constitutional: Negative for chills and fatigue. Respiratory: Negative for chest tightness and shortness of breath. Cardiovascular: Negative for chest pain. Gastrointestinal: Negative for abdominal pain, nausea and vomiting. Musculoskeletal: Negative for back pain. Skin: Negative for color change. Neurological: Positive for dizziness. Negative for light-headedness and headaches. Psychiatric/Behavioral: Negative for confusion. All other systems reviewed and are negative. Past Medical History: Past Medical History: Diagnosis Date A-fib (CMS/HCC) (HCC) Cardioverted Anticoagulated 06/25/2021 BPH (benign prostatic hyperplasia) H/O exercise stress test Hyperlipidemia HARSHA (obstructive sleep apnea) does not wear C pap Machine Pneumonia Pre-diabetes Past Surgical History: Past Surgical History: Procedure Laterality Date ABLATION FOR ATRIAL FIBRILLATION (HISTORICAL) 11/30/[address] Sorensen APPENDECTOMY 12 years ago CARDIAC ELECTROPHYSIOLOGY PROCEDURE N/A 11/30/2022 Performed by Reyes Sorensen at [facility] Cardiac Cath/EP Lab COLONOSCOPY COLONOSCOPY 01/16/2019 HERNIA REPAIR INCISIONAL HERNIA REPAIR 09/04/2019 DR JOE PROSTATE BIOPSY 06/10/[address] desir TONSILLECTOMY (HISTORICAL) VENTRAL HERNIA REPAIR 7 years ago WISDOM TOOTH EXTRACTION Family History: Family History Problem Relation Name Age of Onset Alzheimer's disease Mother COPD Father Social History: Social History Tobacco Use Smoking status: Former Current packs/day: 0.00 Average packs/day: 0.5 packs/day for 40.0 years (20.0 ttl pk-yrs) Types: Cigarettes Start date: 1992 Quit date: 2023 Years since quittin.5 Smokeless tobacco: Never Tobacco comments: Quit smoking for short period of time then started again : 5 cigs a day Vaping Use Vaping status: Never Used Substance Use Topics Alcohol use: Not Currently Alcohol/week: 2.0 standard drinks of alcohol Types: 2 Standard drinks or equivalent per week Comment: drinks [place] Drug use: No Comment: caffeine: decaf Allergies: Allergies Allergen Reactions Semaglutide Other Tamsulosin Other Medications: Current Outpatient Medications Medication Instructions ezetimibe-simvastatin (Vytorin) 10-40 MG tablet 1 tablet, Nightly metFORMIN (Glucophage) 500 MG tablet TAKE 1 TABLET BY MOUTH at dinner meal potassium citrate CR (Urocit-K-15) 15 mEq ER tablet 15 mEq, Oral, 2 times daily with meals Objective: Physical Examination: BP 99/57 Pulse (!) 174 Temp 36.5 C (97.7 F) Resp 14 Ht 5' 10 (1.778 m) Wt 230 lb (104 kg) SpO2 96% BMI 33.00 kg/m No intake or output data in the 24 hours ending 11/07/241925 Physical Exam Constitutional: General: He is not in acute distress. Appearance: Normal appearance. He is obese. He is not ill-appearing. HENT: Head: Normocephalic and atraumatic. Right Ear: External ear normal. Left Ear: External ear normal. Nose: Nose normal. Mouth/Throat: Mouth: Mucous membranes are moist. Eyes: General: Right eye: No discharge. Left eye: No discharge. Extraocular Movements: Extraocular movements intact. Neck: Vascular: No carotid bruit. Cardiovascular: Rate and Rhythm: Tachycardia present. Rhythm irregular. Heart sounds: Normal heart sounds, S1 normal and S2 normal. No murmur heard. No gallop. No S3 or S4 sounds. Pulmonary: Effort: Pulmonary effort is normal. Breath sounds: Normal breath sounds. No wheezing. Abdominal: General: Bowel sounds are normal. Palpations: Abdomen is soft. Tenderness: There is no abdominal tenderness. Musculoskeletal: General: No swelling or deformity. Cervical back: Neck supple. Right lower leg: No edema. Left lower leg: No edema. Skin: General: Skin is warm and dry. Coloration: Skin is not jaundiced. Neurological: Mental Status: He is alert and oriented to person, place, and time. Mental status is at baseline. Motor: No weakness. Psychiatric: Mood and Affect: Mood normal. Behavior: Behavior normal. Laboratory Tests: BMP: Lab Results Component Value Date NA 138 09/01/2023 K 4.6 09/01/2023 CL 105 09/01/2023 CO2 23 09/01/2023 BUN 20 09/01/2023 CREATININE 0.66 09/01/2023 GLUCOSE 110 (H) 09/01/2023 CALCIUM 9.1 09/01/2023 CBC: Lab Results Component Value Date WBC 8.4 04/28/2023 HGB 15.1 09/01/2023 HCT 45.6 09/01/2023 MCV 89.0 04/28/2023 PLT 266 04/28/2023 Cardiac profile: No results found for: BNP, TROPONINI Coagulation: Lab Results Component Value Date PROTIME 10.0 09/22/2020 INR 0.9 09/22/2020 APTT 33.5 (H) 11/07/2024 Lipid panel: Lab Results Component Value Date CHOL 255 (H) 04/28/2023 HDL 51 04/28/2023 LDLCALC 04/28/2023 Comment: Calculated LDL invalid, triglycerides >400 mg/dl TRIG 422 (H) 04/28/2023 Other: Lab Results Component Value Date HGBA1C 6.2 (H) 04/28/2023 Chest Imaging: CXR: CT Chest wo contrast: === 05/02/23 === CT ABDOMEN PELVIS W AND WO IV CONTRAST - Impression - Multiple simple bilateral renal cysts, which warrant no follow-up imaging. Enlarged prostate. Colonic diverticulosis. Mild hepatic steatosis. Report Dictated on Electronically Signed By: Rosalia Winslow Electronically Signed Date/Time: 05/02/2023 2:51 PM EDT CTA Chest w and wo contrast: === 05/02/23 === CT ABDOMEN PELVIS W AND WO IV CONTRAST - Impression - Multiple simple bilateral renal cysts, which warrant no follow-up imaging. Enlarged prostate. Colonic diverticulosis. Mild hepatic steatosis. Report Dictated on Electronically Signed By: Rosalia Winslow Electronically Signed Date/Time: 05/02/2023 2:51 PM EDT Cardiac Studies: Telemetry findings: Reviewed: A.FIB RVR Last EK11/07/24 ECG 12-LEAD 11/07/2024 6:27 PM (Final) Impression Atrial fibrillation Change compared to previous ekg on 11/30/22 Electronically Signed On 11-07-2024 18:27:39 EST by Pramod Arzate Signed by: Pramod Arzate on 11/07/2024 6:27 PM Last Echo: 08/18/21 (Final) Narrative Ordered by an unspecified provider. Last Cath: No results found for this or any previous visit. Last Stress Test: No results found for this or any previous visit. Last EP study: 11/30/22 ELECTROPHYSIOLOGY PROCEDURE 11/30/2022 1:20 PM (Final) Conclusion Successful ablation for atrial fibrillation with RF isolation of all four pulmonary veins. The patient tolerated the procedure well with no immediate complications. Plan: 1. Transfer to PACU for observation 2. Bedrest for 3 hours post-sheath pull, then ambulate as tolerated 3. Resume anticoagulation. 4. Cont current home meds as prescribed 5. Pantoprazole for 4 weeks. 6. Discharge home this afternoon. Signed by: Reyes Sorensen on 11/30/2022 1:20 PM Assessment/Plan A. Luciana with RVR - s/p ablation in 11/2022 - in 02/2024 was started on amio, was cardioverted, and amio was discontinued Plan: - Admit to HLU - Started on metoprolol tartrate 25mg BID - Continue Dilt drip, will titrate based on blood pressure and HR - Continue heparin drip - Will be evaluated by EP in the morning - Will obtain CBC, CMP, TSH, A1c, Lipid panel HLD - Continued home Vytorin 10-40mg (Ordered seperately Zetia 10mg and Lipitor 20mg) T2DM - Held home metformin - Placed on LDSS - Goals of Care: Full Code - DVT Prophylaxis: Heparin - GI Prophylaxis: Not Indicated - Diet: General - BMI Classification: Body mass index is 33 kg/m . - Disposition: Admit to CCU. Recurrent PAF. TTE today followed by NATALEE and DCC. After, start Apixaban. Consult EP - ? Restart Amio. Possible repeat PFA as OPT. Home soon. I, Dr. Aguilar Parsons, saw and evaluated the patient on 11/08/2024. I personally obtained the sarabia and critical portions of the history and physical exam. I reviewed the labs, imaging studies, and electronic medical record. I reviewed the resident's documentation, and discussed the patient with the resident. I agree with the resident's medical decision making and have edited the note to reflect my clinical findings and my assessment and plan. documented in this encounter [facility] 11-07-2024 Emergency department Note Report called to HLU [facility] 11-07-2024 Emergency department Note Report called to HLU Report given to Noemy ROSS Cards at bedside NPO until seen by cards per Dr Arzate Dr Arzate at bedside Patients HR in the 170's, Dr. Arzate notified EMERGENCY DEPARTMENT ENCOUNTER Pt Name: Ed Evan Tran Birthdate 1960 Date of evaluation: 11/07/2024 ED Provider: Belinda Beach DO CHIEF COMPLAINT Chief Complaint Patient presents with Atrial Fibrillation Pt coming from [facility] by EMS transfer. Pt was a fib RVR- pt given Cardizem drip at 7.5 en route. Pt denies CP, SOB or any other symptoms at this time. Pt is A&Ox4 during triage. HISTORY OF PRESENT ILLNESS (Location/Symptom, Timing/Onset, Context/Setting, Quality, Duration, Modifying Factors, Severity) Note limiting factors. I wore appropriate PPE for the entirety of this encounter. HPI Ed Evan Tran is a 64 y.o. who presents to the emergency department as a transfer from [facility]. It was reported that the patient was in A-fib RVR with a heart rate in the 180s. The patient states that he was asymptomatic at this time. It was reported that he had metoprolol as well as diltiazem drip during the transport. On arrival, the patient states that he is not have any chest pain, shortness of breath, or systemic findings. His heart rate on arrival was 90s to low 100s. Nursing Notes were reviewed. Limitations to history: Outside historians: REVIEW OF SYSTEMS Review of Systems Pertinent positives and negatives as per HPI. PAST MEDICAL HISTORY Past Medical History: Diagnosis Date A-fib (CMS/HCC) (HCC) Cardioverted Anticoagulated 06/25/2021 BPH (benign prostatic hyperplasia) H/O exercise stress test Hyperlipidemia HARSHA (obstructive sleep apnea) does not wear C pap Machine Pneumonia Pre-diabetes SURGICAL HISTORY Past Surgical History: Procedure Laterality Date ABLATION FOR ATRIAL FIBRILLATION (HISTORICAL) 11/30/[address] Sorensen APPENDECTOMY 12 years ago CARDIAC ELECTROPHYSIOLOGY PROCEDURE N/A 11/30/2022 Performed by Reyes Sorensen at [facility] Cardiac Cath/EP Lab COLONOSCOPY COLONOSCOPY 01/16/2019 HERNIA REPAIR INCISIONAL HERNIA REPAIR 09/04/2019 DR JOE PROSTATE BIOPSY 06/10/[address] desir TONSILLECTOMY (HISTORICAL) VENTRAL HERNIA REPAIR 7 years ago WISDOM TOOTH EXTRACTION CURRENT MEDICATIONS Previous Medications EZETIMIBE-SIMVASTATIN (VYTORIN) 10-40 MG TABLET Take 1 tablet by mouth Nightly. METFORMIN (GLUCOPHAGE) 500 MG TABLET TAKE 1 TABLET BY MOUTH at dinner meal POTASSIUM CITRATE CR (UROCIT-K-15) 15 MEQ ER TABLET Take 1 tablet (15 mEq) by mouth 2 times daily (with meals). ALLERGIES Semaglutide and Tamsulosin FAMILY HISTORY Family History Problem Relation Name Age of Onset Alzheimer's disease Mother COPD Father SOCIAL HISTORY Social History Socioeconomic History Marital status: Tobacco Use Smoking status: Former Current packs/day: 0.00 Average packs/day: 0.5 packs/day for 40.0 years (20.0 ttl pk-yrs) Types: Cigarettes Start date: 1992 Quit date: 2023 Years since quittin.5 Smokeless tobacco: Never Tobacco comments: Quit smoking for short period of time then started again : 5 cigs a day Vaping Use Vaping status: Never Used Substance and Sexual Activity Alcohol use: Not Currently Alcohol/week: 2.0 standard drinks of alcohol Types: 2 Standard drinks or equivalent per week Comment: drinks [place] Drug use: No Comment: caffeine: decaf Social History Narrative Lives with at home SCREENINGS [place] Coma Scale Best Eye Response: Spontaneous Best Verbal Response: Oriented Best Motor Response: Follows commands [place] Coma Scale Score: 15 PHYSICAL EXAM ED Triage Vitals [11/07/24 1615] Temp Heart Rate Resp BP 36.5 C (97.7 F) 100 17 (!) 157/121 SpO2 Temp src Heart Rate Source Patient Position 96 % -- -- -- BP Location FiO2 (%) -- -- Physical Exam Vitals and nursing note reviewed. Constitutional: General: He is not in acute distress. Appearance: Normal appearance. Cardiovascular: Rate and Rhythm: Rhythm irregularly irregular. Pulses: Normal pulses. Heart sounds: Normal heart sounds. Pulmonary: Effort: Pulmonary effort is normal. No respiratory distress. Breath sounds: Normal breath sounds. Skin: General: Skin is warm. Capillary Refill: Capillary refill takes less than 2 seconds. Neurological: Mental Status: He is alert. DIAGNOSTIC RESULTS RADIOLOGY (Per Emergency Physician): Interpretation per the Radiologist below, if available at the time of this note: No orders to display LABS: Labs Reviewed - No data to display All other labs were within normal range or not returned as of this dictation. EMERGENCY DEPARTMENT COURSE and DIFFERENTIAL DIAGNOSIS/MDM: Vitals: Vitals: 11/07/24 1615 11/07/24 1617 11/07/24 1618 11/07/24 1738 BP: (!) 157/121 111/81 113/75 Pulse: 100 (!) 161 Resp: 17 17 Temp: 36.5 C (97.7 F) SpO2: 96% 97% 94% Weight: 104 kg (230 lb) Height: 1.778 m (5' 10) The patient presented with a chief complaint of atrial fibrillation. Our workup consisted of ordering/reviewing outside hospital records, and cardiology consult. Cardiology was paged on patient arrival. After reassessing patient pending cardiology, his heart rate increased to the 170s to 180s and orders for diltiazem drip was placed. Cardiology stated that the patient can be admitted under Dr. Chetan cabello as he is currently on a diltiazem drip to control his heart rate. He was then admitted in stable condition. Diagnoses as of 11/07/241742 Atrial fibrillation with RVR (HCC) External records reviewed: Diagnostics interpreted by me: Discussions with other clinicians: Admitting team cardiology Chronic conditions impacting care: Heart disease Social determinants of health affecting care: ED Medications managed: Medications dilTIAZem (Cardizem) infusion 125 mg in 0.9% sodium chloride 125 mL (premix) (5 mg/hr IntraVENous New Bag 11/07/24 1739) Prescription drugs considered: PROCEDURES: Unless otherwise noted below, none Procedures FINAL IMPRESSION 1. Atrial fibrillation with RVR (HCC) DISPOSITION Admit 11/07/2024 05:41:38 PM PATIENT REFERRED TO: No follow-up provider specified. DISCHARGE MEDICATIONS: New Prescriptions No medications on file (Comment: Please note this report has been produced using speech recognition software and may contain errors related to that system including errors in grammar, punctuation, and spelling, as well as words and phrases that may be inappropriate. If there are any questions or concerns please feel free to contact the dictating provider for clarification.) Belinda Beach DO (electronically signed) Emergency Medicine Provider Belinda Beach DO Resident 11/07/24 174 Cosigned by Pramod Arzate MD at 11/07/2024 8:38 PM EST Emergency Department Encounter [facility] CTV ICU T1 Patient: Christos Tran : 1960 Date of Evaluation: 11/07/2024 ED Supervising Physician: Pramod Arzate MD I personally evaluated Khalida Tran and made/approved the management plan and take responsibility for the patient management. This will serve as my Supervisory note and shared attestation. I did perform a substantive portion of the visit including all aspects of the Medical Decision Making. I wore appropriate PPE for the entirety of this encounter. In brief, Ed Evan Tran is a 64 y.o. that presents to the emergency department with A-fib RVR, sent from [facility], was given IV metoprolol, IV Cardizem, when patient arrived here was in A-fib with a rate in the low 100s then jumped up into the 150s to 170s again Focused exam: Heart tachycardic, irregular Brief ED course/MDM: Labs from previous hospital are unremarkable, patient started back on Cardizem drip, admitted to CCU Critical Care note: This patient was unstable and required constant supervision by me for at least 30 minutes during their visit. The patient's condition requiring intervention included: A-fib RVR. The interventions included: IV Cardizem drip, discussion with CCU. This critical care time did not include time for procedures or time spent by the physicians pathologist assistant if they were caring for this patient. Diagnostics interpreted by me: EKG(s) EKG interpreted by me shows atrial fibrillation no acute ST or T wave changes see Epiphany for full interpretation I personally discussed the patient's management with other clinicians: Admitting team CCU All diagnostic, treatment, and disposition decisions were made by myself in conjunction with the Resident. I also supervised sarabia portions of any procedures performed by the Resident. For all further details of the patient's emergency department visit, please see their documentation. (Comment: Please note this report has been produced using speech recognition software and may contain errors related to that system including errors in grammar, punctuation, and spelling, as well as words and phrases that may be inappropriate. If there are any questions or concerns please feel free to contact the dictating provider for clarification.) Pramod Arzate MD [employer] Pramod Arzate MD 11/07/242026 documented in this encounter [facility] 11-07-2024 Emergency department Note Report given to [facility] 11-07-2024 Emergency department Note Cards at bedside [facility] 11-07-2024 Emergency department Note NPO until seen by cards per Dr Arzate [facility] 11-07-[address] Arzate at bedside [facility] 11-07-2024 Emergency department Note Patients HR in the 170's, Dr. Arzate notified [facility] 11-07-2024 Physician Emergency department Note EMERGENCY DEPARTMENT ENCOUNTER Pt Name: Ed Evan Tran Birthdate 1960 Date of evaluation: 11/07/2024 ED Provider: Belinda Beach DO CHIEF COMPLAINT Chief Complaint Patient presents with Atrial Fibrillation Pt coming from [facility] by EMS transfer. Pt was a fib RVR- pt given Cardizem drip at 7.5 en route. Pt denies CP, SOB or any other symptoms at this time. Pt is A&Ox4 during triage. HISTORY OF PRESENT ILLNESS (Location/Symptom, Timing/Onset, Context/Setting, Quality, Duration, Modifying Factors, Severity) Note limiting factors. I wore appropriate PPE for the entirety of this encounter. HPI Ed Evan Tran is a 64 y.o. who presents to the emergency department as a transfer from [facility]. It was reported that the patient was in A-fib RVR with a heart rate in the 180s. The patient states that he was asymptomatic at this time. It was reported that he had metoprolol as well as diltiazem drip during the transport. On arrival, the patient states that he is not have any chest pain, shortness of breath, or systemic findings. His heart rate on arrival was 90s to low 100s. Nursing Notes were reviewed. Limitations to history: Outside historians: REVIEW OF SYSTEMS Review of Systems Pertinent positives and negatives as per HPI. PAST MEDICAL HISTORY Past Medical History: Diagnosis Date A-fib (CMS/HCC) (HCC) Cardioverted Anticoagulated 06/25/2021 BPH (benign prostatic hyperplasia) H/O exercise stress test Hyperlipidemia HARSHA (obstructive sleep apnea) does not wear C pap Machine Pneumonia Pre-diabetes SURGICAL HISTORY Past Surgical History: Procedure Laterality Date ABLATION FOR ATRIAL FIBRILLATION (HISTORICAL) 11/30/[address] Sorensen APPENDECTOMY 12 years ago CARDIAC ELECTROPHYSIOLOGY PROCEDURE N/A 11/30/2022 Performed by Reyes Sorensen at [facility] Cardiac Cath/EP Lab COLONOSCOPY COLONOSCOPY 01/16/2019 HERNIA REPAIR INCISIONAL HERNIA REPAIR 09/04/2019 DR JOE PROSTATE BIOPSY 06/10/[address] desir TONSILLECTOMY (HISTORICAL) VENTRAL HERNIA REPAIR 7 years ago WISDOM TOOTH EXTRACTION CURRENT MEDICATIONS Previous Medications EZETIMIBE-SIMVASTATIN (VYTORIN) 10-40 MG TABLET Take 1 tablet by mouth Nightly. METFORMIN (GLUCOPHAGE) 500 MG TABLET TAKE 1 TABLET BY MOUTH at dinner meal POTASSIUM CITRATE CR (UROCIT-K-15) 15 MEQ ER TABLET Take 1 tablet (15 mEq) by mouth 2 times daily (with meals). ALLERGIES Semaglutide and Tamsulosin FAMILY HISTORY Family History Problem Relation Name Age of Onset Alzheimer's disease Mother COPD Father SOCIAL HISTORY Social History Socioeconomic History Marital status: Tobacco Use Smoking status: Former Current packs/day: 0.00 Average packs/day: 0.5 packs/day for 40.0 years (20.0 ttl pk-yrs) Types: Cigarettes Start date: 1992 Quit date: 2023 Years since quittin.5 Smokeless tobacco: Never Tobacco comments: Quit smoking for short period of time then started again : 5 cigs a day Vaping Use Vaping status: Never Used Substance and Sexual Activity Alcohol use: Not Currently Alcohol/week: 2.0 standard drinks of alcohol Types: 2 Standard drinks or equivalent per week Comment: drinks [place] Drug use: No Comment: caffeine: decaf Social History Narrative Lives with at home SCREENINGS [place] Coma Scale Best Eye Response: Spontaneous Best Verbal Response: Oriented Best Motor Response: Follows commands [place] Coma Scale Score: 15 PHYSICAL EXAM ED Triage Vitals [11/07/24 1615] Temp Heart Rate Resp BP 36.5 C (97.7 F) 100 17 (!) 157/121 SpO2 Temp src Heart Rate Source Patient Position 96 % -- -- -- BP Location FiO2 (%) -- -- Physical Exam Vitals and nursing note reviewed. Constitutional: General: He is not in acute distress. Appearance: Normal appearance. Cardiovascular: Rate and Rhythm: Rhythm irregularly irregular. Pulses: Normal pulses. Heart sounds: Normal heart sounds. Pulmonary: Effort: Pulmonary effort is normal. No respiratory distress. Breath sounds: Normal breath sounds. Skin: General: Skin is warm. Capillary Refill: Capillary refill takes less than 2 seconds. Neurological: Mental Status: He is alert. DIAGNOSTIC RESULTS RADIOLOGY (Per Emergency Physician): Interpretation per the Radiologist below, if available at the time of this note: No orders to display LABS: Labs Reviewed - No data to display All other labs were within normal range or not returned as of this dictation. EMERGENCY DEPARTMENT COURSE and DIFFERENTIAL DIAGNOSIS/MDM: Vitals: Vitals: 11/07/24 1615 11/07/24 1617 11/07/24 1618 11/07/24 1738 BP: (!) 157/121 111/81 113/75 Pulse: 100 (!) 161 Resp: 17 17 Temp: 36.5 C (97.7 F) SpO2: 96% 97% 94% Weight: 104 kg (230 lb) Height: 1.778 m (5' 10) The patient presented with a chief complaint of atrial fibrillation. Our workup consisted of ordering/reviewing outside hospital records, and cardiology consult. Cardiology was paged on patient arrival. After reassessing patient pending cardiology, his heart rate increased to the 170s to 180s and orders for diltiazem drip was placed. Cardiology stated that the patient can be admitted under Dr. Chetan cabello as he is currently on a diltiazem drip to control his heart rate. He was then admitted in stable condition. Diagnoses as of 11/07/241742 Atrial fibrillation with RVR (HCC) External records reviewed: Diagnostics interpreted by me: Discussions with other clinicians: Admitting team cardiology Chronic conditions impacting care: Heart disease Social determinants of health affecting care: ED Medications managed: Medications dilTIAZem (Cardizem) infusion 125 mg in 0.9% sodium chloride 125 mL (premix) (5 mg/hr IntraVENous New Bag 11/07/24 173) Prescription drugs considered: PROCEDURES: Unless otherwise noted below, none Procedures FINAL IMPRESSION 1. Atrial fibrillation with RVR (HCC) DISPOSITION Admit 11/07/2024 05:41:38 PM PATIENT REFERRED TO: No follow-up provider specified. DISCHARGE MEDICATIONS: New Prescriptions No medications on file (Comment: Please note this report has been produced using speech recognition software and may contain errors related to that system including errors in grammar, punctuation, and spelling, as well as words and phrases that may be inappropriate. If there are any questions or concerns please feel free to contact the dictating provider for clarification.) Belinda Beach DO (electronically signed) Emergency Medicine Provider Belinda Beach DO Resident 11/07/241742 Cosigned by Pramod Arzate MD at 11/07/2024 8:38 PM EST [facility] 11-07-2024 Physician Emergency department Note Emergency Department Encounter [facility] CARDIAC THORACIC VASCULAR INTENSIVE CARE UNIT CTV ICU T1 Patient: Christos Tran : 1960 Date of Evaluation: 11/07/2024 ED Supervising Physician: Pramod Arzate MD I personally evaluated Khalida Tran and made/approved the management plan and take responsibility for the patient management. This will serve as my Supervisory note and shared attestation. I did perform a substantive portion of the visit including all aspects of the Medical Decision Making. I wore appropriate PPE for the entirety of this encounter. In brief, Ed Evan Tran is a 64 y.o. that presents to the emergency department with A-fib RVR, sent from [facility], was given IV metoprolol, IV Cardizem, when patient arrived here was in A-fib with a rate in the low 100s then jumped up into the 150s to 170s again Focused exam: Heart tachycardic, irregular Brief ED course/MDM: Labs from previous hospital are unremarkable, patient started back on Cardizem drip, admitted to CCU Critical Care note: This patient was unstable and required constant supervision by me for at least 30 minutes during their visit. The patient's condition requiring intervention included: A-fib RVR. The interventions included: IV Cardizem drip, discussion with CCU. This critical care time did not include time for procedures or time spent by the physicians pathologist assistant if they were caring for this patient. Diagnostics interpreted by me: EKG(s) EKG interpreted by me shows atrial fibrillation no acute ST or T wave changes see Epiphany for full interpretation I personally discussed the patient's management with other clinicians: Admitting team CCU All diagnostic, treatment, and disposition decisions were made by myself in conjunction with the Resident. I also supervised sarabia portions of any procedures performed by the Resident. For all further details of the patient's emergency department visit, please see their documentation. (Comment: Please note this report has been produced using speech recognition software and may contain errors related to that system including errors in grammar, punctuation, and spelling, as well as words and phrases that may be inappropriate. If there are any questions or concerns please feel free to contact the dictating provider for clarification.) Pramod Arzate MD Acute Care [facility] Pramod Arzate MD 11/07/242026 [facility] [employer] Phone: 10-05-2024 History of Presen t illness Narrative Images from the original note were not included. Baljit Hood MD OFFICE FOLLOW-UP VISIT PATIENT NAME: Khalida Tran DATE OF : 1960 TODAY'S DATE: 10/05/2024 CHIEF COMPLAINT: Chief Complaint Patient presents with Elevated PSA Psa - pt denies issues, pain, distress or discomfort currently Subjective: Mr. Tran is a 64 y.o. male who presents to the office for follow up of elevated PSA. See below for past history. Overall he is doing well. Voiding well. Review of Systems Past Medical History: Past Medical History: Diagnosis Date A-fib (CMS/HCC) (HCC) Cardioverted Anticoagulated 06/25/2021 BPH (benign prostatic hyperplasia) H/O exercise stress test Hyperlipidemia HARSHA (obstructive sleep apnea) does not wear C pap Machine Pneumonia Pre-diabetes Past Surgical History: Past Surgical History: Procedure Laterality Date ABLATION FOR ATRIAL FIBRILLATION (HISTORICAL) 11/30/[address] Sorensen APPENDECTOMY 12 years ago CARDIAC ELECTROPHYSIOLOGY PROCEDURE N/A 11/30/2022 Performed by Reyes Sorensen at [facility] Cardiac Cath/EP Lab COLONOSCOPY COLONOSCOPY 01/16/2019 HERNIA REPAIR INCISIONAL HERNIA REPAIR 09/04/2019 DR JOE PROSTATE BIOPSY 06/10/[address] desir TONSILLECTOMY (HISTORICAL) VENTRAL HERNIA REPAIR 7 years ago WISDOM TOOTH EXTRACTION Allergies: Patient has no known allergies. Social History: Issues identified in the H&P were noted Family History: Family History Problem Relation Name Age of Onset Alzheimer's disease Mother COPD Father Medications Prior to Admission medications Medication Sig Start Date End Date Taking? Authorizing Provider ezetimibe-simvastatin (Vytorin) 10-40 MG tablet Take 1 tablet by mouth Nightly. 11/15/16 Yes Historical Provider, metFORMIN (Glucophage) 500 MG tablet TAKE 1 TABLET BY MOUTH at dinner meal 12/20/22 Yes Historical Provider, potassium citrate CR (Urocit-K-15) 15 mEq ER tablet Take 1 tablet (15 mEq) by mouth in the morning and 1 tablet (15 mEq) in the evening. Take with meals. 07/09/24 10/05/24 Yes Baljit Hood MD Rybelsus 7 MG tablet 01/04/24 10/05/24 Yes Historical Provider, potassium citrate CR (Urocit-K-15) 15 mEq ER tablet Take 1 tablet (15 mEq) by mouth 2 times daily (with meals). 10/05/24 01/03/25 Baljit Hood MD Vitals: Ht 5' 10 (1.778 m) Wt 235 lb (107 kg) BMI 33.72 kg/m Physical Exam Physical Exam Constitutional: Appearance: Normal appearance. HENT: Head: Normocephalic and atraumatic. Eyes: Extraocular Movements: Extraocular movements intact. Pulmonary: Effort: Pulmonary effort is normal. Abdominal: Hernia: There is no hernia in the left inguinal area or right inguinal area. Genitourinary: Penis: Normal and circumcised. Testes: Normal. Epididymis: Right: Normal. Left: Normal. Prostate: Enlarged (Prostate 1+, good lateral margins, no nodules). Not tender. Rectum: Normal. No mass. Musculoskeletal: Cervical back: Normal range of motion. Lymphadenopathy: Lower Body: No right inguinal adenopathy. No left inguinal adenopathy. Neurological: Mental Status: He is alert. LABS: Lab Results Component Value Date PSA 14.099 (H) 04/28/2023 PSA 13.508 (H) 01/21/2023 PSA 9.240 (A) 02/03/2022 No results found for: TESTOSTERONE Lab Results Component Value Date WBC 8.4 04/28/2023 HGB 15.1 09/01/2023 HCT 45.6 09/01/2023 MCV 89.0 04/28/2023 PLT 266 04/28/2023 Lab Results Component Value Date GLUCOSE 110 (H) 09/01/2023 CALCIUM 9.1 09/01/2023 NA 138 09/01/2023 K 4.6 09/01/2023 CO2 23 09/01/2023 CL 105 09/01/2023 BUN 20 09/01/2023 CREATININE 0.66 09/01/2023 Radiology: See below Impression/Plan Ed was seen today for elevated psa. Diagnoses and all orders for this visit: Elevated PSA (Primary) - PSA, Monitoring ([facility]); Future - PSA, Monitoring ([facility]) Hypertrophy of prostate with urinary obstruction Benign prostatic hyperplasia with urinary obstruction History of urinary calculi - potassium citrate CR (Urocit-K-15) 15 mEq ER tablet; Take 1 tablet (15 mEq) by mouth 2 times daily (with meals). Follow up in about 1 year (around 10/05/2025) for Next scheduled follow-up. He was on spring break in February. Had to go in for cardiovascular interventions in [facility]. Doing well now. Continues to be very pleased with the outcomes from the 2022 Aquablation Prostate 1+. PSA slip Long discussion about our friend Carlos Hood MD 10/06/24 1:36 PM 01/06/2024: PVR 44 ml. Feels great. Eating better and lost some weight. Very pleased with the results from the Aquablation. Very pleased about the drop in the PSA. No recent episodes of kidney stone pain. Continue K+ citrate. Decrease both alfuzosin and oxybutynin to every other day. If he can go for a week at that dosage and noticed no change in his urination, then he should discontinue both meds. He has not seen Carlos Causey in some time. 09/08/2023: Aquablation 08/25/2023: Uroflow: peak 3.2 ml/s, avg 1.3 ml/s 08/05/2023: Plan Aquablation 05/02/2023: CT: Multiple simple bilateral renal cysts, which warrant no follow-up imaging. Enlarged prostate. 04/26/2023. Smoked 1/2 ppd. Quit yesterday (on his birthday). Gross hematuria began after heavy yard work last week. Past history of stones. He takes K+ citrate, alfuzosin & oxybutynin. Urine Cx & cytology. CT. 03/30/2023: TP MRI-fusion Bx (61 ml): benign 02/22/2023: MRI: 80 ml. New PI-RADS 4 nodule in the left base/mid gland. Multiple PI-RADS 3 nodules in the bilateral apex and mid gland which are unchanged in size. 01/25/2023: Cx: UG tl 12/10/2022: Prostate 1+. PSA slip 11/30/2022: [facility]: A. Fib 03/12/2022: TP MRI-fusion Bx (57 ml): EMILI RPM, LPM ([facility]) 11/27/2021: IPSS 13,2. Feels well. Prostate 1+. Options discussed. Prefers TP at [place], but only if absolutely necessary. Cx: NG. Wishes to repeat PSA in January. Retires in April. If next PSA doesn't drop completely back to previous level, then proceed to TP fusion Bx 11/02/2021: See Call 10/20/2021: Cx: UG tl 10/02/2021: Cx: 50-90K Enterococcus 10/02/2021: Prostate 1+. Cx, PSA, meds refilled. Discussed pros & cons of fusion Bx 09/29/2021: Refilled oxybutynin & alfuzosin 08/12/2021: Cx: NG 06/29/2021: MRI: 71 ml. PI-RADS 4 nodules in the bilateral apex and right apex/mid gland. Additional PI-RADS 3 nodule in the left mid gland. 07/02/2021: Note from Adeel Quiroga to Mae Parsons: Cleared for Prostate Biopsy. Stop Apixaban 3 days prior to the procedure and restart 3 days after. 12/27/2020: 24 hr. urine: UA 858 10/22/2020: VV 09/29/2020: Cystoscopy, evacuation bladder calculi. Uric acid 09/12/2020: CT: Bilateral renal cortical cysts. Small left parapelvic cyst. Numerous small bladder stones. 06/10/2020: VV: Hematuria. Will check CT, then possibly repeat MRI 04/01/2020: VV. 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 Prostate hypertrophy. Exophytic hematoma of the right seminal vesicle. Benign-appearing cyst of the right acetabulum. 10/25/2018: MRI-fusion prostate biopsies (49 ml): benign 10/03/2018: MRI prostate: Four PI-RADS 3 lesions 06/10/2016: Bx ([facility]): benign 11/01/2023: PSA: 3.850 ([place]) 04/28/2023: PSA: 14.099 01/21/2023: PSA: 13.508 w/ 18% free PSA 12/22/2022: PSA: 13.000 w/ 18% free PSA 02/03/2022: PSA: 9.240 10/30/2021: PSA: 9.821 05/27/2021: PSA: 11.98 ([place]) 11/17/2020: PSA: 8.209 09/10/2020: PSA: 7.690 01/18/2020: PSA: 9.000, 16 % free 12/13/2019: PSA: 8.330 07/10/2019: PSA: 8.260 02/18/2019: PSA: 6.300 01/09/2019: PSA: 7.970 09/07/2018: PSA: 8.686 05/20/2016: PSA: 4.400 12/13/2023: Testosterone: 308 documented in this encounter [facility] 10-05-2024 History of Presen t illness Narrative Images from the original note were not included. Baljit Hood MD OFFICE FOLLOW-UP VISIT PATIENT NAME: Khalida Tran DATE OF : 1960 TODAY'S DATE: 10/05/2024 CHIEF COMPLAINT: Chief Complaint Patient presents with Elevated PSA Psa - pt denies issues, pain, distress or discomfort currently Subjective: Mr. Tran is a 64 y.o. male who presents to the office for follow up of elevated PSA. See below for past history. Overall he is doing well. Voiding well. Review of Systems Past Medical History: Past Medical History: Diagnosis Date A-fib (CMS/HCC) (HCC) Cardioverted Anticoagulated 06/25/2021 BPH (benign prostatic hyperplasia) H/O exercise stress test Hyperlipidemia HARSHA (obstructive sleep apnea) does not wear C pap Machine Pneumonia Pre-diabetes Past Surgical History: Past Surgical History: Procedure Laterality Date ABLATION FOR ATRIAL FIBRILLATION (HISTORICAL) 11/30/[address] Sorensen APPENDECTOMY 12 years ago CARDIAC ELECTROPHYSIOLOGY PROCEDURE N/A 11/30/2022 Performed by Reyes Sorensen at [facility] Cardiac Cath/EP Lab COLONOSCOPY COLONOSCOPY 01/16/2019 HERNIA REPAIR INCISIONAL HERNIA REPAIR 09/04/2019 DR JOE PROSTATE BIOPSY 06/10/[address] desir TONSILLECTOMY (HISTORICAL) VENTRAL HERNIA REPAIR 7 years ago WISDOM TOOTH EXTRACTION Allergies: Patient has no known allergies. Social History: Issues identified in the H&P were noted Family History: Family History Problem Relation Name Age of Onset Alzheimer's disease Mother COPD Father Medications Prior to Admission medications Medication Sig Start Date End Date Taking? Authorizing Provider ezetimibe-simvastatin (Vytorin) 10-40 MG tablet Take 1 tablet by mouth Nightly. 11/15/16 Yes Historical Provider, metFORMIN (Glucophage) 500 MG tablet TAKE 1 TABLET BY MOUTH at dinner meal 12/20/22 Yes Historical Provider, potassium citrate CR (Urocit-K-15) 15 mEq ER tablet Take 1 tablet (15 mEq) by mouth in the morning and 1 tablet (15 mEq) in the evening. Take with meals. 07/09/24 10/05/24 Yes Baljit Hood MD Rybelsus 7 MG tablet 01/04/24 10/05/24 Yes Historical Provider, potassium citrate CR (Urocit-K-15) 15 mEq ER tablet Take 1 tablet (15 mEq) by mouth 2 times daily (with meals). 10/05/24 01/03/25 Baljit Hood MD Vitals: Ht 5' 10 (1.778 m) Wt 235 lb (107 kg) BMI 33.72 kg/m Physical Exam Physical Exam Constitutional: Appearance: Normal appearance. HENT: Head: Normocephalic and atraumatic. Eyes: Extraocular Movements: Extraocular movements intact. Pulmonary: Effort: Pulmonary effort is normal. Abdominal: Hernia: There is no hernia in the left inguinal area or right inguinal area. Genitourinary: Penis: Normal and circumcised. Testes: Normal. Epididymis: Right: Normal. Left: Normal. Prostate: Enlarged (Prostate 1+, good lateral margins, no nodules). Not tender. Rectum: Normal. No mass. Musculoskeletal: Cervical back: Normal range of motion. Lymphadenopathy: Lower Body: No right inguinal adenopathy. No left inguinal adenopathy. Neurological: Mental Status: He is alert. LABS: Lab Results Component Value Date PSA 14.099 (H) 04/28/2023 PSA 13.508 (H) 01/21/2023 PSA 9.240 (A) 02/03/2022 No results found for: TESTOSTERONE Lab Results Component Value Date WBC 8.4 04/28/2023 HGB 15.1 09/01/2023 HCT 45.6 09/01/2023 MCV 89.0 04/28/2023 PLT 266 04/28/2023 Lab Results Component Value Date GLUCOSE 110 (H) 09/01/2023 CALCIUM 9.1 09/01/2023 NA 138 09/01/2023 K 4.6 09/01/2023 CO2 23 09/01/2023 CL 105 09/01/2023 BUN 20 09/01/2023 CREATININE 0.66 09/01/2023 Radiology: See below Impression/Plan Ed was seen today for elevated psa. Diagnoses and all orders for this visit: Elevated PSA (Primary) - PSA, Monitoring ([facility]); Future - PSA, Monitoring ([facility]) Hypertrophy of prostate with urinary obstruction Benign prostatic hyperplasia with urinary obstruction History of urinary calculi - potassium citrate CR (Urocit-K-15) 15 mEq ER tablet; Take 1 tablet (15 mEq) by mouth 2 times daily (with meals). Follow up in about 1 year (around 10/05/2025) for Next scheduled follow-up. He was on spring break in February. Had to go in for cardiovascular interventions in [facility]. Doing well now. Continues to be very pleased with the outcomes from the 2022 Aquablation Prostate 1+. PSA slip Long discussion about our friend Carlos Hood MD 10/06/24 1:36 PM 01/06/2024: PVR 44 ml. Feels great. Eating better and lost some weight. Very pleased with the results from the Aquablation. Very pleased about the drop in the PSA. No recent episodes of kidney stone pain. Continue K+ citrate. Decrease both alfuzosin and oxybutynin to every other day. If he can go for a week at that dosage and noticed no change in his urination, then he should discontinue both meds. He has not seen Carlos Causey in some time. 09/08/2023: Aquablation 08/25/2023: Uroflow: peak 3.2 ml/s, avg 1.3 ml/s 08/05/2023: Plan Aquablation 05/02/2023: CT: Multiple simple bilateral renal cysts, which warrant no follow-up imaging. Enlarged prostate. 04/26/2023. Smoked 1/2 ppd. Quit yesterday (on his birthday). Gross hematuria began after heavy yard work last week. Past history of stones. He takes K+ citrate, alfuzosin & oxybutynin. Urine Cx & cytology. CT. 03/30/2023: TP MRI-fusion Bx (61 ml): benign 02/22/2023: MRI: 80 ml. New PI-RADS 4 nodule in the left base/mid gland. Multiple PI-RADS 3 nodules in the bilateral apex and mid gland which are unchanged in size. 01/25/2023: Cx: UG tl 12/10/2022: Prostate 1+. PSA slip 11/30/2022: [facility]: A. Fib 03/12/2022: TP MRI-fusion Bx (57 ml): EMILI RPM, LPM ([facility]) 11/27/2021: IPSS 13,2. Feels well. Prostate 1+. Options discussed. Prefers TP at [place], but only if absolutely necessary. Cx: NG. Wishes to repeat PSA in January. Retires in April. If next PSA doesn't drop completely back to previous level, then proceed to TP fusion Bx 11/02/2021: See Call 10/20/2021: Cx: UG tl 10/02/2021: Cx: 50-90K Enterococcus 10/02/2021: Prostate 1+. Cx, PSA, meds refilled. Discussed pros & cons of fusion Bx 09/29/2021: Refilled oxybutynin & alfuzosin 08/12/2021: Cx: NG 06/29/2021: MRI: 71 ml. PI-RADS 4 nodules in the bilateral apex and right apex/mid gland. Additional PI-RADS 3 nodule in the left mid gland. 07/02/2021: Note from Adeel Quiroga to Mae Parsons: Cleared for Prostate Biopsy. Stop Apixaban 3 days prior to the procedure and restart 3 days after. 12/27/2020: 24 hr. urine: UA 858 10/22/2020: VV 09/29/2020: Cystoscopy, evacuation bladder calculi. Uric acid 09/12/2020: CT: Bilateral renal cortical cysts. Small left parapelvic cyst. Numerous small bladder stones. 06/10/2020: VV: Hematuria. Will check CT, then possibly repeat MRI 04/01/2020: VV. Recheck PSA 1 year 03/25/2020: See Call: no new SCOOBY on re-read 02/27/2020: See Call & extended threads 02/01/2020: MRI ([place]): Suspect neoplastic focus spanning the right posterior upper and middle sextants. Prostate hypertrophy. Exophytic hematoma of the right seminal vesicle. Benign-appearing cyst of the right acetabulum. 10/25/2018: MRI-fusion prostate biopsies (49 ml): benign 10/03/2018: MRI prostate: Four PI-RADS 3 lesions 06/10/2016: Bx ([facility]): benign 11/01/2023: PSA: 3.850 ([place]) 04/28/2023: PSA: 14.099 01/21/2023: PSA: 13.508 w/ 18% free PSA 12/22/2022: PSA: 13.000 w/ 18% free PSA 02/03/2022: PSA: 9.240 10/30/2021: PSA: 9.821 05/27/2021: PSA: 11.98 ([place]) 11/17/2020: PSA: 8.209 09/10/2020: PSA: 7.690 01/18/2020: PSA: 9.000, 16 % free 12/13/2019: PSA: 8.330 07/10/2019: PSA: 8.260 02/18/2019: PSA: 6.300 01/09/2019: PSA: 7.970 09/07/2018: PSA: 8.686 05/20/2016: PSA: 4.400 12/13/2023: Testosterone: 308 documented in this encounter [facility] 10-05-2024 Miscellaneous Notes Addended by: NATI CALIX on: 12/26/2024 11:21 AM Modules accepted: Orders documented in this encounter [facility] 10-05-2024 Note Addended by: NATI CALIX on: 12/26/2024 11:21 AM Modules accepted: Orders [facility] 09-26-2024 Telephone encounter Note Patient returned call. Message given as stated below. He confirmed understanding and had no further questions. [facility] 09-26-2024 Miscellaneous Notes Patient returned call. Message given as stated below. He confirmed understanding and had no further questions. This provider called and left a message. If the patient calls back, please inform him that- You chest x-ray did not show a new pneumonia and other acute changes. As a result, continue OTC cough care. Follow up with your PCP for further concerns or for any new/worsening symptoms. Karol Ross PA-C IMPRESSION: Resolution of the previously seen bibasilar infiltrates with no definite acute radiographic abnormality. documented in this encounter [facility] 09-26-2024 Telephone encounter Note This provider called and left a message. If the patient calls back, please inform him that- You chest x-ray did not show a new pneumonia and other acute changes. As a result, continue OTC cough care. Follow up with your PCP for further concerns or for any new/worsening symptoms. Karol Ross PA-C IMPRESSION: Resolution of the previously seen bibasilar infiltrates with no definite acute radiographic abnormality. [facility] 09-19-2024 Instructions Karol Ross PA-C - 09/19/2024 9:21 AM EST ASSESSMENT/PLAN: 1. Sinobronchitis - - XR CHEST 2V FRONTAL/LAT Get your chest x-ray as an outpatient [facility] [address], [place] [address] Outpatient radiology department Walk in 7am -6:30pm We will call you with results - DOXYCYCLINE MONOHYDRATE 100 MG CAPSULE - TESSALON Encourage fluids, rest. Flonase May start Claritin or Zyrtec OTC as directed- helps to dry up runny nose and post nasal drip. Tylenol and Motrin for pain and fever Saline Nasil spray, Neti Pot, vaporizer, Vicks. Try Cepocol lozenges or Chloraseptic throat spray. Warm salt water gargles. Cough and deep breath- 10x/hr while awake. May use OTC Mucinex (guaifenesin) as directed for cough Call PCP if sx worsen or no better. If symptoms worsen, or new symptoms develop go to ER. If you have worsening of breathing or breathing changes- go to ER. If you have persistent fever unrelieved by Tylenol/Motrin- go to the ER. Follow up as needed. Barriers to learning: none. The patient verbalizes understanding and is in agreement with plan of care. - Red flags for in person care discussed - All questions answered Karol Ross PA-C documented in this encounter [facility] 09-19-2024 Note HNO ID: [id number] Author: KAROL ROSS PA-C Service: ? Author Type: Physician Sausage Wrapper Type: Progress Notes Filed: 09/19/2024 09:26 Note Text: Surgical mask and gloves worn for all in-person care. 09/19/2024 Patient presents with: Cough: I have had it for over 2 weeks now...Chest cold - Entered by patient has used otc Mucinex SUBJECTIVE: This is a 64 year old that is here today for concern for URI symptoms. The patient complains of course cough and sinus post nasal sinus drainage x 2 week or more. Denies fever, chills, sweats, body aches, or fatigue. Patient denies wheezing, shortness of breath, increased WOB, or chest pain. COVID exposure: none Influenza exposure: none RSV exposure: none Covid Immunization Dates Overdue - Covid-19 Vaccine ( season) Overdue since 07/15/2024 09/01/2022 Imm Admin: COVID-19 vaccine, age 12+ yr, bivalent (PFIZER-BIONTECH) 05/25/2022 Imm Admin: COVID-19 original vaccine, age 12+ yr, monovalent (PFIZER-BIONTECH - TENORIO TOP) 09/27/2021 Imm Admin: COVID-19 original vaccine, age 12+ yr, monovalent (PFIZER-BIONTECH - PURPLE TOP) 02/11/2021 Imm Admin: COVID-19 original vaccine, age 12+ yr, monovalent (PFIZER-BIONTECH - PURPLE TOP) 01/21/2021 Imm Admin: COVID-19 original vaccine, age 12+ yr, monovalent (PFIZER-BIONTECH - PURPLE TOP) Only the first 5 history entries have been loaded, but more history exists. COVID vaccine this year: none Influenza vaccine this year: none RSV vaccine this year: none Asthma: none Pneumonia: once already this year Tobacco: none Pain on scale of 0-10 with 0 being no pain and 10 being greatest pain: 0 Nothing makes the symptoms better. Nothing makes them worse. Self-treatment:. mucinex The severity is mild and the symptoms are not improving. The patient did not have a similar problem in the last 3 months. The patient did not take any antibiotics in the last 3 months. Barriers to learning: none. Reviewed meds, OTCs, herbals or supplements. Reviewed allergies, medications, social history, and past medical history. PAST MEDICAL HISTORY Diagnosis Date A-fib (HCC) Bilateral kidney stones Hyperlipidemia Prostate disease ALLERGIES Patient has no known allergies. MEDICATIONS Current Outpatient Medications Medication Sig metFORMIN ER (GLUMETZA) 500 mg 24 hr tablet Take 500 mg by mouth daily with dinner. CITRIC ACID MISC 1 tablet twice daily. ezetimibe-simvastatin 10-40 mg (VYTORIN) 10-40 mg per tablet Take 1 tablet by mouth once daily. doxycycline monohydrate (MONODOX) 100 mg capsule Take 1 capsule by mouth two times a day for 10 days. alfuzosin SR (UROXATRAL) 10 mg 24 hr tablet Take 10 mg by mouth once daily. (Patient not taking: Reported on 09/19/2024) No current facility-administered medications for this visit. Medications and allergies reviewed by this provider. SOCIAL HISTORY Social History Tobacco Use Smoking status: Former Types: Cigarettes Smokeless tobacco: Never Vaping Use Vaping status: Never Used Substance Use Topics Alcohol use: Yes Comment: social Drug use: Yes Types: Marijuana Comment: Gummies occasional REVIEW OF SYSTEMS Review of Systems ROS: constitutional: neg, HENT- sinus drainage, Eyes- neg, heart-neg, respiratory-Cough, GI-neg, -neg, skin-neg, Allergy- neg, lymph-neg, neuro-neg, psych-neg- All systems neg except as noted above in HPI. OBJECTIVE: BP 127/86 Pulse 85 Temp (!) 35.9 ?C (96.6 ?F) Wt 110.7 kg (244 lb 2.6 oz) SpO2 97% BMI 35.03 kg/m? . Vital signs reviewed by this provider. Physical Exam Vitals reviewed. Constitutional: General: He is not in acute distress. Appearance: Normal appearance. He is well-developed and normal weight. He is not ill-appearing, toxic-appearing or diaphoretic. HENT: Head: Normocephalic and atraumatic. No right periorbital erythema or left periorbital erythema. Salivary Glands: Right salivary gland is not diffusely enlarged or tender. Left salivary gland is not diffusely enlarged or tender. Right Ear: Tympanic membrane, ear canal and external ear normal. Left Ear: Tympanic membrane, ear canal and external ear normal. Nose: Congestion and rhinorrhea present. Right Sinus: No maxillary sinus tenderness or frontal sinus tenderness. Left Sinus: No maxillary sinus tenderness or frontal sinus tenderness. Mouth/Throat: Lips: [place]. No lesions. Mouth: Mucous membranes are moist. No oral lesions. Dentition: No gum lesions. Tongue: No lesions. Tongue does not deviate from midline. Palate: No mass and lesions. Pharynx: Oropharynx is clear. Postnasal drip present. No pharyngeal swelling, oropharyngeal exudate, posterior oropharyngeal erythema or uvula swelling. Tonsils: No tonsillar exudate or tonsillar abscesses. Eyes: General: Lids are normal. No scleral icterus. Right eye: No discharge. Left eye: No discharge. Extraocular Movements: Extraocular movements intact. (more content not included)... [facility] 09-19-2024 History of Presen t illness Narrative Surgical mask and gloves worn for all in-person care. 09/19/2024 Patient presents with: Cough: I have had it for over 2 weeks now...Chest cold - Entered by patient has used otc Mucinex SUBJECTIVE: This is a 64 year old that is here today for concern for URI symptoms. The patient complains of course cough and sinus post nasal sinus drainage x 2 week or more. Denies fever, chills, sweats, body aches, or fatigue. Patient denies wheezing, shortness of breath, increased WOB, or chest pain. COVID exposure: none Influenza exposure: none RSV exposure: none Covid Immunization Dates Overdue - Covid-19 Vaccine ( season) Overdue since 07/15/2024 09/01/2022 Imm Admin: COVID-19 vaccine, age 12+ yr, bivalent (PFIZER-BIONTECH) 05/25/2022 Imm Admin: COVID-19 original vaccine, age 12+ yr, monovalent (PFIZER-BIONTECH - TENORIO TOP) 09/27/2021 Imm Admin: COVID-19 original vaccine, age 12+ yr, monovalent (PFIZER-BIONTECH - PURPLE TOP) 02/11/2021 Imm Admin: COVID-19 original vaccine, age 12+ yr, monovalent (PFIZER-BIONTECH - PURPLE TOP) 01/21/2021 Imm Admin: COVID-19 original vaccine, age 12+ yr, monovalent (PFIZER-BIONTECH - PURPLE TOP) Only the first 5 history entries have been loaded, but more history exists. COVID vaccine this year: none Influenza vaccine this year: none RSV vaccine this year: none Asthma: none Pneumonia: once already this year Tobacco: none Pain on scale of 0-10 with 0 being no pain and 10 being greatest pain: 0 Nothing makes the symptoms better. Nothing makes them worse. Self-treatment:. mucinex The severity is mild and the symptoms are not improving. The patient did not have a similar problem in the last 3 months. The patient did not take any antibiotics in the last 3 months. Barriers to learning: none. Reviewed meds, OTCs, herbals or supplements. Reviewed allergies, medications, social history, and past medical history. PAST MEDICAL HISTORY Diagnosis Date A-fib (HCC) Bilateral kidney stones Hyperlipidemia Prostate disease ALLERGIES Patient has no known allergies. MEDICATIONS Current Outpatient Medications Medication Sig metFORMIN ER (GLUMETZA) 500 mg 24 hr tablet Take 500 mg by mouth daily with dinner. CITRIC ACID MISC 1 tablet twice daily. ezetimibe-simvastatin 10-40 mg (VYTORIN) 10-40 mg per tablet Take 1 tablet by mouth once daily. doxycycline monohydrate (MONODOX) 100 mg capsule Take 1 capsule by mouth two times a day for 10 days. alfuzosin SR (UROXATRAL) 10 mg 24 hr tablet Take 10 mg by mouth once daily. (Patient not taking: Reported on 09/19/2024) No current facility-administered medications for this visit. Medications and allergies reviewed by this provider. SOCIAL HISTORY Social History Tobacco Use Smoking status: Former Types: Cigarettes Smokeless tobacco: Never Vaping Use Vaping status: Never Used Substance Use Topics Alcohol use: Yes Comment: social Drug use: Yes Types: Marijuana Comment: Gummies occasional REVIEW OF SYSTEMS Review of Systems ROS: constitutional: neg, HENT- sinus drainage, Eyes- neg, heart-neg, respiratory-Cough, GI-neg, -neg, skin-neg, Allergy- neg, lymph-neg, neuro-neg, psych-neg- All systems neg except as noted above in HPI. OBJECTIVE: BP 127/86 Pulse 85 Temp (!) 35.9 C (96.6 F) Wt 110.7 kg (244 lb 2.6 oz) SpO2 97% BMI 35.03 kg/m . Vital signs reviewed by this provider. Physical Exam Vitals reviewed. Constitutional: General: He is not in acute distress. Appearance: Normal appearance. He is well-developed and normal weight. He is not ill-appearing, toxic-appearing or diaphoretic. HENT: Head: Normocephalic and atraumatic. No right periorbital erythema or left periorbital erythema. Salivary Glands: Right salivary gland is not diffusely enlarged or tender. Left salivary gland is not diffusely enlarged or tender. Right Ear: Tympanic membrane, ear canal and external ear normal. Left Ear: Tympanic membrane, ear canal and external ear normal. Nose: Congestion and rhinorrhea present. Right Sinus: No maxillary sinus tenderness or frontal sinus tenderness. Left Sinus: No maxillary sinus tenderness or frontal sinus tenderness. Mouth/Throat: Lips: [place]. No lesions. Mouth: Mucous membranes are moist. No oral lesions. Dentition: No gum lesions. Tongue: No lesions. Tongue does not deviate from midline. Palate: No mass and lesions. Pharynx: Oropharynx is clear. Postnasal drip present. No pharyngeal swelling, oropharyngeal exudate, posterior oropharyngeal erythema or uvula swelling. Tonsils: No tonsillar exudate or tonsillar abscesses. Eyes: General: Lids are normal. No scleral icterus. Right eye: No discharge. Left eye: No discharge. Extraocular Movements: Extraocular movements intact. Conjunctiva/sclera: Conjunctivae normal. Pupils: Pupils are equal, round, and reactive to light. Pupils are equal. Cardiovascular: Rate and Rhythm: Normal rate and regular rhythm. Heart sounds: Normal heart sounds. Pulmonary: Effort: Pulmonary effort is normal. Breath sounds: Normal air entry. Examination of the right-upper field reveals decreased breath sounds. Examination of the left-upper field reveals decreased breath sounds. Decreased breath sounds present. Musculoskeletal: Cervical back: Full passive range of motion without pain. No spinous process tenderness or muscular tenderness. Lymphadenopathy: Head: Right side of head: No submental, submandibular, tonsillar, preauricular or posterior auricular adenopathy. Left side of head: No submental, submandibular, tonsillar, preauricular or posterior auricular adenopathy. Cervical: No cervical adenopathy. Skin: General: Skin is warm. Capillary Refill: Capillary refill takes less than 2 seconds. Findings: No rash. Neurological: General: No focal deficit present. Mental Status: He is alert and oriented to person, place, and time. Cranial Nerves: No facial asymmetry. Psychiatric: Attention and Perception: Attention normal. Behavior: Behavior is cooperative. ASSESSMENT/PLAN: 1. Sinobronchitis - ICD9: 473.9, 490, ICD10: J32.9, J40 X 2 weeks - XR CHEST 2V FRONTAL/LAT Get your chest x-ray as an outpatient [facility] in [place] [address], [place] [address] Outpatient radiology department Walk in 7am -6:30pm We will call you with results - DOXYCYCLINE MONOHYDRATE 100 MG CAPSULE - TESSALON Encourage fluids, rest. Flonase May start Claritin or Zyrtec OTC as directed- helps to dry up runny nose and post nasal drip. Tylenol and Motrin for pain and fever Saline Nasil spray, Neti Pot, vaporizer, Vicks. Try Cepocol lozenges or Chloraseptic throat spray. Warm salt water gargles. Cough and deep breath- 10x/hr while awake. May use OTC Mucinex (guaifenesin) as directed for cough Call PCP if sx worsen or no better. If symptoms worsen, or new symptoms develop go to ER. If you have worsening of breathing or breathing changes- go to ER. If you have persistent fever unrelieved by Tylenol/Motrin- go to the ER. Follow up as needed. Barriers to learning: none. The patient verbalizes understanding and is in agreement with plan of care. - Red flags for in person care discussed - All questions answered Karol Ross PA-C Medical Decision Making: Problems: Moderate: New problem with uncertain prognosis Data: Unique test(s) ordered: 1 Risk: Low: Low risk from testing/treatment Moderate: Drug management Medical Decision Making Level: 4 - Moderate I spent a total of 20 minutes on the date of the service which included preparing to see the patient, [id number] patient care, completing clinical documentation, performing a medically appropriate examination, counseling and educating the patient/family/caregiver, and ordering medications, tests, or procedures. documented in this encounter [facility] 09-13-2024 Telephone encounter Note Patient confirmed Patient appointment on Tuesday10/05/2024. [facility] 09-13-2024 Miscellaneous Notes Patient confirmed Patient appointment on Tuesday10/05/2024. Name of Caller: Ed Contact Reason for Appointment: Ed had cancelled an appointment on 09/07 and would like to get that rescheduled. Ed advised that the best day to call him back for reschedule would be on Tuesday. Office Name: Urology Medication Refills need, if any: n/a Medication Name: n/a documented in this encounter [facility] 09-13-2024 Telephone encounter Note Name of Caller: Ed Contact Reason for Appointment: Ed had cancelled an appointment on 09/07 and would like to get that rescheduled. Ed advised that the best day to call him back for reschedule would be on Tuesday. Office Name: Urology Medication Refills need, if any: n/a Medication Name: n/a [facility] 03-23-2024 History of Presen t illness Narrative [facility] [address] [place] [id number] Dept: [phone] Dept Loc: [phone] Visit type: Established : 1960 Chief Complaint: Chief Complaint Patient presents with Follow-up History of Present Illness: Khalida Tran is a 63 y.o. male with PAF s/p PVI 11/2022. He was doing well until 02/2024. He had pneumonia and had AF with RVR. He was started on amiodarone and cardioverted. He stopped amiodarone at discharge. He has no issues since then. No other acute complaints. Past Medical History: Past Medical History: Diagnosis Date A-fib (CMS/HCC) (HCC) Cardioverted Anticoagulated 06/25/2021 BPH (benign prostatic hyperplasia) H/O exercise stress test Hyperlipidemia HARSHA (obstructive sleep apnea) does not wear C pap Machine Pneumonia Pre-diabetes Past Surgical History Past Surgical History: Procedure Laterality Date ABLATION FOR ATRIAL FIBRILLATION (HISTORICAL) 11/30/[address] Sorensen APPENDECTOMY 12 years ago CARDIAC ELECTROPHYSIOLOGY PROCEDURE N/A 11/30/2022 Performed by Reyes Sorensen at [facility] Cardiac Cath/EP Lab COLONOSCOPY COLONOSCOPY 01/16/2019 HERNIA REPAIR INCISIONAL HERNIA REPAIR 09/04/2019 DR JOE PROSTATE BIOPSY 06/10/[address] desir TONSILLECTOMY (HISTORICAL) VENTRAL HERNIA REPAIR 7 years ago WISDOM TOOTH EXTRACTION Family History Family History Problem Relation Name Age of Onset Alzheimer's disease Mother COPD Father Social History Social History Tobacco Use Smoking status: Former Packs/day: 0.50 Years: 40.00 Additional pack years: 0.00 Total pack years: 20.00 Types: Cigarettes Start date: 1992 Quit date: 2023 Years since quittin.9 Smokeless tobacco: Never Tobacco comments: Quit smoking for short period of time then started again : 5 cigs a day Vaping Use Vaping Use: Never used Substance Use Topics Alcohol use: Not Currently Alcohol/week: 2.0 standard drinks of alcohol Types: 2 Standard drinks or equivalent per week Comment: drinks [place] Drug use: No Comment: caffeine: decaf Allergies: No Known Allergies Medications: Current Outpatient Medications: Eliquis 5 MG tablet, Take 5 mg by mouth 2 times daily., Disp: , Rfl: ezetimibe-simvastatin (Vytorin) 10-40 MG tablet, Take 1 tablet by mouth Nightly., Disp: , Rfl: metFORMIN (Glucophage) 500 MG tablet, TAKE 1 TABLET BY MOUTH at dinner meal, Disp: , Rfl: metoprolol tartrate (Lopressor) 50 MG tablet, Take 50 mg by mouth 2 times daily., Disp: , Rfl: potassium citrate CR (Urocit-K-15) 15 mEq ER tablet, Take 1 tablet (15 mEq) by mouth in the morning and 1 tablet (15 mEq) in the evening. Take with meals., Disp: 180 tablet, Rfl: 3 Rybelsus 7 MG tablet, , Disp: , Rfl: Review of Systems: Review of Systems Constitutional: Positive for fatigue. HENT: Negative. Eyes: Negative. Respiratory: Positive for apnea. Cardiovascular: Negative. Gastrointestinal: Negative. Endocrine: Negative. Genitourinary: Negative. Musculoskeletal: Negative. Skin: Negative. Allergic/Immunologic: Negative. Neurological: Negative. Hematological: Negative. Psychiatric/Behavioral: Negative. Physical Examination: Vitals: Vitals: 03/23/24 0937 BP: 136/80 BP Location: Right arm Patient Position: Sitting BP Cuff Size: Adult Pulse: 83 SpO2: 95% Weight: 243 lb (110 kg) Height: 5' 10 (1.778 m) Body mass index is 34.87 kg/m . Physical Exam Constitutional: Appearance: Normal appearance. HENT: Head: Normocephalic and atraumatic. Mouth/Throat: Mouth: Mucous membranes are moist. Eyes: Extraocular Movements: Extraocular movements intact. Cardiovascular: Rate and Rhythm: Normal rate and regular rhythm. Pulses: Normal pulses. Heart sounds: Normal heart sounds. Pulmonary: Effort: Pulmonary effort is normal. Breath sounds: Normal breath sounds. Abdominal: Palpations: Abdomen is soft. Musculoskeletal: General: Normal range of motion. Cervical back: Normal range of motion and neck supple. Skin: General: Skin is warm and dry. Neurological: General: No focal deficit present. Mental Status: He is alert and oriented to person, place, and time. Psychiatric: Mood and Affect: Mood normal. Behavior: Behavior normal. Thought Content: Thought content normal. Judgment: Judgment normal. Laboratory Tests: Lab Results Component Value Date WBC 8.4 04/28/2023 HGB 15.1 09/01/2023 HCT 45.6 09/01/2023 MCV 89.0 04/28/2023 PLT 266 04/28/2023 Lab Results Component Value Date GLUCOSE 110 (H) 09/01/2023 CALCIUM 9.1 09/01/2023 NA 138 09/01/2023 K 4.6 09/01/2023 CO2 23 09/01/2023 CL 105 09/01/2023 BUN 20 09/01/2023 CREATININE 0.66 09/01/2023 @[facility]@ Lab Results Component Value Date CHOL 255 (H) 04/28/2023 CHOL 158 09/22/2022 Lab Results Component Value Date TRIG 422 (H) 04/28/2023 TRIG 149 09/22/2022 Lab Results Component Value Date HDL 51 04/28/2023 HDL 46 09/22/2022 Lab Results Component Value Date LDLCALC 04/28/2023 Comment: Calculated LDL invalid, triglycerides >400 mg/dl LDLCALC 82 09/22/2022 No results found for: BNP Assessment and Plan: 1. Paroxysmal atrial fibrillation (HCC) At this time, it has been over a month since his cardioversion. [id number] is 1 (age). I will stop Eliquis and metoprolol at this time. He will continue to monitor for any recurrence of AF. If he continues to have recurrence, we will need to discuss redo ablation. I will see him in 1 year for follow up. documented in this encounter [facility] 01-06-2024 History of Presen t illness Narrative Images from the original note were not included. Baljit Hood MD 01/06/2024 at 10:52 PM OFFICE FOLLOW-UP VISIT PATIENT NAME: Khalida Tran DATE OF : 1960 TODAY'S DATE: 01/06/2024 CHIEF COMPLAINT: Chief Complaint Patient presents with Other Follow up post Aquablation 09/08/23, Pt states they are well no urologic concerns - hx gross hematuria Subjective: Mr. Tran is a 63 y.o. male who presents to the office for follow up of BPH & elevated PSA. See below for past history. Review of Systems Past Medical History: Past Medical History: Diagnosis Date A-fib (CMS/HCC) (HCC) Cardioverted Anticoagulated 06/25/2021 BPH (benign prostatic hyperplasia) H/O exercise stress test Hyperlipidemia HARSHA (obstructive sleep apnea) does not wear C pap Machine Pneumonia Pre-diabetes Past Surgical History: Past Surgical History: Procedure Laterality Date ABLATION FOR ATRIAL FIBRILLATION (HISTORICAL) 11/30/[address] Sorensen APPENDECTOMY 12 years ago CARDIAC ELECTROPHYSIOLOGY PROCEDURE N/A 11/30/2022 Performed by Reyes Sorensen at [facility] Cardiac Cath/EP Lab COLONOSCOPY COLONOSCOPY 01/16/2019 HERNIA REPAIR INCISIONAL HERNIA REPAIR 09/04/2019 DR JOE PROSTATE BIOPSY 06/10/[address] desir TONSILLECTOMY (HISTORICAL) VENTRAL HERNIA REPAIR 7 years ago WISDOM TOOTH EXTRACTION Allergies: Patient has no known allergies. Social History: Issues identified in the H&P were noted Family History: Family History Problem Relation Name Age of Onset Alzheimer's disease Mother COPD Father Medications Prior to Admission medications Medication Sig Start Date End Date Taking? Authorizing Provider ezetimibe-simvastatin (Vytorin) 10-40 MG tablet Take 1 tablet by mouth Nightly. 11/15/16 Yes Historical Provider, metFORMIN (Glucophage) 500 MG tablet TAKE 1 TABLET BY MOUTH at dinner meal 2/6/23 Yes Historical Provider, potassium citrate CR (Urocit-K-15) 15 mEq ER tablet Take 1 tablet (15 mEq) by mouth in the morning and 1 tablet (15 mEq) in the evening. Take with meals. 09/09/23 Yes PARTHA Blum CNP Rybelsus 7 MG tablet 01/04/24 Yes Historical Provider, alfuzosin ER (Uroxatral) 10 MG 24 hr tablet Take 1 tablet (10 mg) by mouth daily. 11/16/23 01/06/24 Yes PARTHA Meza NP oxybutynin XL (Ditropan-XL) 10 MG 24 hr tablet TAKE 1 TABLET BY MOUTH ONCE DAILY EVERY MORNING 10/24/23 01/06/24 Yes PARTHA Meza NP Vitals: Ht 5' 11 (1.803 m) Wt 239 lb (108 kg) BMI 33.33 kg/m Physical Exam Physical Exam Constitutional: Appearance: Normal appearance. HENT: Head: Normocephalic and atraumatic. Eyes: Extraocular Movements: Extraocular movements intact. Pulmonary: Effort: Pulmonary effort is normal. Musculoskeletal: General: Normal range of motion. Cervical back: Normal range of motion. Neurological: General: No focal deficit present. Mental Status: He is alert and oriented to person, place, and time. Psychiatric: Mood and Affect: Mood normal. Behavior: Behavior normal. Thought Content: Thought content normal. Judgment: Judgment normal. LABS: 11/01/2023: PSA: 3.850 ([place]) 04/28/2023: PSA: 14.099 01/21/2023: PSA: 13.508 w/ 18% free PSA 12/22/2022: PSA: 13.000 w/ 18% free PSA 02/03/2022: PSA: 9.240 10/30/2021: PSA: 9.821 05/27/2021: PSA: 11.98 ([place]) 11/17/2020: PSA: 8.209 09/10/2020: PSA: 7.690 01/18/2020: PSA: 9.000, 16 % free 12/13/2019: PSA: 8.330 07/10/2019: PSA: 8.260 02/18/2019: PSA: 6.300 01/09/2019: PSA: 7.970 09/07/2018: PSA: 8.686 05/20/2016: PSA: 4.400 Lab Results Component Value Date PSA 14.099 (H) 04/28/2023 PSA 13.508 (H) 01/21/2023 PSA 9.240 (A) 02/03/2022 12/13/2023: Testosterone: 308 Lab Results Component Value Date WBC 8.4 04/28/2023 HGB 15.1 09/01/2023 HCT 45.6 09/01/2023 MCV 89.0 04/28/2023 PLT 266 04/28/2023 Lab Results Component Value Date GLUCOSE 110 (H) 09/01/2023 CALCIUM 9.1 09/01/2023 NA 138 09/01/2023 K 4.6 09/01/2023 CO2 23 09/01/2023 CL 105 09/01/2023 BUN 20 09/01/2023 CREATININE 0.66 09/01/2023 Radiology: PVR 44 ml. Impression/Plan Khalida was seen today for other. Diagnoses and all orders for this visit: Hypertrophy of prostate with urinary obstruction (Primary) - AMB POC URINALYSIS DIP STICK AUTO W/O MICRO - Bladder scan Bilateral renal cysts Hematuria, gross - AMB POC URINALYSIS DIP STICK AUTO W/O MICRO - Bladder scan Atypical small acinar proliferation of prostate History of urinary calculi Follow up in about 8 months (around 09/05/2024) for Recheck. PVR 44 ml. Feels great. Eating better and lost some weight. Very pleased with the results from the Aquablation. Very pleased about the drop in the PSA. No recent episodes of kidney stone pain. Continue K+ citrate. Decrease both alfuzosin and oxybutynin to every other day. If he can go for a week at that dosage and noticed no change in his urination, then he should discontinue both meds. He has not seen Carlos Causey in some time. Baljit Hood MD 01/06/24 10:52 PM 09/08/2023: Aquablation 08/25/2023: Uroflow: peak 3.2 ml/s, avg 1.3 ml/s 08/05/2023: Plan Aquablation 05/02/2023: CT: Multiple simple bilateral renal cysts, which warrant no follow-up imaging. Enlarged prostate. 04/26/2023. Smoked 1/2 ppd. Quit yesterday (on his birthday). Gross hematuria began after heavy yard work last week. Past history of stones. He takes K+ citrate, alfuzosin & oxybutynin. Urine Cx & cytology. CT. 03/30/2023: TP MRI-fusion Bx (61 ml): benign 02/22/2023: MRI: 80 ml. New PI-RADS 4 nodule in the left base/mid gland. Multiple PI-RADS 3 nodules in the bilateral apex and mid gland which are unchanged in size. 01/25/2023: Cx: UG tl 12/10/2022: Prostate 1+. PSA slip 11/30/2022: ACH: A. Fib 03/12/2022: TP MRI-fusion Bx (57 ml): EMILI RPM, LPM ([facility]) 11/27/2021: IPSS 13,2. Feels well. Prostate 1+. Options discussed. Prefers TP at [place], but only if absolutely necessary. Cx: NG. Wishes to repeat PSA in January. Retires in April. If next PSA doesn't drop completely back to previous level, then proceed to TP fusion Bx 11/02/2021: See Call 10/20/2021: Cx: UG tl 10/02/2021: Cx: 50-90K Enterococcus 10/02/2021: Prostate 1+. Cx, PSA, meds refilled. Discussed pros & cons of fusion Bx 09/29/2021: Refilled oxybutynin & alfuzosin 08/12/2021: Cx: NG 06/29/2021: MRI: 71 ml. PI-RADS 4 nodules in the bilateral apex and right apex/mid gland. Additional PI-RADS 3 nodule in the left mid gland. 07/02/2021: Note from Adeel Quiroga to Mae Parsons: Cleared for Prostate Biopsy. Stop Apixaban 3 days prior to the procedure and restart 3 days after. 12/27/2020: 24 hr. urine: UA 858 10/22/2020: VV 09/29/2020: Cystoscopy, evacuation bladder calculi. Uric acid 09/12/2020: CT: Bilateral renal cortical cysts. Small left parapelvic cyst. Numerous small bladder stones. 06/10/2020: VV: Hematuria. Will check CT, then possibly repeat MRI 04/01/2020: VV. 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 Prostate hypertrophy. Exophytic hematoma of the right seminal vesicle. Benign-appearing cyst of the right acetabulum. 10/25/2018: MRI-fusion prostate biopsies (49 ml): benign 10/03/2018: MRI prostate: Four PI-RADS 3 lesions 06/10/2016: Bx ([facility]): benign documented in this encounter [facility] 09-09-2023 Nurse Note Pt given discharge instructions. Pt understood, questions answered. IV removed. Discharged home with . [facility] 09-09-2023 Nurse Note Pt given discharge instructions. Pt understood, questions answered. IV removed. Discharged home with . documented in this encounter [facility] 09-09-2023 Hospital course Narrative Patient ID: Khalida Tran [id number] 63 y.o. 1960 Admit date: 09/08/2023 Discharge date: 09/09/23 Admitting Physician: Baljit Hood MD Discharge Physician: Baljit Hood MD Admission Diagnoses: Benign prostatic hyperplasia with lower urinary tract symptoms [N40.1] Other obstructive and reflux uropathy [N13.8] Post-operative state [Z98.890] Discharge Diagnoses: Benign prostatic hyperplasia with lower urinary tract symptoms [N40.1] Other obstructive and reflux uropathy [N13.8] Post-operative state [Z98.890] Admission Condition: good Discharged Condition: good Indication for Admission: Benign prostatic hyperplasia with lower urinary tract symptoms [N40.1] Other obstructive and reflux uropathy [N13.8] Post-operative state [Z98.890] Hospital Course: The patient was taken to OR for Aqublation and tolerated procedure without any complications. Immediately post-op, patient was extubated and transferred to PACU in stable condition. After PACU criteria was met, and within 24 hours of procedure, patient was transferred to floor. Throughout callie-operative course, there was monitoring of vital signs, urine output and clinical status of patient. Diet was subsequently advanced and by the day of discharge, patient was ambulating, voiding and tolerating PO without difficulty. Pain was well controlled with oral medications by time of discharge. Void trial was passed on day of DC. Disposition: home Patient Instructions: Medication List START taking these medications phenazopyridine 200 MG tablet; Commonly known as: Pyridium; Take 1 tablet (200 mg) by mouth 3 times daily for 3 days. CONTINUE taking these medications alfuzosin ER 10 MG 24 hr tablet; Commonly known as: Uroxatral; Take 1 tablet (10 mg) by mouth daily. ezetimibe-simvastatin 10-40 MG tablet; Commonly known as: Vytorin metFORMIN 500 MG tablet; Commonly known as: Glucophage oxybutynin XL 10 MG 24 hr tablet; Commonly known as: Ditropan-XL potassium citrate CR 15 mEq ER tablet; Commonly known as: Urocit-K-15; Take 1 tablet (15 mEq) by mouth in the morning and 1 tablet (15 mEq) in the evening. Take with meals. Activity: activity as tolerated Diet: regular diet Follow-up with your surgeon post-operative visit. Call office phone number to schedule your appointment. Signed: Emma Huntley MD 09/09/2023 10:11 AM documented in this encounter [facility] 09-09-2023 History of Presen t illness Narrative 0730 Voiding trial per order. Distilled 200ml per what patient could tolerate. Patient voided 200ml documented in this encounter [facility] 09-08-2023 Note Formatting of this n ote might be different from the original. Tried to update family. Sent to voicemail at this time [facility] 09-08-2023 Miscellaneous Notes Tried to update family. Sent to voicemail at this time Patient arrived on unit. Name and date verified. Attached to monitors. Vital signs stable. PRE-OP DIAGNOSIS: BPH with obstruction. POST-OP DIAGNOSIS: Same OPERATION: Cystoscopy, Prostate Aquablation (CPT 0421T) SURGEON: Baljit Hood M.D. YARD CRANE OPERATOR: Emma Huntley M.D. ANESTHESIA: General BLOOD LOSS: <20cc MEDICATIONS: Ancef 2 grams IVPB COMPLICATIONS: None SPECIMEN: Prostate chips Brief history & indication for procedure: This patient has a history of benign prostatic hypertrophy and progressively worsening symptoms of bladder outlet obstruction.. The options for management of the enlarged prostate and urinary obstruction have been thoroughly discussed with the patient, including but not limited to continued medications, indwelling Cano or suprapubic catheter, transurethral resection of prostate, robotic suprapubic prostatectomy, cystoscopy/Aquablation. The pros & cons of each option have been discussed, along with potential complications including but not limited to failure of therapy, heart attack, stroke, blood clot, bleeding, infection, inability to void, incontinence, and possibly . After a shared decision-making process, the patient has elected to undergo prostate Aquablation. The risks & expectations have been discussed, his questions have been answered, and consent has been obtained. Details of procedure: Patient brought to the operating room suite, general anesthesia was induced. Patient was prepped and draped in a sterile fashion. Appropriate timeout was performed. Ancef 2 g IV piggyback given. The TRUS space stepper was mounted to the articulating arm and secured to the OR bed. The ultrasound probe was attached to the stepper. The ultrasound probe was aligned, and confirmation was made that the prostate was centered and aligned using both transverse and sagittal views. The bladder neck, verumontanum and the central/transition zones were identified. A clinical assessment of the prostate was performed to estimate prostate size and to note prostate anatomy. The 24 Dutch AQUABEAM Handpiece tip was inserted into the prostatic urethra and a complete cystoscopic evaluation was was performed by inspecting the prostate, bladder, and identifying the location of the verumontanum/external sphincter. The AQUABEAM Handpiece was secured to the handpiece articulating arm. Confirmed alignment of the AQUABEAM handpiece and TRUS probe to be parallel and collinear. Confirmation that the AQUABEAM nozzle is centered and anterior of the bladder neck or the median lobe. The cystoscope was then retracted to visualize the verumontanum and external sphincter and the cystoscope tip was positioned just proximal to the external sphincter. Reconfirmed alignment of the TRUS probe with the AQUABEAM Handpiece and compression applied with TRUS probe. Horizontal alignment of the Handpiece water jet nozzle was performed. The Aquablation treatment zones were planned utilized utilizing real-time TRUS to visualize the contour of the prostate and the depth and radial angles of the resection were defined in the transverse view. In the sagittal view, the AQUABEAM nozzle was identified in position registered with the software. The treatment contours were then adjusted to conform to the intended resection margins. The median lobe, bladder neck and verumontanum were marked and confirmed in the treatment contour The Aquablation treatment was then started following the resection contour confirmed under ultrasound guidance. Total Aquablation resection time was measured & recorded. Once Aquablation resection was complete, cystoscopy and tissue/clot evacuation was performed using a 26Fr cystoscope/resectoscope until light pink. TUR of the bladder neck going from the 3:00 to 9 o'clock position was done. This was approximately 1 cm in length. This area was then cauterized, and all bleeders were controlled. Hemostasis was obtained., 24 Dutch Simplastic catheter was inserted, balloon inflated to 50 cc. Cano irrigated light pink. Continuous bladder irrigation was started. Ultrasound probe was then removed. The patient was safely moved to the transportation cart, and transported to the recovery area in stable condition. Baljit Hood M.D. 09/08/2023 documented in this encounter [facility] 09-08-2023 Note Formatting of this n ote might be different from the original. Patient arrived on unit. Name and date verified. Attached to monitors. Vital signs stable. [facility] 09-08-2023 Note Formatting of this n ote might be different from the original. PRE-OP DIAGNOSIS: BPH with obstruction. POST-OP DIAGNOSIS: Same OPERATION: Cystoscopy, Prostate Aquablation (CPT 0421T) SURGEON: Baljit Hood M.D. YARD CRANE OPERATOR: Emma Huntley M.D. ANESTHESIA: General BLOOD LOSS: <20cc MEDICATIONS: Ancef 2 grams IVPB COMPLICATIONS: None SPECIMEN: Prostate chips Brief history & indication for procedure: This patient has a history of benign prostatic hypertrophy and progressively worsening symptoms of bladder outlet obstruction.. The options for management of the enlarged prostate and urinary obstruction have been thoroughly discussed with the patient, including but not limited to continued medications, indwelling Cano or suprapubic catheter, transurethral resection of prostate, robotic suprapubic prostatectomy, cystoscopy/Aquablation. The pros & cons of each option have been discussed, along with potential complications including but not limited to failure of therapy, heart attack, stroke, blood clot, bleeding, infection, inability to void, incontinence, and possibly . After a shared decision-making process, the patient has elected to undergo prostate Aquablation. The risks & expectations have been discussed, his questions have been answered, and consent has been obtained. Details of procedure: Patient brought to the operating room suite, general anesthesia was induced. Patient was prepped and draped in a sterile fashion. Appropriate timeout was performed. Ancef 2 g IV piggyback given. The TRUS space stepper was mounted to the articulating arm and secured to the OR bed. The ultrasound probe was attached to the stepper. The ultrasound probe was aligned, and confirmation was made that the prostate was centered and aligned using both transverse and sagittal views. The bladder neck, verumontanum and the central/transition zones were identified. A clinical assessment of the prostate was performed to estimate prostate size and to note prostate anatomy. The 24 Dutch AQUABEAM Handpiece tip was inserted into the prostatic urethra and a complete cystoscopic evaluation was was performed by inspecting the prostate, bladder, and identifying the location of the verumontanum/external sphincter. The AQUABEAM Handpiece was secured to the handpiece articulating arm. Confirmed alignment of the AQUABEAM handpiece and TRUS probe to be parallel and collinear. Confirmation that the AQUABEAM nozzle is centered and anterior of the bladder neck or the median lobe. The cystoscope was then retracted to visualize the verumontanum and external sphincter and the cystoscope tip was positioned just proximal to the external sphincter. Reconfirmed alignment of the TRUS probe with the AQUABEAM Handpiece and compression applied with TRUS probe. Horizontal alignment of the Handpiece water jet nozzle was performed. The Aquablation treatment zones were planned utilized utilizing real-time TRUS to visualize the contour of the prostate and the depth and radial angles of the resection were defined in the transverse view. In the sagittal view, the AQUABEAM nozzle was identified in position registered with the software. The treatment contours were then adjusted to conform to the intended resection margins. The median lobe, bladder neck and verumontanum were marked and confirmed in the treatment contour The Aquablation treatment was then started following the resection contour confirmed under ultrasound guidance. Total Aquablation resection time was measured & recorded. Once Aquablation resection was complete, cystoscopy and tissue/clot evacuation was performed using a 26Fr cystoscope/resectoscope until light pink. TUR of the bladder neck going from the 3:00 to 9 o'clock position was done. This was approximately 1 cm in length. This area was then cauterized, and all bleeders were controlled. Hemostasis was obtained., 24 Dutch Simplastic catheter was inserted, balloon inflated to 50 cc. Cano irrigated light pink. Continuous bladder irrigation was started. Ultrasound probe was then removed. The patient was safely moved to the transportation cart, and transported to the recovery area in stable condition. Baljit Hood M.D. 09/08/2023 [facility] 09-08-2023 Hospital Discharg e instructions Emma Huntley MD - 09/08/2023 9:41 AM EDT Aquablation What is Benign Prostatic Hyperplasia (BPH)? When the prostate becomes enlarged, it can press on the urethra and make it difficult to urinate. Symptoms of BPH include a weak urinary stream, difficulty emptying your bladder, frequent urinary tract infections, bleeding from the prostate, bladder stones, getting up a night to urinate and bladder control issues. If your symptoms have not improved with home treatment or medications, your doctor may recommend surgery. Men who have severe symptoms often report greatly improved quality of life after surgery. How long will I be in the hospital? This is an outpatient procedure, so you will be able to go home the same day as the surgery. -Sometimes you are required to stay for 1-2 nights after surgery to ensure there is no other bleeding Home Going Instructions: Cano Catheter: You will go home with a Cano catheter in place for 3-5 days. The catheter helps keep your bladder decompressed so that the prostate can heal. It is normal to have blood in the urine right after surgery. Drink plenty of fluids to flush this through. The blood should clear up within a week, but in some instances may persist for 1-2 months after surgery. -Sometimes you may get your catheter out in the hospital. If this is the case we will make sure that you are able to urinate before discharge Activity: You are encouraged to walk every day, increasing the distance each day. You may go up and down steps, but please rest when you are tired. - Do NOT drive for 2-3 weeks after surgery or until you are not taking pain medications. You may ride in a car or plane. Be sure to get up and walk every 1-2 hours when traveling long distances. - Avoid strenuous activity for 2-4 weeks after surgery (running, jumping, lifting more than 10 lbs.) Diet and Fluid Intake: Eating a well-balanced diet is important. If you were on a specific diet before your surgery, you should return to that diet. Otherwise, there are no diet restrictions after surgery. Do NOT drink alcoholic beverages while taking pain medications. Drink at least 8 glasses of fluid per day, preferably water. Bowel Management: Constipation sometimes occurs after surgery, especially when taking pain medication. Eating a well-balanced diet and maintaining a good fluid intake are often all that is necessary to return to you pre-surgical bowel regimen. It is important not to strain excessively when having a bowel movement for the first several weeks following your surgery. A stool softener such as Colace may be helpful. You can purchase stool softeners without a prescription at your local drug store. If a stool softener is not enough to relieve your constipation, you may try taking Milk of Magnesia. You may use over the counter medicine, such a Gas-X, if you experience gas pains after surgery. Showering: You may shower when you get home from the hospital. Please remove the top bandages beforehand and leave any skin glue or steri-strips in place. Pain Medications: Your doctor will prescribe the appropriate pain medication for you. Take these pills only as directed and only if you need them. If you are experiencing mild discomfort, you may take Tylenol or Ibuprofen. NEVER mix alcohol with prescription pain medications. Pain medication may make you drowsy. Do not take pain medication when doing any activity that requires coordination, such as driving. Infection: Report the following warning signs of infection to your doctor immediately: A temperature of 101 degrees or greater Increased redness, swelling or drainage at the incision site Sudden onset of increased pain or tenderness or warmth around the incision Foul odor from the incision site. Miscellaneous It is normal for you to have minor discomfort after your surgery. However, if there are any significant changes in your condition--such as shortness of breath, difficulty breathing, or pain or uneven swelling in your legs--please go to the Emergency Room. Return to Work: If you work in an office and are not lifting or doing strenuous activity, you may return to work when comfortable. If your work involves strenuous activity, you may need more time before returning to work. If necessary, our office can provide a letter stating the date that you may return to work. Follow-up Appointments Follow-up appointments will be scheduled by our office--you will see Astrid Hagen PA-C approx. 3-5 days after surgery to have your catheter removed. You will see your doctor approx. 1 month after surgery. If you have any questions, please call . The following attachments cannot be sent through Care Everywhere.Benign Prostatic Hyperplasia (Enlarged Prostate) Discharge Instructions ([place]ian)Phenazopyridine, ADULT ([place])Urinary Obstruction Discharge Instructions ([place])Urinary Retention Discharge Instructions ([place])documented in this encounter [facility] 09-08-2023 Attending History and physical note H&P reviewed. The patient was examined and there are no changes to the H&P. Source Note - Juli Rosario APRN - FRONT END SOFTWARE ENGINEER - 09/01/2023 9:30 AM EDT Images from the original note were not included. Comprehensive Pre Surgical History and Physical ? Name: Khalida Tran : 1960 (Age-63 y.o.) Date of Service: Pt seen/examined on 09/01/2023 Procedure Information Date/Time: 09/08/23 0930 Procedures: CYSTOSCOPY, AQUABLATION (Urethra) TRANSURETHRAL WATERJET ABLATION OF PROSTATE Location: [facility] OR Operating Room Surgeons: Baljit Hood MD Chief Complaint: Hematuria and BPH with elevated PSA ASSESSMENT/PLAN: Patient is considered intermediate risk for this intermediate level 1 risk procedure/surgery () with no reducible risk factors. Based on the above evaluation, the benefits of the planned procedure likely exceed the risks. The patient is medically optimized to proceed with the planned procedure without any further cardiopulmonary testing. 1) Benign prostatic hyperplasia with lower urinary tract symptoms [N40.1] Other obstructive and reflux uropathy [N13.8] - Managed per surgery 2) HARSHA - Compliant with home device - Yes, - Instructed pt to bring machine DOS. - Also, encouraged pt use machine at as directed, most specifically the night before surgery. - Consider higher level of care (continuous pulse ox) with this patient due to HARSHA and increased risks. 3) Atrial Fibrillation - Managed by Dr Tristen Sorensen -cardiac ablation 11/2022 - patient has been off Eliquis since january 2023 -asymptomatic 4) Former smoker Quit 04/2023 - 0.5 pack(s) a day for about 40 years - EKG as below - H&H pending - Yes, 5)HLD -statin therapy - Yes, vytorin -lifestyle modifications encouraged Lab Results Component Value Date CHOL 255 (H) 04/28/2023 CHOL 158 09/22/2022 Lab Results Component Value Date HDL 51 04/28/2023 HDL 46 09/22/2022 Lab Results Component Value Date LDLCALC 04/28/2023 Comment: Calculated LDL invalid, triglycerides >400 mg/dl LDLCALC 82 09/22/2022 Lab Results Component Value Date TRIG 422 (H) 04/28/2023 TRIG 149 09/22/2022 6)DM - Managed by pcp. - Patient reports compliance to medications - Diabetic medications per PAT protocol. - Patient aware per anesthesia protocol, BS must be below 250 DOS Toxic Drug Monitoring: Drug: metformin Route: Oral Monitoring: EKG - yes VS - as above Labs: Yes - BMP, A1C, glucose DOS Lab Results Component Value Date HGBA1C 6.2 (H) 04/28/2023 Visit Type: Pre-Admission Testing Visit Labs Ordered: YES - PER [facility] PROTOCOL Sleep Referral Ordered: NO - ALREADY DIAGNOSED WITH HARSHA AND COMPLIANT WITH CPAP Total time spent (which include face to face and non face to face encounters) : 30 minutes Toxic drug monitoring/narrow therapeutic index drug monitoring : # Drug name : metformin # Route administered : po # Method of monitoring : A1c,bmp PAT Protocol referenced includes: 1. Anesthesia Lab Protocol Orders 2. Perioperative Cardiovascular Risk Assessment 3. Anesthesia Assessment 4. Pain Assessment and Acute Pain Service Consult (if appropriate) 5. Medical Clearance/Consult from Internal Medicine (IMS) 6. Shower/Wash Order (for designated surgeries) 7. HARSHA Screen and Sleep Clinic Referral (if appropriate) History Of Present Illness: 63 y.o. male who we are asked to see/evaluate by [place] [id number] for pre-operative evaluation prior to . CYSTOSCOPY, AQUABLATION (Urethra) [21573 CPT(R)] TRANSURETHRAL WATERJET ABLATION OF PROSTATE [0421T CPT(R)] Anesthesia type: General ? Mr. Tran is a 63 y.o. male who presents to the office for follow up of hematuria. Enlarged prostate . See below. He wants to undergo Aquablation to improve ability to empty bladder Impression/Plan Khalida was seen today for other. Diagnoses and all orders for this visit: Benign prostatic hyperplasia with urinary obstruction (Primary) Follow up in about 4 weeks (around 09/02/2023) for outpatient surgery. Plan Aquablation All aspects of the procedure, along with the pros & cons of intervention and the potential associated risks & complications have been discussed with the patient. Questions have been answered, and informed consent has been obtained. Baljit Hood MD 08/06/23 8:47 AM Denies history of [place], CAD, CHF, TIA, CVA Past Medical History: Past Medical History: No date: A-fib (CMS/HCC) (HCC) Comment: Cardioverted 06/25/2021: Anticoagulated No date: BPH (benign prostatic hyperplasia) No date: H/O exercise stress test No date: Hyperlipidemia No date: HARSHA (obstructive sleep apnea) Comment: does not wear C pap Machine No date: Pneumonia No date: Pre-diabetes Past Surgical History: Past Surgical History: 11/30/2022: ABLATION FOR ATRIAL FIBRILLATION (HISTORICAL) Comment: by Dr. Sorensen No date: APPENDECTOMY Comment: 12 years ago 11/30/2022: CARDIAC ELECTROPHYSIOLOGY PROCEDURE; N/A Comment: Performed by Reyes Sorensen at [facility] Cardiac Cath/EP Lab No date: COLONOSCOPY 01/16/2019: COLONOSCOPY No date: HERNIA REPAIR 09/04/2019: INCISIONAL HERNIA REPAIR Comment: DR JOE 06/10/2016: PROSTATE BIOPSY Comment: two times with dr. desir No date: TONSILLECTOMY (HISTORICAL) No date: VENTRAL HERNIA REPAIR Comment: 7 years ago No date: WISDOM TOOTH EXTRACTION Medications Prior to Admission: Prior to Admission medications Medication Sig Start Date End Date Taking? Authorizing Provider alfuzosin ER (Uroxatral) 10 MG 24 hr tablet Take 1 tablet (10 mg) by mouth daily. 10/29/22 Baljit Hood MD ezetimibe-simvastatin (Vytorin) 10-40 MG tablet Take 1 tablet by mouth Nightly. 11/15/16 Historical Provider, metFORMIN (Glucophage) 500 MG tablet TAKE 1 TABLET BY MOUTH at dinner meal 12/20/22 Historical Provider, potassium citrate CR (Urocit-K-15) 15 mEq ER tablet Take 1 tablet (15 mEq) by mouth in the morning and 1 tablet (15 mEq) in the evening. Take with meals. 04/15/23 Shelia Dorman, IT SERVICE DELIVERY MANAGER - FRONT END SOFTWARE ENGINEER CHRONIC NARCOTIC USE: No Allergies: Patient has no known allergies. If patient has opioid allergy, is it okay to take Acetaminophen: Yes Social History: TOBACCO: reports that he quit smoking about 4 months ago. His smoking use included cigarettes. He started smoking about 30 years ago. He has a 20.00 pack-year smoking history. He has never used smokeless tobacco. ETOH: reports that he does not currently use alcohol after a past usage of about 2.0 standard drinks of alcohol per week. Social History Substance and Sexual Activity Drug Use No Comment: caffeine: decaf Family History: Family History Problem Relation Name Age of Onset Alzheimer's disease Mother COPD Father REVIEW OF SYSTEMS: Review of Systems Constitutional: Negative for activity change, fatigue and fever. HENT: Negative for congestion and sore throat. Eyes: Negative for visual disturbance. Respiratory: Negative. Negative for shortness of breath and wheezing. Cardiovascular: Negative. Negative for chest pain, palpitations and leg swelling. Gastrointestinal: Negative. Negative for abdominal pain, nausea and vomiting. Endocrine: Negative for polyuria. Genitourinary: Positive for hematuria. Negative for difficulty urinating, dysuria and flank pain. Musculoskeletal: Negative. Negative for back pain, neck pain and neck stiffness. Skin: Negative. Negative for color change. Neurological: Negative for dizziness, weakness and numbness. Psychiatric/Behavioral: Negative for behavioral problems and suicidal ideas. All other systems reviewed and are negative. Physical Exam: Physical Exam Vitals and nursing note reviewed. Constitutional: Appearance: Normal appearance. HENT: Head: Normocephalic. Cardiovascular: Rate and Rhythm: Normal rate and regular rhythm. Pulmonary: Effort: Pulmonary effort is normal. Breath sounds: Normal breath sounds. Abdominal: General: Abdomen is flat. Musculoskeletal: General: Normal range of motion. Skin: General: Skin is warm. Capillary Refill: Capillary refill takes less than 2 seconds. Neurological: General: No focal deficit present. Mental Status: He is alert. Vitals: Vitals Value Taken Time BP 140/81 09/01/23 0942 Temp 36.2 C (97.2 F) 09/01/23 0942 Pulse 77 09/01/23 0942 Resp 18 09/01/23 0942 SpO2 95 % 09/01/23 0942 BP Readings from Last 3 Encounters: 09/01/23 (!) 140/81 08/05/23 (!) 139/94 03/30/23 134/83 Labs: Lab Results Component Value Date WBC 8.4 04/28/2023 HGB 15.8 04/28/2023 HCT 46.8 04/28/2023 MCV 89.0 04/28/2023 PLT 266 04/28/2023 Lab Results Component Value Date NA 138 04/28/2023 K 4.6 04/28/2023 CL 104 04/28/2023 CO2 28 04/28/2023 BUN 14 04/28/2023 CREATININE 0.65 (L) 04/28/2023 GLUCOSE 105 (H) 04/28/2023 CALCIUM 8.8 04/28/2023 PROT 7.6 04/28/2023 ALKPHOS 54 04/28/2023 AST 38 04/28/2023 ALT 39 04/28/2023 EGFR >90.0 04/28/2023 Varun's Simple Cardiac Risk Index: VARUN'S SIMPLE CARDIAC RISK SCORE: 0 Interpretation: 0 Points Class I 0.5% 1 Point Class II 1.3% 2 Points Class III 3.6% 3+ Points Class IV 9.1% PAT Pain Score: 0/10 Postop Pain Management Plan (Pain consult ordered?): Pain consult not indicated at this time ? 03/18/2023 EKG: Encounter Date: 03/18/23 ECG 12 lead - CLINIC PERFORMED Narrative Sinus Rhythm WITHIN NORMAL LIMITS 2020 ECHO and EF: METS >4____ Electronically signed by: Juli Rosario APRN - FRONT END SOFTWARE ENGINEER Date: 09/01/2023 at 10:11 AM [facility] History and physical note H&P reviewed. The patient was examined and there are no changes to the H&P. Source Note - Juli Rosario APRN - FRONT END SOFTWARE ENGINEER - 09/01/2023 9:30 AM EDT Images from the original note were not included. Comprehensive Pre Surgical History and Physical ? Name: Khalida Tran : 1960 (Age-63 y.o.) Date of Service: Pt seen/examined on 09/01/2023 Procedure Information Date/Time: 09/08/23929 Procedures: CYSTOSCOPY, AQUABLATION (Urethra) TRANSURETHRAL WATERJET ABLATION OF PROSTATE Location: [facility] OR Operating Room Surgeons: Baljit Hood MD Chief Complaint: Hematuria and BPH with elevated PSA ASSESSMENT/PLAN: Patient is considered intermediate risk for this intermediate level 1 risk procedure/surgery () with no reducible risk factors. Based on the above evaluation, the benefits of the planned procedure likely exceed the risks. The patient is medically optimized to proceed with the planned procedure without any further cardiopulmonary testing. 1) Benign prostatic hyperplasia with lower urinary tract symptoms [N40.1] Other obstructive and reflux uropathy [N13.8] - Managed per surgery 2) HARSHA - Compliant with home device - Yes, - Instructed pt to bring machine DOS. - Also, encouraged pt use machine at HS as directed, most specifically the night before surgery. - Consider higher level of care (continuous pulse ox) with this patient due to HARSHA and increased risks. 3) Atrial Fibrillation - Managed by Dr Tristen Sorensen -cardiac ablation 11/2022 - patient has been off Eliquis since january 2023 -asymptomatic 4) Former smoker Quit 04/2023 - 0.5 pack(s) a day for about 40 years - EKG as below - H&H pending - Yes, 5)HLD -statin therapy - Yes, vytorin -lifestyle modifications encouraged Lab Results Component Value Date CHOL 255 (H) 04/28/2023 CHOL 158 09/22/2022 Lab Results Component Value Date HDL 51 04/28/2023 HDL 46 09/22/2022 Lab Results Component Value Date LDLCALC 04/28/2023 Comment: Calculated LDL invalid, triglycerides >400 mg/dl LDLCALC 82 09/22/2022 Lab Results Component Value Date TRIG 422 (H) 04/28/2023 TRIG 149 09/22/2022 6)DM - Managed by pcp. - Patient reports compliance to medications - Diabetic medications per PAT protocol. - Patient aware per anesthesia protocol, BS must be below 250 DOS Toxic Drug Monitoring: Drug: metformin Route: Oral Monitoring: EKG - yes VS - as above Labs: Yes - BMP, A1C, glucose DOS Lab Results Component Value Date HGBA1C 6.2 (H) 04/28/2023 Visit Type: Pre-Admission Testing Visit Labs Ordered: YES - PER PAT PROTOCOL Sleep Referral Ordered: NO - ALREADY DIAGNOSED WITH HARSHA AND COMPLIANT WITH CPAP Total time spent (which include face to face and non face to face encounters) : 30 minutes Toxic drug monitoring/narrow therapeutic index drug monitoring : # Drug name : metformin # Route administered : po # Method of monitoring : A1c,bmp PAT Protocol referenced includes: 1. Anesthesia Lab Protocol Orders 2. Perioperative Cardiovascular Risk Assessment 3. Anesthesia Assessment 4. Pain Assessment and Acute Pain Service Consult (if appropriate) 5. Medical Clearance/Consult from Internal Medicine (IMS) 6. Shower/Wash Order (for designated surgeries) 7. HARSHA Screen and Sleep Clinic Referral (if appropriate) History Of Present Illness: 63 y.o. male who we are asked to see/evaluate by [facility] for pre-operative evaluation prior to . CYSTOSCOPY, AQUABLATION (Urethra) [67418 CPT(R)] TRANSURETHRAL WATERJET ABLATION OF PROSTATE [0421T CPT(R)] Anesthesia type: General ? Mr. Tran is a 63 y.o. male who presents to the office for follow up of hematuria. Enlarged prostate . See below. He wants to undergo Aquablation to improve ability to empty bladder Impression/Plan Khalida was seen today for other. Diagnoses and all orders for this visit: Benign prostatic hyperplasia with urinary obstruction (Primary) Follow up in about 4 weeks (around 09/02/2023) for outpatient surgery. Plan Aquablation All aspects of the procedure, along with the pros & cons of intervention and the potential associated risks & complications have been discussed with the patient. Questions have been answered, and informed consent has been obtained. Baljit Hood MD 08/06/23 8:47 AM Denies history of [place], CAD, CHF, TIA, CVA Past Medical History: Past Medical History: No date: A-fib (CMS/HCC) (HCC) Comment: Cardioverted 06/25/2021: Anticoagulated No date: BPH (benign prostatic hyperplasia) No date: H/O exercise stress test No date: Hyperlipidemia No date: HARSHA (obstructive sleep apnea) Comment: does not wear C pap Machine No date: Pneumonia No date: Pre-diabetes Past Surgical History: Past Surgical History: 11/30/2022: ABLATION FOR ATRIAL FIBRILLATION (HISTORICAL) Comment: by Dr. Sorensen No date: APPENDECTOMY Comment: 12 years ago 11/30/2022: CARDIAC ELECTROPHYSIOLOGY PROCEDURE; N/A Comment: Performed by Reyes Sorensen at [facility] Cardiac Cath/EP Lab No date: COLONOSCOPY 01/16/2019: COLONOSCOPY No date: HERNIA REPAIR 09/04/2019: INCISIONAL HERNIA REPAIR Comment: DR JOE 06/10/2016: PROSTATE BIOPSY Comment: two times with dr. desir No date: TONSILLECTOMY (HISTORICAL) No date: VENTRAL HERNIA REPAIR Comment: 7 years ago No date: WISDOM TOOTH EXTRACTION Medications Prior to Admission: Prior to Admission medications Medication Sig Start Date End Date Taking? Authorizing Provider alfuzosin ER (Uroxatral) 10 MG 24 hr tablet Take 1 tablet (10 mg) by mouth daily. 10/29/22 Baljit Hood MD ezetimibe-simvastatin (Vytorin) 10-40 MG tablet Take 1 tablet by mouth Nightly. 11/15/16 Historical Provider, metFORMIN (Glucophage) 500 MG tablet TAKE 1 TABLET BY MOUTH at dinner meal 12/20/22 Historical Provider, potassium citrate CR (Urocit-K-15) 15 mEq ER tablet Take 1 tablet (15 mEq) by mouth in the morning and 1 tablet (15 mEq) in the evening. Take with meals. 04/15/23 Shelia Dorman, IT SERVICE DELIVERY MANAGER - FRONT END SOFTWARE ENGINEER CHRONIC NARCOTIC USE: No Allergies: Patient has no known allergies. If patient has opioid allergy, is it okay to take Acetaminophen: Yes Social History: TOBACCO: reports that he quit smoking about 4 months ago. His smoking use included cigarettes. He started smoking about 30 years ago. He has a 20.00 pack-year smoking history. He has never used smokeless tobacco. ETOH: reports that he does not currently use alcohol after a past usage of about 2.0 standard drinks of alcohol per week. Social History Substance and Sexual Activity Drug Use No Comment: caffeine: decaf Family History: Family History Problem Relation Name Age of Onset Alzheimer's disease Mother COPD Father REVIEW OF SYSTEMS: Review of Systems Constitutional: Negative for activity change, fatigue and fever. HENT: Negative for congestion and sore throat. Eyes: Negative for visual disturbance. Respiratory: Negative. Negative for shortness of breath and wheezing. Cardiovascular: Negative. Negative for chest pain, palpitations and leg swelling. Gastrointestinal: Negative. Negative for abdominal pain, nausea and vomiting. Endocrine: Negative for polyuria. Genitourinary: Positive for hematuria. Negative for difficulty urinating, dysuria and flank pain. Musculoskeletal: Negative. Negative for back pain, neck pain and neck stiffness. Skin: Negative. Negative for color change. Neurological: Negative for dizziness, weakness and numbness. Psychiatric/Behavioral: Negative for behavioral problems and suicidal ideas. All other systems reviewed and are negative. Physical Exam: Physical Exam Vitals and nursing note reviewed. Constitutional: Appearance: Normal appearance. HENT: Head: Normocephalic. Cardiovascular: Rate and Rhythm: Normal rate and regular rhythm. Pulmonary: Effort: Pulmonary effort is normal. Breath sounds: Normal breath sounds. Abdominal: General: Abdomen is flat. Musculoskeletal: General: Normal range of motion. Skin: General: Skin is warm. Capillary Refill: Capillary refill takes less than 2 seconds. Neurological: General: No focal deficit present. Mental Status: He is alert. Vitals: Vitals Value Taken Time BP 140/81 09/01/23 0942 Temp 36.2 C (97.2 F) 09/01/23 09 Pulse 77 09/01/23 0942 Resp 18 09/01/23 0942 SpO2 95 % 09/01/23 09 BP Readings from Last 3 Encounters: 09/01/23 (!) 140/81 08/05/23 (!) 139/94 03/30/23 134/83 Labs: Lab Results Component Value Date WBC 8.4 04/28/2023 HGB 15.8 04/28/2023 HCT 46.8 04/28/2023 MCV 89.0 04/28/2023 PLT 266 04/28/2023 Lab Results Component Value Date NA 138 04/28/2023 K 4.6 04/28/2023 CL 104 04/28/2023 CO2 28 04/28/2023 BUN 14 04/28/2023 CREATININE 0.65 (L) 04/28/2023 GLUCOSE 105 (H) 04/28/2023 CALCIUM 8.8 04/28/2023 PROT 7.6 04/28/2023 ALKPHOS 54 04/28/2023 AST 38 04/28/2023 ALT 39 04/28/2023 EGFR >90.0 04/28/2023 Varun's Simple Cardiac Risk Index: VARUN'S SIMPLE CARDIAC RISK SCORE: 0 Interpretation: 0 Points Class I 0.5% 1 Point Class II 1.3% 2 Points Class III 3.6% 3+ Points Class IV 9.1% PAT Pain Score: 0/10 Postop Pain Management Plan (Pain consult ordered?): Pain consult not indicated at this time ? 03/18/2023 EKG: Encounter Date: 03/18/23 ECG 12 lead - CLINIC PERFORMED Narrative Sinus Rhythm WITHIN NORMAL LIMITS 2020 ECHO and EF: METS >4____ Electronically signed by: Juli Rosario APRN - FRONT END SOFTWARE ENGINEER Date: 09/01/2023 at 10:11 AM documented in this encounter [facility] 08-19-2023 Miscellaneous Notes LVM with surgery d/t/l and instructions and uro flow appt. Advised patient to call office with questions or concerns Lvm for Pt to see if 09/08/23 would work for Aquablation surgery. Requested Pt to return call. ----- Message from Baljit Hood MD sent at 08/06/2023 8:49 AM EDT ----- Schedule Prostate Aquablation - he prefers later this year. Plan overnight ACH documented in this encounter [facility] 08-19-2023 Telephone encounter Note LVM with surgery d/t/l and instructions and uro flow appt. Advised patient to call office with questions or concerns [facility] 08-09-2023 Telephone encounter Note Lvm for Pt to see if 09/08/23 would work for Aquablation surgery. Requested Pt to return call. [facility] 08-09-2023 Telephone encounter Note ----- Message from Baljit Hood MD sent at 08/06/2023 8:49 AM EDT ----- Schedule Prostate Aquablation - he prefers later this year. Plan overnight ACH [facility] 08-09-2023 Miscellaneous Notes Lvm for Pt to see if 09/08/23 would work for Aquablation surgery. Requested Pt to return call. ----- Message from Baljit Hood MD sent at 08/06/2023 8:49 AM EDT ----- Schedule Prostate Aquablation - he prefers later this year. Plan overnight ACH documented in this encounter [facility] 08-05-2023 History of Presen t illness Narrative Images from the original note were not included. Baljit Hood MD Office follow up Based on review of the 2020 CPT Evaluation and Management Guidelines, I have assigned what I feel to be the correct level of service based on the following : A medically appropriate history was obtained (this may or may not have included review of information obtained from the patient by other personnel). A medically appropriate physical examination was performed. Medical decision-making was performed concerning the diagnoses that were assessed, the clinical data that was reviewed (both in volume & complexity), and risk of morbidity of the conditions treated and therapies proposed. Baljit Hood M.D. PATIENT NAME: Khalida Tran DATE OF : 1960 TODAY'S DATE: 08/05/2023 CHIEF COMPLAINT: Chief Complaint Patient presents with Other Cystoscopy, Pt states that gross hematuria waxes and wanes last seen approx 2 weeks ago - hx gross hematuria Subjective: Mr. Tran is a 63 y.o. male who presents to the office for follow up of hematuria. Enlarged prostate . See below. He wants to undergo Aquablation to improve ability to empty bladder Review of Systems Past Medical History: Past Medical History: Diagnosis Date A-fib (CMS/HCC) (HCC) Cardioverted Anticoagulated 06/25/2021 BPH (benign prostatic hyperplasia) H/O exercise stress test Hyperlipidemia HARSHA (obstructive sleep apnea) does not wear C pap Machine Pneumonia Pre-diabetes Past Surgical History: Past Surgical History: Procedure Laterality Date ABLATION FOR ATRIAL FIBRILLATION (HISTORICAL) 11/30/[address] Sorensen APPENDECTOMY 12 years ago CARDIAC ELECTROPHYSIOLOGY PROCEDURE N/A 11/30/2022 Performed by Reyes Sorensen at [facility] Cardiac Cath/EP Lab COLONOSCOPY COLONOSCOPY 01/16/2019 HERNIA REPAIR INCISIONAL HERNIA REPAIR 09/04/2019 DR JOE PROSTATE BIOPSY 06/10/[address] desir TONSILLECTOMY (HISTORICAL) VENTRAL HERNIA REPAIR 7 years ago WISDOM TOOTH EXTRACTION Allergies: Patient has no known allergies. Social History: Issues identified in the H&P were noted Family History: Family History Problem Relation Name Age of Onset Alzheimer's disease Mother COPD Father Medications Prior to Admission medications Medication Sig Start Date End Date Taking? Authorizing Provider alfuzosin ER (Uroxatral) 10 MG 24 hr tablet Take 1 tablet (10 mg) by mouth daily. 10/29/22 Yes Baljit Hood MD ezetimibe-simvastatin (Vytorin) 10-40 MG tablet Take 1 tablet by mouth Nightly. 11/15/16 Yes Historical Provider, metFORMIN (Glucophage) 500 MG tablet TAKE 1 TABLET BY MOUTH at dinner meal 12/20/22 Yes Historical Provider, potassium citrate CR (Urocit-K-15) 15 mEq ER tablet Take 1 tablet (15 mEq) by mouth in the morning and 1 tablet (15 mEq) in the evening. Take with meals. 04/15/23 Yes Shelia Dorman APRN - FRONT END SOFTWARE ENGINEER Vitals: BP (!) 139/94 Pulse 99 Ht 5' 10 (1.778 m) Wt 236 lb (107 kg) BMI 33.86 kg/m Physical Exam Physical Exam Constitutional: Appearance: Normal appearance. HENT: Head: Normocephalic and atraumatic. Eyes: Extraocular Movements: Extraocular movements intact. Pulmonary: Effort: Pulmonary effort is normal. Musculoskeletal: General: Normal range of motion. Cervical back: Normal range of motion. Neurological: General: No focal deficit present. Mental Status: He is alert and oriented to person, place, and time. Psychiatric: Mood and Affect: Mood normal. Behavior: Behavior normal. Thought Content: Thought content normal. Judgment: Judgment normal. LABS: Lab Results Component Value Date PSA 14.099 (H) 04/28/2023 PSA 13.508 (H) 01/21/2023 PSA 9.240 (A) 02/03/2022 No results found for: TESTOSTERONE Lab Results Component Value Date WBC 8.4 04/28/2023 HGB 15.8 04/28/2023 HCT 46.8 04/28/2023 MCV 89.0 04/28/2023 PLT 266 04/28/2023 Lab Results Component Value Date GLUCOSE 105 (H) 04/28/2023 CALCIUM 8.8 04/28/2023 NA 138 04/28/2023 K 4.6 04/28/2023 CO2 28 04/28/2023 CL 104 04/28/2023 BUN 14 04/28/2023 CREATININE 0.65 (L) 04/28/2023 Radiology: Impression/Plan Khalida was seen today for other. Diagnoses and all orders for this visit: Benign prostatic hyperplasia with urinary obstruction (Primary) Follow up in about 4 weeks (around 09/02/2023) for outpatient surgery. Plan Aquablation All aspects of the procedure, along with the pros & cons of intervention and the potential associated risks & complications have been discussed with the patient. Questions have been answered, and informed consent has been obtained. Baljit Hood MD 08/06/23 8:47 AM 05/02/2023: CT: Multiple simple bilateral renal cysts, which warrant no follow-up imaging. Enlarged prostate. 04/26/2023. Smoked 1/2 ppd. Quit yesterday (on his birthday). Gross hematuria began after heavy yard work last week. Past history of stones. He takes K+ citrate, alfuzosin & oxybutynin. Urine Cx & cytology. CT. 03/30/2023: TP MRI-fusion Bx: benign 02/22/2023: MRI: 80 ml. New PI-RADS 4 nodule in the left base/mid gland. Multiple PI-RADS 3 nodules in the bilateral apex and mid gland which are unchanged in size. 01/25/2023: Cx: UG tl 12/10/2022: Prostate 1+. PSA slip 11/30/2022: ACH: A. Fib 03/12/2022: TP MRI-fusion Bx (57 ml): EMILI RPM, LPM ([facility]) 11/27/2021: IPSS 13,2. Feels well. Prostate 1+. Options discussed. Prefers TP at [place], but only if absolutely necessary. Cx: NG. Wishes to repeat PSA in January. Retires in April. If next PSA doesn't drop completely back to previous level, then proceed to TP fusion Bx 11/02/2021: See Call 10/20/2021: Cx: UG tl 10/02/2021: Cx: 50-90K Enterococcus 10/02/2021: Prostate 1+. Cx, PSA, meds refilled. Discussed pros & cons of fusion Bx 09/29/2021: Refilled oxybutynin & alfuzosin 08/12/2021: Cx: NG 06/29/2021: MRI: 71 ml. PI-RADS 4 nodules in the bilateral apex and right apex/mid gland. Additional PI-RADS 3 nodule in the left mid gland. 07/02/2021: Note from Adeel Quiroga to Mae Parsons: Cleared for Prostate Biopsy. Stop Apixaban 3 days prior to the procedure and restart 3 days after. 12/27/2020: 24 hr. urine: UA 858 10/22/2020: VV 09/29/2020: Cystoscopy, evacuation bladder calculi. Uric acid 09/12/2020: CT: Bilateral renal cortical cysts. Small left parapelvic cyst. Numerous small bladder stones. 06/10/2020: VV: Hematuria. Will check CT, then possibly repeat MRI 04/01/2020: VV. 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 Prostate hypertrophy. Exophytic hematoma of the right seminal vesicle. Benign-appearing cyst of the right acetabulum. 10/25/2018: MRI-fusion prostate biopsies (49 ml): benign 10/03/2018: MRI prostate: Four PI-RADS 3 lesions 06/10/2016: Bx ([facility]): benign 01/21/2023: PSA: 13.508 w/ 18% free PSA 12/22/2022: PSA: 13.000 w/ 18% free PSA 02/03/2022: PSA: 9.240 10/30/2021: PSA: 9.821 05/27/2021: PSA: 11.98 (PCP) 11/17/2020: PSA: 8.209 09/10/2020: PSA: 7.690 01/18/2020: PSA: 9.000, 16 % free 12/13/2019: PSA: 8.330 07/10/2019: PSA: 8.260 02/18/2019: PSA: 6.300 01/09/2019: PSA: 7.970 09/07/2018: PSA: 8.686 05/20/2016: PSA: 4.400 documented in this encounter [facility] 06-28-2023 Telephone encounter Note See HiMom message. Closing. [facility] 06-28-2023 Miscellaneous Notes See Crovatt message. Closing. Called patient and left voicemail advising patient to call back if wishes to reschedule. SB 06/27/23 10:10 am. Patient was scheduled for office cystoscopy 06/24/2023 in [place]. Please contact the patient and see if he wishes to reschedule the office cystoscopy (being done to complete the work-up of the gross hematuria). documented in this encounter [facility] 06-27-2023 Telephone encounter Note Called patient and left voicemail advising patient to call back if wishes to reschedule. SB 06/27/23 10:10 am. [facility] 06-27-2023 Miscellaneous Notes Called patient and left voicemail advising patient to call back if wishes to reschedule. SB 06/27/23 10:10 am. Patient was scheduled for office cystoscopy 06/24/2023 in [place]. Please contact the patient and see if he wishes to reschedule the office cystoscopy (being done to complete the work-up of the gross hematuria). documented in this encounter [facility] 06-24-2023 Telephone encounter Note Patient was scheduled for office cystoscopy 06/24/2023 in [place]. Please contact the patient and see if he wishes to reschedule the office cystoscopy (being done to complete the work-up of the gross hematuria). [facility] 03-30-2023 Miscellaneous Notes [facility] - Patient Pre-procedure Instructions Sleep Apnea: If yes, please bring CPAP machine May shower/brush teeth. Leave valuables/jewelry at home. No makeup, lotion, powder, deodorant or body sprays. No contact lenses No makeup, contact lenses, piercings, or dark nail french No solid food after midnight before procedure. Clear liquids only - up to 2 hours prior to your arrival time (water, clear juice, Gatorade, coffee/tea with no milk/sugar, no mints gum or candy If of age, you may need to undergo a test Medications to take the morning of surgery Take the following medications: na Do not take the following medications: vitamins, nsaids No Motrin, ibuprofen or Advil in 24 hours prior to surgery, longer if directed by your surgeon No Aleve or Naprosyn for 3 days prior to surgery or longer if instructed by your surgeon. If you take blood thinners or aspirin, follow instructions given to you by your surgeon You may take your prescription pain medication, you may take Tylenol for pain. Do not use/smoke THC or drink alcohol in the 24 hours prior to your arrival time. Please Bring your Professor Of [employer] Studies's license/photo ID, insurance card, eye drops/sunglasses, inhalers if applicable If you have a Medical Power of Embroidery Worker, living will, or an advanced directive, please bring a copy with you. We are required to resuscitate and transfer you to the hospital along with your directive. Transrectal ultrasound and trans-perineal MRI-fusion prostate biopsy Procedure Note Pre-operative Diagnosis: Elevated PSA Post-operative Diagnosis: Elevated PSA Surgeon: Baljit Hood M.D. Sausage Wrapper: none Anesthesia: General Specimens: Prostate biopsies (as detailed below) Estimated blood loss: Minimal Special Medications: Ancef Procedure Details: The risks, benefits, complications, treatment options, and expected outcomes were discussed with the patient. The patient concurred with the proposed plan, giving informed consent. A proper time out was performed before the procedure started. Preoperative intravenous antibiotics were administered without incident Under general anesthesia, in the dorsal lithotomy position, the patient was prepped for the procedure. Digital rectal exam reveals no obvious rectal masses. Bowel preparation was felt to be adequate. The scrotum was secured up away from the perineum. If necessary, excess hair was trimmed away from the perineum. The perineum was prepped with Betadine. The transrectal ultrasound probe was inserted, and complete imaging of the prostate was performed in transverse and sagittal scanning. The seminal vesicles had normal architecture. The lateral prostatic margins were intact. The prostate had the following dimensions: WIDTH (cm.): 5.43 HEIGHT (cm.): 4.30 LENGTH (cm.): 5.02 VOLUME (ml): 61 PSA density: 0.22 The MRI study was active in the Uronav unit. Image acquisition and sweep was performed without incident. Image registration and segmentation was performed without incident. Proper contouring and identification of previously-identified regions of interest was performed without incident. Elastic deformation was used to further align the 2 images. The Precision-Point apparatus was secured to the ultrasound probe, and the directional needle was placed into the appropriate level to help align the biopsy needle towards the target. Utilizing the ultrasound and MRI as a guidance, multiple biopsies were taken from the prostate regions with the spring-loaded biopsy needle. The MRI [id number] were included in the corresponding regions as described. RIGHT ANTERIOR LATERAL : 2 cores -- MRI [id number] #2 (2 CORES TAKEN) RIGHT ANTERIOR MEDIAL -- MRI [id number] #3 (2 CORES TAKEN) LEFT ANTERIOR MEDIAL -- MRI [id number] #4 (2 CORES TAKEN) LEFT ANTERIOR LATERAL : 2 cores RIGHT POSTERIOR LATERAL : 2 cores RIGHT POSTERIOR MEDIAL -- MRI [id number] #1 (2 CORES TAKEN) LEFT POSTERIOR MEDIAL -- MRI [id number] #6 (2 CORES TAKEN) LEFT POSTERIOR LATERAL -- MRI [id number] #5 (2 CORES TAKEN) At the end of the procedure, the transrectal probe was withdrawn. Direct compression was held over the perineum for several minutes, and excellent hemostasis was in place. The patient tolerated the procedure, and was awakened from general anesthesia without incident. He was transported to the recovery area in stable condition I will contact the patient when the final histology report is completed Baljit Hood M.D. 03/30/2023 PAST UROLOGIC HISTORY : 02/22/2023: MRI: 80 ml. New PI-RADS 4 nodule in the left base/mid gland. Multiple PI-RADS 3 nodules in the bilateral apex and mid gland which are unchanged in size. 11/30/2022: [facility]: A. Fib 03/12/2022: TP MRI-fusion Bx (57 ml): EMILI RPM, LPM ([facility]) 11/27/2021: IPSS 13,2. Feels well. Prostate 1+. Options discussed. Prefers TP at [place], but only if absolutely necessary. Cx: NG. Wishes to repeat PSA in January. Retires in April. If next PSA doesn't drop completely back to previous level, then proceed to TP fusion Bx 06/29/2021: MRI: 71 ml. PI-RADS 4 nodules in the bilateral apex and right apex/mid gland. Additional PI-RADS 3 nodule in the left mid gland. 07/02/2021: Note from Adeel Quiroga to Mae Parsons: Cleared for Prostate Biopsy. Stop Apixaban 3 days prior to the procedure and restart 3 days after. 09/29/2020: Cystoscopy, evacuation bladder calculi. Uric acid 03/25/2020: See Call: no new SCOOBY on re-read 02/01/2020: MRI ([facility]): Suspect neoplastic focus spanning the right posterior upper and middle sextants. Prostate hypertrophy. Exophytic hematoma of the right seminal vesicle. Benign-appearing cyst of the right acetabulum. 10/25/2018: MRI-fusion prostate biopsies (49 ml): benign 10/03/2018: MRI prostate: Four PI-RADS 3 lesions 06/10/2016: Bx ([facility]): benign 01/21/2023: PSA: 13.508 w/ 18% free PSA 12/22/2022: PSA: 13.000 w/ 18% free PSA 02/03/2022: PSA: 9.240 10/30/2021: PSA: 9.821 05/27/2021: PSA: 11.98 (PCP) 11/17/2020: PSA: 8.209 09/10/2020: PSA: 7.690 01/18/2020: PSA: 9.000, 16 % free 12/13/2019: PSA: 8.330 07/10/2019: PSA: 8.260 02/18/2019: PSA: 6.300 01/09/2019: PSA: 7.970 09/07/2018: PSA: 8.686 05/20/2016: PSA: 4.400 Discharged to home . Accompanied by , Janki . AVS and education reviewed with patient and Janki, both verbalized understanding. Mode of transportation private vehicle Belongings sent. documented in this encounter [facility] 03-30-2023 Note Formatting of this n ote might be different from the original. [facility] - Patient Pre-procedure Instructions Sleep Apnea: If yes, please bring CPAP machine May shower/brush teeth. Leave valuables/jewelry at home. No makeup, lotion, powder, deodorant or body sprays. No contact lenses No makeup, contact lenses, piercings, or dark nail french No solid food after midnight before procedure. Clear liquids only - up to 2 hours prior to your arrival time (water, clear juice, Gatorade, coffee/tea with no milk/sugar, no mints gum or candy If of age, you may need to undergo a test Medications to take the morning of surgery Take the following medications: na Do not take the following medications: vitamins, nsaids No Motrin, ibuprofen or Advil in 24 hours prior to surgery, longer if directed by your surgeon No Aleve or Naprosyn for 3 days prior to surgery or longer if instructed by your surgeon. If you take blood thinners or aspirin, follow instructions given to you by your surgeon You may take your prescription pain medication, you may take Tylenol for pain. Do not use/smoke THC or drink alcohol in the 24 hours prior to your arrival time. Please Bring your Professor Of [employer] Studies's license/photo ID, insurance card, eye drops/sunglasses, inhalers if applicable If you have a Medical Power of Embroidery Worker, living will, or an advanced directive, please bring a copy with you. We are required to resuscitate and transfer you to the hospital along with your directive. [facility] 03-30-2023 Note Formatting of this n ote might be different from the original. [facility] - Patient Pre-procedure Instructions Sleep Apnea: If yes, please bring CPAP machine May shower/brush teeth. Leave valuables/jewelry at home. No makeup, lotion, powder, deodorant or body sprays. No contact lenses No makeup, contact lenses, piercings, or dark nail french No solid food after midnight before procedure. Clear liquids only - up to 2 hours prior to your arrival time (water, clear juice, Gatorade, coffee/tea with no milk/sugar, no mints gum or candy If of age, you may need to undergo a test Medications to take the morning of surgery Take the following medications: na Do not take the following medications: vitamins, nsaids No Motrin, ibuprofen or Advil in 24 hours prior to surgery, longer if directed by your surgeon No Aleve or Naprosyn for 3 days prior to surgery or longer if instructed by your surgeon. If you take blood thinners or aspirin, follow instructions given to you by your surgeon You may take your prescription pain medication, you may take Tylenol for pain. Do not use/smoke THC or drink alcohol in the 24 hours prior to your arrival time. Please Bring your Professor Of [employer] Studies's license/photo ID, insurance card, eye drops/sunglasses, inhalers if applicable If you have a Medical Power of Embroidery Worker, living will, or an advanced directive, please bring a copy with you. We are required to resuscitate and transfer you to the hospital along with your directive. [facility] 03-30-2023 Hospital Discharg e instructions Baljit Hood MD - 03/30/2023 8:34 AM EDT Home Going Instructions for Trans-perineal MRI Biopsy What can I expect after the biopsy? After the biopsy it is normal to experience the following sensations or symptoms: Burning with urination - It is normal to feel burning for the first 24 hours after. It may continue for up to 3 days Frequent urination - This should gradually improve over the first 24-36 hours. Blood in the urine - It is normal to have slight red tinged urine. Blood in semen - This may persist for up to 6 weeks after the procedure. How should I care for myself after the biopsy? Drink plenty of fluids Resume your normal diet Avoid strenuous and jarring exercise such as jogging, heavy lifting, golfing, and bike riding for 7 days. Avoid sexual activity for 7 days Apply ice to the perineal area for discomfort Take extra strength Tylenol for discomfort Do not drive a vehicle or operate machinery for 24 hours following general anesthesia. Do not drink alcohol or take sleeping medications. When would I need to call my doctor? Call Dr. Hood's office at [phone] if you have any of the following signs and symptoms that could indicate infection: Persistent urinary frequency or burning that does not resolve after a few days Fever of 101 or greater Chills Urine that is allen-red or has clots in it Rectal bleeding with clots or pure bloody stool Inability to urinate following the biopsy Severe pain that is not relieved by medication Persistent nausea or vomiting If any of these signs/symptoms occur and you are unable to reach Dr. Hood or if it is after normal office hours, or if there is any medical emergency please call 911 or proceed to your nearest emergency room. I understand the home-going instructions which have been fully explained to me. Responsible Person or Patient: Nurse: Date: documented in this encounter [facility] 03-30-2023 History and physical note [facility] Comprehensive History and Physical Name: Khalida Tran : 1960 (Age-62 y.o.) Date of evaluation: 03/29/2023 Admitting Diagnosis: Elevated prostate specific antigen (PSA) [R97.20] Physician: Sana No Known Allergies HPI: 62-year-old man with elevated PSA Severity: Moderate Duration: >one year Review of systems negative except for items below: Past Medical History: Diagnosis Date A-fib (CMS/HCC) ([facility]) Cardioverted Anticoagulated 06/25/2021 BPH (benign prostatic hyperplasia) H/O exercise stress test Hyperlipidemia HARSHA (obstructive sleep apnea) does not wear C pap Machine Pneumonia Pre-diabetes Patient Active Problem List Diagnosis Date Noted 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 Paroxysmal atrial fibrillation (CMS/HCC) (HCC) 09/28/2022 Acute cystitis without hematuria 10/06/2021 Urgency of urination 08/12/2021 Smoker 06/25/2021 Class 1 obesity due to excess calories without serious comorbidity with body mass index (BMI) of 33.0 to 33.9 in adult 06/25/2021 Mixed hyperlipidemia 06/25/2021 HARSHA (obstructive sleep apnea) 06/25/2021 Hematuria, gross 09/29/2020 Calculus, bladder 09/29/2020 Urge incontinence 07/13/2018 Frequency of urination 07/13/2018 Hypertrophy of prostate with urinary obstruction 07/13/2018 Elevated PSA 07/13/2018 Elevated prostate specific antigen (PSA) 05/03/2017 Nocturia 05/03/2017 Enlarged prostate with lower urinary tract symptoms (LUTS) 05/03/2017 Ventral hernia without obstruction or gangrene 02/01/2017 Past Surgical History: Procedure Laterality Date ABLATION FOR ATRIAL FIBRILLATION (HISTORICAL) 11/30/[address] Sorensen APPENDECTOMY 12 years ago CARDIAC ELECTROPHYSIOLOGY PROCEDURE N/A 11/30/2022 Performed by Reyes Sorensen at [facility] Cardiac Cath/EP Lab COLONOSCOPY COLONOSCOPY 01/16/2019 HERNIA REPAIR INCISIONAL HERNIA REPAIR 09/04/2019 DR JOE PROSTATE BIOPSY 06/10/[address] desir TONSILLECTOMY (HISTORICAL) VENTRAL HERNIA REPAIR 7 years ago WISDOM TOOTH EXTRACTION Family History Problem Relation Name Age of Onset Alzheimer's disease Mother COPD Father Medications: Prior to Admission medications Medication Sig Start Date End Date Taking? Authorizing Provider alfuzosin ER (Uroxatral) 10 MG 24 hr tablet Take 1 tablet (10 mg) by mouth daily. 10/29/22 Yes Baljit Hood MD ezetimibe-simvastatin (Vytorin) 10-40 MG tablet Take 1 tablet by mouth Nightly. 11/15/16 Yes Historical Provider, oxybutynin XL (Ditropan-XL) 10 MG 24 hr tablet Take 1 tablet (10 mg) by mouth daily. Take 1 tablet by mouth in the morning. 10/29/22 Yes Baljit Hood MD potassium citrate CR (Urocit-K-15) 15 mEq ER tablet TAKE 1 TABLET BY MOUTH TWICE DAILY with meals 01/10/23 Yes Carroll Arango APRN - CL[facility] citric acid-potassium citrate (Polycitra) 1100-334 MG/5ML solution Take by mouth. 10mg tablet twice a day. Pt no longer takes as a solution. 10/02/21 Historical Provider, metFORMIN (Glucophage) 500 MG tablet TAKE 1 TABLET BY MOUTH at dinner meal 12/20/22 Historical Provider, There were no vitals taken for this visit. Physical Examination: Constitutional: No apparent distress, well nourished and in stable condition. Cardiac: Regular rate and rhythm Abdomen: Soft and nonacute Pulmonary: Clear bilaterally and no wheezing Neuro: Moves extremities X4 with no tremors HEENT: No gross cranial nerve defects and anicteric sclera Skin: Skin warm and dry with no visible rashes Vascular: Adequate perfusion of extremities with no cyanosis Psych: Alert and oriented x3 with appropriate affect Lymphatics: No swelling of arms/hands with no pedal edema Neck: FROM with no JVD Additional Notes:None DATA: Pertinent laboratory data personally reviewed by me. Radiology Review: Pertinent images personally reviewed by me. After review of the medical history and physical assessment, medications, allergies, patient's current medical condition, and labs, this patient is at acceptable risk for the planned surgical procedure and anesthestic at this surgical facility.} Impression Elevated PSA Plan Transrectal ultrasound and trans-perineal MRI-fusion prostate biopsy All aspects of the procedure, along with the pros & cons of intervention and the potential associated risks & complications have been discussed with the patient. Questions have been answered, and informed consent has been obtained. Electronically signed by: Baljit Hood MD, 03/29/2023 at 7:44 PM [facility] 03-30-2023 History and physical note [facility] Comprehensive History and Physical Name: Khalida Tran : 1960 (Age-62 y.o.) Date of evaluation: 03/29/2023 Admitting Diagnosis: Elevated prostate specific antigen (PSA) [R97.20] Physician: Sana No Known Allergies HPI: 62-year-old man with elevated PSA Severity: Moderate Duration: >one year Review of systems negative except for items below: Past Medical History: Diagnosis Date A-fib (CMS/HCC) (HCC) Cardioverted Anticoagulated 06/25/2021 BPH (benign prostatic hyperplasia) H/O exercise stress test Hyperlipidemia HARSHA (obstructive sleep apnea) does not wear C pap Machine Pneumonia Pre-diabetes Patient Active Problem List Diagnosis Date Noted 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 Paroxysmal atrial fibrillation (CMS/HCC) (HCC) 09/28/2022 Acute cystitis without hematuria 10/06/2021 Urgency of urination 08/12/2021 Smoker 06/25/2021 Class 1 obesity due to excess calories without serious comorbidity with body mass index (BMI) of 33.0 to 33.9 in adult 06/25/2021 Mixed hyperlipidemia 06/25/2021 HARSHA (obstructive sleep apnea) 06/25/2021 Hematuria, gross 09/29/2020 Calculus, bladder 09/29/2020 Urge incontinence 07/13/2018 Frequency of urination 07/13/2018 Hypertrophy of prostate with urinary obstruction 07/13/2018 Elevated PSA 07/13/2018 Elevated prostate specific antigen (PSA) 05/03/2017 Nocturia 05/03/2017 Enlarged prostate with lower urinary tract symptoms (LUTS) 05/03/2017 Ventral hernia without obstruction or gangrene 02/01/2017 Past Surgical History: Procedure Laterality Date ABLATION FOR ATRIAL FIBRILLATION (HISTORICAL) 11/30/[address] Sorensen APPENDECTOMY 12 years ago CARDIAC ELECTROPHYSIOLOGY PROCEDURE N/A 11/30/2022 Performed by Reyes Sorensen at [facility] Cardiac Cath/EP Lab COLONOSCOPY COLONOSCOPY 01/16/2019 HERNIA REPAIR INCISIONAL HERNIA REPAIR 09/04/2019 DR JOE PROSTATE BIOPSY 06/10/[address] desir TONSILLECTOMY (HISTORICAL) VENTRAL HERNIA REPAIR 7 years ago WISDOM TOOTH EXTRACTION Family History Problem Relation Name Age of Onset Alzheimer's disease Mother COPD Father Medications: Prior to Admission medications Medication Sig Start Date End Date Taking? Authorizing Provider alfuzosin ER (Uroxatral) 10 MG 24 hr tablet Take 1 tablet (10 mg) by mouth daily. 10/29/22 Yes Baljit Hood MD ezetimibe-simvastatin (Vytorin) 10-40 MG tablet Take 1 tablet by mouth Nightly. 11/15/16 Yes Historical Provider, oxybutynin XL (Ditropan-XL) 10 MG 24 hr tablet Take 1 tablet (10 mg) by mouth daily. Take 1 tablet by mouth in the morning. 10/29/22 Yes Baljit Hood MD potassium citrate CR (Urocit-K-15) 15 mEq ER tablet TAKE 1 TABLET BY MOUTH TWICE DAILY with meals 01/10/23 Yes Carroll Arango APRN - CLARITZA citric acid-potassium citrate (Polycitra) 1100-334 MG/5ML solution Take by mouth. 10mg tablet twice a day. Pt no longer takes as a solution. 10/02/21 Historical Provider, metFORMIN (Glucophage) 500 MG tablet TAKE 1 TABLET BY MOUTH at dinner meal 12/20/22 Historical Provider, There were no vitals taken for this visit. Physical Examination: Constitutional: No apparent distress, well nourished and in stable condition. Cardiac: Regular rate and rhythm Abdomen: Soft and nonacute Pulmonary: Clear bilaterally and no wheezing Neuro: Moves extremities X4 with no tremors HEENT: No gross cranial nerve defects and anicteric sclera Skin: Skin warm and dry with no visible rashes Vascular: Adequate perfusion of extremities with no cyanosis Psych: Alert and oriented x3 with appropriate affect Lymphatics: No swelling of arms/hands with no pedal edema Neck: FROM with no JVD Additional Notes:None DATA: Pertinent laboratory data personally reviewed by me. Radiology Review: Pertinent images personally reviewed by me. After review of the medical history and physical assessment, medications, allergies, patient's current medical condition, and labs, this patient is at acceptable risk for the planned surgical procedure and anesthestic at this surgical facility.} Impression Elevated PSA Plan Transrectal ultrasound and trans-perineal MRI-fusion prostate biopsy All aspects of the procedure, along with the pros & cons of intervention and the potential associated risks & complications have been discussed with the patient. Questions have been answered, and informed consent has been obtained. Electronically signed by: Baljit Hood MD, 03/29/2023 at 7:44 PM Interval History and Physical I have interviewed and examined the patient and reviewed the recent History and Physical. There have been no changes to the recent H&P documentation. The patient understands the planned operation and its associated risks and benefits and agrees to proceed. The surgical consent form has been signed. BP 133/84 Pulse 84 Temp 37.1 C (98.7 F) (Temporal) Resp 14 SpO2 96% Impression: Elevated PSA Plan: Trans-perineal MRI-fusion prostate biopsies All aspects of the procedure, along with the pros & cons of intervention and the potential associated risks & complications have been discussed with the patient, any questions have been answered, and informed consent has been obtained. Source Note - Baljit Hood MD - 03/30/2023 8:30 AM EDT [facility] Comprehensive History and Physical Name: Khalida Tran : 1960 (Age-62 y.o.) Date of evaluation: 03/29/2023 Admitting Diagnosis: Elevated prostate specific antigen (PSA) [R97.20] Physician: Sana No Known Allergies HPI: 62-year-old man with elevated PSA Severity: Moderate Duration: >one year Review of systems negative except for items below: Past Medical History: Diagnosis Date A-fib (CMS/HCC) ([facility]) Cardioverted Anticoagulated 06/25/2021 BPH (benign prostatic hyperplasia) H/O exercise stress test Hyperlipidemia HARSHA (obstructive sleep apnea) does not wear C pap Machine Pneumonia Pre-diabetes Patient Active Problem List Diagnosis Date Noted 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 Paroxysmal atrial fibrillation (CMS/HCC) ([facility]) 09/28/2022 Acute cystitis without hematuria 10/06/2021 Urgency of urination 08/12/2021 Smoker 06/25/2021 Class 1 obesity due to excess calories without serious comorbidity with body mass index (BMI) of 33.0 to 33.9 in adult 06/25/2021 Mixed hyperlipidemia 06/25/2021 HARSHA (obstructive sleep apnea) 06/25/2021 Hematuria, gross 09/29/2020 Calculus, bladder 09/29/2020 Urge incontinence 07/13/2018 Frequency of urination 07/13/2018 Hypertrophy of prostate with urinary obstruction 07/13/2018 Elevated PSA 07/13/2018 Elevated prostate specific antigen (PSA) 05/03/2017 Nocturia 05/03/2017 Enlarged prostate with lower urinary tract symptoms (LUTS) 05/03/2017 Ventral hernia without obstruction or gangrene 02/01/2017 Past Surgical History: Procedure Laterality Date ABLATION FOR ATRIAL FIBRILLATION (HISTORICAL) 11/30/[address] Sorensen APPENDECTOMY 12 years ago CARDIAC ELECTROPHYSIOLOGY PROCEDURE N/A 11/30/2022 Performed by Reyes Sorensen at [facility] Cardiac Cath/EP Lab COLONOSCOPY COLONOSCOPY 01/16/2019 HERNIA REPAIR INCISIONAL HERNIA REPAIR 09/04/2019 DR JOE PROSTATE BIOPSY 06/10/[address] desir TONSILLECTOMY (HISTORICAL) VENTRAL HERNIA REPAIR 7 years ago WISDOM TOOTH EXTRACTION Family History Problem Relation Name Age of Onset Alzheimer's disease Mother COPD Father Medications: Prior to Admission medications Medication Sig Start Date End Date Taking? Authorizing Provider alfuzosin ER (Uroxatral) 10 MG 24 hr tablet Take 1 tablet (10 mg) by mouth daily. 10/29/22 Yes Baljit Hood MD ezetimibe-simvastatin (Vytorin) 10-40 MG tablet Take 1 tablet by mouth Nightly. 11/15/16 Yes Historical ProviderMD oxybutynin XL (Ditropan-XL) 10 MG 24 hr tablet Take 1 tablet (10 mg) by mouth daily. Take 1 tablet by mouth in the morning. 10/29/22 Yes Baljit Hood MD potassium citrate CR (Urocit-K-15) 15 mEq ER tablet TAKE 1 TABLET BY MOUTH TWICE DAILY with meals 01/10/23 Yes Carroll Arango APRN - CLARITZA citric acid-potassium citrate (Polycitra) 1100-334 MG/5ML solution Take by mouth. 10mg tablet twice a day. Pt no longer takes as a solution. 10/02/21 Historical Provider, metFORMIN (Glucophage) 500 MG tablet TAKE 1 TABLET BY MOUTH at dinner meal 12/20/22 Historical Provider, There were no vitals taken for this visit. Physical Examination: Constitutional: No apparent distress, well nourished and in stable condition. Cardiac: Regular rate and rhythm Abdomen: Soft and nonacute Pulmonary: Clear bilaterally and no wheezing Neuro: Moves extremities X4 with no tremors HEENT: No gross cranial nerve defects and anicteric sclera Skin: Skin warm and dry with no visible rashes Vascular: Adequate perfusion of extremities with no cyanosis Psych: Alert and oriented x3 with appropriate affect Lymphatics: No swelling of arms/hands with no pedal edema Neck: FROM with no JVD Additional Notes:None DATA: Pertinent laboratory data personally reviewed by me. Radiology Review: Pertinent images personally reviewed by me. After review of the medical history and physical assessment, medications, allergies, patient's current medical condition, and labs, this patient is at acceptable risk for the planned surgical procedure and anesthestic at this surgical facility.} Impression Elevated PSA Plan Transrectal ultrasound and trans-perineal MRI-fusion prostate biopsy All aspects of the procedure, along with the pros & cons of intervention and the potential associated risks & complications have been discussed with the patient. Questions have been answered, and informed consent has been obtained. Electronically signed by: Baljit Hood MD, 03/29/2023 at 7:44 PM documented in this encounter [facility] 03-30-2023 Attending History and physical note Interval History and Physical I have interviewed and examined the patient and reviewed the recent History and Physical. There have been no changes to the recent H&P documentation. The patient understands the planned operation and its associated risks and benefits and agrees to proceed. The surgical consent form has been signed. BP 133/84 Pulse 84 Temp 37.1 C (98.7 F) (Temporal) Resp 14 SpO2 96% Impression: Elevated PSA Plan: Trans-perineal MRI-fusion prostate biopsies All aspects of the procedure, along with the pros & cons of intervention and the potential associated risks & complications have been discussed with the patient, any questions have been answered, and informed consent has been obtained. Source Note - Baljit Hood MD - 03/30/2023 8:30 AM EDT [facility] Comprehensive History and Physical Name: Khalida Tran : 1960 (Age-62 y.o.) Date of evaluation: 03/29/2023 Admitting Diagnosis: Elevated prostate specific antigen (PSA) [R97.20] Physician: Sana No Known Allergies HPI: 62-year-old man with elevated PSA Severity: Moderate Duration: >one year Review of systems negative except for items below: Past Medical History: Diagnosis Date A-fib (CMS/HCC) (HCC) Cardioverted Anticoagulated 06/25/2021 BPH (benign prostatic hyperplasia) H/O exercise stress test Hyperlipidemia HARSHA (obstructive sleep apnea) does not wear C pap Machine Pneumonia Pre-diabetes Patient Active Problem List Diagnosis Date Noted 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 Paroxysmal atrial fibrillation (CMS/HCC) (HCC) 09/28/2022 Acute cystitis without hematuria 10/06/2021 Urgency of urination 08/12/2021 Smoker 06/25/2021 Class 1 obesity due to excess calories without serious comorbidity with body mass index (BMI) of 33.0 to 33.9 in adult 06/25/2021 Mixed hyperlipidemia 06/25/2021 HARSHA (obstructive sleep apnea) 06/25/2021 Hematuria, gross 09/29/2020 Calculus, bladder 09/29/2020 Urge incontinence 07/13/2018 Frequency of urination 07/13/2018 Hypertrophy of prostate with urinary obstruction 07/13/2018 Elevated PSA 07/13/2018 Elevated prostate specific antigen (PSA) 05/03/2017 Nocturia 05/03/2017 Enlarged prostate with lower urinary tract symptoms (LUTS) 05/03/2017 Ventral hernia without obstruction or gangrene 02/01/2017 Past Surgical History: Procedure Laterality Date ABLATION FOR ATRIAL FIBRILLATION (HISTORICAL) 11/30/[address] Sorensen APPENDECTOMY 12 years ago CARDIAC ELECTROPHYSIOLOGY PROCEDURE N/A 11/30/2022 Performed by Reyes Sorensen at [facility] Cardiac Cath/EP Lab COLONOSCOPY COLONOSCOPY 01/16/2019 HERNIA REPAIR INCISIONAL HERNIA REPAIR 09/04/2019 DR JOE PROSTATE BIOPSY 06/10/[address] desir TONSILLECTOMY (HISTORICAL) VENTRAL HERNIA REPAIR 7 years ago WISDOM TOOTH EXTRACTION Family History Problem Relation Name Age of Onset Alzheimer's disease Mother COPD Father Medications: Prior to Admission medications Medication Sig Start Date End Date Taking? Authorizing Provider alfuzosin ER (Uroxatral) 10 MG 24 hr tablet Take 1 tablet (10 mg) by mouth daily. 10/29/22 Yes Baljit Hood MD ezetimibe-simvastatin (Vytorin) 10-40 MG tablet Take 1 tablet by mouth Nightly. 11/15/16 Yes Historical Provider, oxybutynin XL (Ditropan-XL) 10 MG 24 hr tablet Take 1 tablet (10 mg) by mouth daily. Take 1 tablet by mouth in the morning. 10/29/22 Yes Baljit Hodo MD potassium citrate CR (Urocit-K-15) 15 mEq ER tablet TAKE 1 TABLET BY MOUTH TWICE DAILY with meals 01/10/23 Yes Carroll Arango APRN - CLARITZA citric acid-potassium citrate (Polycitra) 1100-334 MG/5ML solution Take by mouth. 10mg tablet twice a day. Pt no longer takes as a solution. 10/02/21 Historical Provider, metFORMIN (Glucophage) 500 MG tablet TAKE 1 TABLET BY MOUTH at dinner meal 12/20/22 Historical Provider, There were no vitals taken for this visit. Physical Examination: Constitutional: No apparent distress, well nourished and in stable condition. Cardiac: Regular rate and rhythm Abdomen: Soft and nonacute Pulmonary: Clear bilaterally and no wheezing Neuro: Moves extremities X4 with no tremors HEENT: No gross cranial nerve defects and anicteric sclera Skin: Skin warm and dry with no visible rashes Vascular: Adequate perfusion of extremities with no cyanosis Psych: Alert and oriented x3 with appropriate affect Lymphatics: No swelling of arms/hands with no pedal edema Neck: FROM with no JVD Additional Notes:None DATA: Pertinent laboratory data personally reviewed by me. Radiology Review: Pertinent images personally reviewed by me. After review of the medical history and physical assessment, medications, allergies, patient's current medical condition, and labs, this patient is at acceptable risk for the planned surgical procedure and anesthestic at this surgical facility.} Impression Elevated PSA Plan Transrectal ultrasound and trans-perineal MRI-fusion prostate biopsy All aspects of the procedure, along with the pros & cons of intervention and the potential associated risks & complications have been discussed with the patient. Questions have been answered, and informed consent has been obtained. Electronically signed by: Baljit Hood MD, 03/29/2023 at 7:44 PM [facility] 03-30-2023 Note Formatting of this n ote might be different from the original. Transrectal ultrasound and trans-perineal MRI-fusion prostate biopsy Procedure Note Pre-operative Diagnosis: Elevated PSA Post-operative Diagnosis: Elevated PSA Surgeon: Baljit Hood M.D. Sausage Wrapper: none Anesthesia: General Specimens: Prostate biopsies (as detailed below) Estimated blood loss: Minimal Special Medications: Ancef Procedure Details: The risks, benefits, complications, treatment options, and expected outcomes were discussed with the patient. The patient concurred with the proposed plan, giving informed consent. A proper time out was performed before the procedure started. Preoperative intravenous antibiotics were administered without incident Under general anesthesia, in the dorsal lithotomy position, the patient was prepped for the procedure. Digital rectal exam reveals no obvious rectal masses. Bowel preparation was felt to be adequate. The scrotum was secured up away from the perineum. If necessary, excess hair was trimmed away from the perineum. The perineum was prepped with Betadine. The transrectal ultrasound probe was inserted, and complete imaging of the prostate was performed in transverse and sagittal scanning. The seminal vesicles had normal architecture. The lateral prostatic margins were intact. The prostate had the following dimensions: WIDTH (cm.): 5.43 HEIGHT (cm.): 4.30 LENGTH (cm.): 5.02 VOLUME (ml): 61 PSA density: 0.22 The MRI study was active in the Uronav unit. Image acquisition and sweep was performed without incident. Image registration and segmentation was performed without incident. Proper contouring and identification of previously-identified regions of interest was performed without incident. Elastic deformation was used to further align the 2 images. The Precision-Point apparatus was secured to the ultrasound probe, and the directional needle was placed into the appropriate level to help align the biopsy needle towards the target. Utilizing the ultrasound and MRI as a guidance, multiple biopsies were taken from the prostate regions with the spring-loaded biopsy needle. The MRI [id number] were included in the corresponding regions as described. RIGHT ANTERIOR LATERAL : 2 cores -- MRI [id number] #2 (2 CORES TAKEN) RIGHT ANTERIOR MEDIAL -- MRI [id number] #3 (2 CORES TAKEN) LEFT ANTERIOR MEDIAL -- MRI [id number] #4 (2 CORES TAKEN) LEFT ANTERIOR LATERAL : 2 cores RIGHT POSTERIOR LATERAL : 2 cores RIGHT POSTERIOR MEDIAL -- MRI [id number] #1 (2 CORES TAKEN) LEFT POSTERIOR MEDIAL -- MRI [id number] #6 (2 CORES TAKEN) LEFT POSTERIOR LATERAL -- MRI [id number] #5 (2 CORES TAKEN) At the end of the procedure, the transrectal probe was withdrawn. Direct compression was held over the perineum for several minutes, and excellent hemostasis was in place. The patient tolerated the procedure, and was awakened from general anesthesia without incident. He was transported to the recovery area in stable condition I will contact the patient when the final histology report is completed Baljit Hood M.D. 03/30/2023 PAST UROLOGIC HISTORY : 02/22/2023: MRI: 80 ml. New PI-RADS 4 nodule in the left base/mid gland. Multiple PI-RADS 3 nodules in the bilateral apex and mid gland which are unchanged in size. 11/30/2022: [facility]: A. Fib 03/12/2022: TP MRI-fusion Bx (57 ml): EMILI RPM LPM ([facility]) 11/27/2021: IPSS 13,2. Feels well. Prostate 1+. Options discussed. Prefers TP at [place], but only if absolutely necessary. Cx: NG. Wishes to repeat PSA in January. Retires in April. If next PSA doesn't drop completely back to previous level, then proceed to TP fusion Bx 06/29/2021: MRI: 71 ml. PI-RADS 4 nodules in the bilateral apex and right apex/mid gland. Additional PI-RADS 3 nodule in the left mid gland. 07/02/2021: Note from Adeel Quiroga to Mae Parsons: Cleared for Prostate Biopsy. Stop Apixaban 3 days prior to the procedure and restart 3 days after. 09/29/2020: Cystoscopy, evacuation bladder calculi. Uric acid 03/25/2020: See Call: no new SCOOBY on re-read 02/01/2020: MRI ([facility]): Suspect neoplastic focus spanning the right posterior upper and middle sextants. Prostate hypertrophy. Exophytic hematoma of the right seminal vesicle. Benign-appearing cyst of the right acetabulum. 10/25/2018: MRI-fusion prostate biopsies (49 ml): benign 10/03/2018: MRI prostate: Four PI-RADS 3 lesions 06/10/2016: Bx ([facility]): benign 01/21/2023: PSA: 13.508 w/ 18% free PSA 12/22/2022: PSA: 13.000 w/ 18% free PSA 02/03/2022: PSA: 9.240 10/30/2021: PSA: 9.821 05/27/2021: PSA: 11.98 (PCP) 11/17/2020: PSA: 8.209 09/10/2020: PSA: 7.690 01/18/2020: PSA: 9.000, 16 % free 12/13/2019: PSA: 8.330 07/10/2019: PSA: 8.260 02/18/2019: PSA: 6.300 01/09/2019: PSA: 7.970 09/07/2018: PSA: 8.686 05/20/2016: PSA: 4.400 [facility] 03-30-2023 Note Formatting of this n ote might be different from the original. Transrectal ultrasound and trans-perineal MRI-fusion prostate biopsy Procedure Note Pre-operative Diagnosis: Elevated PSA Post-operative Diagnosis: Elevated PSA Surgeon: Baljit Hood M.D. Sausage Wrapper: none Anesthesia: General Specimens: Prostate biopsies (as detailed below) Estimated blood loss: Minimal Special Medications: Ancef Procedure Details: The risks, benefits, complications, treatment options, and expected outcomes were discussed with the patient. The patient concurred with the proposed plan, giving informed consent. A proper time out was performed before the procedure started. Preoperative intravenous antibiotics were administered without incident Under general anesthesia, in the dorsal lithotomy position, the patient was prepped for the procedure. Digital rectal exam reveals no obvious rectal masses. Bowel preparation was felt to be adequate. The scrotum was secured up away from the perineum. If necessary, excess hair was trimmed away from the perineum. The perineum was prepped with Betadine. The transrectal ultrasound probe was inserted, and complete imaging of the prostate was performed in transverse and sagittal scanning. The seminal vesicles had normal architecture. The lateral prostatic margins were intact. The prostate had the following dimensions: WIDTH (cm.): 5.43 HEIGHT (cm.): 4.30 LENGTH (cm.): 5.02 VOLUME (ml): 61 PSA density: 0.22 The MRI study was active in the Uronav unit. Image acquisition and sweep was performed without incident. Image registration and segmentation was performed without incident. Proper contouring and identification of previously-identified regions of interest was performed without incident. Elastic deformation was used to further align the 2 images. The Precision-Point apparatus was secured to the ultrasound probe, and the directional needle was placed into the appropriate level to help align the biopsy needle towards the target. Utilizing the ultrasound and MRI as a guidance, multiple biopsies were taken from the prostate regions with the spring-loaded biopsy needle. The MRI [id number]-yj-xlzcqngt were included in the corresponding regions as described. RIGHT ANTERIOR LATERAL : 2 cores -- MRI [id number] #2 (2 CORES TAKEN) RIGHT ANTERIOR MEDIAL -- MRI [id number] #3 (2 CORES TAKEN) LEFT ANTERIOR MEDIAL -- MRI [id number] #4 (2 CORES TAKEN) LEFT ANTERIOR LATERAL : 2 cores RIGHT POSTERIOR LATERAL : 2 cores RIGHT POSTERIOR MEDIAL -- MRI [id number] #1 (2 CORES TAKEN) LEFT POSTERIOR MEDIAL -- MRI [id number] #6 (2 CORES TAKEN) LEFT POSTERIOR LATERAL -- MRI [id number] #5 (2 CORES TAKEN) At the end of the procedure, the transrectal probe was withdrawn. Direct compression was held over the perineum for several minutes, and excellent hemostasis was in place. The patient tolerated the procedure, and was awakened from general anesthesia without incident. He was transported to the recovery area in stable condition I will contact the patient when the final histology report is completed Baljit Hood M.D. 03/30/2023 PAST UROLOGIC HISTORY : 02/22/2023: MRI: 80 ml. New PI-RADS 4 nodule in the left base/mid gland. Multiple PI-RADS 3 nodules in the bilateral apex and mid gland which are unchanged in size. 11/30/2022: [facility]: A. Fib 03/12/2022: TP MRI-fusion Bx (57 ml): EMILI RPM, LPM ([facility]) 11/27/2021: IPSS 13,2. Feels well. Prostate 1+. Options discussed. Prefers TP at [place], but only if absolutely necessary. Cx: NG. Wishes to repeat PSA in January. Retires in April. If next PSA doesn't drop completely back to previous level, then proceed to TP fusion Bx 06/29/2021: MRI: 71 ml. PI-RADS 4 nodules in the bilateral apex and right apex/mid gland. Additional PI-RADS 3 nodule in the left mid gland. 07/02/2021: Note from Adeel Quiroga to Mae Parsons: Cleared for Prostate Biopsy. Stop Apixaban 3 days prior to the procedure and restart 3 days after. 09/29/2020: Cystoscopy, evacuation bladder calculi. Uric acid 03/25/2020: See Call: no new SCOOBY on re-read 02/01/2020: MRI ([facility]): Suspect neoplastic focus spanning the right posterior upper and middle sextants. Prostate hypertrophy. Exophytic hematoma of the right seminal vesicle. Benign-appearing cyst of the right acetabulum. 10/25/2018: MRI-fusion prostate biopsies (49 ml): benign 10/03/2018: MRI prostate: Four PI-RADS 3 lesions 06/10/2016: Bx ([facility]): benign 01/21/2023: PSA: 13.508 w/ 18% free PSA 12/22/2022: PSA: 13.000 w/ 18% free PSA 02/03/2022: PSA: 9.240 10/30/2021: PSA: 9.821 05/27/2021: PSA: 11.98 (PCP) 11/17/2020: PSA: 8.209 09/10/2020: PSA: 7.690 01/18/2020: PSA: 9.000, 16 % free 12/13/2019: PSA: 8.330 07/10/2019: PSA: 8.260 02/18/2019: PSA: 6.300 01/09/2019: PSA: 7.970 09/07/2018: PSA: 8.686 05/20/2016: PSA: 4.400 [facility] 03-30-2023 Note Formatting of this n ote might be different from the original. Discharged to home . Accompanied by , Janki . AVS and education reviewed with patient and Janki, both verbalized understanding. Mode of transportation private vehicle Belongings sent. [facility] 03-30-2023 Note Formatting of this n ote might be different from the original. Discharged to home . Accompanied by , Janki . AVS and education reviewed with patient and Janki, both verbalized understanding. Mode of transportation private vehicle Belongings sent. [facility] 03-18-2023 History of Presen t illness Narrative [facility] Cardiology [facility] [address] [facility] [address] Dept: [phone] Dept Loc: [phone] Visit type: Established : 1960 Chief Complaint: Chief Complaint Patient presents with Follow-up PVI 11/2022 History of Present Illness: Khalida Tran is a 62 y.o. male with paroxysmal atrial fibrillation who presents for follow up. He had a PVI in 11/2022. No episodes since then. He had a bout of hematuria that has improved. No acute complaints. Past Medical History: Past Medical History: Diagnosis Date A-fib (CMS/HCC) ([facility]CC) Cardioverted Anticoagulated 06/25/2021 BPH (benign prostatic hyperplasia) H/O exercise stress test Hyperlipidemia HARSHA (obstructive sleep apnea) does not wear C pap Machine Pneumonia Pre-diabetes Past Surgical History Past Surgical History: Procedure Laterality Date ABLATION FOR ATRIAL FIBRILLATION (HISTORICAL) 11/30/[address] Sorensen APPENDECTOMY 12 years ago CARDIAC ELECTROPHYSIOLOGY PROCEDURE N/A 11/30/2022 Performed by Reyes Sorensen at [facility] Cardiac Cath/EP Lab COLONOSCOPY COLONOSCOPY 01/16/2019 HERNIA REPAIR INCISIONAL HERNIA REPAIR 09/04/2019 DR JOE PROSTATE BIOPSY 06/10/[address] desir TONSILLECTOMY (HISTORICAL) VENTRAL HERNIA REPAIR 7 years ago WISDOM TOOTH EXTRACTION Family History Family History Problem Relation Name Age of Onset Alzheimer's disease Mother COPD Father Social History Social History Tobacco Use Smoking status: Every Day Packs/day: 0.50 Types: Cigarettes Start date: 1992 Smokeless tobacco: Never Tobacco comments: Quit smoking for short period of time then started again : 5 cigs a day Substance Use Topics Alcohol use: Not Currently Alcohol/week: 2.0 standard drinks Types: 2 Shots of liquor per week Comment: drinks [place] Drug use: No Comment: caffeine: decaf Allergies: No Known Allergies Medications: Current Outpatient Medications: alfuzosin ER (Uroxatral) 10 MG 24 hr tablet, Take 1 tablet (10 mg) by mouth daily., Disp: 90 tablet, Rfl: 3 citric acid-potassium citrate (Polycitra) 1100-334 MG/5ML solution, Take by mouth. 10mg tablet twice a day. Pt no longer takes as a solution., Disp: , Rfl: Eliquis 5 MG tablet, Take 1 tablet (5 mg) by mouth in the morning and 1 tablet (5 mg) before bedtime., Disp: 180 tablet, Rfl: 3 ezetimibe-simvastatin (Vytorin) 10-40 MG tablet, Take 1 tablet by mouth Nightly., Disp: , Rfl: oxybutynin XL (Ditropan-XL) 10 MG 24 hr tablet, Take 1 tablet (10 mg) by mouth daily. Take 1 tablet by mouth in the morning., Disp: 90 tablet, Rfl: 3 potassium citrate CR (Urocit-K-15) 15 mEq ER tablet, TAKE 1 TABLET BY MOUTH TWICE DAILY with meals, Disp: 180 tablet, Rfl: 0 sotalol (Betapace) 120 MG tablet, TAKE 1 TABLET BY MOUTH EVERY 12 HOURS, Disp: 180 tablet, Rfl: 0 metFORMIN (Glucophage) 500 MG tablet, TAKE 1 TABLET BY MOUTH at dinner meal, Disp: , Rfl: Review of Systems: Review of Systems Constitutional: Negative. HENT: Negative. Eyes: Negative. Respiratory: Positive for apnea (has sleep apnea, just got cpap machine). Cardiovascular: Negative. Gastrointestinal: Negative. Endocrine: Negative. Genitourinary: Negative. Musculoskeletal: Negative. Skin: Negative. Allergic/Immunologic: Negative. Neurological: Negative. Hematological: Negative. Psychiatric/Behavioral: Negative. Physical Examination: Vitals: Vitals: 03/18/23 0954 BP: (!) 140/78 BP Location: Right arm Patient Position: Sitting BP Cuff Size: Adult Pulse: 88 SpO2: 92% Weight: 236 lb (107 kg) Height: 5' 10 (1.778 m) Body mass index is 33.86 kg/m . Physical Exam Constitutional: Appearance: Normal appearance. HENT: Head: Normocephalic and atraumatic. Mouth/Throat: Mouth: Mucous membranes are moist. Eyes: Extraocular Movements: Extraocular movements intact. Conjunctiva/sclera: Conjunctivae normal. Cardiovascular: Rate and Rhythm: Normal rate and regular rhythm. Pulmonary: Effort: Pulmonary effort is normal. Breath sounds: Normal breath sounds. Abdominal: General: Abdomen is flat. Musculoskeletal: General: Normal range of motion. Cervical back: Normal range of motion and neck supple. Skin: General: Skin is warm and dry. Neurological: General: No focal deficit present. Mental Status: He is alert and oriented to person, place, and time. Psychiatric: Mood and Affect: Mood normal. Behavior: Behavior normal. Thought Content: Thought content normal. Judgment: Judgment normal. Laboratory Tests: Lab Results Component Value Date WBC 11.0 (H) 11/23/2022 HGB 16.0 11/23/2022 HCT 46.9 11/23/2022 MCV 87.3 11/23/2022 PLT 241 11/23/2022 Lab Results Component Value Date GLUCOSE 99 11/23/2022 CALCIUM 9.3 11/23/2022 NA 139 11/23/2022 K 4.7 11/23/2022 CO2 28 11/23/2022 CL 106 11/23/2022 BUN 23 (H) 11/23/2022 CREATININE 0.90 11/23/2022 Lab Results Component Value Date CHOL 158 09/22/2022 Lab Results Component Value Date TRIG 149 09/22/2022 Lab Results Component Value Date HDL 46 09/22/2022 Lab Results Component Value Date LDLCALC 82 09/22/2022 No results found for: BNP Cardiac Tests: ECG: Normal Sinus Rhythm. Normal ECG. Assessment and Plan: 1. Paroxysmal atrial fibrillation (CMS/HCC) (HCC) Mr. Tran is doing well. I will discontinue sotalol and Eliquis ([id number]). He will see me in 1 year for follow up. documented in this encounter [facility] 03-02-2023 Telephone encounter Note Your fax has been successfully sent to [facility] at [phone]. 03/02/2023 2:05:22 PM Transmission Record Sent to [id number] with remote ID [phone] Result: (0) Success Page record: 1 - 9 Elapsed time: 05:28 on channel 50 03/02/2023 2:05:12 PM Conversion Record Successfully created cover sheet. Type: application/vnd.openxmlformats-o fficedocument.wordprocessingml.d ocument G3 to TIFF #1: Success [image/g3] (18ms) GhostScript TIFF #1: Success [image/tiff] (83ms) Resubmitted: [application/postscript] Word Automation #1: Success [image/g3] (1543ms) ([id number]:WORKSRV2) 03/02/2023 2:04:55 PM Conversion Record [[id number]] Type: application/postscript G3 to TIFF #1: Success [image/g3] (116ms) GhostScript TIFF #1: Success [image/tiff] (442ms) ([id number]) T [employer] 03-02-2023 Miscellaneous Notes Your fax has been successfully sent to [facility] at [phone]. 03/02/2023 2:05:22 PM Transmission Record Sent to [id number] with remote ID [phone] Result: (0) Success Page record: 1 - 9 Elapsed time: 05:28 on channel 50 03/02/2023 2:05:12 PM Conversion Record Successfully created cover sheet. Type: application/vnd.openxmlformats-o fficedocument.wordprocessingml.d ocument G3 to TIFF #1: Success [image/g3] (18ms) GhostScript TIFF #1: Success [image/tiff] (83ms) Resubmitted: [application/postscript] Word Automation #1: Success [image/g3] (1543ms) ([id number]) 03/02/2023 2:04:55 PM Conversion Record [[id number]] Type: application/postscript G3 to TIFF #1: Success [image/g3] (116ms) GhostScript TIFF #1: Success [image/tiff] (442ms) ([id number]:WORKSRV4) Received cardiac clearance from [facility]. Printed and put on LO desk. documented in this encounter [facility] 03-02-2023 Telephone encounter Note Received cardiac clearance from [facility]. Printed and put on LO desk. [facility] 01-14-2023 Evaluation + Plan note Associated Problem(s): Paroxysmal atrial fibrillation (CMS/HCC) (HCC) He is 1 month post-PVI and maintaining sinus rhythm on Sotalol which will be continued for the remainder of the blanking period. His QTc is stable today. Continue Eliquis through blanking period as well. Can consider stopping both at his next follow up appointment with Dr. Sorensen in 2 months. Currently chadsvasc score zero but soon to be 1 as he turns 63 in a few months. Stop pantoprazole. [facility] 01-14-2023 Miscellaneous Notes Associated Problem(s): Paroxysmal atrial fibrillation (CMS/HCC) (HCC) He is 1 month post-PVI and maintaining sinus rhythm on Sotalol which will be continued for the remainder of the blanking period. His QTc is stable today. Continue Eliquis through blanking period as well. Can consider stopping both at his next follow up appointment with Dr. Sorensen in 2 months. Currently chadsvasc score zero but soon to be 1 as he turns 63 in a few months. Stop pantoprazole. documented in this encounter [facility] 01-14-2023 History of Presen t illness Narrative Images from the original note were not included. [facility] [address] [facility] [address] Dept: [phone] Dept Loc: [phone] Visit type: Established : 1960 Reason for Visit: 1 Month Follow Up (S/p PVI ablation) Assessment and Plan 1. Paroxysmal atrial fibrillation (CMS/HCC) (HCC) Assessment & Plan: He is 1 month post-PVI and maintaining sinus rhythm on Sotalol which will be continued for the remainder of the blanking period. His QTc is stable today. Continue Eliquis through blanking period as well. Can consider stopping both at his next follow up appointment with Dr. Sorensen in 2 months. Currently chadsvasc score zero but soon to be 1 as he turns 63 in a few months. Stop pantoprazole. Orders: - ECG 12 lead - CLINIC PERFORMED Follow up in about 2 months (around 03/16/2023) for Dr. Sorensen. Kyleigh Tran is a 61 y.o. male referred by Dr. Parsons for perAF. He has a history of HARSHA not compliant with CPAP, pAF (no OAC 2/2 low risk, sotalol 120 bid), s/p PVI 11/2021, DLD who presents for 1 month follow up after his PVI. Since his PVI, he has felt well with no recurrent AF. No post procedural complications or bleeding issues on Eliquis. He remains active. He was first diagnosed with AF ~ 2018 after he was returning from vacation from [place] and had heavy etoh use. Current episode started around May 2021 with symptoms of irregular heart beat and fatigue. No other symptoms. He was started on Eliquis in June 2021. Metoprolol increased for rate control but symptoms have continued. He underwent successful NATALEE guided DCCV in August and was started on Flecainide 50 mg bid. Shortly after DCCV, he went back out of rhythm so flecainide was increased to 100 mg bid with repeat DCCV 08/25/21. He developed recurrent AF a few days later. Options were discussed including alternative AAD versus catheter ablation and patient wished to proceed with AAD therapy. He was subsequently started on Sotalol 80 mg bid with increase to 120 mg bid. He self converted to sinus rhythm. His ECG today on my review shows sinus rhythm, 68 bpm, QTc: 410 ms. His echo shows normal LV/RV size and function, moderate LAE with KEYONNA 42. His chadsvasc score is zero. He was drinking one bottle of bourbon a week but now has reduced to drinking once a week. Khalida Tran Review of Systems Constitutional: Negative for fatigue. HENT: Negative for nosebleeds. Respiratory: Negative for shortness of breath. Cardiovascular: Negative for chest pain, palpitations and leg swelling. Gastrointestinal: Negative for blood in stool. Genitourinary: Negative for hematuria. Neurological: Negative for dizziness, syncope and light-headedness. Hematological: Does not bruise/bleed easily. No Known Allergies Outpatient Medications Prior to Visit Medication Sig Dispense Refill alfuzosin ER (Uroxatral) 10 MG 24 hr tablet Take 1 tablet (10 mg) by mouth daily. 90 tablet 3 citric acid-potassium citrate (Polycitra) 1100-334 MG/5ML solution Take by mouth. 10mg tablet twice a day. Pt no longer takes as a solution. Eliquis 5 MG tablet Take 1 tablet (5 mg) by mouth in the morning and 1 tablet (5 mg) before bedtime. 180 tablet 3 ezetimibe-simvastatin (Vytorin) 10-40 MG tablet Take 1 tablet by mouth Nightly. oxybutynin XL (Ditropan-XL) 10 MG 24 hr tablet Take 1 tablet (10 mg) by mouth daily. Take 1 tablet by mouth in the morning. 90 tablet 3 potassium citrate CR (Urocit-K-15) 15 mEq ER tablet TAKE 1 TABLET BY MOUTH TWICE DAILY with meals 180 tablet 0 sotalol (Betapace) 120 MG tablet TAKE 1 TABLET BY MOUTH EVERY 12 HOURS 180 tablet 0 metFORMIN (Glucophage) 500 MG tablet TAKE 1 TABLET BY MOUTH at dinner meal pantoprazole (Protonix) 40 MG EC tablet Take 1 tablet (40 mg) by mouth every morning (before breakfast). Do not crush, chew, or split. For One month. 30 tablet 0 No facility-administered medications prior to visit. Past Medical History: Diagnosis Date A-fib (CMS/HCC) (HCC) Cardioverted Anticoagulated 06/25/2021 BPH (benign prostatic hyperplasia) H/O exercise stress test Hyperlipidemia HARSHA (obstructive sleep apnea) does not wear C pap Machine Pneumonia Pre-diabetes Social History Tobacco Use Smoking status: Every Day Packs/day: 0.50 Types: Cigarettes Start date: 1992 Smokeless tobacco: Never Tobacco comments: Quit smoking for short period of time then started again : 5 cigs a day Substance Use Topics Alcohol use: Not Currently Alcohol/week: 2.0 standard drinks Types: 2 Shots of liquor per week Comment: drinks [place] Past Surgical History: Procedure Laterality Date ABLATION FOR ATRIAL FIBRILLATION (HISTORICAL) 11/30/[address] Sorensen APPENDECTOMY 12 years ago CARDIAC ELECTROPHYSIOLOGY PROCEDURE N/A 11/30/2022 Performed by Reyes Sorensen at [facility] Cardiac Cath/EP Lab COLONOSCOPY COLONOSCOPY 01/16/2019 HERNIA REPAIR INCISIONAL HERNIA REPAIR 09/04/2019 DR JOE PROSTATE BIOPSY 06/10/[address] desir TONSILLECTOMY (HISTORICAL) VENTRAL HERNIA REPAIR 7 years ago WISDOM TOOTH EXTRACTION Family History Problem Relation Name Age of Onset Alzheimer's disease Mother COPD Father Objective Vitals: 01/14/23 1431 BP: 120/60 BP Location: Right arm Patient Position: Sitting Pulse: 68 SpO2: 95% Weight: 232 lb (105 kg) Height: 5' 10 (1.778 m) Physical Exam Vitals reviewed. Constitutional: General: He is not in acute distress. Appearance: Normal appearance. HENT: Head: Normocephalic and atraumatic. Cardiovascular: Rate and Rhythm: Normal rate and regular rhythm. Pulses: Normal pulses. Heart sounds: Normal heart sounds. No murmur heard. No friction rub. No gallop. Pulmonary: Effort: Pulmonary effort is normal. Breath sounds: Normal breath sounds. No wheezing, rhonchi or rales. Skin: General: Skin is warm and dry. Neurological: Mental Status: He is alert and oriented to person, place, and time. Data Reviewed and Summarized Review of tests/labs done/ordered within my specialty: EKG in office: See HPI Lab Results Component Value Date WBC 11.0 (H) 11/23/2022 HGB 16.0 11/23/2022 HCT 46.9 11/23/2022 MCV 87.3 11/23/2022 PLT 241 11/23/2022 Lab Results Component Value Date GLUCOSE 99 11/23/2022 CALCIUM 9.3 11/23/2022 NA 139 11/23/2022 K 4.7 11/23/2022 CO2 28 11/23/2022 CL 106 11/23/2022 BUN 23 (H) 11/23/2022 CREATININE 0.90 11/23/2022 Echo 07/10/21: SUMMARY: 1. Study data: Atrial fibrillation 2. Left ventricle: Systolic function is normal by visual assessment. The estimated ejection fraction is 70%. There are no regional wall motion abnormalities. Unable to assess LV diastolic function due to atrial fibrillation 3. Right ventricle: The cavity size is mildly dilated. Systolic function is normal. Right ventricular systolic pressure is at the upper limits of normal. 4. Left atrium: The atrium is moderately dilated. The end-systolic volume index (2-plane Lee's) is 42 ml/m^2. 5. Right atrium: Central venous pressure (est): 8 mm Hg. 6. No significant valve disease. PARTHA Duenas CNP documented in this encounter [facility] 01-10-2023 Miscellaneous Notes OV 11/2022 Dr Sorensen with EKG FU with KM 01/14/2023 documented in this encounter [facility] 01-10-2023 Telephone encounter Note OV 11/2022 Dr Sorensen with EKG FU with KM 01/14/2023 [facility] 12-28-2022 Telephone encounter Note Called Pt gave message verbatim per JANELL Meza. Pt voiced understanding. [facility] 12-28-2022 Miscellaneous Notes Called Pt gave message verbatim per JANELL Meza. Pt voiced understanding. LVM for patient to call the office. Please notify the patient his PSA from 12/22/2022 resulted at 13.0. This is a rise from prior PSA last year, 9.240. I recommend he repeat the PSA in 3-4 weeks to reassess if PSA will decrease. The order has been placed. There is no food/drink restriction prior to testing. Prior to having this blood work completed refrain from any sexual activity, strenuous activity or any activity such as riding a bike, riding lawnmower, motorcycle, etc... for at least 24 hours. These activities can cause a temporary rise in your PSA levels. PSA complete . Please review and advise The patient called [phone] requesting results from his most recent PSA test. He was informed the test is still in process. He requests a call to discuss as soon as the results are available. Thank you documented in this encounter [employer] 12-27-2022 Telephone encounter Note LVM for patient to call the office. [facility] 12-27-2022 Telephone encounter Note Please notify the patient his PSA from 12/22/2022 resulted at 13.0. This is a rise from prior PSA last year, 9.240. I recommend he repeat the PSA in 3-4 weeks to reassess if PSA will decrease. The order has been placed. There is no food/drink restriction prior to testing. Prior to having this blood work completed refrain from any sexual activity, strenuous activity or any activity such as riding a bike, riding lawnmower, motorcycle, etc... for at least 24 hours. These activities can cause a temporary rise in your PSA levels. [facility] Work Phone: 12-27-2022 Telephone encounter Note PSA complete . Please review and advise [facility] 12-24-2022 Telephone encounter Note The patient called .[phone] requesting results from his most recent PSA test. He was informed the test is still in process. He requests a call to discuss as soon as the results are available. Thank you [facility] 12-15-2022 Telephone encounter Note Last office visit 11/22/[address] Sorensen Encounter Date: 11/30/22 ECG 12 lead Result Value Heart Rate 67 QRSD Interval 90 QT Interval 401 QTC Interval 424 P [place] 46 QRS [place] 31 T Wave [place] 3 GA Interval 145 Impression Sinus rhythm Electronically Signed On 12-01-2022 7:43:29 EST by Beny Zeng Lab Results Component Value Date GLUCOSE 99 11/23/2022 CALCIUM 9.3 11/23/2022 NA 139 11/23/2022 K 4.7 11/23/2022 CO2 28 11/23/2022 CL 106 11/23/2022 BUN 23 (H) 11/23/2022 CREATININE 0.90 11/23/2022 Lab Results Component Value Date WBC 11.0 (H) 11/23/2022 HGB 16.0 11/23/2022 HCT 46.9 11/23/2022 MCV 87.3 11/23/2022 PLT 241 11/23/2022 [facility] 12-15-2022 Miscellaneous Notes Last office visit 11/22/[address] Sorensen Encounter Date: 11/30/22 ECG 12 lead Result Value Heart Rate 67 QRSD Interval 90 QT Interval 401 QTC Interval 424 P [place] 46 QRS [place] 31 T Wave [place] 3 GA Interval 145 Impression Sinus rhythm Electronically Signed On 12-01-2022 7:43:29 EST by Beny Zeng Lab Results Component Value Date GLUCOSE 99 11/23/2022 CALCIUM 9.3 11/23/2022 NA 139 11/23/2022 K 4.7 11/23/2022 CO2 28 11/23/2022 CL 106 11/23/2022 BUN 23 (H) 11/23/2022 CREATININE 0.90 11/23/2022 Lab Results Component Value Date WBC 11.0 (H) 11/23/2022 HGB 16.0 11/23/2022 HCT 46.9 11/23/2022 MCV 87.3 11/23/2022 PLT 241 11/23/2022 documented in this encounter [facility] 12-13-2022 Telephone encounter Note Called pt back who was going to send a my chart message now to say he feels good and hr 73bpm.pt said he put watch on because he was alittle lightheaded today-lasting may an hour.hr in 40's-not a.fib per watch.pt will continue to monitor and call if reoccurs [facility] 12-13-2022 Miscellaneous Notes Called pt back who was going to send a my chart message now to say he feels good and hr 73bpm.pt said he put watch on because he was alittle lightheaded today-lasting may an hour.hr in 40's-not a.fib per watch.pt will continue to monitor and call if reoccurs Please see if he is having any symptoms. Also get other HR readings. If only occasional and asymptomatic, no changes. He is on Sotalol and would prefer to stay on during blanking period. Reviewed chart. Patient recently had PVI done by Dr. Sorensen. He has a follow up scheduled with Mae Saucedo APRN 12/31/2022. He is followed by EP. Will send to EP provider for further review and management. Patient called and says his heart rate is reading 44 on his apple device, he had an ablation last week, should this be something to be worried about documented in this encounter [facility] 12-13-2022 Telephone encounter Note Please see if he is having any symptoms. Also get other HR readings. If only occasional and asymptomatic, no changes. He is on Sotalol and would prefer to stay on during blanking period. [facility] 12-13-2022 Telephone encounter Note Reviewed chart. Patient recently had PVI done by Dr. Sorensen. He has a follow up scheduled with Mae Saucedo APRN 12/31/2022. He is followed by EP. Will send to EP provider for further review and management. [facility] 12-13-2022 Telephone encounter Note Patient called and says his heart rate is reading 44 on his apple device, he had an ablation last week, should this be something to be worried about [facility] 12-10-2022 History of Presen t illness Narrative Images from the original note were not included. Baljit Hood MD Office follow up Based on review of the 2020 CPT Evaluation and Management Guidelines, I have assigned what I feel to be the correct level of service based on the following : A medically appropriate history was obtained (this may or may not have included review of information obtained from the patient by other personnel). A medically appropriate physical examination was performed. Medical decision-making was performed concerning the diagnoses that were assessed, the clinical data that was reviewed (both in volume & complexity), and risk of morbidity of the conditions treated and therapies proposed. Baljit Hood M.D. PATIENT NAME: Khalida Tran DATE OF : 1960 TODAY'S DATE: 12/10/2022 CHIEF COMPLAINT: Chief Complaint Patient presents with Elevated PSA Subjective: Mr. Tran is a 62 y.o. male who presents to the office for follow up of elevated PSA & EMILI Review of Systems Past Medical History: Past Medical History: Diagnosis Date A-fib (CMS/HCC) (HCC) Cardioverted Anticoagulated 06/25/2021 BPH (benign prostatic hyperplasia) H/O exercise stress test Hyperlipidemia HARSHA (obstructive sleep apnea) does not wear C pap Machine Pneumonia Pre-diabetes Past Surgical History: Past Surgical History: Procedure Laterality Date ABLATION FOR ATRIAL FIBRILLATION (HISTORICAL) 11/30/2022 APPENDECTOMY 12 years ago CARDIAC ELECTROPHYSIOLOGY PROCEDURE N/A 11/30/2022 Performed by Reyes Sorensen at [facility] Cardiac Cath/EP Lab COLONOSCOPY COLONOSCOPY 01/16/2019 HERNIA REPAIR INCISIONAL HERNIA REPAIR 09/04/2019 DR JOE PROSTATE BIOPSY 06/10/[address] desir TONSILLECTOMY (HISTORICAL) VENTRAL HERNIA REPAIR 7 years ago WISDOM TOOTH EXTRACTION Allergies: Patient has no known allergies. Social History: Issues identified in the H&P were noted Family History: Family History Problem Relation Name Age of Onset Alzheimer's disease Mother COPD Father Medications Prior to Admission medications Medication Sig Start Date End Date Taking? Authorizing Provider alfuzosin ER (Uroxatral) 10 MG 24 hr tablet Take 1 tablet (10 mg) by mouth daily. 10/29/22 Yes Baljit Hood MD apixaban (Eliquis) 5 MG tablet Take 1 tablet (5 mg) by mouth 2 times daily. Restart tonight at 9PM 11/30/22 Yes PARTHA Olmos CNP citric acid-potassium citrate (Polycitra) 1100-334 MG/5ML solution Take by mouth. 10mg tablet twice a day. Pt no longer takes as a solution. 10/02/21 Yes Historical Provider, ezetimibe-simvastatin (Vytorin) 10-40 MG tablet Take 1 tablet by mouth Nightly. 11/15/16 Yes Historical Provider, oxybutynin XL (Ditropan-XL) 10 MG 24 hr tablet Take 1 tablet (10 mg) by mouth daily. Take 1 tablet by mouth in the morning. 10/29/22 Yes Baljit Hood MD pantoprazole (Protonix) 40 MG EC tablet Take 1 tablet (40 mg) by mouth every morning (before breakfast). Do not crush, chew, or split. For One month. 11/30/22 11/30/23 Yes PARTHA Olmos CNP sotalol (Betapace) 120 MG tablet Take 1 tablet by mouth in the morning and 1 tablet in the evening. 08/04/22 Yes Historical Provider, Vitals: BP 112/86 Ht 5' 10 (1.778 m) Wt 228 lb (103 kg) BMI 32.71 kg/m Physical Exam Physical Exam LABS: Lab Results Component Value Date PSA 9.240 (A) 02/03/2022 PSA 9.821 (A) 10/30/2021 PSA 11.98 06/30/2021 No results found for: TESTOSTERONE Lab Results Component Value Date WBC 11.0 (H) 11/23/2022 HGB 16.0 11/23/2022 HCT 46.9 11/23/2022 MCV 87.3 11/23/2022 PLT 241 11/23/2022 Lab Results Component Value Date GLUCOSE 99 11/23/2022 CALCIUM 9.3 11/23/2022 NA 139 11/23/2022 K 4.7 11/23/2022 CO2 28 11/23/2022 CL 106 11/23/2022 BUN 23 (H) 11/23/2022 CREATININE 0.90 11/23/2022 Radiology: See below Impression/Plan Khalida was seen today for elevated psa. Diagnoses and all orders for this visit: Elevated prostate specific antigen (PSA) (Primary) - PSA, total and free; Future - PSA, total and free Hypertrophy of prostate with urinary obstruction Benign prostatic hyperplasia with urinary obstruction Follow up in about 1 year (around 12/10/2023). Prostate 1+. PSA slip We discussed the significance of EMILI Baljit Hood MD 12/11/22 8:11 PM 11/30/2022: ACH: A. Fib 03/12/2022: TP MRI-fusion Bx (57 ml): EMILI 11/27/2021: IPSS 13,2. Feels well. Prostate 1+. Options discussed. Prefers TP at [place], but only if absolutely necessary. Cx: NG. Wishes to repeat PSA in January. Retires in April. If next PSA doesn't drop completely back to previous level, then proceed to TP fusion Bx 11/02/2021: See Call 10/20/2021: Cx: UG tl 10/02/2021: Cx: 50-90K Enterococcus 10/02/2021: Prostate 1+. Cx, PSA, meds refilled. Discussed pros & cons of fusion Bx 09/29/2021: Refilled oxybutynin & alfuzosin 08/12/2021: Cx: NG 06/29/2021: MRI: 71 ml. PI-RADS 4 nodules in the bilateral apex and right apex/mid gland. Additional PI-RADS 3 nodule in the left mid gland. 07/02/2021: Note from Adeel Quiroga to Mae Parsons: Cleared for Prostate Biopsy. Stop Apixaban 3 days prior to the procedure and restart 3 days after. 12/27/2020: 24 hr. urine: UA 858 10/22/2020: VV 09/29/2020: Cystoscopy, evacuation bladder calculi. Uric acid 09/12/2020: CT: Bilateral renal cortical cysts. Small left parapelvic cyst. Numerous small bladder stones. 06/10/2020: VV: Hematuria. Will check CT, then possibly repeat MRI 04/01/2020: VV. 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 Prostate hypertrophy. Exophytic hematoma of the right seminal vesicle. Benign-appearing cyst of the right acetabulum. 10/25/2018: MRI-fusion prostate biopsies (49 ml): benign 10/03/2018: MRI prostate: Four PI-RADS 3 lesions 06/10/2016: Bx ([facility]): benign 02/03/2022: PSA: 9.240 10/30/2021: PSA: 9.821 05/27/2021: PSA: 11.98 (PCP) 11/17/2020: PSA: 8.209 09/10/2020: PSA: 7.690 01/18/2020: PSA: 9.000, 16 % free 12/13/2019: PSA: 8.330 07/10/2019: PSA: 8.260 02/18/2019: PSA: 6.300 01/09/2019: PSA: 7.970 09/07/2018: PSA: 8.686 05/20/2016: PSA: 4.400 documented in this encounter [facility] 11-30-2022 Hospital Discharg e instructions PARTHA Olmos CNP - 11/30/2022 1:18 PM EST Post Pulmonary Vein Isolation Ablation Discharge Instructions Observe groin site for swelling, redness, warmth, or bleeding. If these occur, notify your doctor. 2. If you develop shortness of breath, cough and/or swelling please call you doctor's office or seek emergency care for severe symptoms. 3. You may develop mild chest discomfort with taking a deep breath post procedure which typically peaks after 3 days and then improves. If discomfort worsens please call the office. If it becomes severe please seek emergency care. 4.No driving or climbing stairs for the next 3 days. 5.Do not lift anything over 10 pounds for the next 7 days. You may resume your usual exercise routine after your two week follow up appointment. 6. Slight swelling or bruising is expected. For oozing, apply pressure for 10-15 minutes 7.For brisk bleeding that does not stop, or if your foot or leg becomes cold, come to the Emergency department 8.Keep groin site covered for 5 days. Change bandage daily. 9. No soaking in water. Showers only for the next 5 days. 10. Resume pre-procedure diet 11. Take all medications as prescribed by your doctor documented in this encounter [facility] 11-22-2022 History of Presen t illness Narrative Lab order to KM to sign documented in this encounter [facility] 11-22-2022 History of Presen t illness Narrative [facility] Cardiology Note Visit type: New : 1960 Chief Complaint: Chief Complaint Patient presents with New Patient History of Present Illness: Khalida Tran is a 62 y.o. male male with AF on sotalol. When he has episodes of AF, he feels very fatigued and short of breath with exertion. He does not always feel palpitations. He was diagnosed with AF in 2020. He was cardioverted and started on flecainide. He had recurrence and was switched to sotalol. He is not again having recurrence and would like to discuss ablation. Past Medical History: Past Medical History: Diagnosis Date A-fib (CMS/HCC) (HCC) Cardioverted Anticoagulated 06/25/2021 BPH (benign prostatic hyperplasia) H/O exercise stress test Hyperlipidemia HARSHA (obstructive sleep apnea) does not wear C pap Machine Pneumonia Pre-diabetes Past Surgical History Past Surgical History: Procedure Laterality Date APPENDECTOMY 12 years ago COLONOSCOPY COLONOSCOPY 01/16/2019 HERNIA REPAIR INCISIONAL HERNIA REPAIR 09/04/2019 DR JOE PROSTATE BIOPSY 06/10/[address] desir TONSILLECTOMY (HISTORICAL) VENTRAL HERNIA REPAIR 7 years ago WISDOM TOOTH EXTRACTION Family History Family History Problem Relation Name Age of Onset Alzheimer's disease Mother COPD Father Social History Social History Tobacco Use Smoking status: Every Day Packs/day: 0.50 Types: Cigarettes Smokeless tobacco: Never Tobacco comments: Quit smokin cigs a day Substance Use Topics Alcohol use: Yes Alcohol/week: 15.0 standard drinks Types: 15 Standard drinks or equivalent per week Comment: drinks [place] Drug use: No Comment: caffeine: decaf Allergies: No Known Allergies Medications: Current Outpatient Medications: alfuzosin ER (Uroxatral) 10 MG 24 hr tablet, Take 1 tablet (10 mg) by mouth daily., Disp: 90 tablet, Rfl: 3 apixaban (Eliquis) 5 MG tablet, Take 1 tablet (5 mg) by mouth in the morning and 1 tablet (5 mg) before bedtime., Disp: 180 tablet, Rfl: 3 citric acid-potassium citrate (Polycitra) 1100-334 MG/5ML solution, Take by mouth. 10mg tablet twice a day. Pt no longer takes as a solution., Disp: , Rfl: ezetimibe-simvastatin (Vytorin) 10-40 MG tablet, Take 1 tablet by mouth Nightly., Disp: , Rfl: oxybutynin XL (Ditropan-XL) 10 MG 24 hr tablet, Take 1 tablet (10 mg) by mouth daily. Take 1 tablet by mouth in the morning., Disp: 90 tablet, Rfl: 3 sotalol (Betapace) 120 MG tablet, Take 1 tablet by mouth in the morning and 1 tablet in the evening., Disp: , Rfl: Review of Systems: Review of Systems Respiratory: Positive for apnea. Cardiovascular: Positive for palpitations (when in a.fib- tires easily .seems to feel it after waking up in am-head feels fuzzy-feels off). Physical Examination: Vitals: Vitals: 11/22/22 1013 BP: 120/76 BP Location: Right arm Patient Position: Sitting BP Cuff Size: Large adult Pulse: 58 SpO2: 97% Weight: 238 lb 9.6 oz (108 kg) Height: 5' 10 (1.778 m) Body mass index is 34.24 kg/m . Physical Exam Constitutional: Appearance: Normal appearance. He is normal weight. HENT: Head: Normocephalic. Eyes: Extraocular Movements: Extraocular movements intact. Pupils: Pupils are equal, round, and reactive to light. Cardiovascular: Rate and Rhythm: Normal rate and regular rhythm. Pulmonary: Effort: Pulmonary effort is normal. Breath sounds: Normal breath sounds. Abdominal: General: Abdomen is flat. Palpations: Abdomen is soft. Musculoskeletal: General: Normal range of motion. Cervical back: Normal range of motion. Skin: General: Skin is warm and dry. Neurological: General: No focal deficit present. Mental Status: He is alert and oriented to person, place, and time. Psychiatric: Mood and Affect: Mood normal. Behavior: Behavior normal. Thought Content: Thought content normal. Judgment: Judgment normal. Laboratory Tests: Lab Results Component Value Date WBC 9.5 09/22/2022 HGB 16.6 09/22/2022 HCT 48.9 09/22/2022 MCV 88.3 09/22/2022 PLT 219 09/22/2022 Lab Results Component Value Date GLUCOSE 131 (H) 09/22/2022 CALCIUM 9.5 09/22/2022 NA 138 09/22/2022 K 4.8 09/22/2022 CO2 28 09/22/2022 CL 105 09/22/2022 BUN 20 09/22/2022 CREATININE 0.89 09/22/2022 @LASTP@ Lab Results Component Value Date CHOL 158 09/22/2022 Lab Results Component Value Date TRIG 149 09/22/2022 Lab Results Component Value Date HDL 46 09/22/2022 Lab Results Component Value Date LDLCALC 82 09/22/2022 No results found for: BNP Cardiac Tests: ECG (today): Sinus bradycardia. Normal ECG. Last Echo (06/2021): 1. Study data: Atrial fibrillation 2. Left ventricle: Systolic function is normal by visual assessment. The estimated ejection fraction is 70%. There are no regional wall motion abnormalities. Unable to assess LV diastolic function due to atrial fibrillation 3. Right ventricle: The cavity size is mildly dilated. Systolic function is normal. Right ventricular systolic pressure is at the upper limits of normal. 4. Left atrium: The atrium is moderately dilated. The end-systolic volume index (2-plane Lee's) is 42 ml/m^2. 5. Right atrium: Central venous pressure (est): 8 mm Hg. 6. No significant valve disease. Event Monitor (10/2022): Abnormal event monitor demonstrating paroxysmal atrial fibrillation with an uncontrolled ventricular response. Assessment and Plan: 1. Paroxysmal atrial fibrillation (CMS/HCC) ([facility]) Khalida Tran is a 62 y.o. male male with AF on sotalol. When he has episodes of AF, he feels very fatigued and short of breath with exertion. He does not always feel palpitations. He was diagnosed with AF in 2020. He was cardioverted and started on flecainide. He had recurrence and was switched to sotalol. He is not again having recurrence and would like to discuss ablation. We discussed treatment options in great detail, including switching AAD vs. ablation. The indications, risks, benefits, alternatives, and details of the procedure were explained to the patient who expressed understanding of the risks including but are not limited to: pain, bleeding, and infection for which the risk is less than 1%. More serious risks, including cardiac perforation and tamponade, vascular trauma, pulmonary vein stenosis, atrio-esophageal fistula, diaphragmatic paralysis, life-threatening arrhythmia, need for permanent pacemaker, stroke, heart attack, and/or , for which the overall risk ranges 0.1-1%. He would like to proceed with the procedure. All questions were answered. documented in this encounter [facility] 11-19-2022 History of Presen t illness Narrative Images from the original note were not included. [facility] Cardiovascular Medicine [facility] [address] [facility] [address] Dept: [phone] Dept Loc: [phone] DATE of SERVICE: 11/19/22 TIME of SERVICE: 10:58 AM DATE of : 1960 PRIMARY CARE PHYSICIAN: Charmaine Rios MD Visit type: Established patient Subjective Chief Complaint: No chief complaint on file. History of Present Illness: Khalida Tran is a 62 y.o. male with cardiac risk factors positive for cigarette smoking (1/2 pack/day), hyperlipidemia. He denies diabetes mellitus, family history of premature CAD or hypertension. Has a history of PAF and was started on metoprolol/Apixaban in May 2021 in [place]. Normal TSH/hemoglobin and renal function 06/18/2021. June 2021: started on mcc OAC and in sinus rhythm at the time. Echocardiogram on 07/10/2021 with preserved LVEF, noted atrial fibrillation and moderately dilated left atrium. Given complaints of fatigue, ECG conducted by [facility] on 07/23/2021 that revealed atrial fibrillation 112 bpm. 08/18/2021: He underwent transesophageal echo which showed an EF of 60%. He was cardioverted back into sinus rhythm. His chadsvasc score is zero. He was seen by electrophysiology who started him on sotalol. Apixaban was discontinued. He has completed an event monitor and the results are currently pending. His last episode of atrial fibrillation was 1 week ago when he had a 2-hour episode of irregular heart rhythm which he states was not fast. He felt slightly dizzy but had no syncope and no risk of falls. He denied any chest pains or dyspnea. He has had no edema, orthopnea, PND. He denies any bleeding or bruising. Currently his EKG shows sinus rhythm with PVCs and a QTC of 434 ms. He has HARSHA and is being fitted for a CPAP mask. He is currently on weight watchers to lose weight. History and Review of Systems Past Medical History: Past Medical History: Diagnosis Date A-fib (CMS/HCC) (HCC) Cardioverted Anticoagulated 06/25/2021 BPH (benign prostatic hyperplasia) H/O exercise stress test Hyperlipidemia HARSHA (obstructive sleep apnea) does not wear C pap Machine Pneumonia Pre-diabetes Past Surgical History Past Surgical History: Procedure Laterality Date APPENDECTOMY 12 years ago COLONOSCOPY COLONOSCOPY 01/16/2019 HERNIA REPAIR INCISIONAL HERNIA REPAIR 09/04/2019 DR JOE PROSTATE BIOPSY 06/10/[address] desir TONSILLECTOMY (HISTORICAL) VENTRAL HERNIA REPAIR 7 years ago WISDOM TOOTH EXTRACTION Family History Family History Problem Relation Name Age of Onset Alzheimer's disease Mother COPD Father Social History Social History Tobacco Use Smoking status: Every Day Packs/day: 0.50 Types: Cigarettes Smokeless tobacco: Never Tobacco comments: Quit smokin cigs a day Substance Use Topics Alcohol use: Yes Alcohol/week: 15.0 standard drinks Types: 15 Standard drinks or equivalent per week Comment: drinks [place] Drug use: No Comment: caffeine: decaf Allergies: No Known Allergies Medications: Current Outpatient Medications: alfuzosin ER (Uroxatral) 10 MG 24 hr tablet, Take 1 tablet (10 mg) by mouth daily., Disp: 90 tablet, Rfl: 3 apixaban (Eliquis) 5 MG tablet, Take 1 tablet (5 mg) by mouth in the morning and 1 tablet (5 mg) before bedtime., Disp: 180 tablet, Rfl: 3 citric acid-potassium citrate (Polycitra) 1100-334 MG/5ML solution, Take 10 mEq by mouth., Disp: , Rfl: ezetimibe-simvastatin (Vytorin) 10-40 MG tablet, Take 1 tablet by mouth Nightly., Disp: , Rfl: oxybutynin XL (Ditropan-XL) 10 MG 24 hr tablet, Take 1 tablet (10 mg) by mouth daily. Take 1 tablet by mouth in the morning., Disp: 90 tablet, Rfl: 3 sotalol (Betapace) 120 MG tablet, Take 1 tablet by mouth in the morning and 1 tablet in the evening., Disp: , Rfl: Review of Systems: Review of Systems Constitutional: Negative for activity change, chills, diaphoresis, fatigue and fever. HENT: Negative for nosebleeds and trouble swallowing. Eyes: Negative for discharge and visual disturbance. Respiratory: Negative for apnea, cough, chest tightness, shortness of breath and wheezing. Cardiovascular: Positive for palpitations. Negative for chest pain and leg swelling. Gastrointestinal: Negative for abdominal distention, abdominal pain, blood in stool, diarrhea, nausea and vomiting. Endocrine: Negative for cold intolerance and heat intolerance. Genitourinary: Negative for hematuria. Musculoskeletal: Negative for gait problem and myalgias. Skin: Negative for color change and rash. Neurological: Positive for dizziness. Negative for seizures, syncope, facial asymmetry, speech difficulty, weakness, light-headedness, numbness and headaches. Hematological: Does not bruise/bleed easily. Psychiatric/Behavioral: Negative for dysphoric mood. All other systems reviewed and are negative. Objective Physical Examination: Vitals: Vitals: 11/19/22 1028 BP: 120/78 BP Location: Left arm Patient Position: Sitting BP Cuff Size: Large adult Pulse: 66 SpO2: 95% Weight: 240 lb 3.2 oz (109 kg) Height: 5' 10 (1.778 m) Body mass index is 34.47 kg/m . Physical Exam Constitutional: Appearance: Normal appearance. He is obese. HENT: Head: Normocephalic and atraumatic. Right Ear: External ear normal. Left Ear: External ear normal. Nose: Nose normal. Mouth/Throat: Mouth: Mucous membranes are moist. Eyes: General: Right eye: No discharge. Left eye: No discharge. Neck: Vascular: No carotid bruit. Cardiovascular: Rate and Rhythm: Normal rate and regular rhythm. Heart sounds: Normal heart sounds, S1 normal and S2 normal. No murmur heard. No gallop. No S3 or S4 sounds. Pulmonary: Effort: Pulmonary effort is normal. Breath sounds: Normal breath sounds. Abdominal: General: Bowel sounds are normal. Palpations: Abdomen is soft. Tenderness: There is no abdominal tenderness. Musculoskeletal: General: No swelling or deformity. Cervical back: Neck supple. Right lower leg: No edema. Left lower leg: No edema. Skin: General: Skin is warm and dry. Coloration: Skin is not jaundiced. Neurological: Mental Status: He is alert and oriented to person, place, and time. Mental status is at baseline. Psychiatric: Mood and Affect: Mood normal. Behavior: Behavior normal. Data Reviewed Laboratory Tests: Lab Results Component Value Date WBC 9.5 09/22/2022 HGB 16.6 09/22/2022 HCT 48.9 09/22/2022 MCV 88.3 09/22/2022 PLT 219 09/22/2022 Lab Results Component Value Date GLUCOSE 131 (H) 09/22/2022 CALCIUM 9.5 09/22/2022 NA 138 09/22/2022 K 4.8 09/22/2022 CO2 28 09/22/2022 CL 105 09/22/2022 BUN 20 09/22/2022 CREATININE 0.89 09/22/2022 Lab Results Component Value Date CHOL 158 09/22/2022 Lab Results Component Value Date HDL 46 09/22/2022 Lab Results Component Value Date LDLCALC 82 09/22/2022 Lab Results Component Value Date TRIG 149 09/22/2022 Cardiac Tests: ECG: Encounter Date: 11/19/22 ECG 12 lead - CLINIC PERFORMED Narrative Sinus Rhythm -PVCs -RSR(V1) -nondiagnostic. PROBABLY NORMAL Last Echo: 08/18/21 SUMMARY: 1. Left ventricle: Systolic function is by visual assessment. The estimated ejection fraction is 60%. There are no regional wall motion abnormalities. 2. Right ventricle: The cavity size is mildly dilated. Systolic function is mildly decreased by visual assessment. 3. Left atrium: The atrium is severely dilated. There is no evidence of a thrombus in the atrial cavity or appendage. No spontaneous echo contrast is observed. The appendage is well visualized and of normal size. Emptying velocity is normal. 4. Right atrium: The atrium is moderately dilated. 5. Atrial septum: No evidence of patent foramen ovale or atrial septal defect. 6. No significant valvular abnormalities. 7. Aorta: The aortic root and ascending aorta are normal in size. The visualized portions of the arch and descending aorta are normal in size. 8. Pericardium, extracardiac: There is no pericardial effusion. Last cardioversion: 08/18/2021 Assessment and Plan 1. Paroxysmal atrial fibrillation (CMS/HCC) (HCC) He continues to have paroxysms of atrial fibrillation and is breaking through sotalol. I will refer him to Dr. Isael Sorensen for consideration of ablation. His QTC is normal on sotalol but he continues to breakthrough his sotalol. 2. High risk medication use Please see #1 above 3. Anticoagulated Tolerating apixaban without bleeding or bruising 4. HARSHA (obstructive sleep apnea) He is being fitted for a CPAP mask through the sleep clinic 5. Class 1 obesity due to excess calories with serious comorbidity and body mass index (BMI) of 34.0 to 34.9 in adult Counseled on weight reduction. He is currently on weight watchers 6. Mixed hyperlipidemia Remains on Vytorin - ECG 12 lead - CLINIC PERFORMED 7. Current smoker Smoking 1/2 pack/day. Counseled on cessation Follow Up: He will see my nurse practitioner in 6 months. I will see the patient again in 1 year and on an as needed basis. Aguilar Parsons MD, LED[facility], [facility], [facility] Past-President, Medical Staff, [facility] Director, Cardiac Catheterization Laboratory Clinical Professor of Internal Medicine, [facility] Cardiology-[address] [place] [address] p [phone] f [phone] [email or web address] Disclaimer Captured images seen in this note from are not a substitute for a comprehensive interpretation of the entire data set as reflected by the interpreting physician with regard to radiology, echocardiography, and other diagnostic images. This note may have been dictated using [employer] Practice Edition 2.6 and/or [employer] Voice Recognition Feature. The document was proofread, however unrecognized voice recognition comptroller errors may be present. documented in this encounter [facility] 11-18-2022 Telephone encounter Note PC to patient LM to give the office a call back to get an appointment with Dr. Sorensen. [facility] 11-18-2022 Miscellaneous Notes PC to patient LM to give the office a call back to get an appointment with Dr. Sorensen. documented in this encounter [facility] 10-16-2022 Telephone encounter Note Please refer back to AF Clinic. Sotalol failure. Options include: increase sotalol to 160 bid, different AA (dofetilide, Amio) vs ablation. [facility] 10-16-2022 Miscellaneous Notes Please refer back to AF Clinic. Sotalol failure. Options include: increase sotalol to 160 bid, different AA (dofetilide, Amio) vs ablation. Received page from [email or web address] regarding EKG. Patient has 30 day monitor for AF burden, known history. ON DOAC. Received page about AF rates 130s-150s - asymptomatic, auto trigger. Attepmted to call patient, no response, left detailed voicemail and callback if questions. Will forward to primary academic services professional, consider rate control as needed. Stated in voicemail to callback with questions and if sudden symptoms develop such as CP, SOB, syncope, or if something does not feel right, to seek emergent care. Albert Royal PGY 6 international sourcing manager documented in this encounter [employer] 10-14-2022 Telephone encounter Note Received page from [email or web address] regarding EKG. Patient has 30 day monitor for AF burden, known history. ON DOAC. Received page about AF rates 130s-150s - asymptomatic, auto trigger. Attepmted to call patient, no response, left detailed voicemail and callback if questions. Will forward to primary academic services professional, consider rate control as needed. Stated in voicemail to callback with questions and if sudden symptoms develop such as CP, SOB, syncope, or if something does not feel right, to seek emergent care. Albert Royal PGY 6 international sourcing manager [employer] Work Phone: 08-18-2021 Hospital Discharg e instructions Marilyn Cordero APRN - CNP - 08/18/2021 9:15 AM EDT No driving today Marilyn Cordero APRN - CNP - 08/18/2021 9:15 AM EDT Good nutrition is important when healing from an illness, injury, or surgery. Follow any nutrition recommendations given to you during your hospital stay. If you were given an oral nutrition supplement while in the hospital, continue to take this supplement at home. You can take it with meals, in-between meals, and/or before bedtime. These supplements can be purchased at most local grocery stores, pharmacies, and [employer]-stores. If you have any questions about your diet or nutrition, call the hospital and ask for the dietitian. Marilyn Cordero APRN - CNP - 08/18/2021 Post Cardioversion Discharge Instructions 1.Treat reddened areas on chest and back with any lotion or cream used to treat a sunburn (Solercaine, Noxema, Aloe) 2.Continue medication as instructed by your doctor 3.Call your doctor s office if you experience an irregular heartbeat or previous symptoms reoccur 4. You have received sedation: you must have someone drive you home 5. You should not drive a car, operate machinery, drink alcohol or perform any activity that requires alertness for the rest of the day. The effects of the sedative should be gone by tomorrow. Medication changes Start Flecainide 50mg twice a day (2 doses today) decrease metoprolol to 25mg twice a day.(1 dose today, this evening) resume eliquis 5mg twice a day (2 doses today) Follow up appointment EKG 08/25/21 at 10:00am__Also keep appt with Carol Saucedo NP 09/14/21 at 9:30am documented in this encounter [facility] Work Phone: Evaluation note Diagnosis Elevated PSA Elevated prostate specific antigen (PSA) Prostate cancer screening Special screening for malignant neoplasm of prostate documented in this encounter [facility] Work Phone: Evaluation note* Diagnosis Calculus in bladder Other calculus in bladder Calculus, bladder Other calculus in bladder documented in this encounter [facility] Work Phone: Evaluation note* Diagnosis Paroxysmal atrial fibrillation (HCC)- Primary Atrial fibrillation documented in this encounter [facility] Work Phone: Evaluation note* Diagnosis Elevated prostate specific antigen (PSA) documented in this encounter [facility] Work Phone: Evaluation note* Diagnosis Elevated PSA Elevated prostate specific antigen (PSA) documented in this encounter [facility] Work Phone: Evaluation note* Diagnosis Onset Date Resolution Status Obesity acute HARSHA (obstructive sleep apnea) acute Smoking greater than 40 pack years [facility] Work Phone: Evaluation note* Diagnosis Gross hematuria [facility]* Diagnosis Paroxysmal atrial fibrillation (CMS/HCC) (HCC) Atrial fibrillation Elevated prostate specific antigen (PSA) [facility]* Diagnosis Elevated prostate specific antigen (PSA)- Primary Elevated prostate specific antigen (PSA) [facility]* Diagnosis Elevated prostate specific antigen (PSA) documented [facility]* Diagnosis Gross hematuria documented [facility]* Diagnosis Gross hematuria- Primary Hematuria, gross Gross hematuria documented [facility]* Diagnosis Gross hematuria- Primary [facility]* Diagnosis Gross hematuria- Primary [facility]* Diagnosis Type 2 diabetes mellitus without complications (CMS/HCC) (HCC)- Primary Hyperlipidemia, unspecified Paroxysmal atrial fibrillation (CMS/HCC) (HCC) Atrial fibrillation Benign prostatic hyperplasia without lower urinary tract symptoms documented [facility]* Diagnosis Benign prostatic hyperplasia with urinary obstruction- Primary [facility]* Diagnosis Post-operative state- Primary Other postprocedural status Benign prostatic hyperplasia with lower urinary tract symptoms Other obstructive and reflux uropathy [facility] Diagnosis Other specified abnormal findings of blood chemistry documented in this encounter [facility] note* Diagnosis Hypertrophy of prostate with urinary obstruction- Primary Hypertrophy of prostate with urinary obstruction and other lower urinary tract symptoms (LUTS) Bilateral renal cysts Unspecified congenital cystic kidney disease Hematuria, gross Gross hematuria Atypical small acinar proliferation of prostate History of urinary calculi Personal history of urinary calculi documented in this encounter [facility] note* Diagnosis Other specified abnormal findings of blood chemistry- Primary Other specified abnormal findings of blood chemistry documented in this encounter [facility] note* Diagnosis Other specified abnormal findings of blood chemistry- Primary documented in this encounter [facility] note* Diagnosis Onset Date Resolution Status Atrial fibrillation chronic HARSHA (obstructive sleep apnea) chronic Smoking greater than 40 pack years chronic [facility] Work Phone: Evaluation note* Diagnosis Paroxysmal atrial fibrillation (HCC) Atrial fibrillation documented in this encounter [facility] note* Diagnosis Sinobronchitis- Primary Unspecified sinusitis (chronic) [facility] Diagnosis Sinobronchitis Unspecified sinusitis (chronic) documented in this encounter [facility] note* Diagnosis Paroxysmal atrial fibrillation (HCC)- Primary Atrial fibrillation Elevated PSA- Primary Elevated prostate specific antigen (PSA) Hypertrophy of prostate with urinary obstruction Hypertrophy of prostate with urinary obstruction and other lower urinary tract symptoms (LUTS) Benign prostatic hyperplasia with urinary obstruction History of urinary calculi Personal history of urinary calculi documented in this encounter [facility] note* Diagnosis Paroxysmal atrial fibrillation (CMS/HCC) (HCC)- Primary Atrial fibrillation High risk medication use Anticoagulated Encounter for long-term (current) use of anticoagulants HARSHA (obstructive sleep apnea) Obstructive sleep apnea (adult) (pediatric) Class 1 obesity due to excess calories with serious comorbidity and body mass index (BMI) of 34.0 to 34.9 in adult Mixed hyperlipidemia Current smoker documented in this encounter [facility] note* Diagnosis Paroxysmal atrial fibrillation (CMS/HCC) (HCC) Atrial fibrillation HARSHA (obstructive sleep apnea) Obstructive sleep apnea (adult) (pediatric) Benign prostatic hyperplasia without lower urinary tract symptoms terminal computer operator (current) use of anticoagulants Long-term (current) use of anticoagulants Persistent atrial fibrillation (HCC)- Primary Atrial fibrillation Persistent atrial fibrillation (HCC) [facility]rial [facility] Paroxysmal atrial fibrillation (CMS/HCC) (HCC) Atrial fibrillation Persistent atrial fibrillation (HCC)- Primary Atrial fibrillation Persistent atrial fibrillation (HCC) Atrial fibrillation [facility] Diagnosis Obstructive sleep apnea (adult) (pediatric)- Primary Persistent atrial fibrillation (HCC)- Primary Atrial fibrillation Persistent atrial fibrillation (HCC) Atrial fibrillation [facility] Diagnosis Persistent atrial fibrillation (HCC)- Primary Atrial fibrillation Persistent atrial fibrillation (HCC) Atrial fibrillation Paroxysmal atrial fibrillation (CMS/HCC) (HCC) Atrial fibrillation PAF (paroxysmal atrial fibrillation) (CMS/HCC) (HCC) Atrial fibrillation Paroxysmal atrial fibrillation (CMS/HCC) (HCC) Atrial fibrillation Persistent atrial fibrillation (HCC) Atrial fibrillation [facility] Diagnosis Elevated prostate specific antigen (PSA)- Primary Hypertrophy of prostate with urinary obstruction Hypertrophy of prostate with urinary obstruction and other lower urinary tract symptoms (LUTS) Benign prostatic hyperplasia with urinary obstruction [facility] Diagnosis Paroxysmal atrial fibrillation (CMS/HCC) (HCC) Atrial [facility] Diagnosis Type 2 diabetes mellitus without complications (CMS/HCC) (HCC)- Primary Hyperlipidemia, unspecified Paroxysmal atrial fibrillation (CMS/HCC) (HCC) Atrial fibrillation [facility] Diagnosis Elevated PSA- Primary Elevated prostate specific antigen (PSA) [facility] Diagnosis Paroxysmal atrial fibrillation (CMS/HCC) (HCC)- Primary Atrial fibrillation [facility] Diagnosis Paroxysmal atrial fibrillation (HCC)- Primary Atrial fibrillation Atrial fibrillation with RVR (HCC)- Primary Atrial fibrillation with RVR (HCC) [facility] Diagnosis Paroxysmal atrial fibrillation (HCC)- Primary Atrial fibrillation Paroxysmal atrial fibrillation (HCC) Atrial fibrillation HARSHA (obstructive sleep apnea) Obstructive sleep apnea (adult) (pediatric) Mixed hyperlipidemia Alcohol abuse Nondependent alcohol abuse, unspecified drinking behavior Prediabetes Other abnormal glucose [facility] Diagnosis Paroxysmal atrial fibrillation (HCC)- Primary Atrial fibrillation Atrial fibrillation with RVR (HCC) [facility] Diagnosis Paroxysmal atrial fibrillation (HCC)- Primary Atrial fibrillation Elevated PSA- Primary Elevated prostate specific antigen (PSA) Hypertrophy of prostate with urinary obstruction Hypertrophy of prostate with urinary obstruction and other lower urinary tract symptoms (LUTS) Benign prostatic hyperplasia with urinary obstruction History of urinary calculi Personal history of urinary calculi documented in this encounter [facility] note* Diagnosis Paroxysmal atrial fibrillation (HCC)- Primary Atrial fibrillation Elevated prostate specific antigen (PSA)- Primary Paroxysmal atrial fibrillation (HCC) Atrial fibrillation HARSHA (obstructive sleep apnea) Obstructive sleep apnea (adult) (pediatric) Mixed hyperlipidemia Alcohol abuse Nondependent alcohol abuse, unspecified drinking behavior Prediabetes Other abnormal glucose documented in this encounter [facility] note* Diagnosis Paroxysmal atrial fibrillation (HCC)- Primary Atrial fibrillation Paroxysmal atrial fibrillation (HCC)- Primary Atrial fibrillation HARSHA (obstructive sleep apnea) Obstructive sleep apnea (adult) (pediatric) Mixed hyperlipidemia Alcohol abuse Nondependent alcohol abuse, unspecified drinking behavior Prediabetes Other abnormal glucose documented in this encounter [facility] Discharge instructions* Instructions* Esperanza Ball, IT SERVICE DELIVERY MANAGER - FRONT END SOFTWARE ENGINEER - 08/25/2021 Post Cardioversion Discharge Instructions 1.Treat reddened areas on chest and back with any lotion or cream used to treat a sunburn (Solercaine, Noxema, Aloe) 2.Continue medication as instructed by your doctor 3.Call your doctor s office if you experience an irregular heartbeat or previous symptoms reoccur 4. You have received sedation: you must have someone drive you home 5. You should not drive a car, operate machinery, drink alcohol or perform any activity that requires alertness for the rest of the day. The effects of the sedative should be gone by tomorrow. Medication changes No change Follow up appointment 09/14/21 at 9:30 [facility]: Assessments Diagnosis Elevated PSA, less than 10 ng/ml Elevated prostate specific antigen (PSA) Diagnosis Elevated PSA, less than 10 ng/ml Elevated prostate specific antigen (PSA) Diagnosis Elevated PSA, less than 10 ng/ml Elevated prostate specific antigen (PSA) Diagnosis Frequency of urination Urinary frequency Dysuria Malodorous urine Other nonspecific finding on examination of urine Diagnosis Elevated PSA Elevated prostate specific antigen (PSA) Diagnosis Hematuria, gross Gross hematuria Calculus, bladder Other calculus in bladder Diagnosis Calculus, bladder Other calculus in bladder Diagnosis Hematuria, gross Gross hematuria Diagnosis Ventral hernia without obstruction or gangrene- Primary Ventral hernia, unspecified, without mention of obstruction or gangrene Advance Directives No Advanced Directives Records FoundDocuments on File Type Date Recorded Patient Vocational Nurse Lvn Expl anation Advance Directives and Living Will Power of Embroidery Worker Latest Code Status on File Code Status Date Activated Date Inactivated Comments Full Code 02/17/2019 8:43 PM 02/19/2019 1:59 PM Full Code 01/16/2019 8:55 AM 01/17/2019 2:30 AM Full Code 04/08/2017 7:32 AM 04/08/2017 3:00 PM Latest Code Status on File Code Status Date Activated Date Inactivated Comments Full Code 09/04/2019 6:11 AM 09/04/2019 1:31 PM Full Code 02/17/2019 8:43 PM 02/19/2019 1:59 PM Documents on File Type Date Recorded Patient Vocational Nurse Lvn Expl anation Advance Directives and Living Will Power of Embroidery Worker Latest Code Status on File Code Status Date Activated Date Inactivated Comments Full Code 09/04/2019 6:11 AM 09/04/2019 1:31 PM Full Code 02/17/2019 8:43 PM 02/19/2019 1:59 PM Full Code 01/16/2019 8:55 AM 01/17/2019 2:30 AM Full Code 04/08/2017 7:32 AM 04/08/2017 3:00 PM Documents on File Type Date Recorded Patient Vocational Nurse Lvn Expl anation ACP-Advance Directive ACP-Power of Embroidery Worker Latest Code Status on File Code Status Date Activated Date Inactivated Comments Full Code 09/29/2020 10:39 AM Full Code 09/04/2019 6:11 AM 09/04/2019 1:31 PM Latest Code Status on File Code Status Date Activated Date Inactivated Comments Full Code 09/29/2020 10:39 AM 09/29/2020 4:49 PM Latest Code Status on File Code Status Date Activated Date Inactivated Comments Full Code 09/04/2019 6:11 AM Documents on File Type Date Recorded Patient Vocational Nurse Lvn Expl anation ACP-Advance Directive ACP-Power of Embroidery Worker Latest Code Status on File Code Status Date Activated Date Inactivated Comments Full Code 09/29/2020 10:39 AM 09/29/2020 4:49 PM Full Code 09/04/2019 6:11 AM 09/04/2019 1:31 PM Latest Code Status on File Code Status Date Activated Date Inactivated Comments Full Code 08/18/2021 7:38 AM Full Code 09/29/2020 10:39 AM 09/29/2020 4:49 PM Latest Code Status on File Code Status Date Activated Date Inactivated Comments Full Code 08/25/2021 6:32 AM Full Code 08/18/2021 7:38 AM 08/18/2021 12:10 PM Latest Code Status on File Code Status Date Activated Date Inactivated Comments Full Code 08/25/2021 6:32 AM 08/25/2021 10:59 AM Latest Code Status on File Code Status Date Activated Date Inactivated Comments Full Code 11/30/2022 10:52 AM 11/30/2022 6:45 PM Latest Code Status on File Code Status Date Activated Date Inactivated Comments Full Code 11/30/2022 10:52 AM 11/30/2022 6:45 PM Latest Code Status on File Code Status Date Activated Date Inactivated Comments Full Code 03/30/2023 7:38 AM 03/30/2023 11:57 AM Code Status History Code Status Date Activated Date Inactivated Comments Full Code 11/30/2022 10:52 AM 11/30/2022 6:45 PM Latest Code Status on File Code Status Date Activated Date Inactivated Comments Full Code 03/30/2023 7:38 AM 03/30/2023 11:57 AM Code Status History Code Status Date Activated Date Inactivated Comments Full Code 11/30/2022 10:52 AM 11/30/2022 6:45 PM Latest Code Status on File Code Status Date Activated Date Inactivated Comments Full Code 09/08/2023 6:36 PM 09/09/2023 2:35 PM Code Status History Code Status Date Activated Date Inactivated Comments Full Code 09/08/2023 6:36 PM 09/08/2023 6:36 PM Full Code 09/08/2023 8:38 AM 09/08/2023 6:36 PM Full Code 03/30/2023 7:38 AM 03/30/2023 11:57 AM Full Code 11/30/2022 10:52 AM 11/30/2022 6:45 PM Latest Code Status on File Code Status Date Activated Date Inactivated Comments Full Code 09/08/2023 6:36 PM 09/09/2023 2:35 PM Code Status History Code Status Date Activated Date Inactivated Comments Full Code 09/08/2023 6:36 PM 09/08/2023 6:36 PM Full Code 09/08/2023 8:38 AM 09/08/2023 6:36 PM Full Code 03/30/2023 7:38 AM 03/30/2023 11:57 AM Full Code 11/30/2022 10:52 AM 11/30/2022 6:45 PM Date Activated Date Inactivated Comments 09/08/2023 6:36 PM 09/09/2023 2:35 PM Date Activated Date Inactivated Comments 09/08/2023 6:36 PM 09/08/2023 6:36 PM Date Activated Date Inactivated Comments 09/08/2023 8:38 AM 09/08/2023 6:36 PM Date Activated Date Inactivated Comments 03/30/2023 7:38 AM 03/30/2023 11:57 AM Date Activated Date Inactivated Comments 11/30/2022 10:52 AM 11/30/2022 6:45 PM Date Activated Date Inactivated Comments 11/07/2024 6:56 PM 11/08/2024 5:51 PM Date Activated Date Inactivated Comments 09/08/2023 6:36 PM 09/09/2023 2:35 PM Date Activated Date Inactivated Comments 09/08/2023 6:36 PM 09/08/2023 6:36 PM Date Activated Date Inactivated Comments 09/08/2023 8:38 AM 09/08/2023 6:36 PM Date Activated Date Inactivated Comments 03/30/2023 7:38 AM 03/30/2023 11:57 AM Date Activated Date Inactivated Comments 11/07/2024 6:56 PM 11/08/2024 5:51 PM Date Activated Date Inactivated Comments 09/08/2023 6:36 PM 09/09/2023 2:35 PM Date Activated Date Inactivated Comments 09/08/2023 6:36 PM 09/08/2023 6:36 PM Date Activated Date Inactivated Comments 09/08/2023 8:38 AM 09/08/2023 6:36 PM Date Activated Date Inactivated Comments 03/30/2023 7:38 AM 03/30/2023 11:57 AM Reason for Referral Status Reason Specialty Diagnoses / Procedures Referre d By Contact Referred To Contact Closed Radiology Diagnoses Elevated PSA, less than 10 ng/ml Procedures MRI Pelvis W WO Contrast Carroll Arango, IT SERVICE DELIVERY MANAGER - FRONT END SOFTWARE ENGINEER [address] [place] [address] Status Reason Specialty Diagnoses / Procedures Referre d By Contact Referred To Contact Closed Radiology Diagnoses Elevated PSA Prostate cancer screening Procedures MRI PELVIS W WO CONTRAST Jocelin Quiroga, IT SERVICE DELIVERY MANAGER - FRONT END SOFTWARE ENGINEER [address] [place] [address] Specialty Diagnoses / Procedures Referred By Contac t Referred To Contact Radiology Diagnoses Gross hematuria Procedures MR pelvis w and wo contrast Jaimie Noonan, IT SERVICE DELIVERY MANAGER - JET ENGINE MECHANIC [address] [place] [address] [facility] [address] [place] [address] Referral ID Status Reason Start Date Expiration Date Visits Re quested Visits Authorized [id number] Closed 01/24/2023 07/23/2023 1 1 Specialty Diagnoses / Procedures Referred By Contac t Referred To Contact Radiology Diagnoses Gross hematuria Procedures CT abdomen pelvis w and wo IV contrast Baljit Hood MD [address] [place] [address] Referral ID Status Reason Start Date Expiration Date Visits Re quested Visits Authorized [id number] Closed 04/26/2023 05/25/2023 1 1 Specialty Diagnoses / Procedures Referred By Contac t Referred To Contact Sleep Medicine Diagnoses Obstructive sleep apnea (adult) (pediatric) Procedures Polysomnography Belinda Adames MD [address] [place] [address] [facility] [address] [place] [address] Referral ID Status Reason Start Date Expiration Date Visits Re quested Visits Authorized [id number] Closed 08/28/2022 02/24/2023 1 1 Discharge Instructions * Instructions* Jodi Ragland RN - 09/22/2020 Please bring your [facility] Surgical Information folder on the day of surgery. Please mary lou the last dose taken (date and time ) on your Daily Medications List provided in your After Visit Summary. Please bring a photo ID and insurance information TAKE the following medications the morning of your surgery Metoprolol. You may take your prescription pain medications. You may take Tylenol (Acetaminophen) if needed forpain. No Motrin, Ibuprofen, or Advil 24 hours prior to surgery, or longer if instructed by your surgeon. No Aleve or Naprosyn 3 days prior to surgery, or longer if instructed by your surgeon. You will receive a reminder call the day before surgery with your Same Day Surgery arrival time. If you have specific questions, please call your surgeon. Please shower with an antibacterial soap( example DIAL OR SAFEGUARD) You may use the free upholsterer apprentice parking at the main entrance on [address] [place] [address], or the free parking in the [facility] parking deck * Attachments The following attachments cannot be sent through Care Everywhere. * Cystoscopy: Post-op (Peruvian) * Cystoscopy: Pre-op (Peruvian) * Laser Lithotripsy: Post-op (Peruvian) documented in this encounter* Instructions* Mikayla Yu RN - 09/29/2020 Recovery Instructions Cystoscopy You may experience: ? Burning sensation when you void ? A feeling of a need to go to the bathroom frequently ? Your urine may be blood tinged These symptoms should be relieved within a few hours as you increase the amounts of fluids you drink and the number of times that you empty your bladder. We recommended that you drink plenty of fluida few days after surgery. Activity: No strenuous activities until you talk to your doctor. You may feel light headed up to 24 hours after anesthesia. You should not do the following for the next 24 hours. ? Drive a car, operate machinery or power tools ? Drink any alcoholic drinks (not even beer or wine) ? Make any important decisions, i.e., signing important papers. Diet: ? It is recommended that you begin with clear liquids and/or light foods. If you are not nauseated,progress to your normal diet. ? Drink plenty of fluids If you are unable to urinate you should call your surgeon s office at documented in this encounter* Instructions* Karly Bland, RN - 08/29/2019 During pre-admission testing appointment, patient instructed on the following To arrive 2 hours prior to scheduled surgery Upon arrival, stop in registration past the main entrance and provide them with a photo id and a medical card if they have one After registration, come to the same day surgery department, stopping at the main desk They need to have made arrangements for a ride home following surgery and a phone number will need to be provided before going back to the operating room. If public transportation is being used, pt made aware that they need to have a responsible adult accompany them. They need to make arrangements for someone to stay with them after they get home from surgery. Leave all jewelry, contacts and valuables at home Wear loose comfortable clothing to go home in Which medications need to be held and taken prior to surgery Bring in the medication list provided for them and write in the date/time last dose was taken No food (including candy, gum and mints) the day of surgery They may have clear liquids ( water, black coffee/no liquid or powder creamer, clear tea, clear fruit juices/no pulp and carbonated beverages) up until 2 hours prior to surgery Do not drink alcohol, use recreational drugs or smoke/use nicotine products 24 hours prior to surgery. Encouraged to write down any questions they may have for the surgeon, anesthesiologist or any member of the surgical team, and to bring list of questions in with them During the pre-admission testing appointment, this nurse reviewed and provided patient with The taking care of yourself after surgery paper Billing information for anesthesia patients Preparing for your surgical procedure pamphlet After visit Summary with medication list and medication instructions Prior to end of PAT appointment, pt acknowledged understanding of information and instructions provided in preparation of upcoming surgery.PLEASE BE AWARE THAT VISITORS UNDER THE AGE OF 12 AND FOOD/DRINKS ARE NO LONGER PERMITTED IN THE SAME DAY SURGERY DEPARTMENT. IF YOU USE A CPAP MACHINE OR RESCUE INHALER AT HOME PLEASE BRING THESE ITEMS WITH YOU THE DAY OF SURGERY. MEDICATION INSTRUCTIONS PRIOR TO SURGERY PLEASE BRING PROVIDED LIST BACK WITH YOU THE DAY OF SURGERY WITH DATE/TIME LAST DOSE OF MEDICATIONSTAKEN. HOLD ALEVE FOR 3 DAYS PRIOR TO SURGERY, MAY TAKE ADVIL UP TO 24 HOURS PRIOR TO SURGERY AND THEN TYLENOL ONLY. HOLD MULTI VITAMIN FOR 5 DAYS PRIOR TO SURGERY. PLEASE take metoprolol am of surgery. * Attachments The following attachments cannot be sent through Care Everywhere. * Abdominal Hernia Repair: Post-op (Peruvian) * Abdominal Hernia Repair: Pre-op (Peruvian) documented in this encounter* Instructions* Candido Joe MD - 09/04/2019 POST-OPERATIVE INSTRUCTIONS HERNIA REPAIR ? Call the office to schedule your post-operative appointment with your surgeon for 4 weeks. ? If you still have bandages over your incisions, you may remove them in 1 day. May shower tomorrow. ? Place an ice pack over your incisions on and off (15min) at a time for the next 2 days. ? General guidelines for activity: Avoid strenuous activity or lifting anything heavier than 15 pounds. It is OK to be up and walking around. Going up and down stairs is also OK. Do what is comfortable: stop and rest when you feel tired. ? You will have pain medicine ordered. Take as directed. ? Do NOT drive for one day and while taking your narcotic pain medicine. ? Watch for signs of infection: Excessive warmth or bright redness around your incisions Leakage of bloody or cloudy fluid from you incisions Fever over 100.5 ? If you experience constipation o Increase your water intake. o Increase your activity; walking is best. o A stool softener or mild laxative may be necessary if you still have not had a bowel movement ; call the office for further instructions. o documented in this encounter History of Present Illness * Mikayla Yu RN - 09/29/2020 2:36 PM EST Discharge instructions reviewed with mathew and pt over the phone [phone] * Mikayla Yu RN - 09/29/2020 1:45 PM EST Pt ambulated in hallway * Mikayla Yu RN - 09/29/2020 1:08 PM EST Pt arrived to PACU from OR. Pt ID verified. Monitors applied with alarms on. Vital signs stable. documented in this encounter* Rachel Lockwood RN - 09/04/2019 11:00 AM EDT 1032 Arrived in [facility] via cart; assisted with dressing and then transfer to wheelchair; states pain level is about 2 and is ok with 2; surgical dressing clean, dry, intact; ice pack applied; present home going instructions given ; both patient and spouse demonstrate understanding Ready for transport to home; transported to discharge area via wheelchair by volunteer * Fariba Portillo RN - 09/04/2019 10:27 AM EDT PT INSTRUCTED ON THE USE OF THE INCENTIVE SPIROMETER, PT VERBALIZED AND DEMONSTRATED UNDERSTANDING * Fariba Portillo RN - 09/04/2019 10:25 AM EDT PT DENIES PAIN OR NAUSEA AND IS TOLERATING ICE CHIPS, PT VS STABLE, WILL CONTINUE TO MONITOR * Fariba Portillo RN - 09/04/2019 9:59 AM EDT PATIENT RECEIVED FROM OR VIA CART. SPONT RESP. WITH PRODUCT INSPECTION SUPERVISOR IN ATTENDANCE. PLACED ON MONITOR. MONITOR ALARMS ON IN PACU. documented in this encounter Summary Purpose Family History No Family History Records FoundNo Family History Records FoundNo Family History Records FoundNo Family History Records FoundNo Family History Records FoundNo Family History Records Found Chief Complaint and Reason for Visit Chief Complaint Sleep apnea NICOTINE DEP Reason for Visit Obesity HARSHA (obstructive sleep apnea) Smoking greater than 40 pack years Chief Complaint Sleep apnea NICOTINE DEP HARSHA Reason for Visit Obesity HARSHA (obstructive sleep apnea) Smoking greater than 40 pack years Chief Complaint Sleep apnea NICOTINE DEP HARSHA HARSHA; CPAP *DEVICE TAGGED Reason for Visit Obesity HARSHA (obstructive sleep apnea) Smoking greater than 40 pack years Chief Complaint NICOTINE DEP test results Reason for Visit Atrial fibrillation HARSHA (obstructive sleep apnea) Smoking greater than 40 pack years Additional Source Comments Ordered Prescriptions (unrec ognized section and content) Prescription Sig Dispensed Refills Start Date End Da te metoprolol (LOPRESSOR) 25 MG tablet Take 1 tablet by mouth 2 times daily 180 tablet 2 08/18/2021 flecainide (TAMBOCOR) 50 MG tablet Take 1 tablet by mouth every 12 hours 60 tablet 3 08/18/2021 Scheduled Active and Recently Administ ered Medications (unrecognized section and content) Medication Order 08/16/2021 08/17/2021 08/18/2021 enoxaparin (LOVENOX) injection 105 mg (COMPLETED) 105 mg (rounded from 105.7 mg = 1 mg/kg 105.7 kg), SubCUTAneous, DAILY, First dose on Tue08/18/21 at 0900, For 1 dose 0825 (Given - Provid er: Lana Walters RN) flecainide (TAMBOCOR) tablet 50 mg 50 mg, Oral, EVERY 12 HOURS SCHEDULED (2 times per day), First dose on Tue08/18/21 at 0915 0915 (Due)2099 (Due) sodium chloride flush 0.9 % injection 5-40 mL 5-40 mL, IntraVENous, EVERY 12 HOURS SCHEDULED (2 times per day), First dose on Tue08/18/21 at 0900, For Line Patency: Peripheral IV = 5 mL; Midline or Central Line = 10 mL/lumen. If following IV push medication, administer flush at same rate as the IV push. Flush volume is determined by type of infusion therapy being given. For non-viscous solutions use: Peripheral IV = 5 mL Midline or Central Line = 10 mL/lumen For viscous solutions (i.e. blood components, parenteral nutrition, contrast media, or after obtaining blood sample) use: Peripheral IV = 10 mL Midline or Central Line = 20 mL/lumen, Pre-Procedure(Cath) 0900 (Due)2099 (Due) Continuous Medication Order 08/16/2021 08/17/2021 08/18/2021 0.9 % sodium chloride infusion IntraVENous, at 30 mL/hr, CONTINUOUS, Starting on Tue08/18/21 at 0800, Pre-Procedure(Cath) 0800 (Due) PRN Medication Order 08/16/2021 08/17/2021 08/18/2021 perflutren lipid microspheres (DEFINITY) injection 1.65 mg (COMPLETED) 1.65 mg, IntraVENous, IMG ONCE PRN, Other, Starting on Tue08/18/21 at 0838, For 1 dose, Once activated, final concentration equals 1.1 mg/mL 0838 (Given - Provid er: Lana Walters RN) sodium chloride flush 0.9 % injection 5-40 mL 5-40 mL, IntraVENous, PRN, Line Care, After every IV line use, Starting on Tue08/18/21 at 0738, For Line Patency: Peripheral IV = 5 mL; Midline or Central Line = 10 mL/lumen. If following IV push medication, administer flush at same rate as the IV push. Flush volume is determined by type of infusion therapy being given. For non-viscous solutions use: Peripheral IV = 5 mL Midline or Central Line = 10 mL/lumen For viscous solutions (i.e. blood components, parenteral nutrition, contrast media, or after obtaining blood sample) use: Peripheral IV = 10 mL Midline or Central Line = 20 mL/lumen, Pre-Procedure(Cath) No Frequency Medication Order 08/16/2021 08/17/2021 08/18/2021 ketamine (KETALAR) 50 MG/5ML injection Starting on Tue08/18/21 at 0741, For 1 dose, Yeison Garcia: cabinet override 0745 (Due) lidocaine PF 2 % injection Starting on Tue08/18/21 at 0950, For 1 dose, Yeison Garcia: cabinet override 1000 (Due) midazolam (VERSED) 2 MG/2ML injection Starting on Tue08/18/21 at 0741, For 1 dose, Yeison Garcia: cabinet override 0745 (Due) propofol 200 MG/20ML injection Starting on Tue08/18/21 at 0951, For 1 dose, Yeison Garcia: cabinet override Do not administer through the same I.V. catheter with blood or plasma. Tubing and any unused portions of propofol vials should be discarded after 12 hours. 1000 (Due) Scheduled Medication Order 08/23/2021 08/24/2021 08/25/2021 sodium chloride flush 0.9 % injection 5-40 mL 5-40 mL, IntraVENous, EVERY 12 HOURS SCHEDULED (2 times per day), First dose on Tue08/25/21 at 0900, For Line Patency: Peripheral IV = 5 mL; Midline or Central Line = 10 mL/lumen. If following IV push medication, administer flush at same rate as the IV push. Flush volume is determined by type of infusion therapy being given. For non-viscous solutions use: Peripheral IV = 5 mL Midline or Central Line = 10 mL/lumen For viscous solutions (i.e. blood components, parenteral nutrition, contrast media, or after obtaining blood sample) use: Peripheral IV = 10 mL Midline or Central Line = 20 mL/lumen, Pre-Procedure(Cath) 0900 (Due)2100 (Due) Continuous Medication Order 08/23/2021 08/24/2021 08/25/2021 0.9 % sodium chloride infusion IntraVENous, at 30 mL/hr, CONTINUOUS, Starting on Tue08/25/21 at 0815, Pre-Procedure(Cath) 0815 (Due) PRN Medication Order 08/23/2021 08/24/2021 08/25/2021 sodium chloride flush 0.9 % injection 5-40 mL 5-40 mL, IntraVENous, PRN, Line Care, After every IV line use, Starting on Tue08/25/21 at 0800, For Line Patency: Peripheral IV = 5 mL; Midline or Central Line = 10 mL/lumen. If following IV push medication, administer flush at same rate as the IV push. Flush volume is determined by type of infusion therapy being given. For non-viscous solutions use: Peripheral IV = 5 mL Midline or Central Line = 10 mL/lumen For viscous solutions (i.e. blood components, parenteral nutrition, contrast media, or after obtaining blood sample) use: Peripheral IV = 10 mL Midline or Central Line = 20 mL/lumen, Pre-Procedure(Cath) Scheduled Medication Order 09/07/2023 09/08/2023 09/09/2023 acetaminophen (Tylenol) tablet 1,000 mg (COMPLETED) 1,000 mg, Oral, Once, On Phyllis 09/08/23 at 0845, For 1 dose, Preprocedure, Maximum dose of acetaminophen is 4000 mg from all sources in 24 hours. Do not administer if patient has taken tylenol <4 hours earlier. Do not give if contraindicated ie. patient has active liver disease or cirrhosis. 0851 (Given - Provider: Kimberlyn Sanford RN) atorvastatin (Lipitor) tablet 20 mg(Linked Group 1) 20 mg, Oral, Daily, First dose on Tue09/08/23 at 1900 1859 (Given - Provider: Klarissa Mehta RN) 0941 (Given - Provider: Chelsey Garcia LPN) cefTRIAXone (Rocephin) 1,000 mg in sodium chloride 0.9 % 50 mL IVPB Mini-Bag Plus (COMPLETED) 1,000 mg, IntraVENous, at 100 mL/hr, Administer over 30 Minutes, Once, On Tue09/08/23 at 0845, For 1 dose, Preprocedure, Administer 60 minutes prior to surgery. Mini-Bag Plus bag, Suspected Indication (Select all that apply): Surgical Prophylaxis 0950 (New Bag - Provider: Ava Prater APRN - PRODUCT INSPECTION SUPERVISOR - Comment: pso) cefTRIAXone (Rocephin) 1,000 mg in sodium chloride 0.9 % 50 mL IVPB Mini-Bag Plus (COMPLETED) 1,000 mg, IntraVENous, at 100 mL/hr, Administer over 30 Minutes, Every 24 hours, First dose on Tue09/09/23 at 0900, For 1 dose, Phase II/On Unit, Mini-Bag Plus bag, Suspected Indication (Select all that apply): Surgical Prophylaxis 0942 (New Bag - Provider: Chelsey Garcia LPN)1012 (Stopped - Provider: Chelsey Garcia LPN) ezetimibe (Zetia) tablet 10 mg(Linked Group 1) 10 mg, Oral, Nightly, First dose on Tue09/08/23 at 2100 2019 (Given - Provider: Kavita Driver LPN) famotidine (Pepcid) tablet 20 mg (COMPLETED) 20 mg, Oral, Once, On Tue09/08/23 at 0845, For 1 dose, Preprocedure 0851 (Given - Provider: Kimberlyn Sanford RN) gabapentin (Neurontin) capsule 100 mg (COMPLETED) 100 mg, Oral, Once, On Tue09/08/23 at 0845, For 1 dose, Preprocedure, For Age >69 or Low GFR. 0851 (Given - Provider: Kimberlyn Sanford RN) metFORMIN (Glucophage) tablet 500 mg 500 mg, Oral, Daily with breakfast, First dose on Tue09/09/23 at 0800, Phase II/On Unit 0941 (Given - Provid er: Chelsey Garcia LPN) phenazopyridine (Pyridium) tablet 100 mg 100 mg, Oral, 3 times daily with meals, First dose on Phyllis 09/08/23 at 1845, Recovery & On Unit 1858 (Given - Provider: Klarissa Mehta RN) 0941 (Given - Provider: Chelsey Garcia LPN)1201 (Given - Provider: Chelsey Garcia LPN) sodium chloride 0.9% (NS) flush 10 mL 10 mL, IntraVENous, Every 12 hours scheduled (2 times per day), First dose on Phyllis 09/08/23 at 2100, Phase II/On Unit 2100 (Not Given - Provider: Kavita Driver LPN - Reason: IV Fluids Infusing) 0900 (Not Given - Provider: Chelsey Garcia LPN - Reason: IV Fluids Infusing) Continuous Medication Order 09/07/2023 09/08/2023 09/09/2023 lactated Ringer's (LR) infusion (CANCELED) 50 mL/hr, IntraVENous, Continuous, Starting on Phyllis 09/08/23 at 0845, Preprocedure, Upon admission to sameday - please start iv if patient does not have iv access. Use 500ml NS for patients on dialysis. 0902 (New Bag - Provider: Kimberlyn Sanford RN)0939 (Paused - Provider: PARTHA Gamez CRNA - Comment: Switch to gravity)0940 (Restarted - Provider: PARTHA Gamez CRNA)1100 (Anesthesia Volume Adjustment - Provider: PARTHA Gamez CRNA)1800 (Stopped - Provider: Klarissa Mehta RN) sodium chloride 0.9 % infusion 50 mL/hr, IntraVENous, Continuous, Starting on Phyllis 09/08/23 at 1845, Phase II/On Unit 1845 (Not Given - Provider: Klarissa Mehta RN - Reason: Other - Comment: duplicate order) sodium chloride 0.9 % infusion 50 mL/hr, IntraVENous, Continuous, Starting on Phyllis 09/08/23 at 1845, Phase II/On Unit 1849 (New Bag - Provider: Klarissa Mehta RN) sodium chloride 0.9 % irrigation solution 3,000 mL 3,000 mL, Irrigation, Continuous, Starting on Phyllis 09/08/23 at 1845, Recovery & On Unit 1851 (New Bag - Provider: Klarissa Mehta RN) PRN Medication Order 09/07/2023 09/08/2023 09/09/2023 acetaminophen (Tylenol) tablet 650 mg 650 mg, Oral, Every 4 hours PRN, mild pain (1-3), Pain (1-10), Starting on Phyllis 09/08/23 at 1835, Phase II/On Unit, Give in addition to any other pain medication ordered at same time for any pain indication. ALPRAZolam (Xanax) disintegrating tablet 0.25 mg (COMPLETED) 0.25 mg, Oral, PRN, anxiety, Starting on Phyllis 09/08/23 at 0838, For 1 dose, Preprocedure, Using dry hands, place tablet on top of tongue and allow to disintegrate. Administration with water is not necessary. 0851 (Given - Provider: Kimberlyn Sanford RN) bacitracin ointment Topical, Every 4 hours PRN, wound care, Meatal irritation, Starting on Phyllis 09/08/23 at 1835, Phase II/On Unit, May administer BID and PRN for urethral meatus care. fentaNYL (Sublimaze) injection 50 mcg (CANCELED) 50 mcg, IntraVENous, Every 5 min PRN, severe pain (7-10), Starting on Phyllis 09/08/23 at 1209, For 3 doses, Recovery (only), Phase I and Phase II- Initial therapy for severe pain (7-10). Restricted to a 90 minute time frame starting when the patient can verbally state their pain score. If after 2 doses the pain score does not decrease by more than one point, then call the provider. If oral meds are utilized, do not return to initial therapy medications. 1211 (Given - Provider: Neal Franklin RN) hyoscyamine (Levsin) SL tablet 125 mcg 125 mcg, SubLINGual, Every 4 hours PRN, bladder spasms, Starting on Phyllis 09/08/23 at 1835, Phase II/On Unit ondansetron (Zofran) injection 4 mg(Linked Group 2) 4 mg, IntraVENous, Every 6 hours PRN, nausea, vomiting, Starting on Phyllis 09/08/23 at 1835, Phase II/On Unit, 1st Line. Give IV if patient is unable to take orally. If inadequate response within 60 minutes, proceed to next-line agent or contact provider if no further options ordered. ondansetron ODT (Zofran-ODT) disintegrating tablet 4 mg(Linked Group 2) 4 mg, Oral, Every 8 hours PRN, nausea, vomiting, Starting on Phyllis 09/08/23 at 1835, Phase II/On Unit, 1st Line. If inadequate response within 60 minutes, proceed to next-line agent or contact provider if no further options ordered. Patient should allow tablet to dissolve on tongue. Do not remove from blister pack until just before administering. oxyCODONE (Roxicodone) immediate release tablet 5 mg 5 mg, Oral, Every 4 hours PRN, moderate pain (4-6), severe pain (7-10), Starting on Phyllis 09/08/23 at 1835, Phase II/On Unit polyethylene glycol (PEG) 3350 (Miralax) packet 17 g 17 g, Oral, Daily PRN, constipation, Starting on Phyllis 09/08/23 at 1835, Phase II/On Unit, 1st line for treatment of constipation - give scheduled if no bowel movement in past 24 hours. sodium chloride 0.9 % infusion 5-250 mL/hr, IntraVENous, PRN, if patient receiving piggyback infusions and maintenance fluids are not ordered OR KVO fluids to protect IV site / prevent frequent line interruptions/ long duration, Starting on Phyllis 09/08/23 at 1835, Phase II/On Unit, For piggyback infusion, administer at same rate as piggyback for a total of 25 mL. Enter 25 mL into dose field and piggyback rate into rate field of order. If piggyback is infusing at a rate less than 100 mL/hr, enter 25 mL into dose field and 100 mL/hr into rate field of order. For KVO fluids, enter rate of 20 mL/hr or less into rate field of order. sodium chloride 0.9 % irrigation solution (CANCELED) As needed, Starting on Phyllis 09/08/23 at 1005, Intraprocedure 1005 (Given - Provider: Emma Huntley MD) sodium chloride 0.9% (NS) flush 10 mL 10 mL, IntraVENous, PRN, line care, Starting on Phyllis 09/08/23 at 1835, Phase II/On Unit, After every IV line use Linked Groups Order Group 1: ezetimibe (Zetia) tablet 10 mgJump to med 10 mg, Oral, Nightly, First dose on Phyllis 09/08/23 at 2100 And atorvastatin (Lipitor) tablet 20 mgJump to med 20 mg, Oral, Daily, First dose on Phyllis 09/08/23 at 1900 Group 2: ondansetron ODT (Zofran-ODT) disintegrating tablet 4 mgJump to med 4 mg, Oral, Every 8 hours PRN, nausea, vomiting, Starting on Phyllis 09/08/23 at 1835, Phase II/On Unit, 1st Line. If inadequate response within 60 minutes, proceed to next-line agent or contact provider if no further options ordered. Patient should allow tablet to dissolve on tongue. Do not remove from blister pack until just before administering. Or ondansetron (Zofran) injection 4 mgJump to med 4 mg, IntraVENous, Every 6 hours PRN, nausea, vomiting, Starting on Phyllis 09/08/23 at 1835, Phase II/On Unit, 1st Line. Give IV if patient is unable to take orally. If inadequate response within 60 minutes, proceed to next-line agent or contact provider if no further options ordered. Scheduled Medication Order 11/28/2022 11/29/2022 11/30/2022 apixaban (Eliquis) tablet 5 mg (COMPLETED) 5 mg, Oral, Once, On Tue11/30/22 at 1400, For 1 dose, Recovery (only), Anticoagulant 1348 (Self Administe red Via Pump - Provider: Madhavi Li RN) PRN Medication Order 11/28/2022 11/29/2022 11/30/2022 acetaminophen (Tylenol) tablet 650 mg 650 mg, Oral, Every 4 hours PRN, mild pain (1-3), Fever > 100.5 F (38 C), Starting on Tue11/30/22 at 1439, Recovery & On Unit, Maximum dose of acetaminophen is 4000 mg from all sources in 24 hours. bupivacaine PF (Marcaine) 0.5 % injection (CANCELED) As needed, Starting on Tue11/30/22 at 1301, Intraprocedure 1301 (Given - Provid er: Meet Tristen Sorensen - Comment: right groin) lidocaine (Xylocaine) 1 % injection (CANCELED) Infiltration, As needed, Starting on Tue11/30/22 at 1302, Intraprocedure 1302 (Given - Provid er: Meet S Sorensen) Scheduled Medication Order 11/06/2024 11/07/2024 11/08/2024 apixaban (Eliquis) tablet 5 mg 5 mg, Oral, 2 times daily, First dose on Tue11/08/24 at 0900, Anticoagulant 0854 (Given - Provid er: Chloe Marie RN) atorvastatin (Lipitor) tablet 20 mg(Linked Group 1) 20 mg, Oral, Nightly, First dose on Tue11/07/24 at 2100, Substituted for simvastatin (Zocor). 2147 (Given - Provider: Chacorta Kapadia RN) ezetimibe (Zetia) tablet 10 mg(Linked Group 1) 10 mg, Oral, Nightly, First dose on Tue11/07/24 at 2100 2148 (Given - Provider: Chacorta Kapadia RN) Insulin Lispro (Humalog) injection 0-6 Units(Linked Group 2) 0-6 Units, SubCUTAneous, 3 times daily with meals, First dose on Tue11/08/24 at 0800, Low Dose Correction Algorithm Glucose: Dose: LESS than 150 No Insulin 150-199 1 Unit 200-249 2 Units 250-299 3 Units 300-349 4 Units 350-400 5 Units Above 400 6 Units 0800 (Not Given - Provider: Chloe Marie RN - Reason: NPO)1200 (Not Given - Provider: Chloe Marie RN - Reason: Order parameters not met)1700 (Canceled Entry - Provider: Automatic Discharge Provider - Comment: Automatically canceled at discontinue of medication order) Insulin Lispro (Humalog) injection 0-6 Units(Linked Group 2) 0-6 Units, SubCUTAneous, Nightly, First dose on Tue11/07/24 at 2100, If eating or bolus tube feeding: Low Dose Correction Algorithm Glucose: Dose: LESS than 150 No Insulin 150-199 1 Unit 200-249 2 Units 250-299 3 Units 300-349 4 Units 350-400 5 Units Above 400 6 Units 2100 (Not Given - Provider: Chacorta Kapadia RN - Reason: Order parameters not met) metoprolol tartrate (Lopressor) tablet 25 mg 25 mg, Oral, 2 times daily, First dose on Tue11/07/24 at 2100 2148 (Given - Provider: Chacorta Kapadia RN) 0854 (Given - Provider: Chloe Marie RN) potassium citrate CR (Urocit-K-10) ER tablet 10 mEq 10 mEq, Oral, 3 times daily with meals, First dose (after last modification) on Tue11/08/24 at 1200, Do not crush, chew, or split. 1200 (Not Given - Provider: Chloe Marie RN - Reason: Medication not available)1700 (Canceled Entry - Provider: Automatic Discharge Provider - Comment: Automatically canceled at discontinue of medication order) Continuous Medication Order 11/06/2024 11/07/2024 11/08/2024 dilTIAZem (Cardizem) infusion 125 mg in 0.9% sodium chloride 125 mL (premix) (CANCELED) 2.5-15 mg/hr (2.5-15 mL/hr), IntraVENous, Continuous, Starting on Tue11/07/24 at 1735, If Titrate Infusion? is No: Disregard instructions below. If Titrate infusion? is Yes: Titrate in increments of 2.5 mg/hr no more frequently than every 30 minutes to goal of therapy., Titrate Infusion? Yes, Initial Infusion Dose: 5 mg/hr, Goal of Therapy is: HR less than 100 bpm, Other: Start at 5mg/hr, HOLD for: SBP less than 90 mmHg 1739 (New Bag - Provider: Jaimie Lyman RN)185 (Rate/Dose Change - Provider: Jaimie Lyman RN)1927 (New Bag - Provider: Noemy Tejeda RN)1958 (Rate/Dose Verify - Provider: Chacorta Kapadia RN)1999 (Rate/Dose Change - Provider: Chacorta Kapadia RN) 14 (Rate/Dose Change - Provider: Chacorta Kapadia RN)0547 (New Bag - Provider: Chacorta Kapadia RN)1120 (Rate/Dose Change - Provider: Chloe Marie RN)1148 (Stopped - Provider: Chloe Marie RN) heparin 25,000 units in dextrose 5% 250mL infusion (premix) (CANCELED) 5-30 Units/kg/hr 104 kg (5.2-31.2 mL/hr), IntraVENous, Continuous, Starting on Tue11/07/24 at 1745, LOW Dose Heparin Weight Based Dosing (CAD/STEMI/NSTEMI/AFIB/ECM O) >>>>Initial dose: 9 units/kg/hr<<<< Subsequent dosing: aPTT < 30 Heparin Full re-bolus Increase infusion by 2 units/kg/hr - notify prescriber; aPTT 30-49.9 Heparin Half re-bolus Increase infusion by 1 unit/kg/hr; aPTT 50-70.9 No bolus No change; aPTT 71-95.9 Hold heparin for 60 min Decrease infusion by 1 unit/kg/hr; aPTT > 95.9 Hold heparin for 60 min Decrease infusion by 2 units/kg/hr - notify prescriber; Check aPTT: 6 hours after initiation and 6 hours after every dose change - every 12 hrs x 1 day after 2 consecutive therapeutic aPTT - daily after every 12 hrs x 1 day is complete. 183 (New Bag - Provider: Jaimie Lyman RN)1999 (Rate/Dose Verify - Provider: Chacorta Kapadia RN) 0122 (Rate/Dose Change - Provider: Chacorta Kapadia RN)0715 (Stopped - Provider: Chloe Marie RN - Comment: not running at start of shift) PRN Medication Order 11/06/2024 11/07/2024 11/08/2024 heparin injection 2,000 Units (CANCELED) 2,000 Units, IntraVENous, As needed, heparin dosing algorithm, Starting on Tue11/07/24 at 1743, Half dose re-bolus based on pharmacy algorithm 0120 (Given - Provid er: Chacorta Kapadia RN) perflutren protein A microsphere (Optison) 3 mL in sodium chloride (PF) 0.9 % 10 mL IV syringe (COMPLETED) 0-10 mL, IntraVENous, IMG once PRN, other, Suboptimal echo image, Starting on Phyllis 11/08/24 at 0711, For 1 dose, CV Procedural Medications, Administer via slow IVP for suboptimal echocardiogram enhancement. May administer as divided doses to reach optimal image enhancement 0950 (Given - Provid er: Chloe Marie RN) Propofol (Diprivan) injection (COMPLETED) IntraVENous, Code/trauma/sedation medication, Starting on Phyllis 11/08/24 at 1140 1133 (Given - Provid er: Vamsi Castillo MD)1134 (Given - Provider: Vamsi Castillo MD)1135 (Given - Provider: Vamsi Castillo MD)1139 (Given - Provider: Vamsi Castillo MD)1140 (Given - Provider: Vamsi Castillo MD)1141 (Given - Provider: Vamsi Castillo MD)1143 (Given - Provider: Vamsi Castillo MD)1145 (Given - Provider: Vamsi Castillo MD) No Frequency Medication Order 11/06/2024 11/07/2024 11/08/2024 Propofol (Diprivan) 200 MG/20ML injection - Pyxis ADS Override Pull (COMPLETED) Starting on Phyllis 11/08/24 at 1142, For 1 dose, Chloe Marie: cabinet override General Anesthetic - do not give without appropriate ventilation support. 1145 (Given by Other - Provider: Chloe Marie RN - Reason: Administered by Other (Comment Required) - Comment: given by Dr. Vamsi Reno, see sedation narrator) Linked Groups Order Group 1: ezetimibe (Zetia) tablet 10 mgJump to med 10 mg, Oral, Nightly, First dose on Tue11/07/24 at 2100 And atorvastatin (Lipitor) tablet 20 mgJump to med 20 mg, Oral, Nightly, First dose on Tue11/07/24 at 2100, Substituted for simvastatin (Zocor). Group 2: Insulin Lispro (Humalog) injection 0-6 UnitsJump to med 0-6 Units, SubCUTAneous, 3 times daily with meals, First dose on Phyllis 11/08/24 at 0800, Low Dose Correction Algorithm Glucose: Dose: LESS than 150 No Insulin 150-199 1 Unit 200-249 2 Units 250-299 3 Units 300-349 4 Units 350-400 5 Units Above 400 6 Units And Insulin Lispro (Humalog) injection 0-6 UnitsJump to med 0-6 Units, SubCUTAneous, Nightly, First dose on Tue11/07/24 at 2100, If eating or bolus tube feeding: Low Dose Correction Algorithm Glucose: Dose: LESS than 150 No Insulin 150-199 1 Unit 200-249 2 Units 250-299 3 Units 300-349 4 Units 350-400 5 Units Above 400 6 Units Care Teams (unrecognized sec tion and content) Food Service Cashier Relationship Specialty Start Date End Date Charmaine Rios MD [address] [place] [address] [phone] PCP - General Family Medicine 09/16/20 Food Service Cashier Relationship Specialty Start Date End Date Charmaine Rios MD [address] [place] [address] [phone] PCP - General Family Medicine 09/16/20 Team Status: Active Member Role Status Dates Dr. Charmaine Rios MD Primary Care Provider Active Team Status: Inactive Member Role Status Dates Karyn Paige JET ENGINE MECHANIC, JET ENGINE MECHANIC-C Attending Provider Active Team Status: Inactive Member Role Status Dates Karyn Paige JET ENGINE MECHANIC, JET ENGINE MECHANIC-C Attending Provider Active Dr. Charmaine Rios MD Primary Care Provider Active Team Status: Inactive Member Role Status Dates Karyn Paige JET ENGINE MECHANIC, JET ENGINE MECHANIC-C Attending Provider, [facility] Active Dr. Charmaine Rios MD Primary Care Provider Active Food Service Cashier Relationship Specialty Start Date End Date Charmaine Rios MD [address] [place] [phone] PCP - General Family Medicine 09/02/22 Baljit Hood MD [address] [phone] Surgeon Urology 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 Start Date End Date Charmaine Rios MD [address] [place] [phone] PCP - General Family Medicine 09/02/22 Baljit Hood MD [address] [place] [address] Surgeon Urology 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 Start Date End Date Charmaine Rios MD [address] [place] [address] PCP - General Family Medicine 09/02/22 Baljit Hood MD [address] [place] [address] Surgeon Urology 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 Start Date End Date Charmaine Rios MD [address] [place] [address] PCP - General Family Medicine 09/02/22 Baljit Hood MD [address] [place] [address] Surgeon Urology 10/13/22 Team Status: Inactive Member Role Status Dates Dr. Charmaine Rios MD Primary Care Provider Active Karyn Paige NP, JET ENGINE MECHANIC-C Attending Provider Active Food Service Cashier Relationship Specialty Start Date End Date Charmaine Rios MD [address] [place] [address] PCP - General Family Medicine 09/02/22 Baljit Hood MD [address] [place] [address] Surgeon Urology 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 Start Date End Date Charmaine Rios MD [address] [place] [address] PCP - General Family Medicine 09/02/22 Baljit Hood MD [address] [place] [address] Surgeon Urology 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 Start Date End Date Charmaine Rios MD [address] [place] [phone] PCP - General Family Medicine 09/02/22 Baljit Hood MD [address] [place] [address] Surgeon Urology 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 Start Date End Date Charmaine Rios MD [address] [place] [address] PCP - General Family Medicine 09/02/22 Baljit Hood MD [address] [place] [address] Surgeon Urology 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 Start Date End Date Charmaine Rios MD [address] [place] [phone] PCP - General Family Medicine 09/02/22 Baljit Hood MD [address] [place] [address] Surgeon Urology 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 Start Date End Date Charmaine Rios MD [address] [place] [phone] PCP - General Family Medicine 09/02/22 Baljit Hood MD [address] [place] [address] Surgeon Urology 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 Start Date End Date Charmaine Rios MD [address] [place] [address] PCP - General Family Medicine 09/02/22 Baljit Hood MD [address] [place] [address] Surgeon Urology 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 Start Date End Date Charmaine Rios MD [address] [place] [address] PCP - General Family Medicine 09/02/22 Baljit Hood MD [address] [place] [address] Surgeon Urology 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 Start Date End Date Charmaine Rios MD [address] [place] [phone] PCP - General Family Medicine 09/02/22 Baljit Hood MD [address] [place] [address] Surgeon Urology 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 Start Date End Date Charmaine Rios MD [address] [place] [address] PCP - General Family Medicine 09/02/22 Baljit Hood MD [address] [place] [address] Surgeon Urology 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 Start Date End Date Charmaine Rios MD [address] [place] [address] PCP - General Family Medicine 09/02/22 Baljit Hood MD [address] [place] [address] Surgeon Urology 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 Start Date End Date Charmaine Rios MD [address] [phone] PCP - General Family Medicine 09/02/22 Baljit Hood MD [address] [place] [address] Surgeon Urology 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 Start Date End Date Charmaine Rios MD [address] [place] [address] PCP - General Family Medicine 09/02/22 Baljit Hood MD [address] [place] [address] Surgeon Urology 10/13/22 Team Status: Inactive Member Role Status Dates Dr. Charmaine Rios MD Primary Care Provider, Refer ring Provider Active Karyn Paige JET ENGINE MECHANIC, JET ENGINE MECHANIC-C Attending Provider Active Team Status: Inactive Member Role Status Dates Dr. Charmaine Rios MD Primary Care Provider Active Karyn Paige JET ENGINE MECHANIC, JET ENGINE MECHANIC-C Attending Provider, Nick patino Provider Active Food Service Cashier Relationship Specialty Start Date End Date Charmaine Rios MD [address] [place] [phone] PCP - General Family Medicine 09/02/22 Baljit Hood MD [address] [place] [address] Surgeon Urology 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 Start Date End Date Charmaine Rios MD [address] [place] [address] PCP - General Family Medicine 06/18/21 Food Service Cashier Relationship Specialty Start Date End Date Charmaine Rios MD [address] [place] [address] PCP - General Family Medicine 06/18/21 Food Service Cashier Relationship Specialty Start Date End Date Charmaine Rios MD [address] [place] [address] PCP - General Family Medicine 06/18/21 Food Service Cashier Relationship Specialty Start Date End Date Charmaine Rios MD [address] [place] [phone] PCP - General Family Medicine 09/02/22 Baljit Hood MD [address] [place] [address] Surgeon Urology 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 Start Date End Date Charmaine Rios MD [address] [place] [phone] PCP - General Family Medicine 09/02/22 Baljit Hood MD [address] [place] [address] Surgeon Urology 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 Start Date End Date Charmaine Rios MD [address] [place] [address] PCP - General Family Medicine 09/02/22 Baljit Hood MD [address] [place] [address] Surgeon Urology 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 Start Date End Date Charmaine Rios MD [address] [place] [address] PCP - General Family Medicine 09/02/22 Baljit Hood MD [address] [place] [address] Surgeon Urology 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 Start Date End Date Charmaine Rios MD [address] [place] [address] PCP - General Family Medicine 09/02/22 Baljit Hood MD [address] [place] [address] Surgeon Urology 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 Start Date End Date Charmaine Rios MD [address] [place] [phone] PCP - General Family Medicine 09/02/22 Baljit Hood MD [address] [place] [address] Surgeon Urology 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 Start Date End Date Charmaine Rios MD [address] [place] [phone] PCP - General Family Medicine 09/02/22 Charmaine Rios MD [address] [place] [address] PCP - General 09/16/20 09/01/22 Baljit Hood MD [address] [place] [address] Surgeon Urology 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 Start Date End Date Charmaine Rios MD [address] [place] [address] PCP - General Family Medicine 09/02/22 Baljit Hood MD [address] [place] [address] Surgeon Urology 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 Start Date End Date Charmaine Rios MD [address] [place] [address] PCP - General Family Medicine 09/02/22 Baljit Hood MD [address] [place] [address] Surgeon Urology 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 Start Date End Date Charmaine Rios MD [address] [place] [phone] PCP - General Family Medicine 09/02/22 Baljit Hood MD [address] [place] [address] Surgeon Urology 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 Start Date End Date Charmaine Rios MD [facility] [address] [place] [phone] PCP - General Family Medicine 09/02/22 Baljit Hood MD [address] [place] [address] Surgeon Urology 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 Start Date End Date Charmaine Rios MD [facility] [address] [place] [address] PCP - General Family Medicine 09/02/22 Baljit Hood MD [address] [place] [address] Surgeon Urology 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 Start Date End Date Charmaine Rios MD [facility] [address] [place] [address] PCP - General Family Medicine 09/02/22 Baljit Hood MD [address] [place] [address] Surgeon Urology 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 Start Date End Date Charmaine Rios MD 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 Start Date End Date Charmaine Rios MD [address] [place] [address] PCP - General Family Medicine 09/02/22 Baljit Hood MD [address] [place] [address] Surgeon Urology 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 Start Date End Date Charmaine Rios MD [address] [place] [address] PCP - General Family Medicine 09/02/22 Baljit Hood MD [address] [place] [address] Surgeon Urology 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 Start Date End Date Charmaine Rios MD [address] [place] [address] PCP - General Family Medicine 09/02/22 Baljit oHod MD [address] [place] [address] Surgeon Urology 10/13/22 (unrecognized sect ion and content) No Status Records FoundNo Status Records FoundNo Status Records FoundNo Status Records FoundNo Status Records FoundNo Status Records Found INFORMATION SOURCE (unrecogn ized section and content) DATE CREATED AUTHOR 03/28/2022 [facility] DATE CREATED AUTHOR AUTHOR'S ORGANIZ ATION 08/20/2022 [facility] DATE CREATED AUTHOR AUTHOR'S ORGANIZ ATION 09/28/2024 [facility] DATE CREATED AUTHOR AUTHOR'S ORGANIZ ATION 11/15/2024 [facility] DATE CREATED AUTHOR AUTHOR'S ORGANIZ ATION 04/10/2025 [facility] DATE CREATED AUTHOR AUTHOR'S ORGANIZ ATION 04/17/2025 [facility] Goals (unrecognized section and content) Goals may be documented in a n alternate sectionGoals may be documented in an alternate sectionGoals may be documented in an alternate sectionGoals may be documented in an alternate section Reason for Visit (unrecogniz ed section and content) Specialty Diagnoses / Procedures Referred By Contac t Referred To Contact Radiology Diagnoses Gross hematuria Procedures MR pelvis w and wo contrast Jaimie Noonan APRN - NP [address] [place] [address] [facility] [address] [facility] [address] [place] [address] Referral ID Status Reason Start Date Expiration Date Visits Re quested Visits Authorized [id number] Closed 01/24/2023 07/23/2023 1 1 Reason Onset Date Comments Cardiac Clearance 03/02/2023 Reason Comments Follow-up PVI 11/2022 Specialty Diagnoses / Procedures Referred By Contac t Referred To Contact Radiology Diagnoses Gross hematuria Procedures CT abdomen pelvis w and wo IV contrast Baljit Hood MD [address] [place] [address] Referral ID Status Reason Start Date Expiration Date Visits Re quested Visits Authorized [id number] Closed 04/26/2023 05/25/2023 1 1 Reason Onset Date Comments Appointment Request 06/24/2023 Reschedule o ffice cystoscopy Reason Comments Other Cystoscopy, Pt state s that gross hematuria waxes and wanes last seen approx 2 weeks ago - hx gross hematuria Reason Onset Date Comments Surgery Scheduling 08/09/2023 Specialty Diagnoses / Procedures Referred By Katie gonsales Referred To Contact Diagnoses Benign prostatic hyperplasia with lower urinary tract symptoms Other obstructive and reflux uropathy Benign prostatic hyperplasia with lower urinary tract symptoms [N40.1] Other obstructive and reflux uropathy [N13.8] Procedures GA CYSTOURETHROSCOPY GA TRANSURETHRAL WATERJET ABLATION PROSTATE COMPL CYSTOSCOPY, AQUABLATION TRANSURETHRAL WATERJET ABLATION OF PROSTATE Baljit Hood MD [address] [address] [facility] [address] [facility] [place] [address] Referral ID Status Reason Start Date Expiration Date Visits Re quested Visits Authorized [id number] 1 1 Reason Comments Other Follow up post Aquab lation 09/08/23, Pt states they are well no urologic concerns - hx gross hematuria Reason Comments Follow-up Reason Comments Cough I have had it for ov er 2 weeks now...Chest cold - Entered by patient has used otc Mucinex Reason Comments Results Reason Comments Elevated PSA Psa - pt denies issu es, pain, distress or discomfort currently Reason Onset Date Comments Appointment Request 11/18/2022 Reason Comments Atrial Fibrillation Reason Comments New Patient Specialty Diagnoses / Procedures Referred By Katie gonsales Referred To Contact Diagnoses Persistent atrial fibrillation (HCC) Persistent atrial fibrillation (HCC) [I48.19] Procedures GA COMPRE EP EVAL ABLTJ ATR FIB PULM VEIN ISOLATION Ablation atrial fibrillation Sorensen, Meet [address] [facility] [address] [place] [address] [facility] [address] [place] [phone] Referral ID Status Reason Start Date Expiration Date Visits Re quested Visits Authorized [id number] 1 1 Reason Comments Elevated PSA Reason Comments Med Refill Reason Onset Date Comments Discuss Labs 12/24/2022 Reason Onset Date Comments low heart rate 12/13/2022 Reason Comments 1 Month Follow Up S/p PVI ablation Reason Onset Date Comments Appointment Request 09/13/2024 Reason Comments Atrial Fibrillation Pt coming from [facility] by EMS transfer. Pt was a fib RVR- pt given Cardizem drip at 7.[address] Pt denies CP, SOB or any other symptoms at this time. Pt is A&Ox4 during triage. Specialty Diagnoses / Procedures Referred By Contac t Referred To Contact Diagnoses Atrial fibrillation with RVR (HCC) Afib with RVR Procedures . Aguilar Parsons MD [address] [facility] [address] [place] [address] Phone: tel: fax: [facility] Cardiac Thoracic Vascular Intensive Care Unit CTV ICU T1 [address] [place] [address] Phone: tel: Referral ID Status Reason Start Date Expiration Date Visits Re quested Visits Authorized [id number] 1 1 Reason Comments Atrial Fibrillation PAF 11-30-22 PVI Sleep Apnea Not using C-PAP Hyperlipidemia Reason Onset Date Comments Med Refill 12/05/2024 Reason Comments Atrial Fibrillation PAF 11-30-22 PVI Sleep Apnea Hyperlipidemia Source Comments (unrecognize d section and content) In the event this informatio n is protected by the Federal Confidentiality of Alcohol and Drug Abuse Patient Records regulations: The Federal rules restrict any use of the information to criminally investigate or prosecute any alcohol or drug abuse patient.[facility] Center[facility] the event this information is protected by the Federal Confidentiality of Alcohol and Drug Abuse Patient Records regulations: The Federal rules restrict any use of the information to criminally investigate or prosecute any alcohol or drug abuse patient.[facility] Center[facility] the event this information is protected by the Federal Confidentiality of Alcohol and Drug Abuse Patient Records regulations: The Federal rules restrict any use of the information to criminally investigate or prosecute any alcohol or drug abuse patient.[facility] FOR RECORDS PERTAINING TO PATIENTS WHO ARE OR HAVE BEEN ENROLLED IN A CHEMICAL DEPENDENCY/SUBSTANCEABUSE PROGRAM, SOME INFORMATION MAY BE OMITTED. This clinical summary was aggregated from multiple sources. Caution should be exercised in using it in the provision of clinical care. This summary normalizes information from multiple sources, and as a consequence, information in this document may materially change the coding, format and clinical context of patient data. In addition, data may be omitted in some cases. CLINICAL DECISIONS SHOULD BE BASED ON THE PRIMARY CLINICAL RECORDS. [facility] [employer] [facility]. provides no warranty or guarantee of the accuracy or completeness of information in this document.
== END | disposition home or self-care (01) ==
PROVIDERS: PCP Family Medicine; Referring Provider Nurse Practitioner Acute Care; Visit Provider Nurse Practitioner Acute Care
DX: F17.210 Nicotine dependence, cigarettes, uncomplicated (principal)
CPT/HCPCS: 71271